=== PATIENT | female | born 1945 | race Caucasian/White ===

== ENCOUNTER → 2016-03-09 | Outpatient (CLI) | payer OTHER ==
[~2016-03-09] MED LIST: ATOR-54 PO; CMD25 PO; CMD5 PO; FRS/40 PO; GABA-112 PO; GLC500 PO; GLIP10TA3 PO; LEVO25TA5 PO; METO25TA56 PO; OXYB10TA PO; POTA10CA28 PO
--- NOTE | 2016-03-09 09:10 | DIAGNOSTIC IMAGING REPORT ---
LUMBAR SPINE MRI HISTORY: RIGHT LUMBAR RADICULOPATHY TECHNIQUE: Multiplanar multisequence MRI of the lumbar spine was performed without the use of contrast. COMPARISON: None. FINDINGS: For the purpose of the report the L5-S1 disc space will be located on axial image 23 of 25. There is 3 mm of anterolisthesis of L4-L5. Remaining vertebral bodies are maintained. Mild anterior wedging within the T12 vertebral body. This could be developmental or due to an old compression deformity. No acute fracture within the lumbar spine. Endplate osteophytes seen throughout the lumbar spine. Severe facet degenerative changes at L4-5 with a small amount of fluid within the facets. Moderate facet degenerative changes at L3-L4 and L5-S1. The conus terminates at the L1-L2 disc space level. The visualized paraspinal soft tissues are unremarkable. L1-L2: Small broad-based posterior disc bulge without central canal or neural foraminal narrowing. L2-L3: Small broad-based posterior disc bulge without central canal or neural foraminal narrowing. L3-L4: Small broad-based posterior disc bulge asymmetric to the left. In conjunction with the ligamentum and facet hypertrophy this results in mild to moderate central canal and moderate left neural foraminal narrowing. L4-L5: Broad-based posterior disc bulge asymmetric to the left. In conjunction with the ligamentum and facet hypertrophy this results in severe central canal narrowing. There is moderate left and mild right neural foraminal narrowing. The central canal measures an AP diameter of 4 mm. L5-S1: Tiny focal central disc protrusion without significant central canal or right-sided neural foraminal narrowing present also a small left foraminal focal disc protrusion resulting in moderate left neural foraminal narrowing. This likely abuts the exiting left L5 nerve root. IMPRESSION: 1. Severe central canal narrowing at L4-L5 due to a broad-based posterior disc bulge and ligamentum and facet hypertrophy. 2. Tiny focal central disc protrusion at L5-S1 without significant central canal narrowing. There is also a small left foraminal focal disc protrusion at L5-S1 which results in moderate left-sided neural foraminal narrowing. This likely abuts the exiting left L5 nerve root. 3. Bilateral neural foraminal narrowing as described above. 4. Grade I anterolisthesis at L4-L5. 5. Mild anterior wedging within the T12 vertebral body. This could be developmental or due to an old compression deformity. No acute fractures identified within the lumbar spine. Electronically signed by: Chino Worthy M.D. 03/09/2016 9:08 AM Dictated Date/Time: 03/09/2016 8:56 AM
== END | disposition home or self-care (01) ==
LOC: C.MRI 07:51
PROVIDERS: ATTEND Internal Medicine
DX: M54.16 Radiculopathy, lumbar region (principal); M48.06 Spinal stenosis, lumbar region; M51.27 Other intervertebral disc displacement, lumbosacral region; M43.16 Spondylolisthesis, lumbar region

== ENCOUNTER → 2016-03-18 | Outpatient (CLI) | payer OTHER ==
[2016-03-18 13:41] LABS: INR 3.2 (0.9-1.1); PROTHROMBIN TIME (PATIENT) 36.1 SECONDS (9.0-12.0)
== END | disposition home or self-care (01) ==
LOC: C.LABSPEC 12:37
PROVIDERS: ATTEND Internal Medicine
DX: I26.99 Other pulmonary embolism without acute cor pulmonale (principal); Z79.01 Long term (current) use of anticoagulants

== ENCOUNTER → 2016-03-30 | Outpatient (CLI) | payer OTHER ==
[2016-03-30 14:02] LABS: INR 1.9 (0.9-1.1); PROTHROMBIN TIME (PATIENT) 21.4 SECONDS (9.0-12.0)
== END | disposition home or self-care (01) ==
LOC: C.LABSPEC 12:24
PROVIDERS: ATTEND Internal Medicine
DX: I26.99 Other pulmonary embolism without acute cor pulmonale (principal); Z79.01 Long term (current) use of anticoagulants

== ENCOUNTER → 2016-04-16 | Outpatient (CLI) | payer OTHER ==
[2016-04-16 13:05] LABS: INR 2.4 (0.9-1.1); PROTHROMBIN TIME (PATIENT) 26.1 SECONDS (9.0-12.0)
== END | disposition home or self-care (01) ==
LOC: C.LABSPEC 12:23
PROVIDERS: ATTEND Internal Medicine
DX: I26.99 Other pulmonary embolism without acute cor pulmonale (principal); Z51.81 Encounter for therapeutic drug level monitoring; Z79.01 Long term (current) use of anticoagulants

== ENCOUNTER → 2016-04-23 | Outpatient (CLI) | payer OTHER ==
[2016-04-23 13:05] LABS: ALT/SGPT 23 U/L (12-78); AST/SGOT 12 U/L (15-37); BLOOD UREA NITROGEN 26 mg/dl (7-18); BUN/CREATININE RATIO 23.6 (10-20); CALCIUM 8.8 mg/dl (8.5-10.1); CARBON DIOXIDE 23 mmol/L (21-32); CHLORIDE 105 mmol/L (98-107); CHOLESTEROL 136 mg/dl (0-200); GLUCOSE 151 mg/dl (70-99); POTASSIUM 4.2 mmol/L (3.5-5.1); SODIUM 139 mmol/L (136-145); TRIGLYCERIDES 155 mg/dl (0-150); VERY LOW DENSITY LIPOPROT CALC 31 mg/dl
[2016-04-23 13:11] LABS: ALKALINE PHOSPHATASE 80 U/L (45-117); CHOLESTEROL/HDL RATIO 3.7; HDL CHOLESTEROL 37 mg/dl
[2016-04-23 13:29] LABS: ESTIMATED AVERAGE GLUCOSE 169 mg/dl; HA1C FLAG Normal (Normal)
== END | disposition home or self-care (01) ==
LOC: C.LABSPEC 12:21
PROVIDERS: ATTEND Internal Medicine
DX: E03.9 Hypothyroidism, unspecified (principal); I10 Essential (primary) hypertension; E11.9 Type 2 diabetes mellitus without complications; E78.5 Hyperlipidemia, unspecified

== ENCOUNTER → 2016-05-22 | Outpatient (CLI) | payer OTHER ==
[2016-05-22 18:12] LABS: INR 2.6 (0.9-1.1); PROTHROMBIN TIME (PATIENT) 29.4 SECONDS (9.0-12.0)
== END | disposition home or self-care (01) ==
LOC: C.LABSPEC 17:22
PROVIDERS: ATTEND Internal Medicine
DX: I26.99 Other pulmonary embolism without acute cor pulmonale (principal); Z79.01 Long term (current) use of anticoagulants

== ENCOUNTER → 2016-06-17 | Outpatient (CLI) | payer OTHER ==
[2016-06-17 19:41] LABS: INR 2.4 (0.9-1.1); PROTHROMBIN TIME (PATIENT) 26.6 SECONDS (9.0-12.0)
== END | disposition home or self-care (01) ==
LOC: C.LABSPEC 09:58
PROVIDERS: ATTEND Internal Medicine
DX: I26.99 Other pulmonary embolism without acute cor pulmonale (principal); Z79.01 Long term (current) use of anticoagulants

== ENCOUNTER → 2016-06-25 | Outpatient (CLI) | payer OTHER ==
[2016-06-25 15:43] LABS: PROTHROMBIN TIME (PATIENT) 10.6 SECONDS (9.0-12.0)
== END | disposition home or self-care (01) ==
LOC: C.LABSPEC 15:00
PROVIDERS: ATTEND Internal Medicine
DX: I26.99 Other pulmonary embolism without acute cor pulmonale (principal); Z86.718 Personal history of other venous thrombosis and embolism; Z79.01 Long term (current) use of anticoagulants

== ENCOUNTER → 2016-06-29 | Outpatient (CLI) | payer OTHER ==
[2016-06-29 13:17] LABS: INR 1.3 (0.9-1.1); PROTHROMBIN TIME (PATIENT) 13.5 SECONDS (9.0-12.0)
== END | disposition home or self-care (01) ==
LOC: C.LABSPEC 12:08
PROVIDERS: ATTEND Internal Medicine
DX: I26.99 Other pulmonary embolism without acute cor pulmonale (principal); Z79.01 Long term (current) use of anticoagulants

== ENCOUNTER → 2016-07-08 | Outpatient (CLI) | payer OTHER ==
[2016-07-08 15:49] LABS: PROTHROMBIN TIME (PATIENT) 42.3 SECONDS (9.0-12.0)
[2016-07-08 16:26] LABS: INR 3.7 (0.9-1.1)
== END | disposition home or self-care (01) ==
LOC: C.LABSPEC 15:16
PROVIDERS: ATTEND Internal Medicine
DX: I26.99 Other pulmonary embolism without acute cor pulmonale (principal); Z79.01 Long term (current) use of anticoagulants

== ENCOUNTER → 2016-07-22 | Outpatient (CLI) | payer OTHER ==
[2016-07-22 15:32] LABS: PROTHROMBIN TIME (PATIENT) 41.3 SECONDS (9.0-12.0)
[2016-07-22 15:34] LABS: INR 3.7 (0.9-1.1)
== END | disposition home or self-care (01) ==
LOC: C.LABSPEC 14:53
PROVIDERS: ATTEND Internal Medicine
DX: I26.99 Other pulmonary embolism without acute cor pulmonale (principal); Z79.01 Long term (current) use of anticoagulants

== ENCOUNTER → 2016-08-05 | Outpatient (CLI) | payer OTHER ==
[2016-08-05 13:24] LABS: INR 1.8 (0.9-1.1); PROTHROMBIN TIME (PATIENT) 19.3 SECONDS (9.0-12.0)
== END | disposition home or self-care (01) ==
LOC: C.LABSPEC 12:18
PROVIDERS: ATTEND Internal Medicine
DX: I26.99 Other pulmonary embolism without acute cor pulmonale (principal); Z79.01 Long term (current) use of anticoagulants

== ENCOUNTER → 2016-08-20 | Outpatient (CLI) | payer OTHER ==
[2016-08-20 12:47] LABS: BASO % 0.4 %; BASO ABS # 0.03 K/uL (0-0.2); COMPLETE YES; EOS % 2.3 %; HEMATOCRIT 38.6 % (37-47); IG% 0.1 %; LYMPH % 20.9 %; LYMPH ABS # 1.44 K/uL (1.2-3.4); MEAN CELL VOLUME 93.2 fL (80-100); MEAN CORPUSCULAR HEMOGLOBIN 30.7 pg (25-34); MEAN CORPUSCULAR HGB CONC 32.9 g/dl (32-36); MEAN PLATELET VOLUME 10.6 fL (7.4-10.4); NEUT % 68.3 %; PLATELET COUNT 254 K/uL (130-400); RED BLOOD COUNT 4.14 M/uL (4.2-5.4); WHITE BLOOD COUNT 6.89 K/uL (4.8-10.8)
[2016-08-20 12:58] LABS: ESTIMATED AVERAGE GLUCOSE 146 mg/dl; HA1C FLAG Normal (Normal)
[2016-08-20 13:00] LABS: INR 3.2 (0.9-1.1); PROTHROMBIN TIME (PATIENT) 36.5 SECONDS (9.0-12.0)
[2016-08-20 13:36] LABS: ALT/SGPT 21 U/L (12-78); AST/SGOT 14 U/L (15-37); BLOOD UREA NITROGEN 19 mg/dl (7-18); BUN/CREATININE RATIO 15.8 (10-20); CALCIUM 9.3 mg/dl (8.5-10.1); CARBON DIOXIDE 27 mmol/L (21-32); CHLORIDE 105 mmol/L (98-107); CHOLESTEROL 110 mg/dl (0-200); GLUCOSE 140 mg/dl (70-99); POTASSIUM 4.1 mmol/L (3.5-5.1); SODIUM 139 mmol/L (136-145); TRIGLYCERIDES 123 mg/dl (0-150); VERY LOW DENSITY LIPOPROT CALC 25 mg/dl
[2016-08-20 13:49] LABS: ALB/GLOB RATIO 1.1 (0.9-2); ALKALINE PHOSPHATASE 79 U/L (45-117); CHOLESTEROL/HDL RATIO 3.1; HDL CHOLESTEROL 35 mg/dl
== END | disposition home or self-care (01) ==
LOC: C.LABSPEC 09:45
PROVIDERS: ATTEND Internal Medicine
DX: I10 Essential (primary) hypertension (principal); E78.5 Hyperlipidemia, unspecified; E11.9 Type 2 diabetes mellitus without complications; E03.9 Hypothyroidism, unspecified; Z79.01 Long term (current) use of anticoagulants; Z86.711 Personal history of pulmonary embolism; Z86.718 Personal history of other venous thrombosis and embolism

== ENCOUNTER → 2016-09-14 | Outpatient (CLI) | payer OTHER ==
[2016-09-14 13:58] LABS: INR 1.9 (0.9-1.1); PROTHROMBIN TIME (PATIENT) 20.9 SECONDS (9.0-12.0)
== END | disposition home or self-care (01) ==
LOC: C.LABSPEC 12:22
PROVIDERS: ATTEND Internal Medicine
DX: I26.99 Other pulmonary embolism without acute cor pulmonale (principal); Z51.81 Encounter for therapeutic drug level monitoring; Z79.01 Long term (current) use of anticoagulants

== ENCOUNTER → 2016-10-15 | Outpatient (CLI) | payer OTHER ==
[2016-10-15 13:11] LABS: INR 3.3 (0.9-1.1); PROTHROMBIN TIME (PATIENT) 36.8 SECONDS (9.0-12.0)
== END | disposition home or self-care (01) ==
LOC: C.LABSPEC 12:14
PROVIDERS: ATTEND Internal Medicine
DX: I26.99 Other pulmonary embolism without acute cor pulmonale (principal); Z79.01 Long term (current) use of anticoagulants

== ENCOUNTER → 2016-10-26 | Outpatient (CLI) | payer OTHER ==
[2016-10-26 13:33] LABS: INR 2.2 (0.9-1.1); PROTHROMBIN TIME (PATIENT) 24.1 SECONDS (9.0-12.0)
== END | disposition home or self-care (01) ==
LOC: C.LABSPEC 12:48
PROVIDERS: ATTEND Internal Medicine
DX: I26.99 Other pulmonary embolism without acute cor pulmonale (principal); Z79.01 Long term (current) use of anticoagulants

== ENCOUNTER → 2016-11-25 | Outpatient (CLI) | payer OTHER ==
[2016-11-25 18:34] LABS: INR 1.9 (0.9-1.1); PROTHROMBIN TIME (PATIENT) 20.9 SECONDS (9.0-12.0)
== END | disposition home or self-care (01) ==
LOC: C.LABSPEC 10:16
PROVIDERS: ATTEND Internal Medicine
DX: I26.99 Other pulmonary embolism without acute cor pulmonale (principal); Z79.01 Long term (current) use of anticoagulants

== ENCOUNTER → 2016-12-28 | Outpatient (CLI) | payer OTHER ==
[2016-12-28 13:15] LABS: BASO % 0.3 %; BASO ABS # 0.02 K/uL (0-0.2); COMPLETE YES; EOS % 3.6 %; HEMATOCRIT 35.5 % (37-47); IG% 0.2 %; LYMPH % 24.9 %; LYMPH ABS # 1.66 K/uL (1.2-3.4); MEAN CELL VOLUME 93.7 fL (80-100); MEAN CORPUSCULAR HEMOGLOBIN 30.9 pg (25-34); MEAN PLATELET VOLUME 10.1 fL (7.4-10.4); MONO % 6.5 %; NEUT % 64.5 %; PLATELET COUNT 261 K/uL (130-400); RED BLOOD COUNT 3.79 M/uL (4.2-5.4); WHITE BLOOD COUNT 6.66 K/uL (4.8-10.8)
[2016-12-28 13:19] LABS: INR 1.1 (0.9-1.1); PROTHROMBIN TIME (PATIENT) 11.9 SECONDS (9.0-12.0)
[2016-12-28 13:40] LABS: ALT/SGPT 21 U/L (12-78); AST/SGOT 15 U/L (15-37); BLOOD UREA NITROGEN 35 mg/dl (7-18); BUN/CREATININE RATIO 24.3 (10-20); CALCIUM 9.3 mg/dl (8.5-10.1); CARBON DIOXIDE 30 mmol/L (21-32); CHLORIDE 102 mmol/L (98-107); CHOLESTEROL 107 mg/dl (0-200); CREATININE 1.43 mg/dl (0.60-1.20); GLUCOSE 120 mg/dl (70-99); POTASSIUM 4.6 mmol/L (3.5-5.1); SODIUM 140 mmol/L (136-145); TRIGLYCERIDES 131 mg/dl (0-150); VERY LOW DENSITY LIPOPROT CALC 26 mg/dl
[2016-12-28 13:48] LABS: ALKALINE PHOSPHATASE 80 U/L (45-117); CHOLESTEROL/HDL RATIO 2.8; HDL CHOLESTEROL 38 mg/dl
[2016-12-28 13:55] LABS: CREATININE RANDOM URINE 57.3 mg/dl; ESTIMATED AVERAGE GLUCOSE 140 mg/dl; HA1C FLAG Normal (Normal)
== END | disposition home or self-care (01) ==
LOC: C.LABSPEC 12:07
PROVIDERS: ATTEND Internal Medicine
DX: E11.9 Type 2 diabetes mellitus without complications (principal); E78.5 Hyperlipidemia, unspecified; I10 Essential (primary) hypertension; M19.90 Unspecified osteoarthritis, unspecified site; I26.99 Other pulmonary embolism without acute cor pulmonale; E03.9 Hypothyroidism, unspecified

== ENCOUNTER → 2017-01-13 | Outpatient (CLI) | payer OTHER ==
[2017-01-13 13:02] LABS: INR 3.2 (0.9-1.1); PROTHROMBIN TIME (PATIENT) 35.4 SECONDS (9.0-12.0)
== END | disposition home or self-care (01) ==
LOC: C.LABSPEC 12:02
PROVIDERS: ATTEND Internal Medicine
DX: I26.99 Other pulmonary embolism without acute cor pulmonale (principal); Z79.01 Long term (current) use of anticoagulants

== ENCOUNTER → 2017-01-27 | Outpatient (CLI) | payer OTHER ==
[2017-01-27 12:58] LABS: INR 2.5 (0.9-1.1); PROTHROMBIN TIME (PATIENT) 25.4 SECONDS (9.0-12.0)
== END | disposition home or self-care (01) ==
LOC: C.LABSPEC 12:22
PROVIDERS: ATTEND Internal Medicine
DX: Z51.81 Encounter for therapeutic drug level monitoring (principal); I26.99 Other pulmonary embolism without acute cor pulmonale; Z79.01 Long term (current) use of anticoagulants

== ENCOUNTER → 2017-02-17 | Outpatient (CLI) | payer OTHER ==
--- NOTE | 2017-02-17 14:59 | MAMMOGRAPHY REPORT ---
BILATERAL DIGITAL SCREENING MAMMOGRAM TOMOSYNTHESIS WITH CAD: 02/17/2017 CLINICAL HISTORY: Routine screening. Patient has no complaints. TECHNIQUE: Breast tomosynthesis in addition to standard 2D mammography was performed. Current study was also evaluated with a Computer Aided Detection (CAD) system. COMPARISON: Comparison is made to exams dated: 12/14/2014 mammogram, 12/08/2013 mammogram, 10/03/2012 mammogram, 10/01/2011 mammogram, 10/07/2010 mammogram, and 10/02/2010 mammogram - [facility]. BREAST COMPOSITION: There are scattered areas of fibroglandular density in both breasts. FINDINGS: No suspicious masses, calcifications, or areas of architectural distortion are noted in ei ther breast. There has been no significant interval change compared to prior exams. Scattered bilate ral benign-appearing calcifications are again noted. A biopsy marker clip is again noted within the left lateral breast. IMPRESSION: ACR BI-RADS CATEGORY 2: BENIGN There is no mammographic evidence of malignancy. A 1 year screening mammogram is recommended. The pa tient will receive written notification of the results. Approximately 10% of breast cancers are not detected with mammography. A negative mammographic report should not delay biopsy if a clinically suggestive mass is present. Bronwyn Kirkland M.D. ah/:02/17/2017 10:00:36 [employer] Operator: Ade ROLON(Dwayne)(M), [facility] letter sent: Normal 1/2 BI-RADS Code: ACR BI-RADS Category 2: Benign
== END | disposition home or self-care (01) ==
LOC: C.MAMM 09:40
PROVIDERS: ATTEND Internal Medicine
DX: Z12.31 Encounter for screening mammogram for malignant neoplasm of breast (principal)

== ENCOUNTER → 2017-02-23 | Outpatient (CLI) | payer OTHER | END | disposition home or self-care (01) | LOC: C.LABSPEC 12:37 | PROVIDERS: ATTEND Internal Medicine | DX: I26.99 Other pulmonary embolism without acute cor pulmonale (principal); Z79.01 Long term (current) use of anticoagulants; Z51.81 Encounter for therapeutic drug level monitoring ==

== ENCOUNTER → 2017-03-05 | Outpatient (CLI) | payer OTHER ==
[2017-03-05 15:16] LABS: INR 1.3 (0.9-1.1)
== END | disposition home or self-care (01) ==
LOC: C.LABSPEC 14:41
PROVIDERS: ATTEND Internal Medicine
DX: I26.99 Other pulmonary embolism without acute cor pulmonale (principal); Z79.01 Long term (current) use of anticoagulants; Z51.81 Encounter for therapeutic drug level monitoring

== ENCOUNTER → 2017-03-22 | Outpatient (CLI) | payer OTHER | END | disposition home or self-care (01) | LOC: C.LABSPEC 12:24 | PROVIDERS: ATTEND Internal Medicine | DX: I26.99 Other pulmonary embolism without acute cor pulmonale (principal); Z79.01 Long term (current) use of anticoagulants ==

== ENCOUNTER → 2017-04-19 | Outpatient (CLI) | payer OTHER ==
[2017-04-19 13:22] LABS: INR 3.1 (0.9-1.1)
== END | disposition home or self-care (01) ==
LOC: C.LABSPEC 12:36
PROVIDERS: ATTEND Internal Medicine
DX: Z51.81 Encounter for therapeutic drug level monitoring (principal); Z79.01 Long term (current) use of anticoagulants; I26.99 Other pulmonary embolism without acute cor pulmonale

== ENCOUNTER → 2017-04-29 | Outpatient (CLI) | payer OTHER ==
[2017-04-29 13:28] LABS: INR 3.5 (0.9-1.1)
[2017-04-29 14:17] LABS: BLOOD UREA NITROGEN 25 mg/dl (7-18); CALCIUM 8.8 mg/dl (8.5-10.1); CARBON DIOXIDE 27 mmol/L (21-32); CHOLESTEROL 108 mg/dl (0-200); CREATININE 1.27 mg/dl (0.60-1.20); GLUCOSE 159 mg/dl (70-99); LDL CHOLESTEROL (DIRECT) 61 mg/dl; POTASSIUM 4.5 mmol/L (3.5-5.1); SODIUM 138 mmol/L (136-145)
[2017-04-30 06:57] LABS: HEMOGLOBIN A1C 6.6 % (4.5-5.6)
== END | disposition home or self-care (01) ==
LOC: C.LABSPEC 12:32
PROVIDERS: ATTEND Internal Medicine
DX: I26.99 Other pulmonary embolism without acute cor pulmonale (principal); E11.9 Type 2 diabetes mellitus without complications; E78.5 Hyperlipidemia, unspecified; I10 Essential (primary) hypertension; M19.90 Unspecified osteoarthritis, unspecified site

== ENCOUNTER → 2017-05-17 | Outpatient (CLI) | payer OTHER ==
[2017-05-17 13:34] LABS: INR 2.3 (0.9-1.1)
== END | disposition home or self-care (01) ==
LOC: C.LABSPEC 12:46
PROVIDERS: ATTEND Internal Medicine
DX: Z51.81 Encounter for therapeutic drug level monitoring (principal); I26.99 Other pulmonary embolism without acute cor pulmonale; Z79.01 Long term (current) use of anticoagulants

== ENCOUNTER → 2017-06-07 | Outpatient (CLI) | payer OTHER ==
[2017-06-07 13:04] LABS: INR 1.5 (0.9-1.1)
== END ==
LOC: C.LABSPEC 12:18
PROVIDERS: ATTEND Internal Medicine
DX: I26.99 Other pulmonary embolism without acute cor pulmonale (principal); Z79.01 Long term (current) use of anticoagulants

== ENCOUNTER → 2017-06-21 | Outpatient (CLI) | payer OTHER ==
[2017-06-21 18:59] LABS: INR 3.6 (0.9-1.1)
== END | disposition home or self-care (01) ==
LOC: C.LABSPEC 17:14
PROVIDERS: ATTEND Internal Medicine
DX: I26.99 Other pulmonary embolism without acute cor pulmonale (principal); Z79.01 Long term (current) use of anticoagulants

== ENCOUNTER → 2017-09-14 | Outpatient (CLI) | payer OTHER ==
[2017-09-14 15:27] LABS: BASO % 0.3 %; BASO ABS # 0.02 K/uL (0-0.2); EOS % 3.8 %; HEMATOCRIT 37.6 % (37-47); HEMOGLOBIN 12.1 g/dL (12.0-16.0); IG# 0.03 K/uL (0.00-0.02); LYMPH % 22.6 %; MEAN CELL VOLUME 94.2 fL (80-100); MEAN CORPUSCULAR HEMOGLOBIN 30.3 pg (25-34); MEAN CORPUSCULAR HGB CONC 32.2 g/dl (32-36); MEAN PLATELET VOLUME 10.3 fL (7.4-10.4); MONO % 8.3 %; MONO ABS # 0.66 K/uL (0.11-0.59); NEUT % 64.6 %; NEUT ABS # 5.16 K/uL (1.4-6.5); PLATELET COUNT 279 K/uL (130-400); RED CELL DISTRIBUTION WIDTH CV 14.1 % (11.5-14.5); RED CELL DISTRIBUTION WIDTH SD 48.7 fL (36.4-46.3); WHITE BLOOD COUNT 7.97 K/uL (4.8-10.8)
[2017-09-14 15:39] LABS: ALBUMIN 3.8 gm/dl (3.4-5.0); ALT/SGPT 23 U/L (12-78); AST/SGOT 14 U/L (15-37); BLOOD UREA NITROGEN 20 mg/dl (7-18); CALCIUM 8.8 mg/dl (8.5-10.1); CARBON DIOXIDE 25 mmol/L (21-32); CREATININE 1.11 mg/dl (0.60-1.20); GLUCOSE 91 mg/dl (70-99); POTASSIUM 4.6 mmol/L (3.5-5.1); SODIUM 138 mmol/L (136-145)
[2017-09-14 15:47] LABS: ALKALINE PHOSPHATASE 77 U/L (45-117); TOTAL PROTEIN 7.3 gm/dl (6.4-8.2)
[2017-09-15 07:14] LABS: HEMOGLOBIN A1C 6.7 % (4.5-5.6)
== END | disposition home or self-care (01) ==
LOC: C.LABSPEC 15:11
PROVIDERS: ATTEND Internal Medicine
DX: E11.9 Type 2 diabetes mellitus without complications (principal); I10 Essential (primary) hypertension; M19.90 Unspecified osteoarthritis, unspecified site

== ENCOUNTER 2021-04-11 10:00 | Observation (INO) ==
[2021-04-11] MEDS ORDERED: SODIUM CHLORIDE 0.9% 1000ML 500 ML IV ONE (10:15)
--- NOTE | 2021-04-11 10:17 | Emergency Department Note ---
Impression & Plan Hypoglycemia, Skull fracture, SAH (subarachnoid hemorrhage), SDH (subdural hematoma), Hyponatremia ED Provider Note NAME: CATRACHITO GROVER AGE: 76 SEX: F : 1945 ARRIVES VIA: Ambulance INFORMANT: Patient, ED PROVIDER(S): Donta Hdez MD Chief Complaint: Hypoglycemia HPI: Patient presents from home due to concern for not acting right. The patient reportedly had a sugar in the 40s and was given 2 tubes glucose repeat was slightly higher. Upon presentation just prior to arrival she was in the 100s. Repeat at the bedside BSG of 160s. The patient denies any fevers chills chest pains or shortness of breath. The patient denies any nausea vomiting. The patient did have a recent admission and discharge at [facility] due to concern for right-sided subarachnoid subdural and hemorrhagic contusion. The patient did suffer a fall after returning home after her on 's . There was report that the patient did have some lower and erratic sugars while in hospital. Patient is currently on Metformin 1000 mg twice daily. Patient states that she did take her morning medications. The patient also does take glipizide 10 mg 1 tablet by mouth 2 times daily before me als. Patient states that she did take her morning medications at 6 AM this morning. Patient had been on Coumadin at that time. Patient was on Coumadin for history of unprovoked DVT. The patient did receive PCC as well as vitamin K. [place] prior to transfer to [facility]. Per the discharge summary the patient is supposed to be on a week of Keppra for seizure prophylaxis and is not to start her Coumadin until April 15. ROS: See HPI for pertinent positives and negatives. A total of 10 systems were reviewed and otherwise negative. Past medical history: See below Surgical history: See below Social history: See below Physical Exam: GENERAL: NAD, wearing a mask, non-toxic. EYE EXAM: Normal conjunctiva. PERRL, no anisocoria and EOM's grossly intact w/o pain. OROPHARYNX: Dry mucus membranes. Grossly normal dentition. NECK: Supple, no nuchal rigidity, no adenopathy, non-tender. No signs of meningismus. LUNGS: Clear to auscultation. Normal chest wall mechanics. HEART: NSR, no MRG. ABDOMEN: Abdomen soft, non-tender, normo-active bowel sounds, no masses, no rebound or guarding. BACK: No CVA TTP. SKIN: No rashes and no bruising. UPPER EXTREMITIES: Upper extremities are grossly normal. LOWER EXTREMITIES: Grossly normal, no edema. NEURO EXAM: Awake and alert, follows commands, oriented to person and place, normal speech, moves all 4 extremities. Differential diagnoses: Infection, dehydration, metabolic abnormality, hypo/hyperglycemia, electrolyte disturbance, anemia, hypoxia, cardiac sources, intracerebral event, toxicologic, neurologic, as well as other pathologies. Course: Patient was seen and evaluated the bedside. Full history physical exam was performed. EKG interpreted by me Sinus with first-degree AV block, rate of 73, left axis deviation. T wave inversion in V2. Imaging Studies: See Below Cardiac monitoring: An order was placed for continuous cardiac monitoring. The monitor shows a rate of 75 with sinus rhythm. MDM: Patient was seen due to concern for change in mentation as well as hypoglycemia. The patient's BSG after history and physical exam is in the 160s. Blood work is obtained along with CT of the head. Patient is a normal white count with a hemoglobin of 10.7. The patient's kidney function is unremarkable. Mild hyponatremia at 132. Calcium at 8.3. Covid negative. The patient did have a CT which showed some change in findings and given this and her recent intracranial hemorrhage I did speak with neurosurgery Dr. Walter at [facility]. I did describe the findings on the impression and did have the imaging pushed to [place] for his review. His initial impression was that this was not acute and that he did not require transfer as he reviewed her most recent CAT scan from April 05. Patient's repeat BSG was in the 50s. The patient was started on D10 as I was not sure if the patient would need to be n.p.o. I did speak with Dr. Walter again stated that there were no CT changes. I did speak with the on-call hospitalist ZAIRA Lucero and the patient was admitted by Dr. Kong. Critical Care: I have personally spent 35 minutes of critical care time in direct management of this patient. This includes bedside care, interpretation of diagnostic studies, and testing, discussion with consultants, patient, and family members, and other require inpatient management activities. This 35 minutes is in excess of all separately billable procedures. Past Med/Surg History Medical History Anticoagulant long-term use Diabetes DMII (diabetes mellitus, type 2) DVT (deep venous thrombosis) Hyperglycemia Hypertension ICH (intracerebral hemorrhage) PE (pulmonary embolism) T4 vertebral fracture Surgical History No pertinent past surgical history Family History Other Family history non-contributory Social History Smoking Status: Never smoker Preferred Language: Azeri Feels Safe at Home: Yes Allergies Allergies Allergy/AdvReac Type Severity Reaction Status Date / Time cefoxitin AdvReac Mild vomiting Verified 04/11/21 12:08 Home Meds Home Medications Medication Instructions Recorded Confirmed atorvastatin 20 mg tablet 20 mg PO HS 03/31/21 04/11/21 gabapentin 100 mg capsule 100 mg PO HS 03/31/21 04/11/21 glipizide 10 mg tablet 10 mg PO BIDM 03/31/21 04/11/21 levothyroxine 25 mcg tablet 25 mcg PO DAILYBB 03/31/21 04/11/21 metformin 1,000 mg tablet 1,000 mg PO BID 03/31/21 04/11/21 metoprolol tartrate 25 mg tablet 25 mg PO BID 03/31/21 04/11/21 oxybutynin chloride 10 mg 10 mg PO DAILY PRN 03/31/21 04/11/21 tablet,extended release 24 hr potassium chloride 10 mEq 10 meq PO DAILY 03/31/21 04/11/21 capsule,extended release warfarin 2.5 mg tablet 2.5 mg PO DAILY 03/31/21 04/11/21 acetaminophen 500 mg tablet 1,000 mg PO Q8H 04/11/21 04/11/21 docusate sodium 100 mg capsule 100 mg PO UD 04/11/21 04/11/21 (Colace) lisinopril 20 mg tablet 20 mg PO DAILY 04/11/21 04/11/21 melatonin 5 mg tablet 5 mg PO HS 04/11/21 04/11/21 oxycodone 5 mg tablet 2.5 mg PO Q4H PRN 04/11/21 04/11/21 sodium chloride 1,000 mg soluble 1,000 mg PO Q8H 04/11/21 04/11/21 tablet Results & Data (ED) Vital Signs Vital Signs - 24 hr 04/11/21 09:48 04/11/21 10:09 04/11/21 10:30 Temperature 36.8 C Temperature Source Oral Pulse Rate 74 72 72 Pulse Rhythm Regular Respiratory Rate 20 18 22 Respiratory Depth Normal Blood Pressure 159/73 H 156/73 H 145/67 H Blood Pressure Mean 101 100 93 Pulse Oximetry 98 98 97 Oxygen Delivery Method Room Air Sepsis Recent Fever Within 48 Hours No Sepsis New/Unexplained Change in Mental Status No Sepsis Action Taken by Nursing No Action Required 04/11/21 11:00 04/11/21 11:30 04/11/21 12:00 Temperature Temperature Source Pulse Rate 63 71 64 Pulse Rhythm Respiratory Rate 20 16 18 Respiratory Depth Blood Pressure 153/79 H 168/72 H 158/70 H Blood Pressure Mean 103 104 99 Pulse Oximetry 96 97 96 Oxygen Delivery Method Sepsis Recent Fever Within 48 Hours Sepsis New/Unexplained Change in Mental Status Sepsis Action Taken by Nursing 04/11/21 12:30 Temperature Temperature Source Pulse Rate 71 Pulse Rhythm Respiratory Rate 14 Respiratory Depth Blood Pressure 166/74 H Blood Pressure Mean 104 Pulse Oximetry 97 Oxygen Delivery Method Sepsis Recent Fever Within 48 Hours Sepsis New/Unexplained Change in Mental Status Sepsis Action Taken by Long-Term Medications Current Medication List: was personally reviewed by me Laboratory Data Attestation: I reviewed the patient's lab results. Result diagrams: 04/11/21 10:33 04/11/21 10:33 Lab Results 04/11/21 04/11/21 04/11/21 Range/Units 10:07 10:33 10:33 WBC 9.27 (4.8-10.8) K/uL RBC 3.35 L (4.2-5.4) M/uL Hgb 10.7 L (12.0-16.0) g/dL Hct 31.3 L (37-47) % MCV 93.4 (80-100) fL MCH 31.9 (25-34) pg MCHC 34.2 (32-36) g/dL RDW Std Deviation 48.2 H (36.4-46.3) fL RDW Coeff of Mihaela 14.2 (11.5-14.5) % Plt Count 252 (130-400) K/uL MPV 8.6 (7.4-10.4) fL Immature Gran % (Auto) 0.4 % Neut % (Auto) 81.3 % Lymph % (Auto) 8.8 % [place] % (Auto) 8.6 % Eos % (Auto) 0.9 % Baso % (Auto) 0.0 % Neut # (Auto) 7.53 H (1.4-6.5) K/uL Lymph # (Auto) 0.82 L (1.2-3.4) K/uL [place] # (Auto) 0.80 H (0.11-0.59) K/uL Eos # (Auto) 0.08 (0-0.5) K/uL Baso # (Auto) 0.00 (0-0.2) K/uL Immature Gran # (Auto) 0.04 H (0.00-0.02) K/uL Sodium 132 L (136-145) mmol/L Potassium 3.7 (3.5-5.1) mmol/L Chloride 99 (98-107) mmol/L Carbon Dioxide 26 (21-32) mmol/L Anion Gap 7 (3-11) BUN 15 (6-23) mg/dl Creatinine 0.81 (0.6-1.2) mg/dl Est Cr Clr Drug Dosing Not Reportable Est GFR ( Amer) 81.8 ml/min Est GFR (Non-Af Amer) 70.5 ml/min BUN/Creatinine Ratio 18.5 (10-20) Glucose 154 H (70-99(Fasting)) mg/dl POC Glucose 162 H (70-99) mg/dl Calcium 8.3 L (8.5-10.1) mg/dl Total Bilirubin 0.5 (0.2-1.0) mg/dl AST 19 (13-39) U/L ALT 38 (7-52) U/L Alkaline Phosphatase 72 (34-104) U/L Total Protein 5.9 L (6.0-8.3) gm/dl Albumin 3.3 L (3.4-5.0) gm/dl Globulin 2.6 (2.5-4.0) gm/dl Albumin/Globulin Ratio 1.3 (0.9-2) TSH (0.300-4.500) uIu/ml SARS-CoV-2, RNA, NAAT (NEGATIVE) 04/11/21 04/11/21 04/11/21 Range/Units 10:33 12:40 14:15 WBC (4.8-10.8) K/uL RBC (4.2-5.4) M/uL Hgb (12.0-16.0) g/dL Hct (37-47) % MCV (80-100) fL MCH (25-34) pg MCHC (32-36) g/dL RDW Std Deviation (36.4-46.3) fL RDW Coeff of Mihaela (11.5-14.5) % Plt Count (130-400) K/uL MPV (7.4-10.4) fL Immature Gran % (Auto) % Neut % (Auto) % Lymph % (Auto) % [place] % (Auto) % Eos % (Auto) % Baso % (Auto) % Neut # (Auto) (1.4-6.5) K/uL Lymph # (Auto) (1.2-3.4) K/uL [place] # (Auto) (0.11-0.59) K/uL Eos # (Auto) (0-0.5) K/uL Baso # (Auto) (0-0.2) K/uL Immature Gran # (Auto) (0.00-0.02) K/uL Sodium (136-145) mmol/L Potassium (3.5-5.1) mmol/L Chloride (98-107) mmol/L Carbon Dioxide (21-32) mmol/L Anion Gap (3-11) BUN (6-23) mg/dl Creatinine (0.6-1.2) mg/dl Est Cr Clr Drug Dosing Est GFR ( Amer) ml/min Est GFR (Non-Af Amer) ml/min BUN/Creatinine Ratio (10-20) Glucose (70-99(Fasting)) mg/dl POC Glucose 57 L* (70-99) mg/dl Calcium (8.5-10.1) mg/dl Total Bilirubin (0.2-1.0) mg/dl AST (13-39) U/L ALT (7-52) U/L Alkaline Phosphatase (34-104) U/L Total Protein (6.0-8.3) gm/dl Albumin (3.4-5.0) gm/dl Globulin (2.5-4.0) gm/dl Albumin/Globulin Ratio (0.9-2) TSH 2.101 (0.300-4.500) uIu/ml SARS-CoV-2, RNA, NAAT NEGATIVE (NEGATIVE) 04/11/21 Range/Units 15:18 WBC (4.8-10.8) K/uL RBC (4.2-5.4) M/uL Hgb (12.0-16.0) g/dL Hct (37-47) % MCV (80-100) fL MCH (25-34) pg MCHC (32-36) g/dL RDW Std Deviation (36.4-46.3) fL RDW Coeff of Mihaela (11.5-14.5) % Plt Count (130-400) K/uL MPV (7.4-10.4) fL Immature Gran % (Auto) % Neut % (Auto) % Lymph % (Auto) % [place] % (Auto) % Eos % (Auto) % Baso % (Auto) % Neut # (Auto) (1.4-6.5) K/uL Lymph # (Auto) (1.2-3.4) K/uL [place] # (Auto) (0.11-0.59) K/uL Eos # (Auto) (0-0.5) K/uL Baso # (Auto) (0-0.2) K/uL Immature Gran # (Auto) (0.00-0.02) K/uL Sodium (136-145) mmol/L Potassium (3.5-5.1) mmol/L Chloride (98-107) mmol/L Carbon Dioxide (21-32) mmol/L Anion Gap (3-11) BUN (6-23) mg/dl Creatinine (0.6-1.2) mg/dl Est Cr Clr Drug Dosing Est GFR ( Amer) ml/min Est GFR (Non-Af Amer) ml/min BUN/Creatinine Ratio (10-20) Glucose (70-99(Fasting)) mg/dl POC Glucose 75 (70-99) mg/dl Calcium (8.5-10.1) mg/dl Total Bilirubin (0.2-1.0) mg/dl AST (13-39) U/L ALT (7-52) U/L Alkaline Phosphatase (34-104) U/L Total Protein (6.0-8.3) gm/dl Albumin (3.4-5.0) gm/dl Globulin (2.5-4.0) gm/dl Albumin/Globulin Ratio (0.9-2) TSH (0.300-4.500) uIu/ml SARS-CoV-2, RNA, NAAT (NEGATIVE) Administered Medications Discontinued Medications Sodium Chloride (Nss 1000ml) 500 mls @ 999 mls/hr IV .Q31M ONE Stop: 04/11/21 10:45 Last Infusion: 04/11/21 11:39 Dose: 0 mls/hr Documented by: [id number] Admin: 04/11/21 11:03 Dose: 999 mls/hr Documented by: [id number] Dextrose (D10w) 250 mls @ 125 mls/hr IV .Q2H ONE Stop: 04/11/21 14:59 Last Admin: 04/11/21 13:05 Dose: 125 mls/hr Documented by: [id number] Imaging Data Radiologist's Impression: Chest X-Ray 04/11/21 10:13 XR chest 1V portable HISTORY: 76 years-old Female weakness acute weakness COMPARISON: Chest radiograph 03/31/2021 TECHNIQUE: Portable AP view of the chest FINDINGS: The cardiac mediastinal and hilar silhouettes are within normal limits. Atherosclerosis of the thoracic aorta. No pneumothorax, pleural effusion, airspace consolidation or overt pulmonary edema. Spondylitic spurring of the spine. Bones appear grossly intact. IMPRESSION: No acute process. ACT 112: Negative or not required by law. The above report was generated using voice recognition software. It may contain grammatical, syntax or spelling errors. Electronically signed by: Itz Mehta M.D. 04/11/2021 10:[address] 04/11/21 10:13 CT SCAN OF THE BRAIN WITHOUT IV CONTRAST CLINICAL HISTORY: Change in mental status. Hypoglycemia. Recent intracranial hemorrhage COMPARISON STUDY: CT of the brain dated 03/31/2021. TECHNIQUE: Unenhanced axial CT scan of the brain is performed from the vertex to the skull base. A dose lowering technique was utilized adhering to the principles of ALARA. CT DOSE: 537.48 mGy.cm FINDINGS: Brain parenchyma: The large foci of hemorrhage seen in the right posterior parietal region on 03/31/2021 and largely resolved. There are numerous small foci of subarachnoid hemorrhage identified along the high right parietal sulci, best seen on axial images #20, #22, and #23. There is edema within the right frontal cortex on image #12, likely representing an evolving contusion. There is also a small amount of subarachnoid hemorrhage overlying this site. There are also small foci of subarachnoid blood along the left occipital sulci, best seen on image #11. There is no midline shift. There are age-related involutional changes noting moderate subcortical and periventricular microangiopathic change. There are new bilateral low-attenuation (CSF density) extra-axial fluid collections which measure up to 4 mm. These likely represent chronic subdural hemorrhages versus hygromas. Ventricles, sulci, cisterns: Prominent secondary to involutional change. No intraventricular blood is seen. Intracranial vasculature: There is atherosclerotic calcification of the cavernous carotid and vertebral arteries. Calvarium: A nondepressed left occipital fracture is similar to previous. Soft tissues: There is minimal residual left posterior parietal subdural scalp contusion. Sinuses and mastoids: Fluid/secretions are noted in the sphenoid sinuses. The remaining visualized paranasal sinuses are clear. The mastoid air cells are well pneumatized. Orbits: The bony orbits are grossly intact. There is a right ocular lens implant. IMPRESSION: 1. The large foci of hemorrhage seen involving the right parietal region on 03/31/2021 have largely resolved. 2. There are numerous tiny foci of trace subarachnoid hemorrhage, greatest along the high right frontoparietal sulci, anteriorly along the right frontal cortex, and in the left occipital region. These may be acute to subacute. 3. There is edema within the right frontal cortex, likely representing an evolving contusion. 4. There are small low-attenuation extra-axial fluid collections seen along the convexity bilaterally. These are new from previous and likely represent chronic subdural hematomas versus hygromas. 5. A left occipital skull fracture is unchanged. ACT 112: Negative or not required by law. Electronically signed by: Toño Dorsey M.D. 04/11/2021 11:54 AM Discharge Plan Visit Data Chief Complaint: Hypoglycemia ED Provider: Donta Hdez Patient Disposition: Admitted As Inpatient Prescriptions Prescriptions: No Action potassium chloride 10 mEq capsule, extended release 10 meq PO DAILY RF: 0 atorvastatin 20 mg tablet 20 mg PO HS RF: 0 oxybutynin chloride 10 mg tablet extended release 24hr 10 mg PO DAILY PRN (Reason: urinary discomfort) RF: 0 glipizide 10 mg tablet 10 mg PO BIDM RF: 0 warfarin 2.5 mg tablet 2.5 mg PO DAILY RF: 0 levothyroxine 25 mcg tablet 25 mcg PO DAILYBB RF: 0 metformin 1,000 mg tablet 1,000 mg PO BID RF: 0 gabapentin 100 mg capsule 100 mg PO HS RF: 0 metoprolol tartrate 25 mg tablet 25 mg PO BID RF: 0 lisinopril 20 mg tablet 20 mg PO DAILY RF: 0 acetaminophen 500 mg Tablet 1,000 mg PO Q8H RF: 0 docusate sodium [Colace] 100 mg Capsule 100 mg PO UD RF: 0 oxycodone 5 mg tablet 2.5 mg PO Q4H PRN (Reason: Moderate Pain (Scale Score 5-6)) RF: 0 sodium chloride 1,000 mg Tablet,Soluble 1,000 mg PO Q8H RF: 0 melatonin 5 mg Tablet 5 mg PO HS RF: 0
[2021-04-11 10:46] LABS: Eosinophils # (auto) 0.08 K/uL (0-0.5); Eosinophils % (auto) 0.9 %; Hematocrit (blood only) 31.3 % (37-47); Hemoglobin 10.7 g/dL (12.0-16.0); Immature Granulocytes # (auto) 0.04 K/uL (0.00-0.02); Immature Granulocytes % (auto) 0.4 %; Lymphocytes # (auto) 0.82 K/uL (1.2-3.4); Lymphocytes % (auto) 8.8 %; Mean Corpuscular Hemoglobin 31.9 pg (25-34); Mean Corpuscular Hgb Conc 34.2 g/dL (32-36); Mean Corpuscular Volume 93.4 fL (80-100); Mean Platelet Volume 8.6 fL (7.4-10.4); Monocytes % (auto) 8.6 %; Neutrophils # (auto) 7.53 K/uL (1.4-6.5); Neutrophils % (auto) 81.3 %; Platelet Count 252 K/uL (130-400); RDW Coefficient of Variation 14.2 % (11.5-14.5); RDW Standard Deviation 48.2 fL (36.4-46.3); Red Blood Count 3.35 M/uL (4.2-5.4); White Blood Count 9.27 K/uL (4.8-10.8)
--- NOTE | 2021-04-11 10:51 | XRay Report ---
XR chest 1V portable HISTORY: 76 years-old Female weakness acute weakness COMPARISON: Chest radiograph 03/31/2021 TECHNIQUE: Portable AP view of the chest FINDINGS: The cardiac mediastinal and hilar silhouettes are within normal limits. Atherosclerosis of the thorac ic aorta. No pneumothorax, pleural effusion, airspace consolidation or overt pulmonary edema. Spondyl itic spurring of the spine. Bones appear grossly intact. IMPRESSION: No acute process. ACT 112: Negative or not required by law. The above report was generated using voice recognition software. It may contain grammatical, syntax o r spelling errors. Electronically signed by: Itz Mehta M.D. 04/11/2021 10:50 AM
[2021-04-11 11:05] LABS: Alanine Aminotransferase 38 U/L (7-52); Albumin Globulin Ratio 1.3 (0.9-2); Albumin Level 3.3 gm/dl (3.4-5.0); Alkaline Phosphatase 72 U/L (34-104); Anion Gap 7 (3-11); Aspartate Aminotransferase 19 U/L (13-39); BUN Creatinine Ratio 18.5 (10-20); Bilirubin,Total 0.5 mg/dl (0.2-1.0); Blood Urea Nitrogen 15 mg/dl (6-23); Calcium 8.3 mg/dl (8.5-10.1); Carbon Dioxide 26 mmol/L (21-32); Chloride 99 mmol/L (98-107); Est GFR (African American) 81.8 ml/min; Est GFR (Non-African American) 70.5 ml/min; Globulin 2.6 gm/dl (2.5-4.0); Glucose 154 mg/dl (70-99(Fasting)); Potassium 3.7 mmol/L (3.5-5.1); Sodium 132 mmol/L (136-145); Total Protein 5.9 gm/dl (6.0-8.3)
--- NOTE | 2021-04-11 11:55 | CT Scan Report ---
CT SCAN OF THE BRAIN WITHOUT IV CONTRAST CLINICAL HISTORY: Change in mental status. Hypoglycemia. Recent intracranial hemorrhage COMPARISON STUDY: CT of the brain dated 03/31/2021. TECHNIQUE: Unenhanced axial CT scan of the brain is performed from the vertex to the skull base. A do se lowering technique was utilized adhering to the principles of ALARA. CT DOSE: 537.48 mGy.cm FINDINGS: Brain parenchyma: The large foci of hemorrhage seen in the right posterior parietal region on 03/31/19 22 and largely resolved. There are numerous small foci of subarachnoid hemorrhage identified along th e high right parietal sulci, best seen on axial images #20, #22, and #23. There is edema within the r ight frontal cortex on image #12, likely representing an evolving contusion. There is also a small am ount of subarachnoid hemorrhage overlying this site. There are also small foci of subarachnoid blood along the left occipital sulci, best seen on image #11. There is no midline shift. There are age-rela ousmane involutional changes noting moderate subcortical and periventricular microangiopathic change. Th ere are new bilateral low-attenuation (CSF density) extra-axial fluid collections which measure up to 4 mm. These likely represent chronic subdural hemorrhages versus hygromas. Ventricles, sulci, cisterns: Prominent secondary to involutional change. No intraventricular blood is seen. Intracranial vasculature: There is atherosclerotic calcification of the cavernous carotid and vertebr al arteries. Calvarium: A nondepressed left occipital fracture is similar to previous. Soft tissues: There is minimal residual left posterior parietal subdural scalp contusion. Sinuses and mastoids: Fluid/secretions are noted in the sphenoid sinuses. The remaining visualized pa ranasal sinuses are clear. The mastoid air cells are well pneumatized. Orbits: The bony orbits are grossly intact. There is a right ocular lens implant. IMPRESSION: 1. The large foci of hemorrhage seen involving the right parietal region on 03/31/2021 have largely re solved. 2. There are numerous tiny foci of trace subarachnoid hemorrhage, greatest along the high right front oparietal sulci, anteriorly along the right frontal cortex, and in the left occipital region. These m ay be acute to subacute. 3. There is edema within the right frontal cortex, likely representing an evolving contusion. 4. There are small low-attenuation extra-axial fluid collections seen along the convexity bilaterally . These are new from previous and likely represent chronic subdural hematomas versus hygromas. 5. A left occipital skull fracture is unchanged. ACT 112: Negative or not required by law. Electronically signed by: Toño Dorsey M.D. 04/11/2021 11:54 AM
--- NOTE | 2021-04-11 12:06 | Electrocardiogram Report ---
Test Reason : Blood Pressure : / mmHG Vent. Rate : 073 BPM Atrial Rate : 073 BPM P-R Int : 202 ms QRS Dur : 096 ms QT Int : 418 ms P-R-T Axes : 027 -54 062 degrees QTc Int : 460 ms Normal sinus rhythm Incomplete right bundle branch block Left anterior fascicular block Left axis deviation Abnormal ECG When compared with ECG of 31-MAR-2021 22:20, Nonspecific T wave abnormality now evident in Anterior leads Confirmed by Ermias Wolff ([id number]) on 04/11/2021 12:06:48 PM Referred By: SELF Confirmed By:Homero Wolff
[2021-04-11] MEDS ORDERED: DEXTROSE 10% 250 ML IV ONE (13:00)
--- NOTE | 2021-04-11 14:43 | History & Physical Report ---
Date of Service April 11, 2021 Assessment & Plan (1) Hypoglycemia: Plan: Refractory hypoglycemia- however has been stable once continuous glucose via IVF was initiated - Feed patient now- regular- then transition to carb consistent diet- hopeful to get D10 off relatively soon as patient starts oral intake - Hold metformin and Glipizide - Glucose checks 4 hours-- if stable for 8 hours can change interval - Insulin addition if consistently >180 - No recent history of steroid use - Likely related to Glipizide (2) Somnolence: Plan: Likely related to #1 UA is pending on admission neurological exams q6 hour BG checks q4 (3) SAH (subarachnoid hemorrhage): Plan: Continue to hold Coumadin- Restart per [facility] recommendations on 04-15-21 - No acute changes reported on CT head - Neurological checks q6 (4) SDH (subdural hematoma): Plan: As above (5) Osteoarthritis, knee: Plan: Continue gabapentin (6) T4 vertebral fracture: Plan: From previous fall - evaluated at [facility] - Patient is full weight bearing (7) HTN (hypertension): Plan: Continue Metoprolol 25mg PO BID (8) DMII (diabetes mellitus, type 2): Plan: As above - Likely discontinue her glipizide or decrease her dose - reports not having much appetite as previously - HGB A1c in am (9) Hypothyroidism: Plan: TSH normal Continue levothyroxine History of Present Illness Primary Care Provider: Nahum Lucero MD 76 YOF with past medical history of: DMII, HTN, HLD, Hypothyroidism, Afib, DVT/PE (previously on Warfarin) fall, SAH, SDH with skull fracture. Patient comes to the EMD today secondary to decreased mental status which was her being increased in somnolence and found to be hypoglycemic. The patient most recent relevant history is s/p fall on resulting in the above head trauma with intracranial bleeding requiring reversal of her anticoagulation and transfer to [facility]. She had her medications adjusted at that time which included discontinuation of her Oxybutynin and holding her Coumadin. She has however continued on her Glipizide 10mg. Patient was reported <60 when EMS picked her up and was given amp of D50- which brought her glucose up to 154 on her BMP, but returning dextrose finger stick had her recorded at 57 at 12:40. She was started on D10 at 125ml/hr. She was not given a trial of food secondary to evaluation of her repeat head CT being interpreted and discussed with [facility]. No acute changes noted from [facility] to EMD conversation. Patient is awake and pleasant "feeling much better". She was due to follow up with her PCP today. Patient will be admitted to medical surgical floor. She will be given food at this time and wean down her D10, will hold her Glipizide and Metformin. Patient COVID test on admission is: NEGATIVE Allergies Allergy/AdvReac Type Severity Reaction Status Date / Time cefoxitin AdvReac Mild vomiting Verified 04/11/21 12:08 Home Medications Medication Instructions Recorded Confirmed Type atorvastatin 20 mg tablet 20 mg PO HS 03/31/21 04/11/21 History gabapentin 100 mg capsule 100 mg PO HS 03/31/21 04/11/21 History glipizide 10 mg tablet 10 mg PO BIDM 03/31/21 04/11/21 History levothyroxine 25 mcg tablet 25 mcg PO DAILYBB 03/31/21 04/11/21 History metformin 1,000 mg tablet 1,000 mg PO BID 03/31/21 04/11/21 History metoprolol tartrate 25 mg tablet 25 mg PO BID 03/31/21 04/11/21 History oxybutynin chloride 10 mg 10 mg PO DAILY PRN 03/31/21 04/11/21 History tablet,extended release 24 hr potassium chloride 10 mEq 10 meq PO DAILY 03/31/21 04/11/21 History capsule,extended release warfarin 2.5 mg tablet 2.5 mg PO DAILY 03/31/21 04/11/21 History acetaminophen 500 mg tablet 1,000 mg PO Q8H 04/11/21 04/11/21 History docusate sodium 100 mg capsule 100 mg PO UD 04/11/21 04/11/21 History (Colace) lisinopril 20 mg tablet 20 mg PO DAILY 04/11/21 04/11/21 History melatonin 5 mg tablet 5 mg PO HS 04/11/21 04/11/21 History oxycodone 5 mg tablet 2.5 mg PO Q4H PRN 04/11/21 04/11/21 History sodium chloride 1,000 mg soluble 1,000 mg PO Q8H 04/11/21 04/11/21 History tablet Past Med/Surg History Medical History Anticoagulant long-term use Diabetes DMII (diabetes mellitus, type 2) DVT (deep venous thrombosis) Hyperglycemia Hypertension ICH (intracerebral hemorrhage) PE (pulmonary embolism) T4 vertebral fracture Surgical History No pertinent past surgical history Family History Other Family history non-contributory Social History Smoking Status: Never smoker Hx Alcohol Use: No Hx Substance Use: No Preferred Language: Hungarian Communication Ability: Effective Steeler Required: No Beliefs That Will Affect Care: None Current Living Situation: Family Other Information That Helps Us Care for You: No Feels Safe at Home: Yes Safety Concerns: Feels Safe At This Time Assistive Devices: Denture - Upper and Walker Review of Systems Review of Systems: REVIEW OF SYSTEMS: Constitutional: No fever, sweats or chills Eyes: No diplopia, no worsening or blurred vision ENT: normal hearing, no trouble swallowing Respiratory: No cough, sputum, dyspnea at rest or on exertion Cardiovascular: No chest pain, tightness or palpitations Abdomen: No pain, nausea, vomiting, diarrhea or constipation Musculoskeletal: (+) generalized weakness following hospitalization, No joint pain, calf pain, swelling Neurologic: (+) walks with walker, No headaches, focal weakness, numbness/tingling Psychiatric: No anxiety or depression Skin: No rash or itch Physical Exam Physical Exam: PHYSICAL EXAM: General: awake, alert, no apparent distress, conversant and aware Head: Normocephalic, atraumatic ENT: PERRLA, EOMI, no pharyngeal exudate, mucous membranes moist Neuro: AAO x 3, speech clear and appropriate, strength intact bilaterally 5/5, sensation intact and equal all extremities and dermatomes, no pronator drift Chest: equal rise and fall of the chest, no accessory muscle use, no heaves or thrills, Clear to auscultation, on room air, Cardiac: Regular rate and rhythm, telemetry reviewed-NSR, skin warm dry, cap refill <3 seconds, peripheral pulses +2 no JVD, no murmur, trace edema to lower extremities GI: NABS x 4 quadrants, soft, nontender to palpation, no rebound, guarding or tenderness : Spontaneously voiding, no pain, no CVA tenderness, Extremities: Normal inspection, no peripheral edema or erythema, calfs nontender to palpation Psych: Normal mood and affect Skin: no rash or erythema Results & Data Results & Data ([facility]) Vital Signs (Past 12 Hours) Vital Signs Temp Pulse Resp BP Pulse Ox 04/11/21 12:30 71 14 166/74 H 97 04/11/21 12:00 64 18 158/70 H 96 04/11/21 11:30 71 16 168/72 H 97 04/11/21 11:00 63 20 153/79 H 96 04/11/21 10:30 72 22 145/67 H 97 04/11/21 10:09 72 18 156/73 H 98 04/11/21 09:48 36.8 C 74 20 159/73 H 98 Laboratory Results Abnormal lab results 04/11/21 04/11/21 04/11/21 Range/Units 10:07 10:33 10:33 RBC 3.35 L (4.2-5.4) M/uL Hgb 10.7 L (12.0-16.0) g/dL Hct 31.3 L (37-47) % RDW Std Deviation 48.2 H (36.4-46.3) fL Neut # (Auto) 7.53 H (1.4-6.5) K/uL Lymph # (Auto) 0.82 L (1.2-3.4) K/uL [place] # (Auto) 0.80 H (0.11-0.59) K/uL Immature Gran # (Auto) 0.04 H (0.00-0.02) K/uL Sodium 132 L (136-145) mmol/L Glucose 154 H (70-99(Fasting)) mg/dl POC Glucose 162 H (70-99) mg/dl Calcium 8.3 L (8.5-10.1) mg/dl Total Protein 5.9 L (6.0-8.3) gm/dl Albumin 3.3 L (3.4-5.0) gm/dl 04/11/21 Range/Units 12:40 RBC (4.2-5.4) M/uL Hgb (12.0-16.0) g/dL Hct (37-47) % RDW Std Deviation (36.4-46.3) fL Neut # (Auto) (1.4-6.5) K/uL Lymph # (Auto) (1.2-3.4) K/uL [place] # (Auto) (0.11-0.59) K/uL Immature Gran # (Auto) (0.00-0.02) K/uL Sodium (136-145) mmol/L Glucose (70-99(Fasting)) mg/dl POC Glucose 57 L* (70-99) mg/dl Calcium (8.5-10.1) mg/dl Total Protein (6.0-8.3) gm/dl Albumin (3.4-5.0) gm/dl Diagnostic Findings Chest X-Ray 04/11/21 10:13 XR chest 1V portable HISTORY: 76 years-old Female weakness acute weakness COMPARISON: Chest radiograph 03/31/2021 TECHNIQUE: Portable AP view of the chest FINDINGS: The cardiac mediastinal and hilar silhouettes are within normal limits. Atherosclerosis of the thoracic aorta. No pneumothorax, pleural effusion, airspace consolidation or overt pulmonary edema. Spondylitic spurring of the spine. Bones appear grossly intact. IMPRESSION: No acute process. ACT 112: Negative or not required by law. The above report was generated using voice recognition software. It may contain grammatical, syntax or spelling errors. Electronically signed by: Itz Mehta M.D. 04/11/2021 10:[address] 04/11/21 10:13 CT SCAN OF THE BRAIN WITHOUT IV CONTRAST CLINICAL HISTORY: Change in mental status. Hypoglycemia. Recent intracranial hemorrhage COMPARISON STUDY: CT of the brain dated 03/31/2021. TECHNIQUE: Unenhanced axial CT scan of the brain is performed from the vertex to the skull base. A dose lowering technique was utilized adhering to the principles of ALARA. CT DOSE: 537.48 mGy.cm FINDINGS: Brain parenchyma: The large foci of hemorrhage seen in the right posterior parietal region on 03/31/2021 and largely resolved. There are numerous small foci of subarachnoid hemorrhage identified along the high right parietal sulci, best seen on axial images #20, #22, and #23. There is edema within the right frontal cortex on image #12, likely representing an evolving contusion. There is also a small amount of subarachnoid hemorrhage overlying this site. There are also small foci of subarachnoid blood along the left occipital sulci, best seen on image #11. There is no midline shift. There are age-related involutional changes noting moderate subcortical and periventricular microangiopathic change. There are new bilateral low-attenuation (CSF density) extra-axial fluid collections which measure up to 4 mm. These likely represent chronic subdural hemorrhages versus hygromas. Ventricles, sulci, cisterns: Prominent secondary to involutional change. No intraventricular blood is seen. Intracranial vasculature: There is atherosclerotic calcification of the cavernous carotid and vertebral arteries. Calvarium: A nondepressed left occipital fracture is similar to previous. Soft tissues: There is minimal residual left posterior parietal subdural scalp contusion. Sinuses and mastoids: Fluid/secretions are noted in the sphenoid sinuses. The remaining visualized paranasal sinuses are clear. The mastoid air cells are well pneumatized. Orbits: The bony orbits are grossly intact. There is a right ocular lens implant. IMPRESSION: 1. The large foci of hemorrhage seen involving the right parietal region on 03/31/2021 have largely resolved. 2. There are numerous tiny foci of trace subarachnoid hemorrhage, greatest along the high right frontoparietal sulci, anteriorly along the right frontal cortex, and in the left occipital region. These may be acute to subacute. 3. There is edema within the right frontal cortex, likely representing an evolving contusion. 4. There are small low-attenuation extra-axial fluid collections seen along the convexity bilaterally. These are new from previous and likely represent chronic subdural hematomas versus hygromas. 5. A left occipital skull fracture is unchanged. ACT 112: Negative or not required by law. Electronically signed by: Toño Dorsey M.D. 04/11/2021 11:54 AM Medications Administered Discontinued Medications Sodium Chloride (Nss 1000ml) 500 mls @ 999 mls/hr IV .Q31M ONE Stop: 04/11/21 10:45 Last Infusion: 04/11/21 11:39 Dose: 0 mls/hr Documented by: [id number] Admin: 04/11/21 11:03 Dose: 999 mls/hr Documented by: [id number] Dextrose ([email or web address]) 250 mls @ 125 mls/hr IV .Q2H ONE Stop: 04/11/21 14:59 Last Admin: 04/11/21 13:05 Dose: 125 mls/hr Documented by: [id number] ECG Additional Comments: Normal sinus rhythm Incomplete right bundle branch block Left anterior fascicular block Left axis deviation Abnormal ECG When compared with ECG of 31-MAR-2021 22:20, Nonspecific T wave abnormality now evident in Anterior leads Code Status & VTE Plan Code Status CODE: FULL VTE: SCDs, Supervising Physician Co-Signing Physician Notes MARINE FIRER Supervision note: I have personally seen and examined the patient and discussed and verified the clarke points of the history and physical along with the plan with ZAIRA Cedillo with the following exceptions and/or additions: This patient is a 76-year-old female with history of DM2, HTN, hypothyroidism, and recent fall with subarachnoid and subdural hemorrhages and occipital skull fracture, here with altered mental status and hypoglycemia. Likely secondary to glipizide use. When I saw her, her blood sugar was improved and her mentation was much improved. History and ROS reviewed as above Vitals reviewed Gen: AAOx3, NAD HEENT: Anicteric sclerae, EOMI, PERRLA CV: RRR no mgr nl S1S2 Pulm: CTAB no wcr Abd: +BS soft NT ND no masses or hernias Ext: No edema, 2+ DP pulses Skin: No rashes, warm/dry Neuro: Full strength throughout Labs and rads viewed 76-year-old female with history as above, here with symptomatic hypoglycemia. Now improved. Wean off D10 drip overnight Accu-Cheks every 4 hours Recommend discontinuing glipizide unless has significant hyperglycemia, then could add it back at a much lower dose Will likely be discharged home tomorrow. Of note, her on 03/31/2021 in this hospital and his was delayed because of her hospitalization subsequently. She really wants to get home on Wednesday to continue to prepare for his on Wednesday. PG Care Time/CCT Total # of Minutes Spent Total Time Spent with Patient: Total time spent is greater than 50% in coordination of care (as documented) at patient's floor/unit and/or counseling patient: Coding Level of Care Code INT OBSERVATION CARE 70M LVL 3 Diagnoses Hypoglycemia E16.2 SAH (subarachnoid hemorrhage) I60.9 SDH (subdural hematoma) S06.5X9A Osteoarthritis, knee M17.10 T4 vertebral fracture S22.049A HTN (hypertension) I10 DMII (diabetes mellitus, type 2) E11.9 Somnolence R40.0 Hypothyroidism E03.9
[2021-04-11] MEDS ORDERED: DEXTROSE 10% 1,000 ML IV SCH (15:30)
[2021-04-11] MEDS ORDERED: ONDANSETRON INJ 2 MG/ML 2 ML VIAL IV PRN (17:02)
[2021-04-11] MEDS ORDERED: MELATONIN 3 MG TAB PO SCH (18:00)
[2021-04-11] MEDS ORDERED: GABAPENTIN 100 MG CAP PO SCH (18:00)
[2021-04-11] MEDS ORDERED: PATIENT'S HEIGHT AND/OR WEIGHT NEEDED SCH (18:00)
[2021-04-11] MEDS ORDERED: ATORVASTATIN 20 MG TAB PO SCH (18:00)
[2021-04-11] MEDS: ACETAMINOPHEN 500 MG TAB PO SCH (18:07)
[2021-04-11] MEDS ORDERED: ENOXAPARIN INJ 40 MG/0.4 ML SYR SQ SCH (19:00)
[2021-04-11] MEDS: SODIUM CHLORIDE 1 GM TABLET PO SCH (19:23)
[2021-04-11] MEDS: METOPROLOL TARTRATE 25 MG TAB PO SCH (19:23)
[2021-04-12] MEDS: ACETAMINOPHEN 500 MG TAB PO SCH ×2 (00:23→09:45)
[2021-04-12] MEDS: METOPROLOL TARTRATE 25 MG TAB PO SCH (05:28)
[2021-04-12] MEDS: SODIUM CHLORIDE 1 GM TABLET PO SCH ×2 (05:28→11:51)
[2021-04-12] MEDS ORDERED: LEVOTHYROXINE SODIUM 25 MCG TABLET PO SCH (06:30)
[2021-04-12 06:58] LABS: Appearance Urine Clear (Clear); Bilirubin Urine Negative (Negative); Blood Urine Negative (Negative); Color Urine Yellow; Glucose Urine UA Negative (Negative); Ketones Urine Negative (Negative); Leukocyte Esterase Urine Negative (Negative); Nitrite Urine Negative (Negative); Protein Urine Negative (Negative); Specific Gravity Urine 1.008 (1.000-1.030); Urobilinogen Urine Negative (Negative)
[2021-04-12 08:03] LABS: Basophils # (auto) 0.01 K/uL (0-0.2); Basophils % (auto) 0.1 %; Eosinophils # (auto) 0.11 K/uL (0-0.5); Eosinophils % (auto) 1.4 %; Hemoglobin 10.4 g/dL (12.0-16.0); Immature Granulocytes # (auto) 0.02 K/uL (0.00-0.02); Immature Granulocytes % (auto) 0.3 %; Lymphocytes # (auto) 0.83 K/uL (1.2-3.4); Lymphocytes % (auto) 10.6 %; Mean Corpuscular Hemoglobin 31.5 pg (25-34); Mean Corpuscular Hgb Conc 33.5 g/dL (32-36); Mean Corpuscular Volume 93.9 fL (80-100); Mean Platelet Volume 8.9 fL (7.4-10.4); Monocytes # (auto) 0.78 K/uL (0.11-0.59); Monocytes % (auto) 9.9 %; Neutrophils # (auto) 6.09 K/uL (1.4-6.5); Neutrophils % (auto) 77.7 %; Platelet Count 250 K/uL (130-400); RDW Coefficient of Variation 14.1 % (11.5-14.5); RDW Standard Deviation 48.3 fL (36.4-46.3); White Blood Count 7.84 K/uL (4.8-10.8)
[2021-04-12 08:32] LABS: BUN Creatinine Ratio 16.9 (10-20); Calcium 7.9 mg/dl (8.5-10.1); Est GFR (Non-African American) 86.2 ml/min; Magnesium 1.4 mg/dl (1.7-2.4); Potassium 4.2 mmol/L (3.5-5.1)
--- NOTE | 2021-04-12 08:46 | Hospitalist Progress Note ---
Date of Service April 12, 2021 Assessment & Plan (1) Hypoglycemia: Plan: Refractory hypoglycemia- however has been stable once continuous glucose via IVF was initiated - Patient tolerating diet. No complications with dysphagia this morning. - Hold metformin and Glipizide - Glucose checks 4 hours-- if stable for 8 hours can change interval - Insulin addition if consistently >180 - No recent history of steroid use - Likely related to Glipizide -Change patient from a regular diet to a diabetic diet -Hemoglobin A1c 6.6% on 12/10/2020 -hemoglobin A1c this morning 6.1% -No indication for sliding scale insulin at this time as blood sugars have consistently been below 140 (2) Somnolence: Plan: Likely related to #1 UA is pending on admission No focal neurological deficits BG checks q4 (3) SAH (subarachnoid hemorrhage): Plan: Continue to hold Coumadin- Restart per [facility] recommendations on 04-15-21 - No acute changes reported on CT head - Neurological checks Within normal limits (4) SDH (subdural hematoma): Plan: As above (5) Osteoarthritis, knee: Plan: Continue gabapentin (6) T4 vertebral fracture: Plan: From previous fall - evaluated at [facility] - Patient is full weight bearing - Complaints of pain this morning. - PT evaluation is pending (7) HTN (hypertension): Plan: Continue Metoprolol 25mg PO BID (8) DMII (diabetes mellitus, type 2): Plan: As above - Likely discontinue her glipizide or decrease her dose - reports not having much appetite as previously - HGB A1c 6.1% -Hold NovoLog sliding scale as patient's BSG has consistently been below 140 (9) Hypothyroidism: Plan: TSH normal at 2.101 Continue levothyroxine Plan: Possible discharge later today. Magnesium currently being infused. Magnesium level this morning 1.4. Repeat labs at 2 PM. Patient with history of falls at home. Physical therapy evaluation is currently pending Patient would like to be discharged later today as she is coordinating arrangements for her for Wednesday service. She reports that he on 03/31/2021. Patient has 2 daughters that are with her at home. 1 daughter will be with her for the next 6 weeks. Admission and Anticipated Discharge Date Admission Date: April 11, 2021 Subjective Attending: Dr. Rendon Patient seen and examined in room 285. She is currently on observation status. Magnesium was low this morning at 1.4. This is being repleted. Repeat labs this afternoon at 2 PM. Patient may require full admission. Will reevaluate later today. She denies chest pain or tightness of any arrhythmias. She denies any fever, chills, sweats, rigors. She has no other acute complaints. Patient anxious to get home as her on 03/31/2021. arrangements are on Wednesday. At this time physical therapy is pending. Will reevaluate later today after repeat labs. Review of Systems Review of Systems: All systems reviewed & are unremarkable except as noted in Subjective Physical Exam Physical Exam: GENERAL : No acute distress EYES: No icterus, gaze conjugate NOSE: No evidence of epistaxis MOUTH: No lesions or candidiasis NECK: Supple LUNGS: CTA B/L, no wheezes, rales or rhonchi HEART: Regular, rate controlled. No appreciation of ectopy ABDOMEN: Soft, NT, ND, BS Present EXTREMITIES: Trace LE edema, pedal pulses intact NEURO: A&OX3 Results & Data Results & Data ([facility]) Vital Signs (Past 12 Hours) Vital Signs Temp Pulse Resp BP Pulse Ox 04/12/21 07:14 36.7 C 62 20 166/78 H 95 04/12/21 00:06 36.7 C 63 18 154/62 H 97 Critical Care Results & Data Vital Signs (Past 12 Hours) Vital Signs Temp Pulse Resp BP Pulse Ox 04/12/21 07:14 36.7 C 62 20 166/78 H 95 04/12/21 00:06 36.7 C 63 18 154/62 H 97 Lab & Micro Results (Past 24 Hours) RBC 3.30 M/uL (4.2-5.4) L 04/12/21 WBC 7.84 K/uL (4.8-10.8) 04/12/21 Hgb 10.4 g/dL (12.0-16.0) L 04/12/21 Hct 31.0 % (37-47) L 04/12/21 MCV 93.9 fL (80-100) 04/12/21 MCH 31.5 pg (25-34) 04/12/21 MCHC 33.5 g/dL (32-36) 04/12/21 RDW Standard Deviation 48.3 fL (36.4-46.3) H 04/12/21 RDW Coefficient of Variation 14.1 % (11.5-14.5) 04/12/21 Plt Count 250 K/uL (130-400) 04/12/21 MPV 8.9 fL (7.4-10.4) 04/12/21 Neutrophils (%) (Auto) 77.7 % 04/12/21 Lymphocytes (%) (Auto) 10.6 % 04/12/21 Monocytes # (Auto) 0.78 K/uL (0.11-0.59) H 04/12/21 Eosinophils # (Auto) 0.11 K/uL (0-0.5) 04/12/21 Immature Granulocyte % (Auto) 0.3 % 04/12/21 Neutrophils # (Auto) 6.09 K/uL (1.4-6.5) 04/12/21 Lymphocytes # (Auto) 0.83 K/uL (1.2-3.4) L 04/12/21 Monocytes # (Auto) 0.78 K/uL (0.11-0.59) H 04/12/21 Eosinophils # (Auto) 0.11 K/uL (0-0.5) 04/12/21 Basophils # (Auto) 0.01 K/uL (0-0.2) 04/12/21 Immature Granulocyte # (Auto) 0.02 K/uL (0.00-0.02) 04/12/21 Na 132 mmol/L (136-145) L 04/12/21 K 4.2 mmol/L (3.5-5.1) 04/12/21 Cl 100 mmol/L (98-107) 04/12/21 CO2 26 mmol/L (21-32) 04/12/21 Anion Gap 6 (3-11) 04/12/21 BUN 11 mg/dl (6-23) 04/12/21 Creatinine 0.65 mg/dl (0.6-1.2) 04/12/21 Estimated GFR ( Amer) 100.0 ml/min 04/12/21 Estimated GFR (Non-Af Amer) 86.2 ml/min 04/12/21 BUN/Creatinine Ratio 16.9 (10-20) 04/12/21 Glu 134 mg/dl (70-99(Fasting)) H 04/12/21 Ca 7.9 mg/dl (8.5-10.1) L 04/12/21 Total Bilirubin 0.5 mg/dl (0.2-1.0) 04/11/21 AST 19 U/L (13-39) 04/11/21 ALT 38 U/L (7-52) 04/11/21 Alkaline Phosphatase 72 U/L (34-104) 04/11/21 TP 5.9 gm/dl (6.0-8.3) L 04/11/21 Albumin 3.3 gm/dl (3.4-5.0) L 04/11/21 Globulin 2.6 gm/dl (2.5-4.0) 04/11/21 Albumin/Globulin Ratio 1.3 (0.9-2) 04/11/21 Mg 1.4 mg/dl (1.7-2.4) L 04/12/21 07:32 04/12/21 Calcium Level 7.9 mg/dl (8.5-10.1) L 04/12/21 07:32 04/12/21 Diagnostic Findings (Past 24 Hours) Chest X-Ray 04/11/21 10:13 XR chest 1V portable HISTORY: 76 years-old Female weakness acute weakness COMPARISON: Chest radiograph 03/31/2021 TECHNIQUE: Portable AP view of the chest FINDINGS: The cardiac mediastinal and hilar silhouettes are within normal limits. Atherosclerosis of the thoracic aorta. No pneumothorax, pleural effusion, airspace consolidation or overt pulmonary edema. Spondylitic spurring of the spine. Bones appear grossly intact. IMPRESSION: No acute process. ACT 112: Negative or not required by law. The above report was generated using voice recognition software. It may contain grammatical, syntax or spelling errors. Electronically signed by: Itz Mehta M.D. 04/11/2021 10:[address] 04/11/21 10:13 CT SCAN OF THE BRAIN WITHOUT IV CONTRAST CLINICAL HISTORY: Change in mental status. Hypoglycemia. Recent intracranial hemorrhage COMPARISON STUDY: CT of the brain dated 03/31/2021. TECHNIQUE: Unenhanced axial CT scan of the brain is performed from the vertex to the skull base. A dose lowering technique was utilized adhering to the principles of ALARA. CT DOSE: 537.48 mGy.cm FINDINGS: Brain parenchyma: The large foci of hemorrhage seen in the right posterior parietal region on 03/31/2021 and largely resolved. There are numerous small foci of subarachnoid hemorrhage identified along the high right parietal sulci, best seen on axial images #20, #22, and #23. There is edema within the right frontal cortex on image #12, likely representing an evolving contusion. There is also a small amount of subarachnoid hemorrhage overlying this site. There are also small foci of subarachnoid blood along the left occipital sulci, best seen on image #11. There is no midline shift. There are age-related involutional changes noting moderate subcortical and periventricular microangiopathic change. There are new bilateral low-attenuation (CSF density) extra-axial fluid collections which measure up to 4 mm. These likely represent chronic subdural hemorrhages versus hygromas. Ventricles, sulci, cisterns: Prominent secondary to involutional change. No intraventricular blood is seen. Intracranial vasculature: There is atherosclerotic calcification of the cavernous carotid and vertebral arteries. Calvarium: A nondepressed left occipital fracture is similar to previous. Soft tissues: There is minimal residual left posterior parietal subdural scalp contusion. Sinuses and mastoids: Fluid/secretions are noted in the sphenoid sinuses. The remaining visualized paranasal sinuses are clear. The mastoid air cells are well pneumatized. Orbits: The bony orbits are grossly intact. There is a right ocular lens implant. IMPRESSION: 1. The large foci of hemorrhage seen involving the right parietal region on 03/31/2021 have largely resolved. 2. There are numerous tiny foci of trace subarachnoid hemorrhage, greatest along the high right frontoparietal sulci, anteriorly along the right frontal cortex, and in the left occipital region. These may be acute to subacute. 3. There is edema within the right frontal cortex, likely representing an evolving contusion. 4. There are small low-attenuation extra-axial fluid collections seen along the convexity bilaterally. These are new from previous and likely represent chronic subdural hematomas versus hygromas. 5. A left occipital skull fracture is unchanged. ACT 112: Negative or not required by law. Electronically signed by: Toño Dorsey M.D. 04/11/2021 11:54 AM I & O Totals 24 Hours 04/11/21 04/12/21 04/13/21 06:59 06:59 06:59 Intake Total 1207.25 / 1207.25 Output Total 800 / 800 250 / 250 Balance 407.25 / 407.25 -250 / -250 Cumulative 04/11/21 09:48 thru 04/12/21 08:26 Intake Total 1207.25 Output Total 1050 Balance 157.25 RT Ventilator Mngmt (Last Documented) Ventilator Ordered Settings Respiratory Rate 20 04/12/21 07:14 Ventilator - PT Measurements Respiratory Rate 20 PG Care Time/CCT Total # of Minutes Spent Total Time Spent with Patient: Total time spent is greater than 50% in coordination of care (as documented) at patient's floor/unit and/or counseling patient: Coding Level of Care Code 67923 Subseq Obs Care Lvl 2 Diagnoses Hypoglycemia E16.2 Somnolence R40.0 SAH (subarachnoid hemorrhage) I60.9 SDH (subdural hematoma) S06.5X9A Osteoarthritis, knee M17.10 T4 vertebral fracture S22.049A HTN (hypertension) I10 DMII (diabetes mellitus, type 2) E11.9 Hypothyroidism E03.9
[2021-04-12 08:47] LABS: Estimated Average Glucose 128 mg/dl; Hemoglobin A1C 6.1 % (4.5-5.6)
[2021-04-12] MEDS ORDERED: lisinopril 20 MG TAB PO SCH (09:00)
[2021-04-12] MEDS ORDERED: POTASSIUM CHLORIDE 10 MEQ TABCR PO SCH (09:00)
[2021-04-12] MEDS: MAGNESIUM SULFATE / D5W 1 GM/100 ML BAG IV SCH ×2 (09:44→11:51)
--- NOTE | 2021-04-12 15:45 | Discharge Summary ---
Date of Service April 12, 2021 Admission HPI Per Admitting Provider 76 YOF with past medical history of: DMII, HTN, HLD, Hypothyroidism, Afib, DVT/PE (previously on Warfarin) fall, SAH, SDH with skull fracture. Patient comes to the EMD today secondary to decreased mental status which was her being increased in somnolence and found to be hypoglycemic. The patient most recent relevant history is s/p fall on [id number] resulting in the above head trauma with intracranial bleeding requiring reversal of her anticoagulation and transfer to [facility]. She had her medications adjusted at that time which included discontinuation of her Oxybutynin and holding her Coumadin. She has however continued on her Glipizide 10mg. Patient was reported <60 when EMS picked her up and was given amp of D50- which brought her glucose up to 154 on her BMP, but returning dextrose finger stick had her recorded at 57 at 12:40. She was started on D10 at 125ml/hr. She was not given a trial of food secondary to evaluation of her repeat head CT being interpreted and discussed with [facility]. No acute changes noted from [facility] to [facility] conversation. Patient is awake and pleasant "feeling much better". She was due to follow up with her PCP today. Patient will be admitted to medical surgical floor. She will be given food at this time and wean down her D10, will hold her Glipizide and Metformin. Patient COVID test on admission is: NEGATIVE Admission Exam Per Admitting Provider PHYSICAL EXAM: General: awake, alert, no apparent distress, conversant and aware Head: Normocephalic, atraumatic ENT: PERRLA, EOMI, no pharyngeal exudate, mucous membranes moist Neuro: AAO x 3, speech clear and appropriate, strength intact bilaterally 5/5, sensation intact and equal all extremities and dermatomes, no pronator drift Chest: equal rise and fall of the chest, no accessory muscle use, no heaves or thrills, Clear to auscultation, on room air, Cardiac: Regular rate and rhythm, telemetry reviewed-NSR, skin warm dry, cap refill <3 seconds, peripheral pulses +2 no JVD, no murmur, trace edema to lower extremities GI: NABS x 4 quadrants, soft, nontender to palpation, no rebound, guarding or tenderness : Spontaneously voiding, no pain, no CVA tenderness, Extremities: Normal inspection, no peripheral edema or erythema, calfs nontender to palpation Psych: Normal mood and affect Skin: no rash or erythema Principal Diagnosis Hypoglycemia, hypomagnesemia Discharge Exam GENERAL : No acute distress EYES: No icterus, gaze conjugate NOSE: No evidence of epistaxis MOUTH: No lesions or candidiasis NECK: Supple LUNGS: CTA B/L, no wheezes, rales or rhonchi HEART: Regular, rate controlled ABDOMEN: Soft, NT, ND, BS Present EXTREMITIES: No LE edema, pedal pulses intact NEURO: A&OX3 Discharge Data Allergies Allergy/AdvReac Type Severity Reaction Status Date / Time cefoxitin AdvReac Mild vomiting Verified 04/11/21 12:08 Ordered Studies 04/11/21 10:13 CT head/brain wo con Stat CT SCAN OF THE BRAIN WITHOUT IV CONTRAST CLINICAL HISTORY: Change in mental status. Hypoglycemia. Recent intracranial hemorrhage COMPARISON STUDY: CT of the brain dated 03/31/2021. TECHNIQUE: Unenhanced axial CT scan of the brain is performed from the vertex to the skull base. A dose lowering technique was utilized adhering to the principles of ALARA. CT DOSE: 537.48 mGy.cm FINDINGS: Brain parenchyma: The large foci of hemorrhage seen in the right posterior parietal region on 03/31/2021 and largely resolved. There are numerous small foci of subarachnoid hemorrhage identified along the high right parietal sulci, best seen on axial images #20, #22, and #23. There is edema within the right frontal cortex on image #12, likely representing an evolving contusion. There is also a small amount of subarachnoid hemorrhage overlying this site. There are also small foci of subarachnoid blood along the left occipital sulci, best seen on image #11. There is no midline shift. There are age-related involutional changes noting moderate subcortical and periventricular microangiopathic change. There are new bilateral low-attenuation (CSF density) extra-axial fluid collections which measure up to 4 mm. These likely represent chronic subdural hemorrhages versus hygromas. Ventricles, sulci, cisterns: Prominent secondary to involutional change. No intraventricular blood is seen. Intracranial vasculature: There is atherosclerotic calcification of the cavernous carotid and vertebral arteries. Calvarium: A nondepressed left occipital fracture is similar to previous. Soft tissues: There is minimal residual left posterior parietal subdural scalp contusion. Sinuses and mastoids: Fluid/secretions are noted in the sphenoid sinuses. The remaining visualized paranasal sinuses are clear. The mastoid air cells are well pneumatized. Orbits: The bony orbits are grossly intact. There is a right ocular lens implant. IMPRESSION: 1. The large foci of hemorrhage seen involving the right parietal region on 03/31/2021 have largely resolved. 2. There are numerous tiny foci of trace subarachnoid hemorrhage, greatest along the high right frontoparietal sulci, anteriorly along the right frontal cortex, and in the left occipital region. These may be acute to subacute. 3. There is edema within the right frontal cortex, likely representing an evolving contusion. 4. There are small low-attenuation extra-axial fluid collections seen along the convexity bilaterally. These are new from previous and likely represent chronic subdural hematomas versus hygromas. 5. A left occipital skull fracture is unchanged. ACT 112: Negative or not required by law. Electronically signed by: Toño Dorsey M.D. 04/11/2021 11:54 AM Diabetes Follow up Glipizide was discontinued Continue Metformin Further management per outpatient primary care physician Hospital Course (1) Hypoglycemia: Refractory hypoglycemia- however has been stable once continuous glucose via IVF was initiated - Patient tolerating diet. No complications with dysphagia this morning. - Hold metformin and Glipizide - Glucose checks 4 hours-- if stable for 8 hours can change interval - Insulin addition if consistently >180 - No recent history of steroid use - Likely related to Glipizide -Change patient from a regular diet to a diabetic diet -Hemoglobin A1c 6.6% on 12/10/2020 -hemoglobin A1c this morning 6.1% -No indication for sliding scale insulin at this time as blood sugars have consistently been below 140 -Outpatient follow-up per primary care physician (2) Somnolence: Resolved Likely related to #1 No focal neurological deficits BG checks q4 (3) SAH (subarachnoid hemorrhage): Continue to hold Coumadin- Restart per [facility] recommendations on 04-15-21 - No acute changes reported on CT head - Neurological checks Within normal limits (4) SDH (subdural hematoma): As above (5) Osteoarthritis, knee: Continue gabapentin (6) T4 vertebral fracture: From previous fall - evaluated at [facility] - Patient is full weight bearing - No complaints of pain this morning. - PT evaluation = patient cleared to go home with family with outpatient home health (7) HTN (hypertension): Continue Metoprolol 25mg PO BID (8) DMII (diabetes mellitus, type 2): As above - Discontinue her glipizide - reports not having much appetite as previously - HGB A1c 6.1% -Hold NovoLog sliding scale as patient's BSG has consistently been below 140 (9) Hypothyroidism: TSH normal at 2.101 Continue levothyroxine Discharge home today with daughter Johanny. Patient with history of falls at home. Physical therapy evaluation completed. Home health services being set up for next week. Patient has 2 daughters that are with her at home. 1 daughter will be with her for the next 6 weeks. Follow-up with Dr. Lucero on Wednesday at 11 AM Total Time Total Time Spent Total Time Spent (In Minutes): 60 minutes total time spent today with 3 visits to patient and telephone call to daughter Johanny and Katie to discuss discharge planning. Discharge Plan Discharge Items Patient Disposition: Home - Self-Care Reason For Visit: HYPOGLYCEMIA Discharge Diagnosis: Hypoglycemia, and hypomagnesemia Activity: Resume your previous activity Lifting: Gradually increase as tolerated Exercise/Sports: Gradually increase as tolerated Driving/Machine Use: Per primary care physician Weightbearing: Full weightbearing Non-emergency contact: Primary Care Provider Call non-emergency contact if: you have any medication questions and your symptoms worsen Follow-up/Referrals: Nahum Lucero MD [Primary Care Provider] - 04/15/21 11:00 am ( Appt with Dr. Lucero) Diet: Carb Consistent or DM2 Addtl Attending Provider Instructions: You were admitted with hypoglycemia (low sugar) and hyponatremia (low salt). Your home medications for diabetes were held. Your sugar has been stable with a glucose of less than 140 since admission. After discussion with you and your daughter Johanny, we will discharge you home with your family. Case management is involved and is setting up home health services to begin next week. Medication changes: You should stop taking your glipizide You should continue taking her salt tablets which she received from [facility] You can continue all other medications as prescribed by Dr. Lucero Your magnesium level was low today (1.4). We like those levels to be above 2.0. You are given magnesium sulfate intravenously and on discharge her magnesium level was 2.0. You will be discharged on oral magnesium tablets. This will be electronically transmitted to the [facility] pharmacy on . You should follow-up with Dr. Lucero on Wednesday at 11:00 as scheduled. Pending Studies at Discharge: No Stand-Alone Forms: My [facility] Medications and DC Order Prescriptions: New magnesium oxide 400 mg (241.3 mg magnesium) tablet 400 mg PO DAILY Qty: 30 RF: 0 Continued potassium chloride 10 mEq capsule, extended release 10 meq PO DAILY RF: 0 atorvastatin 20 mg tablet 20 mg PO HS RF: 0 oxybutynin chloride 10 mg tablet extended release 24hr 10 mg PO DAILY PRN (Reason: urinary discomfort) RF: 0 warfarin 2.5 mg tablet 2.5 mg PO DAILY RF: 0 levothyroxine 25 mcg tablet 25 mcg PO DAILYBB RF: 0 metformin 1,000 mg tablet 1,000 mg PO BID RF: 0 gabapentin 100 mg capsule 100 mg PO HS RF: 0 metoprolol tartrate 25 mg tablet 25 mg PO BID RF: 0 lisinopril 20 mg tablet 20 mg PO DAILY RF: 0 acetaminophen 500 mg Tablet 1,000 mg PO Q8H RF: 0 docusate sodium [Colace] 100 mg Capsule 100 mg PO UD RF: 0 oxycodone 5 mg tablet 2.5 mg PO Q4H PRN (Reason: Moderate Pain (Scale Score 5-6)) RF: 0 sodium chloride 1,000 mg Tablet,Soluble 1,000 mg PO Q8H RF: 0 melatonin 5 mg Tablet 5 mg PO HS RF: 0 Discontinued glipizide 10 mg tablet 10 mg PO BIDM RF: 0 Discharge Orders: Discharge Order (Routine); Ordered 04/12/21 Ordered By: Toño Rutledge Admission Data Admit Date/Time: 04/11/21 15:26 Attending Provider: Juan F Brooks Admit Provider: Cady Kong Primary Care Provider: Nahum Lucero Other Providers: Gregg,Home Care Other Interventions: Discharge Summary Assessment (RN) Last Done: 04/12/21 15:47 Supervising Physician Co-Signing Physician Notes Patient seen and examined, chart reviewed, case discussed with Toño Rutledge PA-C and I agree with the assessment and plan as above except as otherwise noted above. General: A&Ox3. NAD. Cooperative. HEENT: Atraumatic, normocephalic. Pulm: CTAB A&P. -wheezes, -rales, -rhonchi. Symmetrical chest rise. No increase work of breathing. No respiratory distress. Cardiac: RRR, -mrg. Radial pulses intact and symmetrical. Abdominal: Nontender, nondistended, soft. BS present. All labs and images reviewed 76-year-old female who presented with hypoglycemia. A1c 6.1%, given tight control and hypoglycemia glipizide discontinued. Patient and family with various questions about diet, counseling provided at time of discharge. Stable subarachnoid hemorrhage on CT, no acute neurologic change during admission. Coumadin held until 04/15/2021. Agree with management as above. Coding Level of Care Code D/C DAY MANAGEMENT >30 MINS Diagnoses Hypoglycemia E16.2 Somnolence R40.0 SAH (subarachnoid hemorrhage) I60.9 SDH (subdural hematoma) S06.5X9A Osteoarthritis, knee M17.10 T4 vertebral fracture S22.049A HTN (hypertension) I10 DMII (diabetes mellitus, type 2) E11.9 Hypothyroidism E03.9 Home Health Attestation I certify that this patient is under my care and that I, or a physicians high school assistant principal working with me, had a face to-face encounter that meets the home health [id number] encounter requirements with this patient. The encounter with the patient was in whole, or in part, for the following medical condition, which is the primary reason for home health care (list medical condition): Hypoglycemia I certify that, based on my findings, the following services are medically necessary home health services: My clinical findings support the need for the above services because: Blood Sugar Monitoring Caregiver Instruct Med Mgmt, Safety, Disease Process, Signs to Report OT Assess ADL Status and Restore Function w ADLs PT Assessment for Endurance / Balance / Strength PT Eval for Safety and Mobility PT Eval for Safety, Gait Training, Assistive Devices PT Gait and Balance Training, Strengthening and Safety Skilled Nsg Assessment Skilled Nsg Assess Pt Illness, Disease and Sx Monitoring S/S to Report to Provider Teach on Disease Management and Interventions Vital Signs Further, I certify that my clinical findings support that this patient is homebound (i.e. absences from home require considerable and taxing effort and are for medical reasons or zoroastrianism services or infrequently or of short duration when for other reasons) because: Assistance of 1 Person for Ambulation/Activities Supportive Aid - Walker Transportation Assistance/Unable to Leave Home Unassisted Certification for Home Health Services: Based on the above findings, I certify that this patient is confined to the home and needs intermittent residential care, physical therapy and/or speech therapy or continues to need occupational therapy. The patient is under my care, and I have initiated the establishment of the plan of care. This patient will be followed by a physician who will periodically review the plan of care.
== END 2021-04-12 16:55 | disposition home or self-care (01) ==
LOC: 2N 10:00 → ED 10:00 → SUATTDRO 15:26 → 2N 17:58

== ENCOUNTER 2022-07-15 06:59 | Observation (INO) ==
--- NOTE | 2022-06-18 13:00 | PAT Medication Instructions ---
Medication Instructions Date of Service June 18, 2022 Home Medications levothyroxine 25 mcg tablet 25 mcg PO DAILY gabapentin 300 mg capsule 300 mg PO BID glipizide 5 mg tablet 2.5 mg PO QAM lisinopril 10 mg tablet 10 mg PO HS Zypan 1 tab PO QAM cholecalciferol (vitamin D3) 10 mcg (400 unit) capsule (Vitamin D3) 10 mcg PO DAILY cyanocobalamin (vitamin B-12) 500 mcg sublingual tablet 500 mcg sublingual QAM magnesium 250 mg tablet 250 mg PO 3XWK metformin 500 mg tablet 500 mg PO BID triamcinolone acetonide 0.1 % topical cream 1 applic topical BID PRN Continue as directed levothyroxine 25 mcg tablet 25 mcg PO DAILY STOP taking 2 weeks before surgery (or as soon as possible if surgery is within 2 weeks) Zypan 1 tab PO QAM STOP taking 24 hours before surgery triamcinolone acetonide 0.1 % topical cream 1 applic topical BID PRN DO NOT take the morning of surgery glipizide 5 mg tablet 2.5 mg PO QAM cholecalciferol (vitamin D3) 10 mcg (400 unit) capsule (Vitamin D3) 10 mcg PO DAILY cyanocobalamin (vitamin B-12) 500 mcg sublingual tablet 500 mcg sublingual QAM magnesium 250 mg tablet 250 mg PO 3XWK metformin 500 mg tablet 500 mg PO BID Take morning of surgery With a small sip of water, OTHERWISE NOTHING TO EAT OR DRINK AFTER MIDNIGHT: gabapentin 300 mg capsule 300 mg PO BID Take evening before surgery gabapentin 300 mg capsule 300 mg PO BID lisinopril 10 mg tablet 10 mg PO HS metformin 500 mg tablet 500 mg PO BID Other Notes If you have any questions please call us at [phone] or [phone] or [phone] or [phone]
--- NOTE | 2022-06-22 14:59 | History & Physical Report ---
Date of Service June 22, 2022 date of surgery: 07/15/22 Procedure: Left Total Knee Arthroplasty Surgeon: Amor Flores Assessment & Plan (1) Arthritis of left knee: Plan: Risk and benefits of the procedure were discussed in detail she like to proceed with surgical invention. Plan to be left total knee arthroplasty, plan on discharge home with home physical therapy. She does have history of DVT, would likely place her on Xarelto for 1 month postop DVT prophylaxis. She otherwise has no other questions or concerns. We will follow-up 2 weeks postop, sooner if she is having any issues The risks and benefits have been discussed including, but not limited to, risk of infection, nerve injury, stiffness, loss of motion, failure to improve, etc. Reasonable outcomes and options of treatment were discussed. An explanation of appropriate alternatives to the procedure that may be advantageous were discussed and their risks and benefits, as well as the risks and benefits of not proceeding with treatment. I offered to answer any additional inquiries concer david the treatment involved. All the patient's questions were answered. The patient is agreeable, understanding of the treatment plan and alternatives, and wishes to proceed with the treatment plan. History of Present Illness Chief Complaint: left knee pain Primary Care Provider: Faheem Benavides is a 77-year-old female who presents for preop evaluation prior to her left total knee replacement. She has had pain in his knee for many years now which is gradually worsened and is now affecting her daily activities including walking standing using stairs. She rates her current pain as a 7 out of 10. She has undergone previous cortisone injection as well as viscosupplementation and PRP injections without any relief. This point time she has failed conservative measures and like to proceed with left total knee replacementl Allergies Allergy/AdvReac Type Severity Reaction Status Date / Time cefoxitin AdvReac Mild vomiting Verified 06/17/22 15:38 Home Medications Medication Instructions Recorded Confirmed Type levothyroxine 25 mcg tablet 25 mcg PO DAILYBB 03/31/21 06/17/22 History gabapentin 300 mg capsule 300 mg PO BID 06/26/21 06/17/22 History blood sugar diagnostic (OneTouch 03/13/22 03/13/22 History Verio test strips) glipizide 5 mg tablet 2.5 mg PO QAM 03/13/22 06/17/22 History lancets 33 gauge (OneTouch Delica 03/13/22 03/13/22 History Lancets) lisinopril 10 mg tablet 10 mg PO HS 03/13/22 06/17/22 History Zypan 1 tab PO QAM 06/17/22 06/17/22 History cholecalciferol (vitamin D3) 10 10 mcg PO DAILY 06/17/22 06/17/22 History mcg (400 unit) capsule (Vitamin D3) cyanocobalamin (vitamin B-12) 500 500 mcg sublingual QAM 06/17/22 06/17/22 History mcg sublingual tablet magnesium 250 mg tablet 250 mg PO 3XWK 06/17/22 06/17/22 History metformin 500 mg tablet 500 mg PO BID 06/17/22 06/17/22 History triamcinolone acetonide 0.1 % 1 applic topical BID PRN IRRITATION 06/17/22 06/17/22 History topical cream Past Med/Surg History Medical History Diabetes mellitus, type 2 History of anemia History of COVID-19 12/2019 & 02/2021>RESOLVED Hx of deep venous thrombosis JULY 2021>VENA CAVA FILTER INSERTED BY DR. ENGLAND Hypertension Hypothyroidism Intracranial bleed 03/31/21> D/T FALL Per most recent head CT 12/12/21- no acute hemorrhage, mass effect, or evidence of acute territorial ischemia; small chronic subdural hemorrhages similar in appearance to 09/23/21 exam. 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 Surgical History H/O craniotomy LARRY>06/01/21 *EMERGENCY CRANIOTOMY History of cataract surgery RT/LEFT History of cholecystectomy History of colonoscopy History of tonsillectomy History of tooth extraction History of total knee replacement RT Family History Father Myocardial infarction Other Family history non-contributory No family history of adverse response to anesthesia Social History Smoking Status: Never smoker Second Hand Exposure: No; Hx Alcohol Use: No Hx Substance Use: No Preferred Language: Moroccan Communication Ability: Effective Aircraft Manager Required: No Beliefs That Will Affect Care: None marital status: / Current Living Situation: Family Current Living Situation Comment: WITH DAUGHTER How many Children do You have: 2 Feels Safe at Home: Yes Assistive Devices: Cane, Denture - Upper and Glasses Review of Systems Review of Systems: All systems reviewed & are unremarkable except as noted in HPI & below Constitutional: no fever, no chills and no sweats Respiratory: no cough and no dyspnea Cardiovascular: no chest pain, no dyspnea and no orthopnea Gastrointestinal: no abdominal pain, no nausea and no vomiting Musculoskeletal: as per Subjective / HPI Physical Exam Constitutional: WD/WN, vitals as above no acute distress Respiratory: normal respiratory effort, lungs clear to auscultation no respiratory distress, no labored breathing and does not use accessory muscles Cardiovascular: RRR, no murmur, no edema Gastrointestinal (Abdomen): normal bowel sounds, soft, nontender, no hepatosplenomegaly Musculoskeletal: Knee: + knee abnormal to inspection (LEFT KNEE), + effusion (+1 effusion), + limited ROM of knee (ROM 0/3/110), + knee ROM with crepitation, + joint line tenderness (medial joint line) and + Benjie's sign positive; no deformity, no skin erythema, no ecchymosis, no valgus laxity, no varus laxity, anterior drawer test negative, Bk's sign negative and pivot shift test negative Results & Data Results & Data Diagnostic Findings Left Knee X-ray: left knee series confirm advanced degenerative changes to the left knee, gr eatest medial compartments and patellofemoral joint, showing joint space narrowing, osteophyte formation and subchondral sclerosis. no acute bony pathology noted.
--- NOTE | 2022-06-24 11:42 | Anesthesiology Consultation ---
Date of Service June 24, 2022 Assessment & Plan (1) Encounter for pre-operative examination: Chart Review Chart Review: Acceptable Risk for Surgery (pending final PCP clearance and most recent cardio note ) and Patient seen in Pre Admission Testing - Please obtain final PCP clearance - Please obtain cardio note from Dr. Begum's office from the last 1-2 years - Check BSG AM DOS -Due to age and comorbidities- patient is NOT an Outpatient Joint candidate Per PAT appt on 06/24/22, patient denies any recent travel or large group activities. Pt is vaccinated for Covid. Will leave to surgeon's discretion if preop Covid testing needed. Educated on importance of using Covid precautions one week prior to surgery Pt seen by PCP 06/16/22= Seen for preop clearance. Will obtain labs. EKG in office showed first-degree AV block and left fascicular block. Fascicular block new from previous EKG. Will await cardiology input regarding the patient should have DSE prior to surgery. Seen by vascular surgery 10/27/2021 = seen for follow-up visit to discuss IVC filter removal. Patient underwent IVC filter insertion on 07/02/2021 due to acute bilateral lower extremity DVTs and patient being 4 weeks status postcraniotomy with evacuation of subdural hematoma at that time. Bleeding occurred after a fall at home. Patient has not restarted anticoagulation. We do not recommend removal of her IVC filter unless she were deemed to be safe on anticoagulation at some point in the future. We will be happy to reevaluate in the future if necessary. Teaching & Discussion Pre-Anesthesia Teaching/Discussion Notes: Instructed NPO after midnight before surgery,except medications with 15 cc of water. Medication instructions provided according to the PAT guidelines. History Surgery Operation Date: 07/15/22 10:20 Proposed Procedures p Left Total Knee Arthroplasty - Amor Flores DO Height/Weight Height: 5 ft 4 in Weight: 86 kg Allergies Allergy/AdvReac Type Severity Reaction Status Date / Time cefoxitin AdvReac Mild vomiting Verified 06/17/22 15:38 Medications Home Medications Medication Instructions Recorded Confirmed Last Taken levothyroxine 25 mcg tablet 25 mcg PO DAILYBB 03/31/21 06/17/22 06/25/21 gabapentin 300 mg capsule 300 mg PO BID 06/26/21 06/17/22 06/25/21 blood sugar diagnostic (OneTouch 03/13/22 03/13/22 Unknown Verio test strips) glipizide 5 mg tablet 2.5 mg PO QAM 03/13/22 06/17/22 Unknown lancets 33 gauge (OneTouch Delica 03/13/22 03/13/22 Unknown Lancets) lisinopril 10 mg tablet 10 mg PO HS 03/13/22 06/17/22 Unknown Zypan 1 tab PO QAM 06/17/22 06/17/22 Unknown cholecalciferol (vitamin D3) 10 10 mcg PO DAILY 06/17/22 06/17/22 Unknown mcg (400 unit) capsule (Vitamin D3) cyanocobalamin (vitamin B-12) 500 500 mcg sublingual QAM 06/17/22 06/17/22 Unknown mcg sublingual tablet magnesium 250 mg tablet 250 mg PO 3XWK 06/17/22 06/17/22 Unknown metformin 500 mg tablet 500 mg PO BID 06/17/22 06/17/22 Unknown triamcinolone acetonide 0.1 % 1 applic topical BID PRN IRRITATION 06/17/22 06/17/22 Unknown topical cream Past Medical History Medical History Diabetes mellitus, type 2 Well controlled and stable Hgb A1C 7.7 on 06/16/22 History of anemia History of COVID-19 12/2019 & 02/2021>RESOLVED Hx of deep venous thrombosis JULY 2021>VENA CAVA FILTER INSERTED BY DR. ENGLAND Hypertension Hypothyroidism Intracranial bleed 03/31/21> D/T FALL Later had emergency craniotomy 06/01/21 (had slow bleed) Mild cognitive issues from hemorrhage but has been improving Per most recent head CT 12/12/21- no acute hemorrhage, mass effect, or evidence of acute territorial ischemia; small chronic subdural hemorrhages similar in appearance to 09/23/21 exam. Osteoarthritis Peripheral neuropathy Noted to bilateral hands Presence of vena cava filter RT/LEFT SIDE TIA (transient ischemic attack) 2010? No residual issues Exercise / Class Metabolic Activity III < 4 Walking/Shop/Light housework (no chest pain or SOB - with flat surface ambulation- uses cane ) Past Family History Family History Father Myocardial infarction Other Family history non-contributory No family history of adverse response to anesthesia Past Surgical History Surgical History H/O craniotomy LARRY>06/01/21 *EMERGENCY CRANIOTOMY History of cataract surgery RT/LEFT History of cholecystectomy History of colonoscopy History of tonsillectomy History of tooth extraction History of total knee replacement RT Past Anesthesia History No Hx of Anesthesia Complications and No Family Hx of Anesthesia Complications History of PONV No Hx of PONV and No Hx of Motion Sickness Social History Smoking Status: Never smoker Hx Alcohol Use: No Hx Substance Use: No substance use type: does not use Review of Systems Patient denies chest pain, shortness of breath, dyspnea on exertion, reflux, cough, wheezing, palpitations. No hx of seizures, MA, apnea/snoring. No hx of blood transfusions Physical Exam Vital Signs VITALS BP 131/74 P 72 TEMP 98.3 SP02 97% RESP 16 Constitutional no acute distress ENMT Mouth: no TMJ clicking Thyromental Distance: > or= 3.5 Finger Breadths Mallampati Class: III Full upper denture Partial lower denture Neck + limited neck extension Respiratory normal respiratory effort; no respiratory distress Auscultation: lungs clear to auscultation bilaterally; no wheezes Cardiovascular Rate/Rhythm: regular rate and regular rhythm Heart Sounds: no murmur Vessels: no carotid bruit Musculoskeletal Spine: no pain with cervical ROM Extremities: extremities normal to inspection Psychiatric Orientation: alert Lab Results Anesthesia Preop Results Results Anesthesia Widget: WBC 7.14 K/ul (4.8-10.8) 06/16/22 Hgb 13.2 g/dl (12.0-16.0) 06/16/22 Hct 39.0 % (37.0-47.0) 06/16/22 Plt 202 K/uL (130-400) 06/16/22 Na 139 mmol/L (136-145) 06/24/22 K 4.1 mmol/L (3.5-5.1) 06/24/22 Cl 107 mmol/L (98-107) 06/24/22 CO2 24 mmol/L (21-32) 06/24/22 BUN 21 mg/dl (6-23) 06/24/22 Creat 0.88 mg/dl (0.6-1.2) 06/24/22 Glucose Level 155 mg/dl (70-99(Fasting)) H 06/24/22 PT 10.2 Seconds (9.0-12.0) 06/24/22 PTT 24.5 Seconds (21.0-31.0) 06/24/22 INR 0.9 (0.9-1.1) 06/24/22 HA1c 7.4 % (4.5-5.6) H 06/16/22 Urine Color Yellow 06/16/22 Urine Appearance Clear (Clear) 06/16/22 Urine pH 5.5 (4.5-7.5) 06/16/22 Urine Specific [place] 1.012 (1.000-1.030) 06/16/22 Urine Protein Negative (Negative) 06/16/22 Urine Glucose (UA) Negative (Negative) 06/16/22 Urine Ketones Negative (Negative) 06/16/22 Urine Blood Negative (Negative) 06/16/22 Urine Nitrite Negative (Negative) 06/16/22 Urine Bilirubin Negative (Negative) 06/16/22 Urine Urobilinogen Negative (Negative) 06/16/22 Urine Leukocyte Esterase Negative (Negative) 06/16/22 Blood Type B Positive 06/24/22 Antibody Screen NEGATIVE 06/24/22 Testing Laboratory Results 06/16/22= URINE CULTURE: More than three types of organisms present, all high counts mixed probable skin temo Electrocardiogram Date: 06/16/22 SR with 1st degree AVB at 74bpm LAFB When compared to EKG from may 31, 2021- no significant change was noted per cardio Chest X-Ray Date: 12/12/21 Findings: + NAD FINDINGS: An AP, portable, upright chest radiograph is compared to study dated 04/11/2021 and correlated with chest CT dated 09/09/2014. The heart is mildly enlarged noting atherosclerotic calcification of the thoracic aorta. The pulmonary vasculature is noncongested. There is mild chronic elevation of the right hemidiaphragm with dependent atelectasis. The lungs and pleural spaces are otherwise clear. No pneumothorax is seen. The skeletal structures are osteopenic. The bony thorax is grossly intact. Echocardiogram Date: 07/15/21 EF: 65 to 70% LV Function: normal RWMA: + none Other Findings: + diastolic dysfunction (Grade 1) Valvular Disease: + no significant valvular disease Asymmetric basal septal hypertrophy of the elderly Normal RV size and function. Unable to estimate PASP due to insufficient TR. Other Testing Head CT 12/12/21= There is no acute hemorrhage, mass effect, or evidence of acute territorial ischemia by CT criteria. Small chronic subdural hemorrhages are similar in appearance to the 09/23/2021 examination. Event monitor 07/28/21 - 08/26/21= Findings showed baseline sinus rhythm. Sinus rhythm with PVCs. Sinus rhythm with first-degree AV block and PACs. COVID-19 Risk Screen Screening Information COVID-19 Screen Date: 06/24/22 Exposure 21 Days Family/Household +COVID Last 21 Days: No Exposure 10 Days Any COVID Exposure Last 10 Days: No Symptoms Last 10 Days Experienced COVID Sx Last 10 Days: No + COVID 0-90 Days COVID + in Last 0-90 Days: No Risk Plan COVID Risk Plan: No Risk Identified Patient Education COVID Preop Screening Education Complete: Yes
[~2022-07-15 06:59] MED LIST changes: +ACETAMINOPHEN 500 MG TAB PO SCH; -ATOR-54 PO; -CMD25 PO; -CMD5 PO; +CeleBREX 200 MG CAP PO SCH; +FAMOTIDINE 20 MG TAB PO SCH; -FRS/40 PO; -GABA-112 PO; +GABAPENTIN 300 MG CAP PO SCH; -GLC500 PO; -GLIP10TA3 PO; -LEVO25TA5 PO; +LR 500ML BOLUS, THEN 15ML/HR IV SCH; -METO25TA56 PO; +METOCLOPRAMIDE HCL 10 MG TABLET PO SCH; -OXYB10TA PO; -POTA10CA28 PO; +ROPIVACAINE 0.5% HCL/PF 150 MG, BUPIVACAINE 0.75% MPF 20 ML, EPINEPHrine 30MG/30ML (OR ... INSTIL SCH; +TRANEXAMIC ACID 1,000 MG **IV Intra-op IV SCH; +ceFAZolin 2000MG 2,000 MG/15 ML SYR IV SCH; +dexAMETHasone 4 MG TAB PO SCH
[2022-07-15] MEDS ORDERED: ROPIVACAINE 0.5% 5 MG/ML 30 ML VIAL ONE (07:14)
[2022-07-15] MEDS ORDERED: BUPIVACAINE 0.5 % 5 MG/1 ML PF 10ML VIAL ONE (07:14)
--- NOTE | 2022-07-15 08:14 | History & Physical Bridge Note ---
Date of Service July 15, 2022 History & Physical Bridge Note I have examined the patient, reviewed the History & Physical and in the interval since the performance of the History & Physical I have noted the following changes of clinical significance: no changes noted
[2022-07-15] MEDS ORDERED: MIDAZOLAM HCL 1 MG/ML 2ML VIAL ONE (08:15)
[2022-07-15] MEDS ORDERED: ATROPINE SULFATE 0.1 MG/ML 10ML SYR IV PRN (08:47)
[2022-07-15] MEDS ORDERED: fentaNYL citrate PF 100 MCG/2 ML VIAL IV PRN (08:47)
[2022-07-15] MEDS ORDERED: ONDANSETRON INJ 2 MG/ML 2 ML VIAL IV PRN ×2 (08:47→12:24)
[2022-07-15] MEDS ORDERED: ePHEDrine sulfate 50 MG/ML AMP IV PRN (08:47)
[2022-07-15] MEDS ORDERED: ORTHO JOINT ANESTHETIC ONE (08:48)
[2022-07-15] MEDS: TRANEXAMIC ACID 1,000 MG **IV Pre-op IV SCH ×2 (09:00→09:19)
[2022-07-15] MEDS ORDERED: PROPOFOL IV EMULSION 10 MG/ML 20 ML VIAL IV ONE (09:50)
[2022-07-15] MEDS ORDERED: ONDANSETRON INJ 2 MG/ML 2 ML VIAL ONE (09:50)
--- NOTE | 2022-07-15 10:50 | Operative Report ---
Post Operative Report Pre & Post Diagnosis Operation Date: 07/15/22 09:10 Pre-Op Diagnosis: Left Knee Osteoarthritis Post-Op Diagnosis: Left Knee Osteoarthritis I identified the patient and participated in the time-out.: Yes Procedure Operation Date: 07/15/22 09:10 Actual Procedures p Left Total Knee Arthroplasty, Cemented.(Left) - Ella Vasqueziligayle Colin & Neph jesse 2 patient matched size femur 5 tibia 4 poly 10 patella 29 oval Surgeon Amor Flores DO [place] deanna LÓPEZ Estimated Blood Loss 5 Findings Consistent with Post-Op Diagnosis Patient presents with severe end-stage tricompartmental DJD failed attempted conservative management patient had eburnated [id number] varus alignment bone loss marginal osteophyte subchondral cystic changes moderate to large effusion Specimens Bone and cartilage Drains Medium bore Hemovac Anesthesia Type MAC Spinal Regional Complications none Disposition Accompanied Patient To Recovery: No Disposition: Recovery Room Indications Patient presents with severe end-stage DJD failed attempted conservative management occluding physical therapy anti-inflammatories relative rest activity modification corticosteroid injection viscosupplementation above intraoperative findings were noted Description of Procedure After proper prepping and draping of the left lower extremity anterior midline incision was made over the region of the extensor extensor mechanism after meticulous hemostasis was obtained and maintained in subcutaneous tissues a medial parapatellar incision was made The patella was subluxed lateralward the medial lateral gutter were cleaned from any hypertrophic synovitis and scar tissue of the distal femoral block was placed and the distal femoral osteotomy cut was made subsequently the chamfers anterior and posterior osteotomy cuts were made utilizing the 4-in-1 block the tibia was subsequently subluxed anteriorward medial and ateral meniscal remnants were excised in their entirety remnants of the anterior and posterior cruciate ligaments were excised in their entirety excellent exposure of the proximal tibia was obtained the tibial osteotomy guide was placed on the proximal tibial osteotomy cut was made once again the knee was irrigated with copious amounts of sterile saline solution the patella was subsequently everted lateralward thickened scar tissue around the patella was removed the patella was subsequently cut utilizing a freehand technique and was drilled prepared for final preparation and placement of patella socially flexion-extension gaps were checked and the equal and symmetric trials were placed to the appropriate femoral and tibial trials with poly-spacer being placed for equal flexion and extension gaps and full range of motion including extension to 0 and flexion to 140 the trial components after having been taken to recovery range of motion was subsequently removed meticulous hemostasis was obtained and maintained subsequently a knee block injection of joint cocktail including ropivacaine 0.5% 150 mg. Bupivacaine 0.5% epinephrine 1-200,030 mL's toradol 30 mg dexamethasone 4 mg ketamine 10 mg clonidine 100 micrograms normal saline solution 30 mg was infiltrated into the soft tissues of the posterior knee medial lateral gutters and periosteal synovium special attention was paid to protect neurovascular structures at all times subsequently trial components having been removed the knee was irrigated with sterile saline solution. debris was removed the proximal tibia was subsequently prepared and was made ready for the placement of the tibial component tibial component was also cemented and tamped into position the femoral component was subsequently placed and cemented in the position the patellar component was subsequently cemented in position because hemostasis once again obtained and maintained wound having been thoroughly irrigated with debridement and debridement lavage was performed as well as a medial parapatellar incision closed with #1 Vicryl in interrupted fashion subcutaneous was closed with #2 Vicryl skin was closed with skin clips. PA-C was necessary for prepping and drapping as well as wound closure of deep fascia Sub cutaneous tissue and skin and was necessary for the case. A sterile compressive dressing was placed patient was taken to recovery in stable condition of report dictated by Mark I attest to the content of the Intraoperative Record and any orders documented therein. Any exceptions are noted below.Due to the complex nature of the procedure, the entire surgery was performed with the operational assistance of NEVA Regalado. The assistant chief engineer, under direct supervision, was involved in the a ctual performance of all aspects of the surgical procedure including hemostasis, tissue retraction and incision, instrument management, patient positioning, and wound closure. I attest to the content of the Intraoperative Record and any orders documented therein. Any exceptions are noted below.
--- NOTE | 2022-07-15 11:57 | XRay Report ---
TWO VIEWS LEFT KNEE CLINICAL HISTORY: Postoperative examination. FINDINGS: AP and crosstable lateral portable views of the left knee are obtained. A left knee arthrop lasty is in near anatomic alignment. There has been undersurface remodeling of the patella. No acute fracture is seen. There are expected postoperative changes around the knee including a surgical drain , soft tissue edema, and subcutaneous gas. IMPRESSION: Expected postoperative changes status post left knee arthroplasty. No acute fracture is s een. ACT 112: Negative or not required by law. Electronically signed by: Toño Dorsey M.D. 07/15/2022 11:55 AM
[2022-07-15] MEDS ORDERED: PHARMACY GLYCEMIC MGMT CONSULT PRN (12:24)
[2022-07-15] MEDS ORDERED: METOCLOPRAMIDE HCL INJ 5 MG/ML 2 ML VIAL IV PRN (12:24)
[2022-07-15] MEDS ORDERED: bisacodyL 10 MG SUPP PR PRN (12:24)
[2022-07-15] MEDS ORDERED: diphenhydrAMINE Capsule 25 MG CAP PO PRN (12:24)
[2022-07-15] MEDS ORDERED: TRIAMCINOLONE ACET 0.1% CR 15 GM TUBE TOP PRN (12:24)
[2022-07-15] MEDS ORDERED: MAGNESIUM HYDROXIDE SUSP 30 ML UDC PO PRN (12:24)
[2022-07-15] MEDS ORDERED: oxyCODONE HCL IR 5 MG TAB (IMMEDIATE RELEASE) PO PRN (12:24)
[2022-07-15] MEDS ORDERED: HYDROmorphone INJ 1 MG/ML SYRINGE IV PRN (12:24)
[2022-07-15] MEDS ORDERED: NALOXONE HCL 0.4 MG/1 ML VIAL/CARP IV PRN (12:24)
--- NOTE | 2022-07-15 12:28 | Anesthesiology Progress Note ---
Date of Service July 15, 2022 Anesthesia Post Procedure Vital Signs Vital Signs: Temp Pulse Pulse Resp BP BP Pulse Ox 07/15/22 11:55 72 21 129/56 L 93 07/15/22 11:45 74 21 120/54 L 93 07/15/22 12:15 98.2 F 75 19 137/88 92 07/15/22 12:05 75 20 129/56 L 93 07/15/22 11:35 78 19 129/54 L 93 07/15/22 11:28 98.6 F 77 22 119/53 L 97 07/15/22 07:39 98.6 F 71 20 179/85 H 96 O2 Del Method O2 Flow Rate 07/15/22 11:55 Nasal Cannula 2 07/15/22 11:45 Room Air 07/15/22 12:15 Nasal Cannula 2 07/15/22 12:05 Nasal Cannula 2 07/15/22 11:35 Room Air 07/15/22 11:28 Oxymask 5 07/15/22 07:39 Room Air Transfer of Care Handoff Completed per policy Notes Mental Status: alert / awake / arousable and participated in evaluation Patient Amnestic to Procedure: Yes Nausea / Vomiting: adequately controlled Pain: adequately controlled Airway Patency, RR, SpO2: stable & adequate BP & HR: stable & adequate Hydration State: stable & adequate Neuraxial Anesthesia: was administered and sensory block is resolving Anesthetic Complications: no major complications apparent and Pt Satisfied with anesthetic care
[2022-07-15] MEDS ORDERED: GLUCAGON FOR INJ 1 MG VIAL IM PRN (13:00)
[2022-07-15] MEDS ORDERED: GLUCOSE 10 TAB/TUBE PO PRN (13:00)
[2022-07-15] MEDS ORDERED: GLUCOSE 40% GEL 15 GM TUBE PO PRN (13:00)
[2022-07-15] MEDS ORDERED: DEXTROSE 50% 50 ML SYRINGE IV PRN (13:00)
[2022-07-15] MEDS ORDERED: CARBOHYDRATES FOR HYPOGLYCEMIA PO PRN (13:00)
[2022-07-15] MEDS: SODIUM CHLORIDE 0.9% 1000ML 1,000 ML IV SCH ×2 (13:10→23:10)
[2022-07-15] MEDS: ACETAMINOPHEN 500 MG TAB PO SCH ×2 (13:17→20:38)
--- NOTE | 2022-07-15 13:19 | Pharmacy Report ---
Pharmacy Glycemic Short Note 2 - Date of Service July 15, 2022 - Glycemic Short BSG Results (Last 24 hours): 07/15/22 07/15/22 07:39 11:27 POC Glucose 220 H 236 H OUTPATIENT ANTIDIABETIC REGIMEN: * metformin 500 mg PO BIDM * glipizide 2.5 mg PO daily HbA1c: 7.4% (06/16/22) ASSESSMENT: * PH is a 77 year old female POD #0 s/p left total knee arthroplasty * Received 8 mg PO dexamethasone and intra-articular ortho-mix containing dexamethasone in OR * Preop BSG of 220 mg and postop BSG of 236 mg/dL * Minimal past inpatient glycemic data, however, patient did present to ED in 2021 with hypoglycemia * Will be conservative with basal insulin despite elevated fasting BSG and administration of steroids PLAN FOR INPATIENT GLYCEMIC CONTROL: * Hold outpatient oral diabetes medications * Basal insulin * Lantus 17 units SC x 1 (~0.2 unit/kg) * Bolus insulin * NovoLog per scale ACHS or Q6hrs while NPO * Goal Range: Low 110 mg/dL - High 140 mg/dL * Correction Factor: 20 mg/dL/unit * Nutritional / Prandial insulin per carb ratio of 1 unit per 7 grams CHO consumed
[2022-07-15] MEDS ORDERED: LANTUS PER UNIT CHARGE SC ONE ×3 (13:30→20:45)
[2022-07-15] MEDS: INSULIN ASPART PER UNIT CHARGE SC SCH ×3 (14:12→20:50)
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
[2022-07-15] MEDS: ceFAZolin 2000MG 2,000 MG/15 ML SYR IV SCH (18:13)
[2022-07-15] MEDS: IBUPROFEN 800 MG TAB PO PRN (19:25)
[2022-07-15] MEDS: GABAPENTIN 300 MG CAP PO SCH (20:38)
[2022-07-15] MEDS: DOCUSATE SODIUM 100 MG CAP PO SCH (20:38)
[2022-07-15] MEDS ORDERED: lisinopril 10 MG TAB PO SCH (21:00)
[2022-07-15] MEDS ORDERED: SENNA 8.6 MG TAB PO SCH (21:00)
[2022-07-16] MEDS: ceFAZolin 2000MG 2,000 MG/15 ML SYR IV SCH (00:13)
[2022-07-16] MEDS ORDERED: LORazepam 2 MG/1 ML VIAL IV STA (00:14)
[2022-07-16] MEDS: INSULIN ASPART PER UNIT CHARGE SC SCH ×4 (00:14→13:32)
[2022-07-16] MEDS: IBUPROFEN 800 MG TAB PO PRN ×2 (04:44→10:56)
[2022-07-16] MEDS: ACETAMINOPHEN 500 MG TAB PO SCH ×2 (05:02→13:31)
[2022-07-16] MEDS ORDERED: LEVOTHYROXINE SODIUM 25 MCG TABLET PO SCH (06:30)
--- NOTE | 2022-07-16 07:04 | Orthopedic Progress Note ---
Date of Service July 16, 2022 Assessment & Plan (1) Status post left knee replacement: Plan: POD #1 s/p Left TKA pt/ot dvt proph with MARIZOL/SCD/patient has IVC filter in place that was placed last year by Dr Fernandez. discussed with Dr Flores, will hold on any anticoagulants at this time, will await any further recommendations from patients neurosurgeon in [place] prior to starting her on anything else. plan for d/c home with HHPT, will reassess after PT today. Admission and Anticipated Discharge Date Admission Date: July 15, 2022 Subjective POD #1 s/p Left TKA Review of Systems Constitutional: no fever, no chills and no sweats Respiratory: no cough and no dyspnea Cardiovascular: no chest pain and no dyspnea Gastrointestinal: no abdominal pain, no nausea and no vomiting Physical Exam Physical Exam: Vital Signs Temp Pulse Pulse Resp BP BP Pulse Ox 07/16/22 06:07 36.6 C 76 18 180/84 H 95 07/16/22 04:00 36.5 C 76 16 180/74 H 95 07/16/22 00:00 36.7 C 91 H 18 189/75 H 95 07/15/22 19:16 36.9 C 81 16 188/82 H 182/79 H 94 07/15/22 14:54 36.2 C L 77 16 149/82 H 95 07/15/22 14:45 36.8 C 69 16 147/75 H 94 07/15/22 13:45 36.4 C L 74 16 144/75 H 95 07/15/22 12:24 36.8 C 73 73 16 128/66 95 07/15/22 11:55 72 21 129/56 L 93 07/15/22 11:45 74 21 120/54 L 93 07/15/22 12:25 73 22 136/53 L 94 07/15/22 12:15 36.8 C 75 19 137/88 92 07/15/22 12:05 75 20 129/56 L 93 07/15/22 11:35 78 19 129/54 L 93 07/15/22 11:28 37 C 77 22 119/53 L 97 07/15/22 07:39 37 C 71 20 179/85 H 96 O2 Del Method O2 Flow Rate 07/16/22 06:07 Room Air 07/16/22 04:00 Room Air 07/16/22 00:00 Room Air 07/15/22 19:16 Room Air 07/15/22 14:54 Nasal Cannula 2 07/15/22 14:45 Room Air 07/15/22 13:45 Nasal Cannula 2 07/15/22 12:24 Nasal Cannula 2 07/15/22 11:55 Nasal Cannula 2 07/15/22 11:45 Room Air 07/15/22 12:25 Nasal Cannula 2 07/15/22 12:15 Nasal Cannula 2 07/15/22 12:05 Nasal Cannula 2 07/15/22 11:35 Room Air 07/15/22 11:28 Oxymask 5 07/15/22 07:39 Room Air Intake and Output 07/15/22 07/16/22 07/16/22 22:59 06:59 14:59 Intake Total 600 / 3000 400 / 3000 Output Total 770 / 1935 1130 / 1935 Balance -170 / 1065 -730 / 1065 Intake: IV 600 / 1200 400 / 1200 Sodium Chlorid e 0.9% 1000ML 1, 600 / 1000 400 / 1000 000 ml @ 100 m ls/hr IV .Q10H BART Rx#:[id number] Output: Urine Amount (Ca theter) 700 / 1700 1000 / 1700 External 700 / 1700 1000 / 1700 Drain Output 70 / 230 130 / 230 Left Knee 70 / 230 130 / 230 Other: # Unmeasured Voi ds 1 Constitutional: WD/WN, vitals as above Musculoskeletal: Left Leg: NVDI, calf SNT, negative colton sign. DP palpable, able to wiggle toes/ankle movement without difficulty. dressing clean dry and intact. Results & Data Vital Signs (Past 12 Hours) Vital Signs Temp Pulse Resp BP BP Pulse Ox O2 Del Method 07/16/22 06:07 36.6 C 76 18 180/84 H 95 Room Air 07/16/22 04:00 36.5 C 76 16 180/74 H 95 Room Air 07/16/22 00:00 36.7 C 91 H 18 189/75 H 95 Room Air 07/15/22 19:16 36.9 C 81 16 188/82 H 182/79 H 94 Room Air Laboratory Results Laboratory Results POC Glucose 131 mg/dl (70-99) H 07/16/22 06:10 SARS-CoV-2, RNA, NAAT NEGATIVE (NEGATIVE) 05/31/23 07:22 Impressions Knee X-Ray 07/15/22 11:30 TWO VIEWS LEFT KNEE CLINICAL HISTORY: Postoperative examination. FINDINGS: AP and crosstable lateral portable views of the left knee are obtained . A left knee arthroplasty is in near anatomic alignment. There has been undersurface remodeling of the patella. No acute fracture is seen. There are expected postoperative changes around the knee including a surgical drain, soft tissue edema, and subcutaneous gas. IMPRESSION: Expected postoperative changes status post left knee arthroplasty. No acute fracture is seen. ACT 112: Negative or not required by law. Electronically signed by: Toño Dorsey M.D. 07/15/2022 11:55 AM
[2022-07-16] MEDS: DOCUSATE SODIUM 100 MG CAP PO SCH (07:24)
[2022-07-16] MEDS: GABAPENTIN 300 MG CAP PO SCH (07:24)
[2022-07-16 07:56] LABS: Hematocrit (blood only) 35.7 % (37.0-47.0); Hemoglobin 12.2 g/dl (12.0-16.0); Mean Corpuscular Hemoglobin 31.6 pg (25.0-34.0); Mean Corpuscular Hgb Conc 34.2 g/dL (32.0-36.0); Mean Corpuscular Volume 92.5 fL (80.0-100.0); Mean Platelet Volume 10.2 fL (9.4-12.4); Platelet Count 207 K/uL (130-400); RDW Coefficient of Variation 12.4 % (11.5-14.5); RDW Standard Deviation 41.2 fL (36.4-46.3); Red Blood Count 3.86 M/uL (4.20-5.40); White Blood Count 14.79 K/ul (4.8-10.8)
[2022-07-16 08:12] LABS: BUN Creatinine Ratio 23.1 (10-20); Calcium 9.3 mg/dl (8.6-10.3); Creatinine Clr Calc Pharmacy 41.8 ml/min; Est GFR (African American) 52.1 ml/min; Est GFR (Non-African American) 44.9 ml/min; Potassium 3.8 mmol/L (3.5-5.1)
[2022-07-16] MEDS ORDERED: ZYPAN PO SCH (09:00)
[2022-07-16] MEDS ORDERED: APIXABAN 5 MG TABLET PO SCH (09:00)
[2022-07-16] MEDS ORDERED: LANTUS PER UNIT CHARGE SC SCH (09:00)
[2022-07-16] MEDS ORDERED: MULTIVITAMIN TAB PO SCH (09:00)
[2022-07-16] MEDS ORDERED: FAMOTIDINE 20 MG in SYRINGE 3 ML IV SCH (09:00)
--- NOTE | 2022-07-16 09:48 | Hospitalist Progress Note ---
Date of Service July 16, 2022 Assessment & Plan (1) Status post left knee replacement: Plan: POD#1 s/p Left Total Knee Arthroplasty, Cemented.(Left) - Amor Flores, DOUtilizing [employer] [facility] 2 patient matched size femur 5 tibia 4 poly 10 patella 29 oval EBL 5cc Pain control/bowel regimen/PT/OT per primary service WBC elevation likely 2nd to steroids, afebrile. No infecitous symptoms. Hgb stable on repeat from surgery DVT prophylaxis: sccds in place, messages out to neurosurgery for recommendations for DVT prophylaxis. IVC filter placed by Dr Fernandez still in place CM navigator also going to call down to Dr Ricketts at [facility] to see if able to contact sooner as patient and daughter are hopeful for discharge today WILL NEED CLARIFIED BEFORE DISCHARGE --> Discussed w/ Dr Cook, recs to repeat CT head -- if no residual blood, ok to use low dose eliquis. CT head obtained which showed improvement in b/l chronic subdural hematoma but still present. Discussed again with Dr Cook and he rec against ASA or eliquis given blood present. Discussed with our hematology/oncology department as well who deferred to Dr Cook's judgement. Should have some coverage with IVC filter in place. Recommended continued MARIZOL hose/consideration for SCDS (can get on [facility]/ to discuss) Discussed w/ patient and daughter in room multiple times and they are in agreement as Dr Ricketts had told them no blood thinners in the past and would like to hold off anticoagulation/antiplatelet therapy. To continue ambulation/mechanical prophylaxis at discharge. Also recommended touching base w/ her usual neurosurgeon this upcoming week (not in office today for discussion) regarding any ongoing therapy/sergio if any surgeries planned in the future. Also discussed w/ patient and daughter may not be a bad idea to get re- established locally w/ neurology as they didn't want ot have to travel to [facility]. (2) Presence of vena cava filter: Plan: Still in place, was initially placed by Dr. Fernandez last June (3) HTN (hypertension): Plan: Stable -- elevated 2nd to pain/anxiety from being in the hospital to 180s systolic. Asymptomatic Remains on lisinopril daily (4) Hypothyroidism: Plan: Continue levothyroxine (5) Hx of deep venous thrombosis: Plan: Acute BL DVT's found last year, S/P IVC placement Orthopedic surgery confirmed they will hold chemical DVT PPX until they speak with Neurosurgery --CM also to call [facility] to see about recommendations. (6) Diabetes mellitus, type 2: Plan: Pharmacy consulted, BSGs acceptable Plan Thank you for allowing hospitalist service to participate in the care of Ms Henao. Hospitalist service will follow along to ensure DVT prophylaxis finaliz ed prior to discharge. Please call with any questions/concerns Admission and Anticipated Discharge Date Admission Date: July 15, 2022 Supervising Physician Co-Signing Physician Notes PA Supervision Note: I did not personally see or examine the patient today, but I verified all clarke points of RENE Mcguire's assessment and plan with the following exceptions/additions: It is reasonable to hold off on DVT prophylaxis at this time given history of subdural hematomas requiring craniotomy and evacuation 1 year ago and persistence of chronic subdural hematomas. She does have IVC filter in place which is somewhat protective against PE. Recommend patient clarify this in the future with her neurosurgeon, however our neurologist here (Dr. Cook) discussed with Brissa Mcguire PA-C, and recommended against any antiplatelet or anticoagulation at this time given subdural hematomas. She is high risk for DVT and potentially PE but is also high risk for further intracranial hemorrhage Subjective eval this morning, daughter at bedside they have not followed with neurosurgery, saw "tall man" there, one neurologist here. They are waiting to hear back from orthopedics to see about DVT prophylaxis. She has an IVC filter in place. Pain controlled. Anxiety with being in the hospital but no headache/blurry vision. Worked with therapy. Planning for dc today once DVT prophylaxis figured out. Messaged Dr Flores and RENE Aguirre regarding who they contacted to help coordinate the care. Also messaged Dr Cook for discussion. Physical Exam 2 Physical Exam: General: WD/WN female, dressed and ready for discharge, daughter at bedside, on the phone, NAD HEENT: pupils equal/reactive, mmm, trachea midline Resp: CTA, no w/c/r, 98% on RA CV: RRR, no significant m/r/g, chronic venous stasis changes GI: +BS, soft, palpable stool, but nontender to palpation : no juarez MSK/Neuro: LLE dressing c/d/i, brace in place, sensation intact, RLE>LLE at baseline, sensation intact, toes mobile, pulses palpable Psych: AOx3, cooperative with exam Results & Data Results & Data Vital Signs (Past 12 Hours) Vital Signs Temp Pulse Resp BP BP Pulse Ox O2 Del Method 07/16/22 07:21 36.3 C L 91 H 18 177/74 H 98 Room Air 07/16/22 06:07 36.6 C 76 18 180/84 H 95 Room Air 07/16/22 04:00 36.5 C 76 16 180/74 H 95 Room Air 07/16/22 00:00 36.7 C 91 H 18 189/75 H 95 Room Air Laboratory Results 07/16/22 07/16/22 07/16/22 Range/Units 07:25 07:25 06:10 WBC 14.79 H (4.8-10.8) K/ul RBC 3.86 L (4.20-5.40) M/uL Hgb 12.2 (12.0-16.0) g/dl Hct 35.7 L (37.0-47.0) % MCV 92.5 (80.0-100.0) fL MCH 31.6 (25.0-34.0) pg MCHC 34.2 (32.0-36.0) g/dL RDW Std Deviation 41.2 (36.4-46.3) fL RDW Coeff of Mihaela 12.4 (11.5-14.5) % Plt Count 207 (130-400) K/uL MPV 10.2 (9.4-12.4) fL Sodium 137 (136-145) mmol/L Potassium 3.8 (3.5-5.1) mmol/L Chloride 104 (98-107) mmol/L Carbon Dioxide 24 (21-32) mmol/L Anion Gap 9 (3-11) BUN 27 H (6-23) mg/dl Creatinine 1.17 (0.6-1.2) mg/dl Est Cr Clr Drug Dosing 41.8 ml/min Est GFR ( Amer) 52.1 ml/min Est GFR (Non-Af Amer) 44.9 ml/min BUN/Creatinine Ratio 23.1 H (10-20) Glucose 132 H (70-99(Fasting)) mg/dl POC Glucose 131 H (70-99) mg/dl Calcium 9.3 (8.6-10.3) mg/dl 07/16/22 07/15/22 07/15/22 Range/Units 03:58 23:56 20:30 WBC (4.8-10.8) K/ul RBC (4.20-5.40) M/uL Hgb (12.0-16.0) g/dl Hct (37.0-47.0) % MCV (80.0-100.0) fL MCH (25.0-34.0) pg MCHC (32.0-36.0) g/dL RDW Std Deviation (36.4-46.3) fL RDW Coeff of Mihaela (11.5-14.5) % Plt Count (130-400) K/uL MPV (9.4-12.4) fL Sodium (136-145) mmol/L Potassium (3.5-5.1) mmol/L Chloride (98-107) mmol/L Carbon Dioxide (21-32) mmol/L Anion Gap (3-11) BUN (6-23) mg/dl Creatinine (0.6-1.2) mg/dl Est Cr Clr Drug Dosing ml/min Est GFR ( Amer) ml/min Est GFR (Non-Af Amer) ml/min BUN/Creatinine Ratio (10-20) Glucose (70-99(Fasting)) mg/dl POC Glucose 185 H 261 H 362 H* (70-99) mg/dl Calcium (8.6-10.3) mg/dl 07/15/22 07/15/22 07/15/22 Range/Units 17:24 17:22 11:27 WBC (4.8-10.8) K/ul RBC (4.20-5.40) M/uL Hgb (12.0-16.0) g/dl Hct (37.0-47.0) % MCV (80.0-100.0) fL MCH (25.0-34.0) pg MCHC (32.0-36.0) g/dL RDW Std Deviation (36.4-46.3) fL RDW Coeff of Mihaela (11.5-14.5) % Plt Count (130-400) K/uL MPV (9.4-12.4) fL Sodium (136-145) mmol/L Potassium (3.5-5.1) mmol/L Chloride (98-107) mmol/L Carbon Dioxide (21-32) mmol/L Anion Gap (3-11) BUN (6-23) mg/dl Creatinine (0.6-1.2) mg/dl Est Cr Clr Drug Dosing ml/min Est GFR ( Amer) ml/min Est GFR (Non-Af Amer) ml/min BUN/Creatinine Ratio (10-20) Glucose (70-99(Fasting)) mg/dl POC Glucose 336 H* 333 H* 236 H (70-99) mg/dl Calcium (8.6-10.3) mg/dl Diagnostic Findings Head CT 07/16/22 10:[address] DOSE: 547.75 mGy.cm HISTORY: Follow up chronic subdural hematomas. TECHNIQUE: Multiaxial CT images of the head were performed without the use of intravenous contrast. Automated exposure control was utilized for this study. A dose lowering technique was utilized adhering to the principles of ALARA. Comparison: Head CT 12/12/2021. Findings: The paranasal sinuses and mastoid air cells are clear. Basilar calcifications again noted at the skull base. Prior left-sided craniotomy. No acute fractures within the calvarium. Small bilateral chronic subdural hematomas have slightly decreased in size. These measure 3 mm on the right and 6 mm on the left. No acute intracranial hemorrhage identified. Atrophy and microvascular ischemic changes are again noted. Small focal areas of encephalomalacia within the right frontal lobe and right occipital lobe consistent with old infarcts. These remain unchanged. No acute infarct or mass is identified. Impression: 1. Slight decrease in size in the small bilateral chronic subdural hematomas as above. 2. No acute intracranial hemorrhage or acute infarct. 3. Additional chronic findings as described above. ACT 112: Negative or not required by law. Electronically signed by: Chion Worthy M.D. 07/16/2022 12:08 PM PG Care Time/CCT Total # of Minutes Spent Total Time Spent with Patient: Total time spent is greater than 50% in coordination of care (as documented) at patient's floor/unit and/or counseling patient: Prolonged Care Time Prolonged Care Time: Yes additional 120 minutes spent making multiple calls to neurology, orthopedics, hematology/oncology regarding DVT prophylaxis moving forward, multiple trips to patients room for discussion with family Coding Level of Care Code 52117 SUB INP/OBS CARE 3/50MIN (25 - SIGNIFICANT, SEPARATELY IDENTIFIABLE ) Diagnoses Status post left knee replacement Z96.652 Presence of vena cava filter Z95.828 HTN (hypertension) I10 Hypothyroidism E03.9 Hx of deep venous thrombosis Z86.718 Diabetes mellitus, type 2 E11.9 Additional Codes Prolonged Care Time - Prolonged Care Time: Yes ([id number])
--- NOTE | 2022-07-16 12:09 | CT Scan Report ---
HEAD CT NONCONTRAST CT DOSE: 547.75 mGy.cm HISTORY: Follow up chronic subdural hematomas. TECHNIQUE: Multiaxial CT images of the head were performed without the use of intravenous contrast. A utomated exposure control was utilized for this study. A dose lowering technique was utilized adheri ng to the principles of ALARA. Comparison: Head CT 12/12/2021. Findings: The paranasal sinuses and mastoid air cells are clear. Basilar calcifications again noted a t the skull base. Prior left-sided craniotomy. No acute fractures within the calvarium. Small bilater al chronic subdural hematomas have slightly decreased in size. These measure 3 mm on the right and 6 mm on the left. No acute intracranial hemorrhage identified. Atrophy and microvascular ischemic crum es are again noted. Small focal areas of encephalomalacia within the right frontal lobe and right occ ipital lobe consistent with old infarcts. These remain unchanged. No acute infarct or mass is identif ied. Impression: 1. Slight decrease in size in the small bilateral chronic subdural hematomas as above. 2. No acute intracranial hemorrhage or acute infarct. 3. Additional chronic findings as described above. ACT 112: Negative or not required by law. Electronically signed by: Chino Worthy M.D. 07/16/2022 12:08 PM
[2022-07-16] MEDS ORDERED: RHOPRESSA OTB SCH (14:15)
[2022-07-17] MEDS ORDERED: MAGNESIUM OXIDE 400 MG TAB PO SCH (09:00)
--- NOTE | 2022-07-17 09:57 | Discharge Summary ---
Date of Service date of discharge: July 16, 2022 date of admission: 07/15/22 Admission HPI Per Admitting Provider Makayla is a 77-year-old female who presents for preop evaluation prior to her left total knee replacement. She has had pain in his knee for many years now which is gradually worsened and is now affecting her daily activities including walking standing using stairs. She rates her current pain as a 7 out of 10. She has undergone previous cortisone injection as well as viscosupplementation and PRP injections without any relief. This point time she has failed conservative measures and like to proceed with left total knee replacementl Principal Diagnosis left knee arthritis Discharge Exam Musculoskeletal left knee: NVDI, calf SNT, negative colton sign. DP palpable, able to wiggle toes/ankle movement without difficulty. PHANI dressing clean dry and intact. expected post-operative bruising noted. Discharge Data Allergies Allergy/AdvReac Type Severity Reaction Status Date / Time cefoxitin AdvReac Mild vomiting Verified 07/15/22 07:36 Consultations 07/15/22 11:35 Consult Hematology Routine 07/15/22 12:24 Consult Hospitalist Routine 07/15/22 14:37 Consult Hospitalist Routine Procedures Performed Operation Date: 07/15/22 09:10 Actual Procedures p Left Total Knee Arthroplasty, Cemented.(Left) - Amor Flores, Ordered Studies 07/15/22 05:00 US - OR guided needle placemen Routine 07/16/22 10:11 CT head/brain wo con Urgent Hospital Course (1) Status post left knee replacement: POD #1 s/p Left TKA pt/ot dvt proph with MARIZOL/SCD/patient has IVC filter in place that was placed last year by Dr Fernandez. discussed with Dr Flores, will hold on any anticoagulants at this time discussed with Medical team as outlined below: CT head obtained which showed improvement in b/l chronic subdural hematoma. Discussed again with Dr Cook and he rec against ASA or eliquis given blood present. Discussed with our hematology/oncology department as well who deferred to Dr Cook's judgement. Should have some coverage with IVC filter in place. Recommended continued MARIZOL hose/consideration for SCDS (can get on [employer]/CM to discuss) Discussed w/ patient and daughter in room multiple times and they are in agreement as Dr Ricketts had told them no blood thinners in the past and would like to hold off anticoagulation/antiplatelet therapy. To continue ambulation/mechanical prophylaxis at discharge. Also recommended touching base w/ her usual neurosurgeon this upcoming week (not in office today for discussion) regarding any ongoing therapy/sergio if any surgeries planned in the future. Also discussed w/ patient and daughter may not be a bad idea to get re- established locally w/ neurology as they didn't want ot have to travel to [facility]. plan for d/c home with HHPT, will reassess after PT today. Total Time Total Time Spent Total Time Spent (In Minutes): 20 Discharge Plan Discharge Items Patient Disposition: Home - Home Health Services Reason For Visit: Left Knee Osteoarthritis Discharge Diagnosis: left total knee replacement Activity: Per Instructions section Weightbearing Comment: WBAT with walker Non-emergency contact: Surgeon Call non-emergency contact if: you have any medication questions, your temperature is above 101, your wound has increased redness, your wound has increased drainage and your wound pain has increased Follow-up/Referrals: Bijan Christine MD [Physician] - Faheem Sutton [Primary Care Provider] - Diet: Regular Addtl Attending Provider Instructions: ACTIVITY RECOMMENDATIONS: SELF CARE INSTRUCTIONS AFTER TOTAL KNEE REPLACEMENT A. You may need to continue a physical therapy program after discharge from the hospital. There are several options available to you. Your doctor will assist you in selecting the best one for you. 1. An out-patient facility 2 to 3 times a week for therapy or home therapy. 2. Continue working on all exercises taught to you in the hospital. Your goals should be to increase bending of your knee to 90 degrees and beyond and to fully straighten your knee. B. You may progress at your own pace from walking with a walker or crutches to a cane; then to no assistive devices. C. Make walking a part of your daily routine. Be up as much as comfortable with rest periods throughout the day. Rest with leg elevation is very important. Use the ice wrap frequently for the first 3-4 weeks. D. There are no restrictions on activities. You may ride in a car, shop, participate in lactation coordinator and all social activities. E. Wear the long elastic stockings (MARIZOL hose) 20 hours a day for 2 weeks after surgery. They can be removed several times a day for laundering and for a bath. F. You may shower, no tub baths until cleared by your doctor. SPECIAL CARE INSTRUCTIONS: VERY IMPORTANT TO READ AND REVIEW A. There are a few signs you need to watch for after you are home. Call [facility] if you notice any of the followin. Increased severe knee pain. Some pain is expected especially when you exercise. 2. Increased swelling in your leg or knee; pain or swelling of the calf muscle in either lower leg. 3. Any fluid drainage from the incision. 4. Shortness of breath or chest pain. B. Please call [facility] at if you have any concerns or questions about your operation or recovery. The doctor or his nurse will return your call promptly. C. You must take antibiotics before dental work, bladder, bowel or other surgery. Your doctor will provide you with a permanent care to carry describing this precaution. IMPORTANT: * REMEMBER TO TAKE ASPIRIN, 81 MG, TWICE DAILY FOR 4 WEEKS UNLESS OTHERWISE DIRECTED. THIS IS YOUR BLOOD THINNER. * HIGH RISK PATIENTS MAY BE PRESCRIBED A STRONGER BLOOD THINNER. THIS WILL BE PROVIDED AT DISCHARGE. * CALL IF INCREASED PAIN, REDNESS, DRAINAGE OR FEVER GREATER THAT 101. * WEAR MARIZOL HOSE 20 HOURS PER DAY FOR 2 WEEKS. DRESSING INSTRUCTIONS * PHANI Dressing- This is a large suction dressing covering your incision. This will help pull any excess drainage from the wound and allow your incision to heal properly. You may shower with this if you can keep the unit outside of the shower. If any bleeding or leakage is noted please call your doctor's office. This will remain on your incision for 7 days and then should be removed. This can be done yourself or by the home nursing staff if applicable. The entire unit is disposable once removed. Once removed, keep incision clean and dry. If redness or drainage is noted, please call your surgeon. ONCE PHANI IS REMOVED, FOLLOW THESE INSTRUCTIONS: DERMABOND Prineo- This is a mesh tape dressing that is covered with glue. It should remain in place until the incision is properly healed, usually 10-14 days. This dressing is designed to naturally slough off. You may trim the excess mesh tape as it peels off. Incision may be briefly wet in a shower. Dry immediately by blotting with a clean, dry towel. Do not bath or swim until instructed by your doctor. Do not scratch, rub, or pick at the dressing. Do not apply any topical ointments or lotions until dressing is completely removed and/or instructed by your doctor. There may be a small piece of suture material at one end of your incision. Do not pull or trim this. If it is bothersome or catching on clothing, you may cover it with a band-aid. IF INCISION IS LEAKING THROUGH DRESSING, CALL THE OFFICE . FOLLOW UP VISIT: If appointment is not already scheduled: Please call [facility] to make a follow-up appointment for 2 weeks after your surgery at . Stand-Alone Forms: My [facility] Medications and DC Order Prescriptions: New acetaminophen [Tylenol Extra Strength] 500 mg Tablet 1,000 mg PO Q8 21 Days Qty: 126 0RF oxycodone 5 mg Tablet 5 - 10 mg PO Q6H PRN (Reason: pain) Qty: 30 0RF Rx Instructions: ongoing therapy, supervising Dr Yobany Flores. Max 6 tabs in 24 hours docusate sodium 100 mg Capsule 100 mg PO BID 10 Days Qty: 20 0RF clindamycin HCl 300 mg capsule 300 mg PO TID 7 Days Qty: 21 0RF Continued glipizide 5 mg tablet 2.5 mg PO QAM (DME) OneTouch Verio test strips Strip See Rx Instructions .ROUTE Rx Instructions: As directed (DME) lancets [OneTouch Delica Lancets] 33 gauge misc See Rx Instructions .ROUTE Rx Instructions: As directed lisinopril 10 mg tablet 10 mg PO HS levothyroxine 25 mcg tablet 25 mcg PO DAILYBB gabapentin 300 mg capsule 300 mg PO BID metformin 500 mg Tablet 500 mg PO BID triamcinolone acetonide 0.1 % cream 1 applic topical BID PRN (Reason: IRRITATION) magnesium 250 mg Tablet 250 mg PO 3XWK cholecalciferol (vitamin D3) [Vitamin D3] 10 mcg (400 unit) Capsule 10 mcg PO DAILY Patient Comments: TAKES IN LIQUID FORM cyanocobalamin (vitamin B-12) 500 mcg Tablet, Sublingual 500 mcg SUBLINGUAL QAM Zypan 1 tab PO QAM Krames/Other Patient Handouts: Negative Pressure Wound Therapy Admission Data Admit Date/Time: 07/15/22 11:30 Attending Provider: Amor Flores Admit Provider: Amor Flores Primary Care Provider: Faheem Sutton Other Providers: Bill Kenny ; Faiza Hurst ; Faheem Sutton ; Roman Randolph ; Cady Kong ; [facility] Other Interventions: Discharge Summary Assessment (RN) Last Done: 07/16/22 10:02
== END 2022-07-16 15:11 | disposition home health service (06) ==
LOC: 3N 06:59 → ASU 06:59
DX: Z88.1 Allergy status to other antibiotic agents; Z95.828 Presence of other vascular implants and grafts; E11.9 Type 2 diabetes mellitus without complications; Z96.651 Presence of right artificial knee joint; Z79.84 Long term (current) use of oral hypoglycemic drugs; I44.4 Left anterior fascicular block; Z86.73 Personal history of transient ischemic attack (TIA), and cerebral infarction without residual deficits; I10 Essential (primary) hypertension; M17.12 Unilateral primary osteoarthritis, left knee; I44.0 Atrioventricular block, first degree; Z86.16 Personal history of COVID-19; Z79.899 Other long term (current) drug therapy; E03.9 Hypothyroidism, unspecified; Z86.718 Personal history of other venous thrombosis and embolism

== ENCOUNTER 2023-01-02 06:59 | Inpatient (IN) ==
[2023-01-02 08:13] LABS: Basophils % (auto) 0.5 %; Eosinophils % (auto) 3.5 %; Hematocrit (blood only) 36.2 % (37.0-47.0); Immature Granulocytes % (auto) 0.6 %; Lymphocytes # (auto) 1.17 K/uL (1.20-3.40); Lymphocytes % (auto) 18.5 %; Mean Corpuscular Hemoglobin 30.7 pg (25.0-34.0); Mean Corpuscular Hgb Conc 33.1 g/dL (32.0-36.0); Mean Corpuscular Volume 92.6 fL (80.0-100.0); Mean Platelet Volume 10.4 fL (9.4-12.4); Monocytes # (auto) 0.51 K/uL (0.11-0.59); Monocytes % (auto) 8.1 %; Neutrophils # (auto) 4.34 K/uL (1.40-6.50); Neutrophils % (auto) 68.8 %; Platelet Count 202 K/uL (130-400); RDW Standard Deviation 43.8 fL (36.4-46.3); Red Blood Count 3.91 M/uL (4.20-5.40); White Blood Count 6.31 K/ul (4.8-10.8)
[2023-01-02 08:14] LABS: Basophils # (auto) 0.03 K/uL (0.00-0.20); Eosinophils # (auto) 0.22 K/uL (0.00-0.50); Immature Granulocytes # (auto) 0.04 K/uL (0.01-0.20)
[2023-01-02] MEDS ORDERED: SODIUM CHLORIDE 0.9% 500 ML IV ONE (08:23)
--- NOTE | 2023-01-02 08:24 | Emergency Department Note ---
History of Present Illness General Chief complaint: Altered Mental Status Stated complaint: AMS, UTI Time Seen by Provider: 01/02/23 08:10 Source: patient, family (Daughter and sister who are at the bedside), RN notes reviewed and old records reviewed (10/23/2022-outpatient family practice note where she presented for wellness visit) Mode of arrival: ambulatory Limitations: no limitations History of Present Illness This patient is a 77-year-old female who comes in after being confused. Her daughter says she has had bouts of delusion for the last week or so. She was diagnosed with a UTI in November and completed 7 days of cefdinir they were traveling last in [place] and her urine looked cloudy they went to an urgent care and she just completed 5 days of Augmentin. She seems more confused today. She is she was answering just okay seemed diffusely weak but nonfocal. No slurred speech. She does have a history of a traumatic head injury in the past but no recent falls within the last week she had no fever with a Tmax of 99 1. She had no recent change in her medications her blood sugars and run on the high side of greater than 200 no episodes of hypoglycemia she may have had some lower abdominal discomfort. No chest pain shortness of breath or cough. When asked her how she is feeling she says lousy but is unable to further clarify. She is not presently on any blood thinners Home Medications Medication Instructions Recorded Confirmed Type levothyroxine 25 mcg tablet 25 mcg PO DAILYBB 03/31/21 01/02/23 History gabapentin 300 mg capsule 300 mg PO BID 06/26/21 01/02/23 [facility] 03/13/22 03/13/22 History Verio test strips) glipizide 5 mg tablet 2.5 mg PO QAM 03/13/22 01/02/23 History lancets 33 gauge (OneTouch [employer]ica 03/13/22 03/13/22 History Lancets) lisinopril 10 mg tablet 10 mg PO PM 03/13/22 01/02/23 History cholecalciferol (vitamin D3) 10 10 mcg PO DAILY 06/17/22 01/02/23 History mcg (400 unit) capsule (Vitamin D3) cyanocobalamin (vitamin B-12) 500 500 mcg sublingual QAM 06/17/22 01/02/23 History mcg sublingual tablet metformin 500 mg tablet 500 mg PO BID 06/17/22 01/02/23 History triamcinolone acetonide 0.1 % 1 applic topical BID PRN IRRITATION 06/17/22 01/02/23 History topical cream acetaminophen 500 mg tablet 1,000 mg PO Q8H PRN PAIN/FEVER 12/07/22 01/02/23 History Allergies Allergy/AdvReac Type Severity Reaction Status Date / Time cefoxitin AdvReac Mild vomiting Verified 01/02/23 09:33 Past Med/Surg History Medical History Osteoarthritis Hypothyroidism History of anemia Peripheral neuropathy Noted to bilateral hands Hx of deep venous thrombosis JULY 2021>VENA CAVA FILTER INSERTED BY DR. 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 TIA (transient ischemic attack) 2010? No residual issues Diabetes mellitus, type 2 Well controlled and stable Hgb A1C 7.7 on 06/16/22 History of COVID-19 12/2019 & 02/2021>RESOLVED Hypertension Surgical History History of total knee replacement RT History of colonoscopy History of cholecystectomy History of tooth extraction History of tonsillectomy History of cataract surgery RT/LEFT H/O craniotomy LARRY>06/01/21 *EMERGENCY CRANIOTOMY Family History Father Myocardial infarction Other Family history non-contributory No family history of adverse response to anesthesia Social History Smoking Status: Never smoker Second Hand Exposure: No; Hx Alcohol Use: No Hx Substance Use: No Preferred Language: Slovenian Communication Ability: CONFUSED Communication Ability Comment: @BASELINE A/O AND NO COMMUNICATION ISSUES Operational Risk Analyst Required: No Beliefs That Will Affect Care: None marital status: / Current Living Situation: Family Current Living Situation Comment: WITH DAUGHTER How many Children do You have: 2 Feels Safe at Home: Yes Safety Concerns: Feels Safe At This Time Assistive Devices: Cane, Denture - Upper and Denture - Lower Review of Systems Unobtainable due to reduced consciousness Physical Exam Vital Signs Vital Signs - 24 hr 01/02/23 07:11 01/02/23 07:12 01/02/23 07:16 Temperature 36.7 C Temperature Source Oral Pulse Rate 84 85 Pulse Rate [Apical] Pulse Rate from SpO2 Sensor 84 Respiratory Rate 20 20 Respiratory Effort / Characteristics Non-Labored Spontaneous Respiratory Depth Normal Respiratory Pattern Regular Blood Pressure 188/80 H 188/80 H Blood Pressure [Left Arm] Blood Pressure Mean 97 116 Blood Pressure Mean [Left Arm] Pulse Oximetry 95 94 Oxygen Delivery Method Room Air Sepsis Recent Fever Within 48 Hours No Sepsis New/Unexplained Change in Mental Status No Sepsis Action Taken by Nursing No Action Required 01/02/23 07:16 01/02/23 07:16 01/02/23 07:16 Temperature Temperature Source Pulse Rate 85 Pulse Rate [Apical] 85 Pulse Rate from SpO2 Sensor Respiratory Rate 20 20 Respiratory Effort / Characteristics Non-Labored Spontaneous Respiratory Depth Normal Respiratory Pattern Regular Blood Pressure Blood Pressure [Left Arm] 188/80 H Blood Pressure Mean Blood Pressure Mean [Left Arm] 116 Pulse Oximetry 94 94 94 Oxygen Delivery Method Room Air Room Air Room Air Sepsis Recent Fever Within 48 Hours Sepsis New/Unexplained Change in Mental Status Sepsis Action Taken by Nursing 01/02/23 07:21 01/02/23 07:30 01/02/23 07:58 Temperature Temperature Source Pulse Rate 85 81 85 Pulse Rate [Apical] Pulse Rate from SpO2 Sensor Respiratory Rate 24 20 Respiratory Effort / Characteristics Respiratory Depth Respiratory Pattern Blood Pressure Blood Pressure [Left Arm] Blood Pressure Mean Blood Pressure Mean [Left Arm] Pulse Oximetry 94 Oxygen Delivery Method Room Air Sepsis Recent Fever Within 48 Hours Sepsis New/Unexplained Change in Mental Status Sepsis Action Taken by Nursing 01/02/23 08:00 01/02/23 08:00 01/02/23 08:30 Temperature Temperature Source Pulse Rate 83 Pulse Rate [Apical] Pulse Rate from SpO2 Sensor Respiratory Rate 19 Respiratory Effort / Characteristics Respiratory Depth Respiratory Pattern Blood Pressure 168/72 H 152/87 H Blood Pressure [Left Arm] Blood Pressure Mean 115 94 Blood Pressure Mean [Left Arm] Pulse Oximetry 96 Oxygen Delivery Method Sepsis Recent Fever Within 48 Hours Sepsis New/Unexplained Change in Mental Status Sepsis Action Taken by Nursing 01/02/23 08:30 01/02/23 08:54 01/02/23 09:00 Temperature Temperature Source Pulse Rate 83 85 Pulse Rate [Apical] 84 Pulse Rate from SpO2 Sensor Respiratory Rate 20 20 21 Respiratory Effort / Characteristics Non-Labored Spontaneous Respiratory Depth Normal Respiratory Pattern Regular Blood Pressure Blood Pressure [Left Arm] 152/87 H Blood Pressure Mean Blood Pressure Mean [Left Arm] 108 Pulse Oximetry 96 Oxygen Delivery Method Room Air Sepsis Recent Fever Within 48 Hours Sepsis New/Unexplained Change in Mental Status Sepsis Action Taken by Nursing 01/02/23 09:00 01/02/23 09:30 01/02/23 09:30 Temperature Temperature Source Pulse Rate Pulse Rate [Apical] Pulse Rate from SpO2 Sensor Respiratory Rate Respiratory Effort / Characteristics Respiratory Depth Respiratory Pattern Blood Pressure 173/96 H 206/121 H 206/121 H Blood Pressure [Left Arm] Blood Pressure Mean 103 144 144 Blood Pressure Mean [Left Arm] Pulse Oximetry 94 Oxygen Delivery Method Sepsis Recent Fever Within 48 Hours Sepsis New/Unexplained Change in Mental Status Sepsis Action Taken by Nursing 01/02/23 09:30 01/02/23 10:00 01/02/23 10:01 Temperature Temperature Source Pulse Rate 86 79 Pulse Rate [Apical] Pulse Rate from SpO2 Sensor 80 Respiratory Rate 24 20 Respiratory Effort / Characteristics Respiratory Depth Respiratory Pattern Blood Pressure 205/93 H Blood Pressure [Left Arm] Blood Pressure Mean 99 Blood Pressure Mean [Left Arm] Pulse Oximetry 95 Oxygen Delivery Method Sepsis Recent Fever Within 48 Hours Sepsis New/Unexplained Change in Mental Status Sepsis Action Taken by Nursing 01/02/23 10:01 Temperature Temperature Source Pulse Rate 86 Pulse Rate [Apical] Pulse Rate from SpO2 Sensor 86 Respiratory Rate 20 Respiratory Effort / Characteristics Respiratory Depth Respiratory Pattern Blood Pressure Blood Pressure [Left Arm] Blood Pressure Mean Blood Pressure Mean [Left Arm] Pulse Oximetry 95 Oxygen Delivery Method Sepsis Recent Fever Within 48 Hours Sepsis New/Unexplained Change in Mental Status Sepsis Action Taken by Nursing General: Well developed well nourished older female who appears in no acute distress, breathing comfortably on room air. Normal speech. She answers some questions appropriately she is alert to person but not place and follows some commands she does seem confused HEENT: Normal cephalic atraumatic. Pupils are equal round and reactive to light. Extraocular movements are intact. Oropharynx is pink with moist mucous membranes. No swelling of the mouth lips or tongue. Neck: Supple with a midline trachea. No meningeal signs or stiffness, no JVD or bruits. No Stridor. Chest: Clear to auscultation bilaterally. No wheezes or rhonchi. No increased work of breathing. Heart: Regular rate and rhythm without murmurs or gallops. Abdomen: Soft nontender, nondistended without rebound guarding or rigidity. Extremities: No cyanosis clubbing or edema. No calf tenderness or assymetry Spine/Back. Non tender to palpation. No CVA tenderness Skin: Good turgor without rashes. Neurologic exam: Cranial nerves two through 12 are intact. Motor and sensation are intact and symmetrical throughout. Course Administered Medications Discontinued Medications Sodium Chloride (Nss) 500 mls @ 999 mls/hr IV .Q31M ONE Stop: 01/02/23 08:53 Last Infusion: 01/02/23 09:29 Dose: Infused Documented By: Admin: 01/02/23 08:51 Dose: 999 mls/hr Documented By: FROYLAN Sodium Chloride (Nss) 1,000 mls @ 999 mls/hr IV .Q1H1M ONE Stop: 01/02/23 09:34 Last Infusion: 01/02/23 11:32 Dose: Infused Documented By: Admin: 01/02/23 08:51 Dose: 999 mls/hr Documented By: FROYLAN Cefepime HCl (Maxipime) 2,000 mg in 20 mls @ 5 mls/min IV NOW STA; Protocol Stop: 01/02/23 08:37 Last Admin: 01/02/23 08:52 Dose: 5 mls/min Documented By: FROYLAN Magnesium Sulfate/Dextrose (Magnesium Sulfate / D5w) 1 gm in 100 mls @ 100 mls/hr IV NOW STA Stop: 01/02/23 10:30 Last Infusion: 01/02/23 11:32 Dose: Infused Documented By: Admin: 01/02/23 10:09 Dose: 100 mls/hr Documented By: FROYLAN Medical Decision Making Differential Diagnosis UTI, sepsis, electrolyte or metabolic abnormality, arrhythmia, intracranial process Medical Records Attestation: I reviewed the patient's medical records. Home Medications Current Medication List: was personally reviewed by me Laboratory Data Attestation: I reviewed the patient's lab results. 01/02/23 07:44 01/02/23 07:44 Lab Results 01/02/23 Range/Units 07:44 WBC 6.31 (4.8-10.8) K/ul RBC 3.91 L (4.20-5.40) M/uL Hgb 12.0 (12.0-16.0) g/dl Hct 36.2 L (37.0-47.0) % MCV 92.6 (80.0-100.0) fL MCH 30.7 (25.0-34.0) pg MCHC 33.1 (32.0-36.0) g/dL RDW Std Deviation 43.8 (36.4-46.3) fL RDW Coeff of Mihaela 13.0 (11.5-14.5) % Plt Count 202 (130-400) K/uL MPV 10.4 (9.4-12.4) fL Immature Gran % (Auto) 0.6 % Neut % (Auto) 68.8 % Lymph % (Auto) 18.5 % [place] % (Auto) 8.1 % Eos % (Auto) 3.5 % Baso % (Auto) 0.5 % Neut # (Auto) 4.34 (1.40-6.50) K/uL Lymph # (Auto) 1.17 L (1.20-3.40) K/uL [place] # (Auto) 0.51 (0.11-0.59) K/uL Eos # (Auto) 0.22 (0.00-0.50) K/uL Baso # (Auto) 0.03 (0.00-0.20) K/uL Immature Gran # (Auto) 0.04 (0.01-0.20) K/uL PT 10.5 (9.0-12.0) Seconds INR 1.0 (0.9-1.1) APTT 24.5 (21.0-31.0) Seconds PTT Ratio 0.9 Sodium 137 (136-145) mmol/L Potassium 4.5 (3.5-5.1) mmol/L Chloride 103 (98-107) mmol/L Carbon Dioxide 25 (21-32) mmol/L Anion Gap 9 (3-11) BUN 25 H (6-23) mg/dl Creatinine 1.16 (0.6-1.2) mg/dl Est Cr Clr Drug Dosing 47.0 ml/min Est GFR ( Amer) 52.6 ml/min Est GFR (Non-Af Amer) 45.4 ml/min BUN/Creatinine Ratio 21.6 H (10-20) Glucose 243 H (70-99(Fasting)) mg/dl Calcium 9.2 (8.6-10.3) mg/dl Magnesium 1.3 L (1.7-2.4) mg/dl Total Bilirubin 0.5 (0.2-1.0) mg/dl AST 12 L (13-39) U/L ALT 17 (7-52) U/L Alkaline Phosphatase 77 (34-104) U/L Troponin I High Sens 2.3 (0-14) pg/ml Total Protein 7.2 (6.0-8.3) gm/dl Albumin 4.1 (3.4-5.0) gm/dl Globulin 3.1 (2.5-4.0) gm/dl Albumin/Globulin Ratio 1.3 (0.9-2) TSH 3.203 (0.300-4.500) uIu/ml Urine Color Yellow Urine Appearance Clear (Clear) Urine pH 6.5 (4.5-7.5) Ur Specific [place] 1.012 (1.000-1.030) Urine Protein Trace H (Negative) Urine Glucose (UA) 1+ H (Negative) Urine Ketones Negative (Negative) Urine Blood Negative (Negative) Urine Nitrite Negative (Negative) Urine Bilirubin Negative (Negative) Urine Urobilinogen Negative (Negative) Ur Leukocyte Esterase Negative (Negative) Urine WBC (Auto) 0 (0-5) /hpf Urine RBC (Auto) 0-4 (0-4) /hpf U Hyaline Cast (Auto) 0 (0-5) /lpf U Epithel Cells (Auto) 0-5 (0-5) /lpf Urine Bacteria (Auto) Negative (Negative) Imaging Data Attestation: I personally reviewed and interpreted this imaging study as follows: My Impression: Chest x-rayupon my independent interpretationno acute infiltrate, failure, pneumothorax seen Head CTupon my independent interpretation, there is some encephalomalacia in the right frontal area. I do not see any acute hemorrhage or mass effect Radiologist's Impression: Chest X-Ray 01/02/23 07:50 SINGLE VIEW CHEST CLINICAL HISTORY: Generalized weakness. FINDINGS: An AP upright chest radiograph is compared to study dated 12/07/2022. The heart is mildly enlarged noting atherosclerotic calcification of the thoracic aorta. The pulmonary vasculature is noncongested. Chronic interstitial thickening is similar previous. There is elevation of the right hemidiaphragm with mild bibasilar atelectasis. No airspace consolidation or large pleural effusion is identified. No pneumothorax is seen. The skeletal structures are osteopenic. The bony thorax is grossly intact. IMPRESSION: No active disease in the chest. ACT 112: Negative or not required by law. Electronically signed by: Toño Dorsey M.D. 01/02/2023 8:[address] 01/02/23 08:23 CT SCAN OF THE BRAIN WITHOUT IV CONTRAST CLINICAL HISTORY: Change in mental status. COMPARISON STUDY: Prior CT scans of the brain, most recently dated 12/07/2022. TECHNIQUE: Unenhanced axial CT scan of the brain is performed from the vertex to the skull base. A dose lowering technique was utilized adhering to the principles of ALARA. The skull base was scanned twice due to motion artifact. CT DOSE: 938. mGy.cm FINDINGS: Brain parenchyma: There is age-related involutional change noting moderate subcortical and periventricular microangiopathic disease. There is no acute hemorrhage, mass effect, or evidence of acute territorial ischemia by CT criteria. Foci of right frontal and right occipital encephalomalacia are unchanged. Johnson-white matter differentiation is preserved. Trace chronic bilateral subdural hemorrhages are unchanged from previous. These measure up to 3 mm on the right and 6 mm on the left. Ventricles, sulci, cisterns: Prominent secondary to involutional change. Intracranial vasculature: There is atherosclerotic calcification of the cavernous carotid and vertebral arteries. Calvarium: There is evidence of previous left-sided craniotomy. Sinuses and mastoids: The visualized paranasal sinuses are clear. The mastoid air cells are well pneumatized. Orbits: The bony orbits are grossly intact. There are bilateral ocular lens implants. IMPRESSION: 1. There is no acute hemorrhage, mass effect, or evidence of acute territorial ischemia by CT criteria. 2. Trace chronic subdural hemorrhages are similar in appearance to recent prior examination. 3. Additional chronic and postsurgical changes as above. ACT 112: Negative or not required by law. Electronically signed by: Toño Dorsey M.D. 01/02/2023 9:31 AM ECG Data Attestation: I personally reviewed and interpreted this ECG as follows: Indication: + weakness Rate (beats per minute): 83 Rhythm: + normal sinus ECG Intervals/blocks: + Incomplete right bundle branch block, + Normal QT and + Normal [place] ECG [place]: + Normal ECG ST segments: + Normal ST segments ECG Findings: no PACs or no PVCs Comparison ECG Date: from (12/07/22) Change: no significant change Additional Comments: I have reviewed the old EKG from 12-07-2022 previous admission MDM Narrative This patient comes in as scribed above. she does have altered mental status . she had a recent UTI she also has history of a head injury in the past but her daughter tells me she had a normal CAT scan 2 weeks ago. A full sepsis type work-up was obtained I did order IV antibiotics with cefepime 2 g for possible UTI. Her labs were essentially unremarkable. She has no elevation of her white count. Her BUN is mildly elevated and she was treated with IV fluids for this. Her magnesium was mildly low at 1.3 she was given 1 g of IV magnesium. Her urinalysis does not look infected with a UA pending. Blood cultures are pending. CAT scan of her head shows old changes but nothing acute. I do think she will need to be admitted/observed for altered mental status. She will need a further neurologic work-up and she does have a history of stroke is possible she could have another although at this point she would be outside of the window for lytics or acute neuro intervention. Her symptoms have been going on for about a week waxing and waning in severity I have consulted [facility] hospitalist for these measures Continuous cardiac monitoring: Orders placed in EMR for continuous cart monitor: Upon my evaluation patient with to be normal sinus with a rate of 80 Impression & Plan Altered level of consciousness, Hx of deep venous thrombosis, Hyperglycemia, Confusion Discharge Plan Visit Data Chief Complaint: Altered Mental Status Stated Complaint: AMS, UTI ED Provider: Bijan Hernandez Discharge Problem: Altered level of consciousness, Hx of deep venous thrombosis, Hyperglycemia, Confusion
[2023-01-02 08:26] LABS: Appearance Urine Clear (Clear); Bacteria Urine Automated Negative (Negative); Bilirubin Urine Negative (Negative); Blood Urine Negative (Negative); Cast Urine Automated 0 /lpf (0-5); Color Urine Yellow; Epithelial Cell Urine Auto 0-5 /lpf (0-5); Glucose Urine UA 1+ (Negative); Ketones Urine Negative (Negative); Leukocyte Esterase Urine Negative (Negative); Nitrite Urine Negative (Negative); Partial Thromboplastin Ratio 0.9; Partial Thromboplastin Time 24.5 Seconds (21.0-31.0); Protein Urine Trace (Negative); Prothrombin Time 10.5 Seconds (9.0-12.0); RBC Urine Automated 0-4 /hpf (0-4); Specific Gravity Urine 1.012 (1.000-1.030); Urobilinogen Urine Negative (Negative); WBC Urine Automated 0 /hpf (0-5); pH Urine 6.5 (4.5-7.5)
[2023-01-02] MEDS ORDERED: SODIUM CHLORIDE 0.9% 1,000 ML IV ONE (08:34)
[2023-01-02] MEDS ORDERED: CEFEPIME 2,000 MG/20 ML VIAL IV STA (08:34)
--- NOTE | 2023-01-02 08:34 | XRay Report ---
SINGLE VIEW CHEST CLINICAL HISTORY: Generalized weakness. FINDINGS: An AP upright chest radiograph is compared to study dated 12/07/2022. The heart is mildly e nlarged noting atherosclerotic calcification of the thoracic aorta. The pulmonary vasculature is nonc ongested. Chronic interstitial thickening is similar previous. There is elevation of the right hemidi aphragm with mild bibasilar atelectasis. No airspace consolidation or large pleural effusion is ident ified. No pneumothorax is seen. The skeletal structures are osteopenic. The bony thorax is grossly in tact. IMPRESSION: No active disease in the chest. ACT 112: Negative or not required by law. Electronically signed by: Toño Dorsey M.D. 01/02/2023 8:32 AM
[2023-01-02 08:45] LABS: Troponin I High Sensitivity 2.3 pg/ml (0-14)
[2023-01-02 08:55] LABS: Thyroid Stimulating Hormone 3.203 uIu/ml (0.300-4.500)
[2023-01-02 08:59] LABS: Albumin Level 4.1 gm/dl (3.4-5.0); Bilirubin,Total 0.5 mg/dl (0.2-1.0); Calcium 9.2 mg/dl (8.6-10.3); Magnesium 1.3 mg/dl (1.7-2.4); Potassium 4.5 mmol/L (3.5-5.1)
[2023-01-02 09:05] LABS: Albumin Globulin Ratio 1.3 (0.9-2); BUN Creatinine Ratio 21.6 (10-20); Est GFR (African American) 52.6 ml/min; Est GFR (Non-African American) 45.4 ml/min; Globulin 3.1 gm/dl (2.5-4.0); Total Protein 7.2 gm/dl (6.0-8.3)
[2023-01-02] MEDS ORDERED: MAGNESIUM SULFATE / D5W 1 GM/100 ML BAG IV STA (09:31)
--- NOTE | 2023-01-02 09:33 | CT Scan Report ---
CT SCAN OF THE BRAIN WITHOUT IV CONTRAST CLINICAL HISTORY: Change in mental status. COMPARISON STUDY: Prior CT scans of the brain, most recently dated 12/07/2022. TECHNIQUE: Unenhanced axial CT scan of the brain is performed from the vertex to the skull base. A do se lowering technique was utilized adhering to the principles of ALARA. The skull base was scanned tw ice due to motion artifact. CT DOSE: 938. mGy.cm FINDINGS: Brain parenchyma: There is age-related involutional change noting moderate subcortical and periventri cular microangiopathic disease. There is no acute hemorrhage, mass effect, or evidence of acute debbie torial ischemia by CT criteria. Foci of right frontal and right occipital encephalomalacia are unchan ged. Johnson-white matter differentiation is preserved. Trace chronic bilateral subdural hemorrhages are unchanged from previous. These measure up to 3 mm on the right and 6 mm on the left. Ventricles, sulci, cisterns: Prominent secondary to involutional change. Intracranial vasculature: There is atherosclerotic calcification of the cavernous carotid and vertebr al arteries. Calvarium: There is evidence of previous left-sided craniotomy. Sinuses and mastoids: The visualized paranasal sinuses are clear. The mastoid air cells are well pneu matized. Orbits: The bony orbits are grossly intact. There are bilateral ocular lens implants. IMPRESSION: 1. There is no acute hemorrhage, mass effect, or evidence of acute territorial ischemia by CT criteri a. 2. Trace chronic subdural hemorrhages are similar in appearance to recent prior examination. 3. Additional chronic and postsurgical changes as above. ACT 112: Negative or not required by law. Electronically signed by: Toño Dorsey M.D. 01/02/2023 9:31 AM
--- NOTE | 2023-01-02 10:07 | History & Physical Report ---
Date of Service January 02, 2023 Assessment & Plan (1) Altered level of consciousness: Plan: -Admit to the PCU on tele -Currently hypertensive with systolic BP in the 190's but otherwise stable -At this time the etiology of the patient's acute on chronic AMS/confusion is not known but her differential includes and is not limited to acute CVA, infection, dehydration, progression of chronic cognitive defects -CT of the head wo con is negative for acute findings, confirms stable chronic subdural hematomas -Patient is high risk for CVA as she has a previous history and is currently not on antiplatelet therapy or anticoagulation due to her hx of chronic subdural hematomas -Her A1c yesterday was 9.1 per daughter and she has a hx of hyperlipidemia, not currently on statin therapy due to cancers from family of confusion -Lower suspicion for hypertensive urgency/emergency at this time as her BP has increased while she has been in the ED, but systolics were noted to be in the 150's-160's on arrival -No leukocytosis, chest xray is negative for consolidation, UA does not show acute infection today, no other signs of infection on exam today >One set of blood cultures was obtained as patient was refusing a second set >S/P one dose of Cefepime in the ED, will hold off on additional abx for now as she is stable -Hold aspirin at this time until stat MRI of the brain is resulted -S/P 1.5L NSS in the ED, will continue light IV fluids on admission as she has had poor oral intake over the past week, is dry on exam, and currently NPO -Obtaining stat MRI of the brain wo con, if positive for CVA with obtain CTA of the head/neck -If patient did have a stroke further discussions will need to be held with Neurology and family regarding antiplatelet therapy -Will allow permissive HTN until MRI of brain is back, if negative for stroke with treat -Follow am lipid panel and A1c, q4h neuro checks, dysphagia screen, fall/aspiration precautions, q4h neuro checks -Hold chemical DVT PPX with chronic subdural hematomas -NPO for now with dysphagia screen and speech consult -Am CBC, BMP, Mag, PT/INR (2) Hypomagnesemia: Plan: -Mag at 1.3 today -Likely due to poor oral intake over the past week -S/P 1gm IV mag-sulfate in the ED -Will give an additional 2 bags, 1gm IV mag-sulfate for now -Continue to monitor on tele -Monitor am mag level (3) Diabetes mellitus, type 2: Plan: -Hold oral meds -Monitor BSG q6h while NPO, goal is 110-140 -Start CF of 50 q6h with CR of 15 when able to eat -Will start 5 units lantus BID for now due to poor oral intake, to avoid hypoglycemia -Montiro am A1c -Adjust regimen as needed (4) Hx of deep venous thrombosis: Plan: -Has IVC filter in place as she cannot be on anticoagulation due to hx of subdural and subarachnoid hemorrhages -BL MARIZOL's for now (5) HTN (hypertension): Plan: -Will allow permissive HTN for now until MRI of brain is resulted -If negative for CVA will treat accordingly -Hold lisinopril for now with slurring of words and aphasia (6) Hypothyroidism: Plan: -Continue levothyroxine when able to take PO intake Plan The patient was discussed with Dr. 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 England, HTN, and hypothyroidism who presented to the [facility] ED on 01/02 with her daughter with a chief complaint of AMS/ Per the ED, the patient's daughter reported she was recently treated for a UTI with Cefdinir and Augmentin. She was reportedly mildly confused last night. This am she was having word finding difficulties and trouble following commands. She remained stable in the ED. Labs were significant for a lymphopenia of 1.17, stable Cr but BUN of 25, glucose of 243, mag of 1.3, with UA and TSH WNL. Chest xray was read as "No active disease in the chest.". CT of the head wo con was read as "1. There is no acute hemorrhage, mass effect, or evidence of acute territorial ischemia by CT criteria. 2. Trace chronic subdural hemorrhages are similar in appearance to recent prior examination. 3. Additional chronic and postsurgical changes as above.". The patient was given a total of 1.5L NSS, a dose of Cefepime, and 1gm IV mag/sulfate without improvement in her AMS. At the time of the exam the patient was sitting in bed in no acute distress with her Daughter and sister sitting bedside. History was taken from the family due to her current confusion. The daughter states that at the beginning of November she was diagnosed with a UTI at [facility] and completed a 7 day course of Cefdinir. Approximately 2 weeks ago they were in [place] visiting [facility]. T patient was not acting like herself (refusing baked goods which she never does) so they went to an urgent care facility where she was diagnosed with another UTI and was given a course of Augmentin. The daughter confirms that she completed the Augmentin on 12/29. Her mentation has waxed and waned over this time, but over the past week things have been more severe. This am the patient was having difficulty getting her words out/understanding her family and was refusing to follow her daughter's commands. She did not have her medications this am but has otherwise been compliant. When asked, her daughter states that they did not rest art the patient's statin as recommended by her PCP as they were concerned this was causing confusion. Her daughter confirms that she has been off anticoagulation and antiplatelets since her knee replacement at [facility] in August at the recommendation of [facility] due to her chronic subdural hematomas. The daughter states that they saw her [facility] [employer] yesterday, the patient's A1c was reportedly 9.1 per the daughter. We discussed code status, the patient is a full code and her daughter is her primary decision maker. Please refer to Dr. Randolph's attestation for any changes to the treatment plan Allergies Allergy/AdvReac Type Severity Reaction Status Date / Time cefoxitin AdvReac Mild vomiting Verified 01/02/23 09:33 Home Medications Medication Instructions Recorded Confirmed Type levothyroxine 25 mcg tablet 25 mcg PO DAILYBB 03/31/21 01/02/23 History gabapentin 300 mg capsule 300 mg PO BID 06/26/21 01/02/23 History blood sugar diagnostic (OneTouch 03/13/22 03/13/22 History Verio test strips) glipizide 5 mg tablet 2.5 mg PO QAM 03/13/22 01/02/23 History lancets 33 gauge (OneTouch Delica 03/13/22 03/13/22 History Lancets) lisinopril 10 mg tablet 10 mg PO PM 03/13/22 01/02/23 History cholecalciferol (vitamin D3) 10 10 mcg PO DAILY 06/17/22 01/02/23 History mcg (400 unit) capsule (Vitamin D3) cyanocobalamin (vitamin B-12) 500 500 mcg sublingual QAM 06/17/22 01/02/23 History mcg sublingual tablet metformin 500 mg tablet 500 mg PO BID 06/17/22 01/02/23 History triamcinolone acetonide 0.1 % 1 applic topical BID PRN IRRITATION 06/17/22 01/02/23 History topical cream acetaminophen 500 mg tablet 1,000 mg PO Q8H PRN PAIN/FEVER 12/07/22 01/02/23 History Past Med/Surg History Medical History Osteoarthritis Hypothyroidism History of anemia Peripheral neuropathy Noted to bilateral hands Hx of deep venous thrombosis JULY 2021>VENA CAVA FILTER INSERTED BY DR. 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 TIA (transient ischemic attack) 2010? No residual issues Diabetes mellitus, type 2 Well controlled and stable Hgb A1C 7.7 on 06/16/22 History of COVID-19 12/2019 & 02/2021>RESOLVED Hypertension Surgical History History of total knee replacement RT History of colonoscopy History of cholecystectomy History of tooth extraction History of tonsillectomy History of cataract surgery RT/LEFT H/O craniotomy LARRY>06/01/21 *EMERGENCY CRANIOTOMY Family History Father Myocardial infarction Other Family history non-contributory No family history of adverse response to anesthesia Social History Smoking Status: Never smoker Second Hand Exposure: No; Hx Alcohol Use: No Hx Substance Use: No Preferred Language: Serbian Communication Ability: CONFUSED Communication Ability Comment: @BASELINE A/O AND NO COMMUNICATION ISSUES Oven Attendant Required: No Beliefs That Will Affect Care: None marital status: / Current Living Situation: Family Current Living Situation Comment: WITH DAUGHTER How many Children do You have: 2 Feels Safe at Home: Yes Safety Concerns: Feels Safe At This Time Assistive Devices: Cane, Denture - Upper and Denture - Lower Physical Exam Physical Exam: Physical Exam: General: In no acute distress, stated age, non-toxic appearing HEENT: Normocephalic, atraumatic, no scleral icterus, pupils around round, symmetrical, and reactive to light, dry mucus membranes, trachea midline, no thyromegaly Chest/Pulm: No respiratory distress, symmetrical chest expansion, clear breath sounds throughout Cardiac: RRR, no murmurs noted Abdomen: Negative for ascites and bruising, normoactive bowel sounds, soft, non-tender to palpation throughout Musculoskeletal: Patient will not follow commands for strength testing but no apparent trauma, spasticity, or flaccidity Extremities: Radial, dorsalis pedis, and posterior tibial pulses are intact and symmetrical, no edema noted in the BL LE's Skin: Warm, dry, no rashes , lesions, or scars noted Neuro: Alert not answering orientation questions appropriately, patient with aphasia with inappropriate responses to orientation questioning and confusion when asked questions, no focal defect noted, Patient will not follow directions for CN testing, no tremors noted Psych: No acute distress, confused/agitated at times, not cooperative during the exam but not aggressive Results & Data Results & Data Vital Signs (Past 12 Hours) Vital Signs Temp Pulse Pulse Resp BP BP Pulse Ox 01/02/23 09:00 173/96 H 94 01/02/23 09:00 85 21 01/02/23 08:54 84 20 152/87 H 96 01/02/23 08:30 83 20 01/02/23 08:30 152/87 H 01/02/23 08:00 168/72 H 01/02/23 08:00 83 19 96 01/02/23 07:58 85 20 94 01/02/23 07:30 81 24 11/18/23 07:21 85 01/02/23 07:16 85 20 94 01/02/23 07:16 85 20 188/80 H 94 01/02/23 07:16 94 01/02/23 07:16 36.7 C 85 20 188/80 H 94 01/02/23 07:12 84 20 95 01/02/23 07:11 188/80 H O2 Del Method 01/02/23 09:00 01/02/23 09:00 01/02/23 08:54 Room Air 01/02/23 08:30 01/02/23 08:30 01/02/23 08:00 01/02/23 08:00 01/02/23 07:58 Room Air 01/02/23 07:30 01/02/23 07:21 01/02/23 07:16 Room Air 01/02/23 07:16 Room Air 01/02/23 07:16 Room Air 01/02/23 07:16 Room Air 01/02/23 07:12 01/02/23 07:11 Laboratory Results Abnormal lab results 01/02/23 Range/Units 07:44 RBC 3.91 L (4.20-5.40) M/uL Hct 36.2 L (37.0-47.0) % Lymph # (Auto) 1.17 L (1.20-3.40) K/uL BUN 25 H (6-23) mg/dl BUN/Creatinine Ratio 21.6 H (10-20) Glucose 243 H (70-99(Fasting)) mg/dl Magnesium 1.3 L (1.7-2.4) mg/dl AST 12 L (13-39) U/L Urine Protein Trace H (Negative) Urine Glucose (UA) 1+ H (Negative) Diagnostic Findings Chest X-Ray 01/02/23 07:50 SINGLE VIEW CHEST CLINICAL HISTORY: Generalized weakness. FINDINGS: An AP upright chest radiograph is compared to study dated 12/07/2022. The heart is mildly enlarged noting atherosclerotic calcification of the thoracic aorta. The pulmonary vasculature is noncongested. Chronic interstitial thickening is similar previous. There is elevation of the right hemidiaphragm with mild bibasilar atelectasis. No airspace consolidation or large pleural effusion is identified. No pneumothorax is seen. The skeletal structures are osteopenic. The bony thorax is grossly intact. IMPRESSION: No active disease in the chest. ACT 112: Negative or not required by law. Electronically signed by: Toño Dorsey M.D. 01/02/2023 8:[address] 01/02/23 08:23 CT SCAN OF THE BRAIN WITHOUT IV CONTRAST CLINICAL HISTORY: Change in mental status. COMPARISON STUDY: Prior CT scans of the brain, most recently dated 12/07/2022. TECHNIQUE: Unenhanced axial CT scan of the brain is performed from the vertex to the skull base. A dose lowering technique was utilized adhering to the principles of ALARA. The skull base was scanned twice due to motion artifact. CT DOSE: 938. mGy.cm FINDINGS: Brain parenchyma: There is age-related involutional change noting moderate subcortical and periventricular microangiopathic disease. There is no acute hemorrhage, mass effect, or evidence of acute territorial ischemia by CT criteria. Foci of right frontal and right occipital encephalomalacia are unchanged. Johnson-white matter differentiation is preserved. Trace chronic bilateral subdural hemorrhages are unchanged from previous. These measure up to 3 mm on the right and 6 mm on the left. Ventricles, sulci, cisterns: Prominent secondary to involutional change. Intracranial vasculature: There is atherosclerotic calcification of the cavernous carotid and vertebral arteries. Calvarium: There is evidence of previous left-sided craniotomy. Sinuses and mastoids: The visualized paranasal sinuses are clear. The mastoid air cells are well pneumatized. Orbits: The bony orbits are grossly intact. There are bilateral ocular lens implants. IMPRESSION: 1. There is no acute hemorrhage, mass effect, or evidence of acute territorial ischemia by CT criteria. 2. Trace chronic subdural hemorrhages are similar in appearance to recent prior examination. 3. Additional chronic and postsurgical changes as above. ACT 112: Negative or not required by law. Electronically signed by: Toño Dorsey M.D. 01/02/2023 9:31 AM ECG Additional Comments: Normal sinus rhythm Incomplete right bundle branch block Left anterior fascicular block Minimal voltage criteria for LVH, may be normal variant ( Willard product ) Abnormal ECG When compared with ECG of 07-DEC-2022 13:02, No significant change was found Code Status & VTE Plan Code Status Full code VTE Prophylaxis Plan VTE Prophylaxis will be ordered: Yes Supervising Physician Co-Signing Physician Notes I personally saw and examined the patient. I verified all clarke points and agree with Coy Lopez PA-C with the following exceptions and/or additions: 77 year old female presents to the ER with difficulty understanding words and problems with her speech. Waxing and waning altered mental state normally and with recently diagnosed UTI. However significant change when her daughter saw her this morning with difficulty in her speech and appeared more confused than usual. O/E Alert, some difficulty finding the right words, occasional difficulty with demands, HS RRR, no murmur, Chest CTAB, Abdo SNT, mild right diet consultant strength, no facial droop, CN 2-> 12 intact A/P Acute CVA - unclear how acute as waxing and waning recently with possible UTI. But at best last known well was around 6:30pm last night. CT head/neck with IV contrast. TTE with bubble study. Consult neurology. Discussed case with Dr Christine and will start on aspirin. On discussion with patient's family given prior possible problem with atorvastatin causing confusion will switch to rosuvastatin. Monitor on telemetry. Ongoing receptive dysphasia and mild reduced right diet consultant strength. PG Care Time/CCT Total # of Minutes Spent Total Time Spent with Patient: Total time spent is greater than 50% in coordination of care (as documented) at patient's floor/unit and/or counseling patient: Coding [place] [address] INT INP/OBS CARE 3/75MIN Patient Type Established Medical Decision Making High Complexity Diagnoses Altered level of consciousness R40.4 Hypomagnesemia E83.42 Diabetes mellitus, type 2 E11.9 Hx of deep venous thrombosis Z86.718 HTN (hypertension) I10 Hypothyroidism E03.9
[2023-01-02] MEDS ORDERED: PHARMACIST DISCHARGE MED REC CONSULT PRN (10:27)
[2023-01-02] MEDS ORDERED: GLUCOSE 40% GEL 15 GM TUBE PO PRN (10:58)
[2023-01-02] MEDS ORDERED: CARBOHYDRATES FOR HYPOGLYCEMIA PO PRN (10:58)
[2023-01-02] MEDS ORDERED: DEXTROSE 50% 50 ML SYRINGE IV PRN (10:58)
[2023-01-02] MEDS ORDERED: GLUCOSE 10 TAB/TUBE PO PRN (10:58)
[2023-01-02] MEDS ORDERED: GLUCAGON FOR INJ 1 MG VIAL SQ PRN (10:58)
[2023-01-02 11:41] LABS: Adenovirus PCR Not Detected (NotDetected); Bordetella parapertussis PCR Not Detected (NotDetected); Bordetella pertussis PCR Not Detected (NotDetected); Chlamydia pneumoniae PCR Not Detected (NotDetected); Coronavirus 229E PCR Not Detected (NotDetected); Coronavirus CoV-2 (COVID19)PCR Not Detected (NotDetected); Coronavirus HKU1 PCR Not Detected (NotDetected); Coronavirus NL63 PCR Not Detected (NotDetected); Coronavirus OC43PCR Not Detected (NotDetected); Human Metapneumovirus PCR Not Detected (NotDetected); Influenza A PCR Not Detected (NotDetected); Influenza B PCR Not Detected (NotDetected); Mycoplasma pneumoniae PCR Not Detected (NotDetected); Parainfluenza Virus 1 PCR Not Detected (NotDetected); Parainfluenza Virus 2 PCR Not Detected (NotDetected); Parainfluenza Virus 3 PCR Not Detected (NotDetected); Parainfluenza Virus 4 PCR Not Detected (NotDetected); Respiratory Syncytial VirusPCR Not Detected (NotDetected); Rhinovirus/Enterovirus PCR Not Detected (NotDetected)
--- NOTE | 2023-01-02 13:09 | Magnetic Resonance Report ---
MRI OF THE BRAIN WITHOUT IV CONTRAST CLINICAL HISTORY: Strokelike symptoms. COMPARISON STUDY: CT of the brain dated 01/02/2023. TECHNIQUE: MRI of the brain was performed utilizing various T1 and T2-weighted sequences in the axial , sagittal, and coronal planes. IV contrast was not administered for this examination. The examinatio n is severely motion degraded and incomplete. The axial T2-weighted an gradient sequences were not ac quired. FINDINGS: Brain parenchyma: There is an approximately 3 cm focus of restricted diffusion identified in the left parietal lobe to be for acute or subacute ischemia. No additional foci of acute ischemia are identif ied. There is age-related involutional change noting moderate confluent subcortical and periventricul ar microangiopathic disease. There is no evidence of acute hemorrhage or mass effect. Trace bilateral extra axial fluid collections are again noted. These measure up to 5 mm on the left and 2.5 mm on th e right. The cerebellar tonsils are normal in configuration. Foci of right frontal and right occipita l encephalomalacia are unchanged and consistent with remote insults. Ventricles, sulci, and cisterns: Prominent secondary to involutional change. Pituitary and sella: Normal as visualized. Intracranial vasculature: Flow voids cannot be assessed as T2-weighted sequences were not obtained. Orbits: The bony orbits are grossly intact. Orbital contents are not well visualized. Sinuses and mastoids: Grossly clear but suboptimally assessed. Calvarium: There is postsurgical change from left-sided craniotomy. Cervical cord: Partially visualized cervical spinal cord is normal in morphology and signal intensity . IMPRESSION: 1. Severely motion compromised and incomplete examination. 2. An approximately 3 cm focus of restricted diffusion in the left parietal lobe is consistent with a n acute to subacute infarct. 3. There is no evidence of acute hemorrhage or mass effect. 4. Trace chronic extra axial fluid collections are seen to previous. 5. Additional chronic and postsurgical findings as above. ACT 112: Negative or not required by law. Electronically signed by: Toño Dorsey M.D. 01/02/2023 1:06 PM
[2023-01-02] MEDS: LACTATED RINGER'S 1,000 ML IV SCH (14:09)
[2023-01-02] MEDS: MAGNESIUM SULFATE / D5W 1 GM/100 ML BAG IV SCH ×2 (14:09→15:15)
[2023-01-02] MEDS ORDERED: LORazepam 0.5 MG in SYRINGE 0.25 ML IV STA (14:26)
[2023-01-02] MEDS ORDERED: OLANZAPINE 2.5 MG TAB PO SCH (16:15)
[2023-01-02] MEDS ORDERED: ASPIRIN 81 MG CHEW PO STA (20:19)
[2023-01-02] MEDS ORDERED: PHARMACY GLYCEMIC MGMT CONSULT PRN (20:50)
[2023-01-02] MEDS: INSULIN ASPART PER UNIT CHARGE SC SCH ×3 (20:58→23:29)
[2023-01-02] MEDS ORDERED: LANTUS PER UNIT CHARGE SQ SCH (21:00)
[2023-01-02] MEDS ORDERED: LANTUS PER UNIT CHARGE SQ ONE (21:15)
[2023-01-02] MEDS: GABAPENTIN 300 MG CAP PO SCH (21:19)
[2023-01-02] MEDS ORDERED: OPTIRAY 320 125ml IV ONE (21:30)
[2023-01-03] MEDS: LACTATED RINGER'S 1,000 ML IV SCH ×2 (00:12→14:06)
--- NOTE | 2023-01-03 01:28 | CT Scan Report ---
Exam(s): CTA HEAD With Contrast IV Amt: 115ml opti 320 EXAM: CT Angiography Head With Intravenous Contrast CLINICAL HISTORY: Reason for exam: CVA. TECHNIQUE: Axial computed tomographic angiography images of the head with intravenous contrast. Automated exposure control was utilized for the study. A dose lowering technique was utilized adhering to the principles of ALARA. MIP reconstructed images were created and reviewed. CONTRAST: Patient received 115ml opti 320 of IV contrast COMPARISON: No relevant prior studies available. FINDINGS: Right internal carotid artery: Calcific atherosclerotic disease within the cavernous segment of the right internal carotid artery. Intracranial segment is patent with no significant stenosis. No aneurysm. Right anterior cerebral artery: Unremarkable. No occlusion or significant stenosis. No aneurysm. Right middle cerebral artery: Unremarkable. No occlusion or significant stenosis. No aneurysm. Right posterior cerebral artery: Unremarkable. No occlusion or significant stenosis. No aneurysm. Right vertebral artery: Unremarkable as visualized. Left internal carotid artery: Calcific atherosclerotic disease within the cavernous segment of the left internal carotid artery. Intracranial segment is patent with no significant stenosis. No aneurysm. Left anterior cerebral artery: Unremarkable. No occlusion or significant stenosis. No aneurysm. Left middle cerebral artery: Unremarkable. No occlusion or significant stenosis. No aneurysm. Left posterior cerebral artery: Unremarkable. No occlusion or significant stenosis. No aneurysm. Left vertebral artery: Mild [id number] atherosclerotic calcifications within the V4 segment of the left vertebral artery. Basilar artery: Unremarkable. No occlusion or significant stenosis. No aneurysm. Brain: Chronic infarcts involving the right frontal and occipital lobes. Bones/joints: Postsurgical changes from a prior left-sided craniotomy. IMPRESSION: No acute findings in the arteries of the head/brain. Electronically signed by: Issac Mckenna MD 01/03/23 01:27 AM
--- NOTE | 2023-01-03 01:31 | CT Scan Report ---
Exam(s): CTA NECK With Contrast IV Amt: 115ml opti 320 EXAM: CT Angiography Neck With Intravenous Contrast CLINICAL HISTORY: Reason for exam: CVA. TECHNIQUE: Routine carotid CT angiography protocol was performed with intravenous contrast. NASCET criteria using the distal ICAs for comparison were used for evaluation of stenoses. Automated exposure control was utilized for the study. A dose lowering technique was utilized adhering to the principles of ALARA. MIP reconstructed images were created and reviewed. CONTRAST: Patient received 115ml opti 320 of IV contrast COMPARISON: None. FINDINGS: VASCULATURE: Right common carotid artery: Unremarkable. No occlusion or significant stenosis. No dissection. Right internal carotid artery: Atheromatous calcifications at the right carotid bulb and within the proximal right ICA causing less than 50% stenosis. No dissection. Right vertebral artery: Unremarkable. No occlusion or significant stenosis. No dissection. Left common carotid artery: Unremarkable. No occlusion or significant stenosis. No dissection. Left internal carotid artery: Atheromatous calcifications of the left carotid bulb and proximal left ICA causing less than 50% stenosis. No dissection. Left vertebral artery: Unremarkable. No occlusion or significant stenosis. No dissection. NECK: Bones/joints: Unremarkable. No acute fracture. Soft tissues: Unremarkable. Thyroid: Asymmetrically enlarged left thyroid lobe. Lung apices: Clear. CAROTID STENOSIS REFERENCE USING NASCET CRITERIA: % ICA stenosis = (1 - narrowest ICA diameter/diameter of distal cervical ICA) x 100. Mild - <50% stenosis. Moderate - 50-69% stenosis. Severe - 70-94% stenosis. Near occlusion - 95-99% stenosis. Occluded - 100% stenosis. IMPRESSION: No acute findings in the arteries of the neck. Electronically signed by: Issac Mckenna MD 01/03/23 01:30 AM
[2023-01-03] MEDS ORDERED: INSULIN ASPART PER UNIT CHARGE SC ONE (04:45)
[2023-01-03] MEDS: LEVOTHYROXINE SODIUM 25 MCG TABLET PO SCH (06:02)
[2023-01-03 07:30] LABS: Basophils # (auto) 0.03 K/uL (0.00-0.20); Basophils % (auto) 0.3 %; Eosinophils # (auto) 0.06 K/uL (0.00-0.50); Eosinophils % (auto) 0.7 %; Hematocrit (blood only) 38.5 % (37.0-47.0); Hemoglobin 13.1 g/dl (12.0-16.0); Immature Granulocytes # (auto) 0.03 K/uL (0.01-0.20); Immature Granulocytes % (auto) 0.3 %; Lymphocytes # (auto) 0.99 K/uL (1.20-3.40); Lymphocytes % (auto) 10.9 %; Mean Corpuscular Hemoglobin 30.7 pg (25.0-34.0); Mean Corpuscular Volume 90.2 fL (80.0-100.0); Mean Platelet Volume 10.3 fL (9.4-12.4); Monocytes # (auto) 0.63 K/uL (0.11-0.59); Neutrophils # (auto) 7.31 K/uL (1.40-6.50); Neutrophils % (auto) 80.8 %; Platelet Count 235 K/uL (130-400); RDW Coefficient of Variation 12.9 % (11.5-14.5); RDW Standard Deviation 42.3 fL (36.4-46.3); Red Blood Count 4.27 M/uL (4.20-5.40); White Blood Count 9.05 K/ul (4.8-10.8)
[2023-01-03 07:51] LABS: Estimated Average Glucose 217 mg/dl; Hemoglobin A1C 9.2 % (4.5-5.6)
[2023-01-03 08:05] LABS: BUN Creatinine Ratio 17.6 (10-20); Calcium 9.4 mg/dl (8.6-10.3); Chol HDL Ratio 4.9 (0-5); Creatinine Clr Calc Pharmacy 54.2 ml/min; Est GFR (African American) 70.5 ml/min; Est GFR (Non-African American) 60.9 ml/min; Magnesium 1.7 mg/dl (1.7-2.4); Potassium 3.7 mmol/L (3.5-5.1)
[2023-01-03] MEDS: INSULIN ASPART PER UNIT CHARGE SC SCH ×4 (08:09→21:51)
--- OUTSIDE RECORDS SUMMARY | 2023-01-03 08:20 | External Medical Summary | Continuity of Care Document ---
Author Name Unknown Organization [facility] [address] Address [address] [place], [place] [id number] Care Team Providers Care Cosmetician Name Role Phone Herman Faheem Primary Care Physician [phone] [id number]): [facility]27[facility]22 - 07/27/22 [facility] [address] [facility] [address] [facility], [address] [place], [place] [phone] Encounter Diagnosis Anemia, unspecified(Final) - Discharge Disposition: Home or Self Care Attending Physician: REBECCA Harris Amy Referring Physician: REBECCA Harris Amy Allergies, Adverse Reactions, Alerts No Known Allergies Immunizations Given and Recorded Vaccine Date Status Refusal Reason SARS-CoV-2 (COVID-19) mRNA-1273 vaccine 1 04/14/20 Recorded SARS-CoV-2 (COVID-19) mRNA-1273 vaccine 2 03/11/20 Recorded zoster vaccine, inactivated 3 11/25/12 Recorded pneumococcal 23-valent vaccine 4 11/04/10 Recorded 1Result Comment: 2021-08-06: Historical information-source unspecified 2Result Comment: 2021-08-06: Historical information-source unspecified 3Result Comment: Zostavax 4Result Comment: 2021-08-06: Historical information-source unspecified Medications Dexcom G7 [employer] Start: 07/20/22 15:43:00 EDT, See Instructions, Disp# 1 kit, Refills: 5, home glucose monitoring Dx: E11.9, Pharmacy: [id number] Start Date: 07/20/22 Status: Ordered Dexcom G7 Sensor Start: 07/20/22 15:43:00 EDT, See Instructions, Disp# 3 kit, Refills: 5, home glucose monitoring Dx: E11.9, Pharmacy: [place] [id number] Start Date: 07/20/22 Status: Ordered gabapentin 300 mg oral capsule Start: 06/25/22 10:41:00 EDT, 1 cap, PO, bid, Disp# 60 cap, Refills: 3, Pharmacy: [place] [facility] [id number] Start Date: 06/25/22 Stop Date: 10/23/22 Status: Ordered glipiZIDE 5 mg oral tablet Start: 05/20/22 11:08:00 EDT, See Instructions, Disp# 15 tab, Refills: 2, Take 1/2 (one-half) tablet by mouth once daily, Pharmacy: [place] [id number] Start Date: 05/20/22 Status: Ordered ibuprofen Start: 07/20/22 14:59:00 EDT, See Instructions, 1,000 mg daily max Start Date: 07/20/22 Status: Ordered Jardiance 10 mg oral tablet Start: 07/20/22 15:40:00 EDT, 1 tab, PO, qAM, Disp# 30 tab, Refills: 4, Pharmacy: [place] [id number] Start Date: 07/20/22 Stop Date: 12/17/22 Status: Ordered levothyroxine 25 mcg (0.025 mg) oral tablet Start: 07/01/22 11:45:00 EDT, See Instructions, Disp# 90 tab, Refills: 3, Take 1 tablet by mouth once daily for 90 days, Pharmacy: [facility] Start Date: 07/01/22 Status: Ordered lisinopril 10 mg oral tablet Start: 05/20/22 11:08:00 EDT, See Instructions, Disp# 30 tab, Refills: 2, Take 1 tablet by mouth once daily for 30 days, Pharmacy: [facility] Start Date: 05/20/22 Status: Ordered metFORMIN 500 mg oral tablet Start: 07/17/22 11:32:00 EDT, 1 tab, PO, bid, Disp# 60 tab, Refills: 3, with meals, Pharmacy: [facility] Start Date: 07/17/22 Stop Date: 11/14/22 Status: Ordered One Touch Delica Lancets Start: 09/30/21 10:21:00 EDT, One Touch Delica Lancets, eRx Product Type: Supply, See Instructions,Disp# 100 lancet, Refills: 11, Use 1 lancet to check glucose daily, Note to Pharmacy: E11.9, Pharmacy [id number] Start Date: 09/30/21 Status: Ordered One touch verio strips Start: 09/30/21 10:21:00 EDT, One touch verio strips, eRx Product Type: Supply, See Instructions, Disp# 100 strip, Refills: 11, Use 1 strip to check glucose daily, Note to Pharmacy: E11.9, Pharmacy [id number] Start Date: 09/30/21 Status: Ordered ONETOUCH DELICA SINTIA 33G MIS USE 1 STRIP TO CHECK GLUCOSE ONCE DAILY Start Date: 09/30/21 Status: Ordered Tylenol Start: 06/30/21 14:23:00 EDT, PRN pain Start Date: 06/30/21 Status: Ordered Problem List Condition Confirmation Course Effective Dates Status H ealth Status Informant CVA (cerebral vascular accident) Confirmed Active CKD (chronic kidney disease) Confirmed Active Subdural hematoma Confirmed Active 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 no acute intracerebral pathology 2. stable small bilateral chronic subdural hematomas 3. 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 old left occipital fracture and left side craniotomy 2gallbladder removal 3tonsil and adnoidectomy at age 12 [address], 1965 Results Laboratory List Name Date C Reactive Protein, Quantitation (CRP QU ANTITATION) 07/27/22 Complete Blood Count w Differential (CBC ,DIFFH) 07/27/22 Comprehensive Metabolic Panel (COMP META B PANEL) 07/27/22 Erythrocyte Sedimentation Rate (SEDIMENT ATION RATE) 07/27/22 Ferritin (FERRITIN) 07/27/22 Iron Profile (IRON PROFILE) 07/27/22 Lactate Dehydrogenase (LD) 07/27/22 Request to FAX Report (First Location) ( ACC NO TO BE FAXED) 07/27/22 Most recent to oldest [Reference Range]: 1 CReacProt [<0.50 mg/dL] <0.30 mg/dL (07/27/22 9:23 AM) eGFR CKD-EPI [>60 mL/min/1.73 m2] 50 mL/ min/1.73 m2 1 *LOW* (07/27/22 9:23 AM) Estimated CrCl 43.87 mL/min (07/27/22 10:31 AM) Phone No [phone] (07/27/22 9:23 AM) Faxed on: 07/28/22 09:11 (07/27/22 9:23 AM) MPV [9.0-12.2 fL] 9.5 fL (07/27/22 9:23 AM) Immature Gran% 0.4 % (07/27/22 9:23 AM) Neut% 71.3 % (07/27/22 9:23 AM) Lymph% 18.7 % (07/27/22 9:23 AM) [place]% 5.3 % (07/27/22 9:23 AM) Baso% 0.6 % (07/27/22 9:23 AM) Eos% 3.7 % (07/27/22 9:23 AM) Immat Gran, Abs [0-0.4 K/uL] 0.03 K/uL 3 (07/27/22 9:23 AM) Neut, Abs [2.0-7.7 K/uL] 5.78 K/uL (07/27/22 9:23 AM) Lymph, Abs [1.0-3.4 K/uL] 1.52 K/uL (07/27/22 9:23 AM) [place], Abs [0-1.0 K/uL] 0.43 K/uL (07/27/22 9:23 AM) Baso, Abs [0-0.1 K/uL] 0.05 K/uL (07/27/22 9:23 AM) Eos, Abs [0-0.5 K/uL] 0.30 K/uL (07/27/22 9:23 AM) Type of Diff: AUTO *Unknown* (07/27/22 AM) RDW [11.5-14.2 %] 13.0 % (07/27/22 AM) Anion Gap [5-14 mmol/L] 9 mmol/L (07/27/22 AM) Alb [3.5-5.0 g/dL] 4.3 g/dL (07/27/22 AM) Alk Phos [38-126 unit/L] 81 unit/L (07/27/22 AM) ALT [<35 unit/L] 16 unit/L (07/27/22 AM) AST [15-46 unit/L] 25 unit/L (07/27/22 AM) BUN [7-20 mg/dL] 35 mg/dL *HI* (07/27/22 AM) Ca [8.4-10.2 mg/dL] 9.4 mg/dL (07/27/22 AM) Cl- [96-107 mmol/L] 106 mmol/L (07/27/22 AM) HCO3 [22-30 mmol/L] 22 mmol/L (07/27/22 AM) Cret [0.60-1.00 mg/dL] 1.13 mg/dL *HI* (07/27/22 AM) ESR [0-50 mm/hr] 14 mm/hr 4 (07/27/22 AM) Iron [37-145 ug/dL] 121 ug/dL (07/27/22 AM) Ferritin [11.1-264.0 ng/mL] 928.0 ng/mL 5 *HI* (07/27/22 AM) Glu [74-106 mg/dL] 181 mg/dL *HI* (07/27/22 AM) Hct [35-44 %] 37.0 % (07/27/22 AM) Hgb [11.7-15.0 g/dL] 12.3 g/dL (07/27/22 AM) K [3.5-5.1 mmol/L] 4.9 mmol/L (6/12/23 9:23 AM) LDH [120-246 unit/L] 254 unit/L 6 *HI* (07/27/22:23 AM) MCH [28-33 pg] 31.5 pg (07/27/22:23 AM) MCHC [32-36 g/dL] 33.2 g/dL (07/27/22 9:23 AM) MCV [81-96 fL] 94.9 fL (07/27/22:23 AM) Na [137-145 mmol/L] 137 mmol/L (07/27/22:23 AM) Plts [150-350 K/uL] 229 K/uL (07/27/22:23 AM) RBC [3.90-5.00 M/uL] 3.90 M/uL (07/27/22:23 AM) Fe Sat [14-50 %] 45 % (07/27/22:23 AM) T Bili [0.2-1.3 mg/dL] 0.5 mg/dL (07/27/22:23 AM) Total IBC [250-400 ug/dL] 270 ug/dL (07/27/22 9:23 AM) Prot [6.3-8.2 g/dL] 7.4 g/dL (07/27/22:23 AM) Transferrin [200-360 mg/dL] 229 mg/dL (07/27/22:23 AM) WBC [4.0-10.4 K/uL] 8.11 K/uL (07/27/22 9:23 AM) 1Result Comment: Testing Performed By: Dept of Pathology [facility] [address], [facility] [address], [place] [address] 2Result Comment: Testing Performed By: Dept of Pathology [facility] [address]handari, [address], [place] [address] 3Result Comment: Testing Performed By: Dept of Pathology [facility] Joshua Bhandari, [facility] [address], [place] [address] 4Result Comment: Testing Performed By: Dept of Pathology [facility] Joshua Bhandari, [facility] [address], [place] [address] 5Result Comment: Testing Performed By: Dept of Pathology [facility] Joshua Bhandari, [address] [place] [address] 6Result Comment: Testing Performed [facility]: [facility], [address] [place] [address] Social History Social History Type Response Smoking Status Never smoked cigaret [place] Sex Female Implantable Device List Procedure Provider Procedure Date Device Type Site Unknown Unknown 06/01/21 Unknown Unknown Device Identifier Serial Number Lot or Batch Number Manufacturing Date Expiration Date Distinct Identification Code MRI Safety Implantable Status Assigning Authority Unknown Unknown NA Unknown Unknown Unknown Unknown Active Unkn own Unknown Unknown NA Unknown Unknown Unknown Unknown Active Unkn own Unknown Unknown NA Unknown Unknown Unknown Unknown Active Unkn own Unknown Unknown NA Unknown 06/01/21 Unknown Unknown Active Unkn own Unknown Unknown NA Unknown 06/01/21 Unknown Unknown Active Unkn own Unknown Unknown NA Unknown 06/01/21 Unknown Unknown Active Unkn own Patient Care team information Care Team Personnel Name: REBECCA Lynn Ashley Position: Physician Director [place] [employer] - Neurosurgery Member Role: Lifetime Relationship Address: Address: [address] [place] [address] [place] Name: MD Sutton Dongsheng Position: Physician - Family Med Member Role: Primary Care Provider Address: Address: [address] [facility] [address] [place] [address] [place] Name: REBECCA Dorsey Lynn Position: Physician Director [place] [employer] Exempt - Vasc Surg Member Role: Lifetime Relationship Address: Address: [address] [place] [id number] [place] Name: Lupis Auguste Kyle Position: Pharmacist Member Role: Pharmacy - Lifetime Address: Address: [address] [place] [address] [place] Name: Yu Chowdary MD, Andres Position: Resident Member Role: Lifetime Relationship Address: Address: [address] [facility] [address] [place] [address] Care Team Related Persons Name: EVELYNE GROVER Address: [place] Address: home [address] [place], [place] [phone] Name: PATSY ONEAL
--- OUTSIDE RECORDS SUMMARY | 2023-01-03 08:20 | External Medical Summary | Continuity of Care Document ---
Author Name Unknown Organization [address] [place] [id number] Care Team Providers Care Warehouse Handler Name Role Phone Sutton Faheem Primary Care Physician [phone] Encounter [facility] MAR[facility] [id number] Date(s): 12/01/22 - 12/01/22 [facility] 0 [facility] 207 [facility] [address] [address] [place] [phone] Encounter Diagnosis Body mass index [BMI] 33.0-33.9, adult(Discharge Diagnosis) - 12/01/22 UTI (urinary tract infection)(Discharge Diagnosis) - 12/01/22 DM2 (diabetes mellitus, type 2)(Discharge Diagnosis) - 12/01/22 Discharge Disposition: Home or Self Care Attending Physician: DO Fields Gretchen Elizabeth Allergies, Adverse Reactions, Alerts No Known Allergies [...] 4Result Comment: 2021-08-06: Historical information-source unspecified Medications atorvastatin 10 mg oral tablet Start: 09/23/22 15:38:00 EDT, 1 tab, PO, qhs, Disp# 90 tab, Refills: 1, Pharmacy: [facility] [id number] Start Date: 09/23/22 Status: Ordered cefdinir 300 mg oral capsule Start: 12/01/22 14:57:00 EDT, 1 cap, PO, q12h Start Date: 12/01/22 Status: Ordered Dexcom G7 Senior [employer] Developer Start: 07/20/22 15:43:00 EDT, See Instructions, Disp# 1 kit, Refills: 5, home glucose monitoring Dx: E11.9, Pharmacy: [facility] Start Date: 07/20/22 Status: Ordered Dexcom G7 Sensor Start: 07/20/22 15:43:00 EDT, See Instructions, Disp# 3 kit, Refills: 5, home glucose monitoring Dx: E11.9, Pharmacy: [place] [address] Start Date: 07/20/22 Status: Ordered fluticasone 50 mcg/inh nasal spray Start: 09/23/22 15:47:00 EDT, 2 spray, intranasal, Daily, Disp# 16 g, PRN: allergy symptoms, Pharmacy: [facility] [place] [id number] Start Date: 09/23/22 Status: Ordered gabapentin 300 mg oral capsule Start: 11/11/22 10:11:00 EDT, See Instructions, Disp# 60 cap, Refills: 2, Take 1 capsule by mouth twice daily, Pharmacy: [facility] [place] [id number] Start Date: 11/11/22 Status: Ordered glipiZIDE 5 mg oral tablet Start: 11/11/22 10:13:00 EDT, 1 tab, PO, Daily, Disp# 30 tab, Refills: 2, 30 minutes before breakfast, Pharmacy: [facility] Start Date: 11/11/22 Stop Date: 02/09/23 Status: Ordered ibuprofen Start: 07/20/22 14:59:00 EDT, See Instructions, 1,000 mg daily max Start Date: 07/20/22 Status: Ordered Jardiance 10 mg oral tablet Start: 07/20/22 15:40:00 EDT, 1 tab, PO, qAM, Disp# 30 tab, Refills: 4, Pharmacy: [facility] [place] [id number] Start Date: 07/20/22 Stop Date: 12/17/22 Status: Ordered levothyroxine 25 mcg (0.025 mg) oral tablet Start: 07/01/22 11:45:00 EDT, See Instructions, Disp# 90 tab, Refills: 3, Take 1 tablet by mouth once daily for 90 days, Pharmacy: [facility] Start Date: 07/01/22 Status: Ordered lisinopril 10 mg oral tablet Start: 11/11/22 10:11:00 EDT, See Instructions, Disp# 30 tab, Refills: 2, Take 1 tablet by mouth once daily, Pharmacy: [facility] Start Date: 11/11/22 Status: Ordered metFORMIN 500 mg oral tablet Start: 11/11/22 10:11:00 EDT, See Instructions, Disp# 60 tab, Refills: 2, TAKE 1 TABLET BY MOUTH TWICE DAILY WITH MEALS, Pharmacy: [facility] Start Date: 11/11/22 Status: Ordered One Touch Delica Lancets Start: 09/30/21 10:21:00 EDT, One Touch Delica Lancets, eRx Product Type: Supply, See Instructions,Disp# 100 lancet, Refills: 11, Use 1 lancet to check glucose daily, Note to Pharmacy: E11.9, Pharmacy [facility] Start Date: 09/30/21 Status: Ordered One touch verio strips Start: 09/30/21 10:21:00 EDT, One touch verio strips, eRx Product Type: Supply, See Instructions, Disp# 100 strip, Refills: 11, Use 1 strip to check glucose daily, Note to Pharmacy: E11.9, Pharmacy [facility] Start Date: 09/30/21 Status: Ordered ONETOUCH DELICA SINTIA 33G MIS USE 1 STRIP TO CHECK GLUCOSE ONCE DAILY Start Date: 09/30/21 Status: Ordered OneTouch Verio In Vitro Strip Start: 10/13/22 9:25:00 EDT, OneTouch Verio In Vitro Strip, eRx Product Type: Supply, See Instructions, Disp# 100 each, Refills: 0, USE 1 STRIP TO CHECK GLUCOSE DAILY and prn, Pharmacy [facility] Start Date: 10/13/22 Status: Ordered Tylenol Start: 06/30/21 14:23:00 EDT, PRN pain Start Date: 06/30/21 Status: Ordered Mental Status 12/01/22 Barriers to Learning one year None evide nt Mandatory Health Literacy Documentation Yes Health Literacy Communication Barriers N ever Primary Language Japanese Problem List Condition Confirmation Course Effective Dates Status H ealth Status Informant CVA (cerebral vascular accident) Confirmed Active CKD (chronic kidney disease) Confirmed Active Subdural hematoma Confirmed Active 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 HLD (hyperlipidemia) Confirmed Active HTN (hypertension) Confirmed Active Hypothyroidism Confirmed Active Inclusion cyst Confirmed Active Pain Confirmed Active Recurrent deep vein thrombosis (DVT) Confirmed Active Leg swelling Confirmed Active T2DM (type 2 diabetes mellitus) Confirmed Active Urine incontinence Confirmed Active Diagnosis Diagnosis Type Effective Dates Health Status Cl inical Service Informant Body mass index [BMI] 33.0-33.9, adult Discharge Diagnosis 12/01/22 Non-Specified DM2 (diabetes mellitus, type 2) Discharge Diagnosis 12/01/22 Non-Specified UTI (urinary tract infection) Discharge Diagnosis 12/01/22 Non-Specified Procedures Procedure Date Related Diagnosis Body Site [...] removal 3tonsil and adnoidectomy at age 12 [id number], 1965 Vital Signs Most recent to oldest [Reference Range]: 1 Height 163 cm (12/01/22 2:58 PM) Patient Weight 88.9 kg (12/01/22 2:58 PM) Body Mass Index 33.46 kg/m2 (12/01/22 2:58 PM) Heart Rate 92 bpm (12/01/22 2:58 PM) Respiratory Rate 12 br/min (12/01/22 2:58 PM) Blood Pressure 148/98mmHg (12/01/22 2:58 PM) Cuff Pulse Pressure 50 mmHg (12/01/22 2:58 PM) Social History Social History Type Response Smoking [...] Personnel Name: REBECCA Lynn Ashley Position: Physician Pharmacy Benefit Manager - Neurosurgery Member Role: Lifetime Relationship Address: Address: [address] [place] [address] [place] Name: MD Herman, Faheem Position: Physician - Family Med Member Role: Primary Care Provider Address: Address: [address] [facility] [address] [place] [address] [place] Name: REBECCA Dorsey Lynn Position: Physician Pharmacy Benefit Manager Exempt - Vasc Surg Member Role: Lifetime Relationship Address: Address: [address] [place] [address] 1 [place] [address] [place] Name: Lupis Auguste Kyle Position: Pharmacist Member Role: Pharmacy - Lifetime Address: Address: [address] [place] [address] [place] Care Team Related Persons Name: EVELYNE GROVER Address: [place] Address: home [address] [facility] [place] [phone] Name: PATSY ONEAL
--- OUTSIDE RECORDS SUMMARY | 2023-01-03 08:20 | External Medical Summary | Summary of Care ---
Author Name Unknown Organization [facility] Address [address] [place] [address] Phone [phone] Care Team Providers Care Polysomnographic Tech Name Role Phone Faheem Sutton MD Primary Care Provider [phone] Reason for Visit * Reason Comments NEW PATIENT Diabetes Encounter Details Date Type Department Care Team (Late st Contact Info) Description 01/01/2023 1:00 PM EST Office Visit Endocrinology, [place] [address], [place] [id number] Lilian Jones PA-C [address], [place] [id number] Type 2 diabetes mellitus with hemoglobin A1c goal of less than 8.0% ([facility])* Allergies No known active allergiesdocumented as of this encounter (statuses as of 01/01/2023) Medications Medication Sig Dispensed Refills Start Date End Date Status METFORMIN HCL 1000 MG PO TABS Take 0.5 Tablets by mouth in the morning and 0.5 Tablets before bedtime. Patient taking differently. Take 1000 mg in the morning and 500 mg in the evening.. 0 Active furosemide (LASIX) 40 MG Tablet Take 40 mg by mouth daily. 0 Active levothyroxine (LEVOXYL) 25 MCG Tablet Take 1 Tablet by mouth daily first thing in the morning. 0 Active gabapentin (NEURONTIN) 300 MG Capsule Take 1 Capsule by mouth in the morning and 1 Capsule before bedtime. 0 Active lisinopril (PRINIVIL) 10 MG Tablet Take 0.5 Tablets by mouth in the morning. Patient taking differently. Take 10 mg daily in the evening.. 0 Active metoprolol (LOPRESSOR) 25 MG Tablet Take 25 mg by mouth daily. 0 Active sitaGLIPtin (JANUVIA) 100 MG Tablet Take 100 mg by mouth daily. 0 Active potassium chloride ER 10 MEQ TBCR Take 10 mEq by mouth daily. 0 Active oxybutynin XL (DITROPAN XL) 10 MG TB24 Take by mouth 10 mg daily . 0 Active atorvaSTATin (LIPITOR) 20 MG Tablet Take 20 mg by mouth at bedtime. 0 Active Vitamin D (Cholecalciferol) 25 MCG (1000 UT) Oral Tablet Take by mouth daily . 0 Active Cyanocobalamin 1000 MCG Oral Tablet (Cyanocobalamin) Take by mouth 1,000 mcg in the morning. 0 Active Folic Acid 1 MG Oral Tablet Take by mouth 1 mg in the morning. 0 Active glipiZIDE ER 5 MG Oral Tablet Extended Release 24 Hour (Glucotrol XL) Take 1 Tablet by mouth in the morning. 90 Tablet 3 01/01/2023 Active glipiZIDE 5 MG Oral Tablet (Glucotrol) Take 0.5 tab daily in the morning. 0 01/01/2023 Discontinued documented as of this encounter (statuses as of 01/01/2023) Immunizations Name Administration Dates Next Due COVID-19 mRNA, LNP-s, No Pre serve, 2-Dose Series (Moderna) 04/14/2020,03/11/2020 documented as of this encounter Social History Tobacco Use Types Packs/Day Years Used Date Smoking Tobacco: Former Smokeless Tobacco: Never Tobacco Cessation:Counseling Given: Not Answered Alcohol Use Standard Drinks/Week Comments No 0 (1 standard drink = 0.6 oz pur e alcohol) Sex and Gender Information Value Date Recorded Sex Assigned at Not on file Gender Identity Not on file Sexual Orientation Not on file documented as of this encounter Last Filed Vital Signs Vital Sign Reading Time Taken Comments Blood Pressure 146/83 01/01/2023 1:11 PM EST Pulse 85 01/01/2023 1:11 PM EST Temperature 37 C (98.6 F) 01/01/2023 1:11 PM EST Respiratory Rate - - Oxygen Saturation - - Inhaled Oxygen Concentration - - Weight 89.4 kg (197 lb) 01/01/2023 1:11 PM EST Height 160 cm (5' 3") 01/01/2023 1:11 PM EST Body Mass Index 34.9 01/01/2023 1:11 PM EST documented in this encounter Patient Instructions * Patient Instructions* Lilian Jones PA-C - 01/01/2023 2:01 PM EST Follow Up: Return for Diabetes Return. | For: Diabetes Return | Check-out note: 05/05/2023 12 noon ,add on ,thanks! 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 Current issues include - A1C 9.7 % - UTI 11/2022 , this is an ongoing issue - seeing a chief media officer , MICKEY Seen with daughter today , care mgr , history given by daughter Prior DM Rx: Glipizide ,metformin , januvia Current DM Rx: Metformin 1,000 mg , 500 mg Glipizide 2.5 mg daily Testing once a day , blood sugars > 200 Diet: Eats B/L/D Some snacks Exercise: Limited/ none Weight: Wt Readings from Last 4 Encounters: 01/01/23 89.4 kg (197 lb) 10/07/21 81.6 kg (180 lb) 06/30/16 92.1 kg (203 lb) 07/16/12 93 kg (205 lb) Microvascular complications: Neuropathy: unknown Followed by podiatry : NO. Current issues with feet: : NO Nephropathy: : NO. Last urine mc below. Retinopathy: : NO. Last eye exam < 1 year . Macrovascular complications: Stroke : YES Heart attack : NO Peripheral arterial disease : NO Risk factors: Hypertension: : YES Hyperlipidemia: : YES was using atorvastatin however stopped due to side effects Smoking: : NO ASA: : NO PMH Past Medical History: Diagnosis Date Diabetes type 2, controlled (HCC) Hypertension Leg cramps Urge incontinence of urine PSH Past Surgical History: Procedure Laterality Date REMOVE CATARACT, INSERT LENS PROSTH Right 06/30/2016 right EXTRACAPSULAR CATARACT REMOVAL WITH INTRAOCULAR LENS performed by Jeffery Nobles MD at OR [facility] REMOVE CATARACT, INSERT LENS PROSTH Left 10/07/2021 LEFT EXTRACAPSULAR CATARACT REMOVAL WITH INTRAOCULAR LENS performed by Jeffery Nobles MD at OR [facility] MEDS Outpatient Medications Marked as Taking for the 01/01/23 encounter (Office Visit) with Lilian Jones PA-C Medication Sig glipiZIDE ER 5 MG Oral Tablet Extended Release 24 Hour (Glucotrol XL) Take 1 Tablet by mouth in themorning. gabapentin (NEURONTIN) 300 MG Capsule Take 1 Capsule by mouth in the morning and 1 Capsule before bedtime. levothyroxine (LEVOXYL) 25 MCG Tablet Take 1 Tablet by mouth daily first thing in the morning. lisinopril (PRINIVIL) 10 MG Tablet Take 0.5 Tablets by mouth in the morning. Patient taking differently. Take 10 mg daily in the evening.. ALL Reviewed and updated in the appropriate section of the electronic health record [facility] Social History Tobacco Use Smoking status: Former Smokeless tobacco: Never Substance Use Topics Alcohol use: No Drug use: No FH No family history on file. ROS 10 systems reviewed , as per HPI All other were negative. PE Filed Vitals: 01/01/23 1311 BP: 146/83 Pulse: 85 Temp: 37 C (98.6 F) Weight: 89.4 kg (197 lb) Height: 1.6 m (5' 3") Body mass index is 34.9 kg/m. GEN: pleasant, well-appearing. EYES- PERRL. normal lids and sclerae. ENT- O/P clear moist MM. NECK- Thyroid normal in size without nodularity. no masses. no enlargement of fat pads. LN- no cervical, suboccipital, or supraclavicular LAD. CV- regular rate, regular rhythm, no murmurs. no peripheral edema. DP intact b/l. PULM- CTAB with normal expansion. ABD- +BS, soft, nt/nd. SKIN- normal temperature and texture. Feet in okay condition. PSYCH- A&Ox3. Normal mood and affect. MSK- Normal bulk/tone. No foot deformity. RECORDS I reviewed the available medical records regarding her diabetes management and have summarized the relevant information per HPI above. LABS Latest Reference Range & Units 12/29/05 09:35 10/07/21 08:58 Glucose Meter 70 - 120 mg/dL 181 (H) Hemoglobin A1C 3.4 - 6.0 % 7.0 (H) VINOD Henao is a 77 year old female here for evaluation for T2DM. Seen with daughter today , primary marketing technology coordinator. She has noticed the blood sugars are increaed, A1C above goal. Does have UTI . Recommend increasing glipizide ER 5 mg daily, may need to continue to increase this. Was on a DDP4 inhib was getting it through PAP. However this stopped , not restarted. Could consider adding this back. Discussed the importance of a balanced diet and daily exercise. Has room to improve these Stick to 40 g of carbs PLAN Type 2 diabetes mellitus with hemoglobin A1c goal of less than 8.0% ([facility]) (Primary) - HEMOGLOBIN A1C; Future; Expected date: 04/03/2023 - BASIC METABOLIC PANEL; Future; Expected date: 04/03/2023 - TSH WITH FREE T4 IF INDICATED; Future; Expected date: 04/03/2023 - LIPID PANEL WITHOUT DIRECT LDL; Future; Expected date: 04/03/2023 Other orders - HEMOGLOBIN A1C, POINT OF CARE - glipiZIDE ER 5 MG Oral Tablet Extended Release 24 Hour (Glucotrol XL); Take 1 Tablet by mouth in the morning. - INCREASE glipizide ER 5 mg daily - Metformin 500 mg twice a day - start testing blood sugars fasting alternating at bedtime or before dinner - let us know in 1-2 weeks with BG, can continue to increase glipizide Follow Up: Return for Diabetes Return. | For: Diabetes Return | Check-out note: 05/05/2023 12 noon ,add on ,thanks! Lilian Jones PA-C [facility] Endocrinology [facility] [address] [facility] [address] Phone: [phone] Fax: [phone] documented in this encounter Nursing Notes * Amalia Askew, MED ASSIST - 01/01/2023 12:56 PM EST Patient was instructed to not get up on the exam table/exam chair until directed and assisted by their provider; patient is to remain seated in the chair/ wheelchair/ exam table/ exam chair for fall prevention and safety reasons. Patient is aware to have assistance to step down off exam table/exam chair with personnel. Patient voiced full comprehension of instructions. Patient denies any signs or symptoms of Covid. Amalia Askew MA Adult Endocrinology documented in this encounter Plan of Treatment Upcoming Encounters Date Type Department Care Team (Late st Contact Info) Description 05/05/2023 12:00 PM EDT Office Visit Endocrinology, [place] [address], [place] [phone] Lilian Jones PA-C [address] [place] [address] Scheduled Orders Name Type Priority Associated Diagnoses Orde r Schedule HEMOGLOBIN A1C Lab Routine Type 2 diabetes mellitus with hemoglobin A1c goal of less than 8.0% (HCC) Expected: 04/03/2023, Expires: 01/02/2024 BASIC METABOLIC PANEL Lab Routine Type 2 diabetes mellitus with hemoglobin A1c goal of less than 8.0% (HCC) Expected: 04/03/2023, Expires: 01/02/2024 TSH WITH FREE T4 IF INDICATED Lab Routine Type 2 diabetes mellitus with hemoglobin A1c goal of less than 8.0% (HCC) Expected: 04/03/2023, Expires: 01/02/2024 LIPID PANEL WITHOUT DIRECT LDL Lab Routine Type 2 diabetes mellitus with hemoglobin A1c goal of less than 8.0% (HCC) Expected: 04/03/2023, Expires: 01/02/2024 Health Maintenance Due Date Last Done Comments DXA Scan 1945 Depression Screening 1957 Hepatitis C Screening 1963 TSH 1963 DTaP,Tdap,and Td Vaccines (1 - Tdap) 02/12/1964 Pneumococcal Vaccine: 65+ Years (2 - PCV) 11/05/2011 11/04/2010 Zoster Vaccines (2 of 2) 01/20/2013 11/25/2012 COVID-19 Vaccine (3 - 2022-2 4 season) 2022 04/14/2020, 03/11/2020 Influenza Vaccine (FLU shot) (#1) 2022 GARDASIL-HPV IMMUNIZATION SERIES Aged Out No longer eligible b ased on patient's age to complete this topic Hepatitis B Aged Out No longer eligi ble based on patient's age to complete this topic MENINGOCOCCAL (MENACTRA/MENVEO) Aged Out No longer eligible b ased on patient's age to complete this topic documented as of this encounter Medical Devices Implanted Type Area Burnishing Machine Operator Device Identifier Shelf Expiration Date Model / Serial / Lot Lens Intraoc 21.0 - [id number] - [id number] Implanted:Qty: 1 on 06/30/2016 by Jeffery Nobles MD at OR [facility] Right: Eye [employer] 01/14/2021 [id number] / [id number] / Lens Intraoc 21.0 - [id number] - [id number] Implanted:Qty: 1 on 10/07/2021 by Jeffery Nobles MD at OR [facility] Left: Eye [employer] 05/15/2026 [id number] / [id number] / [id number] documented as of this encounter Procedures Procedure Name Priority Date/Time Associated Diagnosis Comments HEMOGLOBIN A1C, POINT OF CARE ALEX 01/01/2023 1:12 PM EST documented in this encounter Results * (ABNORMAL) HEMOGLOBIN A1C, POINT OF CARE (01/01/2023 1:12 PM EST) Hemoglobin A1c 9.7(H) 4.0 - 5.6 % 01/01/2023 1:23 PM EST [facility] [employer] Blood 01/01/2023 1:12 PM EST 01/01/2023 1:23 PM EST Lilian Jones PA-C LAB PO INT OF CARE TEST DOCKED DEVICE UNSOLICITED RESULTS [facility] [employer] [facility] [address] [facility] [place] [address] documented in this encounter Visit Diagnoses Diagnosis Type 2 diabetes mellitus with hemoglobin A1c goal of less than 8.0% (HCC)- Primary documented in this encounter Advance Directives Latest Code Status on File Code Status Date Activated Date Inactivated Comments No Code 10/07/2021 8:39 AM 10/07/2021 3:25 PM This order reflects the patients wishes and were consensually agreed upon. Question Answer Comments Discussion of Advance Directives occurred with: Patient Does the patient have a Living Will? No Does the patient have Health Care Power of Weight Caller? No Code Status History Code Status Date Activated Date Inactivated Comments Full Code 06/30/2016 6:35 AM 06/30/2016 12:48 PM This order reflects the patients wishes and were consensually agreed upon. Care Teams Polysomnographic Tech Relationship Specialty Start Date End Date Faheem Sutton MD [address] [address] PCP - General Family Medicine 10/07/21 documented as of this encounter
--- OUTSIDE RECORDS SUMMARY | 2023-01-03 08:20 | External Medical Summary | Continuity of Care Document ---
Author Name Unknown Organization [facility] 207 Address [facility] [id number] Care Team Providers Care Field Investigator Name Role Phone Faheem Sutton Primary Care Physician [phone] [id number] Date(s): 09/23/22 - 09/23/22 [facility] 207 [facility] Practice Site [address] [facility] 207 [place], [place] [address] [phone] Encounter Diagnosis HTN (hypertension)(Discharge Diagnosis) - 09/23/22 CVA (cerebral vascular accident)(Discharge Diagnosis) - 09/23/22 CKD (chronic kidney disease)(Discharge Diagnosis) - 09/23/22 Hypothyroidism(Discharge Diagnosis) - 09/23/22 Recurrent deep vein thrombosis (DVT)(Discharge Diagnosis) - 09/23/22 T2DM (type 2 diabetes mellitus)(Discharge Diagnosis) - 09/23/22 ETD (eustachian tube dysfunction)(Discharge Diagnosis) - 09/23/22 HLD (hyperlipidemia)(Discharge Diagnosis) - 09/23/22 Discharge Disposition: Home or Self Care Attending Physician: MD Sutton Dongsheng Allergies, Adverse Reactions, Alerts No Known Allergies Assessment and Plan Extracted from: Title:Office Visit Note Author:MD Sutton Dongsh eng Date:09/23/22 1.T2DM (type 2 diabetes me llitus) STATUS: Chronic, at goal DATA: Labs reviewed GOAL: A1c <8 PLAN:continuemetformin and glipizide. Jardiance - expensive. Januvia and Ozempic - expensive. Dexcom - not covered. Referred to Endo. May restart statin at lowest dose - monitor muscle aches. labs ordered 2.HTN (hypertension) STATUS: Chronic, at goal DATA: Labs reviewed GOAL: BP<150/90 PLAN: continue lisinopril. home BP. 3.CVA (cerebral vascular accident) STATUS: h/o TIA, stable DATA: Reviewed labs GOAL:prevention PLAN: f/uneurology .restart statin. 4.Hypothyroidism STATUS: Chronic, stable DATA: Reviewed labs GOAL: Maintain stability PLAN: continue med 5.CKD (chronic kidney disease) STATUS: Chronicstable DATA: Reviewed labs GOAL: Maintain stability PLAN: Had US. continue ACEI. f/u neph. Declined Jardiance. lab ordered 6.Recurrent deep vein thrombosis (DVT) Has IVC filter. Exercise 7.ETD (eustachian tube dysfunction) STATUS: recurrent DATA: Reviewed labs GOAL: Reduce symptoms PLAN: will start flonase 8.HLD (hyperlipidemia) STATUS: Chronic DATA: Reviewed labs GOAL: LDL <70 PLAN: restart Lipitor - monitor muscle aches. call prn. f/u 3 months Immunizations Given and Recorded Vaccine Date Status [...] qhs, Disp# 90 tab, Refills: 1, Pharmacy: [id number] Start Date: 09/23/22 Status: Ordered Dexcom G7 Softball Player Start: 07/20/22 15:43:00 EDT, See Instructions, Disp# 1 kit, Refills: 5, home glucose monitoring Dx: E11.9, Pharmacy: [id number] Start Date: 07/20/22 Status: Ordered Dexcom G7 Sensor Start: 07/20/22 15:43:00 EDT, See Instructions, Disp# 3 kit, Refills: 5, home glucose monitoring Dx: E11.9, Pharmacy: [facility] Start Date: 07/20/22 Status: Ordered fluticasone 50 mcg/inh nasal spray Start: 09/23/22 15:47:00 EDT, 2 spray, intranasal, Daily, Disp# 16 g, PRN: allergy symptoms, Pharmacy: [place] [id number] Start Date: 09/23/22 Status: Ordered gabapentin 300 mg oral capsule Start: 06/25/22 10:41:00 EDT, 1 cap, PO, bid, Disp# 60 cap, Refills: 3, Pharmacy: [place] [id number] Start Date: 06/25/22 Stop Date: 10/23/22 Status: Ordered glipiZIDE 5 mg oral tablet Start: 09/15/22 11:39:00 EDT, See Instructions, Disp# 15 tab, Refills: 0, Take 1/2 (one-half) tablet by mouth once daily, Pharmacy: [place] [id number] Start Date: 09/15/22 Status: Ordered ibuprofen Start: 07/20/22 14:59:00 EDT, See Instructions, 1,000 mg daily max Start Date: 07/20/22 Status: Ordered Jardiance 10 mg oral tablet Start: 07/20/22 15:40:00 EDT, 1 tab, PO, qAM, Disp# 30 tab, Refills: 4, Pharmacy: [place] [id number] Start Date: 07/20/22 Stop Date: 12/17/22 Status: Ordered levothyroxine 25 mcg (0.025 mg) oral tablet Start: 07/01/22 11:45:00 EDT, See Instructions, Disp# 90 tab, Refills: 3, Take 1 tablet by mouth once daily for 90 days, Pharmacy: [facility] Start Date: 07/01/22 Status: Ordered lisinopril 10 mg oral tablet Start: 08/27/22 16:25:00 EDT, See Instructions, Disp# 30 tab, Refills: 2, Take 1 tablet by mouth once daily, Pharmacy: [place] [id number] Start Date: 08/27/22 Status: Ordered metFORMIN 500 mg oral tablet Start: 07/17/22 11:32:00 EDT, 1 tab, PO, bid, Disp# 60 tab, Refills: 3, with meals, Pharmacy: [id number] Start Date: 07/17/22 Stop Date: 11/14/22 Status: Ordered One Touch Delica Lancets Start: 09/30/21 10:21:00 EDT, One Touch Delica Lancets, eRx Product Type: Supply, See Instructions,Disp# 100 lancet, Refills: 11, Use 1 lancet to check glucose daily, Note to Pharmacy: E11.9, Pharmacy [id number] Start Date: 09/30/21 Status: Ordered One touch verio strips Start: 09/30/21 10:21:00 EDT, One touch verio strips, eRx Product Type: Supply, See Instructions, Disp# 100 strip, Refills: 11, Use 1 strip to check glucose daily, Note to Pharmacy: E11.9, Pharmacy [id number] Start Date: 09/30/21 Status: Ordered ONETOUCH DELICA SINTIA 33G MIS USE 1 STRIP TO CHECK GLUCOSE ONCE DAILY Start Date: 09/30/21 Status: Ordered Tylenol Start: 06/30/21 14:23:00 EDT, PRN pain Start Date: 06/30/21 Status: Ordered Mental Status 09/23/22 Barriers to Learning one year None evide nt Mandatory Health Literacy Documentation Yes Health Literacy Communication Barriers N ever Primary Language Wolof Problem List Condition Confirmation Course Effective Dates [...] Diagnosis Diagnosis Type Effective Dates Health Status Clinical Service Informant T2DM (type 2 diabetes mellitus) Discharge Diagnosis 09/23/22 HTN (hypertension) Discharge Diagnosis 09/23/22 CVA (cerebral vascular accident) Discharge Diagnosis 09/23/22 Hypothyroidism Discharge Diagnosis 09/23/22 CKD (chronic kidney disease) Discharge Diagnosis 09/23/22 Recurrent deep vein thrombosis (DVT) Discharge Diagnosis 09/23/22 ETD (eustachian tube dysfunction) Discharge Diagnosis 09/23/22 HLD (hyperlipidemia) Discharge Diagnosis 09/23/22 Procedures Procedure Date Related Diagnosis Body Site [...] removal 3tonsil and adnoidectomy at age 12 [id number], 1965 Vital Signs Most recent to oldest [Reference Range]: 1 Patient Weight 87.8 kg (09/23/22 3:19 PM) Temperature [36.5-37.9 DegC] 37.0 DegC (09/23/22 3:19 PM) Blood Pressure 134/82mmHg (09/23/22 3:19 PM) BP Location # 1 Left Arm (09/23/22 3:19 PM) Social History Social History Type Response [...] Unknown 06/01/21 Unknown Unknown Active Unkn own FCM Outpt Note * MD Herman, [facility]: PERFORM Event Display: FCM Outpt Note Authored Date: [id number] Chief Complaint pt here for f/u- review lab work History of Present Illness DM: on meds. no low sugar. no side effects. HTN: on med. home BP. no dizzy. CVA: on meds. stable. DVT: no more leg swelling sensitive to cold: moving around helps. R clogged ear: stuffy nose: intermittent. sneezes. Review of Systems No fever/chills. No headache. No respiratory symptoms. No chest pain/shortness of breath. No nausea/vomiting. No abdominal pain. No change with bowels. No urinary symptoms. Other systems reviewed andare neg. Physical Exam Vitals & Measurements T:37.0C BP:134/82 SpO2:96% WT:87.8kg WT:87.800kg(Dosing) PHQ2 Data(Data Documented on:09/23/2022 15:12) Emotional health assessment NEGATIVE General: No acute distress. Nontoxic. Head:Normocephalic, Atraumatic. Eyes:Pupils are equal, round Normal conjunctiva. Ears: Tympanic membranes are clear, Nose:Clear.bogy Throat:No pharyngeal erythema, no abnormal masses or lesions. Neck:Supple, Non-tender, No thyromegaly, No jugular venous distention, No lymphadenopathy Respiratory:Lungs are clear to auscultation, Respirations non-labored, Breath sounds equal HONEY. Cardiovascular:Normal rate, Regular rhythm, No murmur, Rubs, gallops. Gastrointestinal:Soft, Non-tender, Non-distended, Normal bowel sounds. Neurologic:Alert, Oriented, No focal deficits. Psychiatric:Cooperative, Appropriate mood & affect. Assessment/Plan 1.T2DM (type 2 diabetes mellitus) STATUS: Chronic, at goal DATA: Labs reviewed GOAL: A1c <8 PLAN:continuemetformin and glipizide. Jardiance - expensive. Januvia and Ozempic - expensive. Dexcom - not covered. Referred to Endo. May restart statin at lowest dose - monitor muscle aches.labs ordered 2.HTN (hypertension) STATUS: Chronic, at goal DATA: Labs reviewed GOAL: BP<150/90 PLAN: continue lisinopril. home BP. 3.CVA (cerebral vascular accident) STATUS: h/o TIA, stable DATA: Reviewed labs GOAL:prevention PLAN: f/uneurology .restart statin. 4.Hypothyroidism STATUS: Chronic, stable DATA: Reviewed labs GOAL: Maintain stability PLAN: continue med 5.CKD (chronic kidney disease) STATUS: Chronicstable DATA: Reviewed labs GOAL: Maintain stability PLAN: Had US. continue ACEI. f/u neph. Declined Jardiance. lab ordered 6.Recurrent deep vein thrombosis (DVT) Has IVC filter. Exercise 7.ETD (eustachian tube dysfunction) STATUS: recurrent DATA: Reviewed labs GOAL: Reduce symptoms PLAN: will start flonase 8.HLD (hyperlipidemia) STATUS: Chronic DATA: Reviewed labs GOAL: LDL <70 PLAN: restart Lipitor - monitor muscle aches. call prn. f/u 3 months Problem List/Past Medical History Ongoing CKD (chronic kidney disease) CVA (cerebral vascular accident) HLD (hyperlipidemia) HTN (hypertension) Hypothyroidism Inclusion cyst Leg swelling Pain Recurrent deep vein thrombosis (DVT) 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 Subdural hematoma T2DM (type 2 diabetes mellitus) Urine incontinence Historical SDH (subdural hematoma) Procedure/Surgical History Head CT (09/23/2021)IVC - Insertion of inferior vena caval filter (07/02/2021)Punch biopsyof skin (05/07/2011)SurgerySurgerySurgery Medications acetaminophen(Tylenol) atorvastatin(atorvastatin 10 mg oral tablet), 10 mg= 1 tab, PO, qhs, 1 refills diabetes supplies(Dexcom G7 Sensor), See Instructions, 5 refills diabetes supplies(Dexcom G7 Softball Player), See Instructions, 5 refills empagliflozin(Jardiance 10 mg oral tablet), 10 mg= 1 tab, PO, qAM, 4 refills fluticasone nasal(fluticasone 50 mcg/inh nasal spray), 2 spray, intranasal, Daily, PRN gabapentin(gabapentin 300 mg oral capsule), 300 mg= 1 cap, PO, bid, 3 refills glipiZIDE(glipiZIDE 5 mg oral tablet), See Instructions ibuprofen, See Instructions levothyroxine(levothyroxine 25 mcg (0.025 mg) oral tablet), See Instructions, 3 refills lisinopril(lisinopril 10 mg oral tablet), See Instructions metFORMIN(metFORMIN 500 mg oral tablet), 500 mg= 1 tab, PO, bid, 3 refills unlisted medication(ONETOUCH DELICA SINTIA 33G MIS) unlisted medication(One touch verio strips), See Instructions, 11 refills unlisted medication(One Touch Delica Lancets), See Instructions, 11 refills Allergies NKA Social History Smoking Status Never smoked cigarettes Alcohol - Denies Alcohol Use Tobacco - Denies Tobacco Use Family History Heart attack: Father. Health Status Family Member(s) Mother: History is negative Immunizations Vaccine Date Status SARS-CoV-2 (COVID-19) mRNA-1273 vaccine 04/14/2020 Recorded Comments : 2021-08-06: Historical information-source unspecified SARS-CoV-2 (COVID-19) mRNA-1273 vaccine 03/11/2020 Recorded Comments : 2021-08-06: Historical information-source unspecified zoster vaccine, inactivated 11/25/2012 Recorded Comments : Zostavax pneumococcal 23-valent vaccine 11/04/2010 Recorded Comments : 2021-08-06: Historical information-source unspecified Recommendations Health Maintenance Pending(in the next year) OverDue Adult Influenza Vaccine due08/15/22and every 1year Due Adult COVID-19 Vaccination due09/23/22Unknown Frequency Adult Tdap/Td Vaccine due09/23/22Unknown Frequency Falls Plan of Care due09/23/22nown Frequency Hepatitis C Screening due09/23/22One-time only Medicare Annual Wellness Visit due09/23/22and every 1year Osteoporosis Screening due09/23/22One-time only Pneumococcal Vaccine Older Adults due09/23/22One-time only Shingles Vaccine due09/23/22One-time only Due In Future Diabetes Management A1c not due until09/07/23and every 1year Body Mass Index not due until09/23/23and every 1year Satisfied(in the past 1 year) Satisfied Body Mass Index on07/20/22.Satisfied by JASSI Morales Court[facility] Diabetes Management A1c on09/07/22.Satisfied by [employer], [employer] Diabetes Nephropathy Management on12/05/21.Satisfied by [employer], [id number] Diabetic Eye Exam on12/10/21.Satisfied by JASSI Dillard Lynnae Lipid Screening on09/07/22.Satisfied by [employer], [id number] Electronic Signature on File Electronically Reviewed/Signed by: Faheem Sutton MD Author Signature Dt/Tm:09/23/2022 03:55 PM Department of Family Medicine DJ Patient Care team information Care Team Personnel Name: REBECCA Lynn Ashley Position: Physician Ball Maker - Neurosurgery Member Role: Lifetime Relationship Address: Address: [address] [facility] [address] [place] [address] [place] Name: MD Sutton Dongsheng Position: Physician - Family Med Member Role: Primary Care Provider Address: Address: [address] [facility] [address] [place] [address] [place] Name: REBECCA Dorsey Lynn Position: Physician Ball Maker Exempt - Vasc Surg Member Role: Lifetime Relationship Address: Address: [address] [place] [address] Name: Lupis Auguste Kyle Position: Pharmacist Member Role: Pharmacy - Lifetime Address: Address: [address] [place] [address] Care Team Related Persons Name: EVELYNE GROVER Address: [place] Address: home [address] [place], [place] [phone] Name: PATSY ONEAL
--- OUTSIDE RECORDS SUMMARY | 2023-01-03 08:20 | External Medical Summary | Continuity of Care Document ---
Author Name Unknown Organization [facility] [address] Address [address] [place], [place] [id number] Care Team Providers Care Airfield Defence Guard Name Role Phone Faheem Sutton Primary Care Physician [phone] [id number] Date(s[facility] 09/07/22 - 09/07/22 [facility] [address] [facility] [address] [facility] [place], [place] [phone] Encounter Diagnosis Essential (primary) hypertension(Final) - Type 2 diabetes mellitus without complications(Final) - Chronic kidney disease, unspecified(Final) - Discharge Disposition: Home or Self Care Attending Physician: MD Sutton Dongsheng Referring Physician: MD Sutton Dongsheng Allergies, Adverse Reactions, [...] 2021-08-06: Historical information-source unspecified Medications Dexcom G7 Research Test Engine Evaluator Start: 07/20/22 15:43:00 EDT, See Instructions, Disp# 1 kit, Refills: 5, home glucose monitoring Dx: E11.9, [id number] Start Date: 07/20/22 Status: Ordered Dexcom G7 Sensor Start: 07/20/22 15:43:00 EDT, See Instructions, Disp# 3 kit, Refills: 5, home glucose monitoring Dx: E11.9, Pharmacy: [place] [id number] Start Date: 07/20/22 Status: Ordered gabapentin 300 mg oral capsule Start: 06/25/22 10:41:00 EDT, 1 cap, PO, bid, Disp# 60 cap, Refills: 3, Pharmacy: [place] [id number] Start Date: 06/25/22 Stop Date: 10/23/22 Status: Ordered glipiZIDE 5 mg oral tablet Start: 08/17/22 10:20:00 EDT, See Instructions, Disp# 15 tab, Refills: 0, Take 1/2 (one-half) tablet by mouth once daily, Pharmacy: [place] [id number] Start Date: 08/17/22 Status: Ordered ibuprofen Start: 07/20/22 14:59:00 EDT, See Instructions, 1,000 mg daily max Start Date: 07/20/22 Status: Ordered Jardiance 10 mg oral tablet Start: 07/20/22 15:40:00 EDT, 1 tab, PO, qAM, Disp# 30 tab, Refills: 4, Pharmacy: [place] [id number] Start Date: 07/20/22 Stop Date: 12/17/22 Status: Ordered levothyroxine 25 mcg (0.025 mg) oral tablet Start: 07/01/22 11:45:00 EDT, See Instructions, Disp# 90 tab, Refills: 3, Take 1 tablet by mouth once daily for 90 days, Pharmacy: [facility] Start Date: 07/01/22 Status: Ordered lisinopril 10 mg oral tablet Start: 08/27/22 16:25:00 EDT, See Instructions, Disp# 30 tab, Refills: 2, Take 1 tablet by mouth once daily, Pharmacy: [place] [id number] Start Date: 08/27/22 Status: Ordered metFORMIN 500 mg oral tablet Start: 07/17/22 11:32:00 EDT, 1 tab, PO, bid, Disp# 60 tab, Refills: 3, with meals, Pharmacy: [facility] Start Date: 07/17/22 Stop Date: 11/14/22 Status: Ordered One Touch Delica Lancets Start: 09/30/21 10:21:00 EDT, One Touch Delica Lancets, eRx Product Type: Supply, See Instructions,Disp# 100 lancet, Refills: 11, Use 1 lancet to check glucose daily, Note to Pharmacy: E11.9, Pharmacy [facility] Start Date: 09/30/21 Status: Ordered One touch verio strips Start: 09/30/21 10:21:00 EDT, One touch verio strips, eRx Product Type: Supply, See Instructions, Disp# 100 strip, Refills: 11, Use 1 strip to check glucose daily, Note to Pharmacy: E11.9, Pharmacy [id number] Start Date: 09/30/21 Status: [...] removal 3tonsil and adnoidectomy at age 12 [address], 1965 Results Laboratory List Name Date Comprehensive Metabolic Panel (COMP META B PANEL) 09/07/22 Hemoglobin A1C (HEMOGLOBIN, A1C) 09/07/22 Lipid Profile (LIPOPROTEINS) 09/07/22 Most recent to oldest [Reference Range]: 1 eGFR CKD-EPI [>60 mL/min/1.73 m2] 55 mL/ min/1.73 m2 1 *LOW* (09/07/22 10:48 AM) Estimated Average Glucose 163 mg/dL 2 (09/07/22 10:48 AM) Non-HDL 145 mg/dL 3 (09/07/22 10:48 AM) Estimated CrCl 47.67 mL/min (09/07/22 12:03 PM) Anion Gap [5-14 mmol/L] 9 mmol/L (09/07/22 10:48 AM) Alb [3.5-5.0 g/dL] 4.3 g/dL (09/07/22 10:48 AM) Alk Phos [38-126 unit/L] 78 unit/L (09/07/22 10:48 AM) ALT [<35 unit/L] 20 unit/L (09/07/22 10:48 AM) AST [15-46 unit/L] 18 unit/L (09/07/22 10:48 AM) BUN [7-20 mg/dL] 27 mg/dL *HI* (09/07/22 10:48 AM) Ca [8.4-10.2 mg/dL] 9.2 mg/dL (09/07/22 10:48 AM) Chol/HDL 5 (09/07/22 10:48 AM) Chol [125-200 mg/dL] 180 mg/dL (09/07/22 10:48 AM) Cl- [96-107 mmol/L] 105 mmol/L (09/07/22 10:48 AM) HCO3 [22-30 mmol/L] 24 mmol/L (09/07/22 10:48 AM) Cret [0.60-1.00 mg/dL] 1.04 mg/dL *HI* (09/07/22 10:48 AM) HbA1c [4.0-6.0 %] 7.3 % *HI* (09/07/22 10:48 AM) Glu [74-106 mg/dL] 194 mg/dL *HI* (09/07/22 10:48 AM) HDL [>35 mg/dL] 35 mg/dL *LOW* (09/07/22 10:48 AM) K [3.5-5.1 mmol/L] 4.7 mmol/L (09/07/22 10:48 AM) LDL Chol, Calculated [50-130 mg/dL] 91 m g/dL (09/07/22 10:48 AM) Na [137-145 mmol/L] 138 mmol/L (09/07/22 10:48 AM) T Bili [0.2-1.3 mg/dL] 0.5 mg/dL (09/07/22 10:48 AM) Prot [6.3-8.2 g/dL] 7.4 g/dL (09/07/22 10:48 AM) TG [<200 mg/dL] 270 mg/dL *HI* (09/07/22 10:48 AM) 1Result Comment: Testing Performed By: Dept of Pathology [facility], [address] [place] [address] 2Result Comment: Testing Performed By: Dept of Pathology [facility], [address] [place] [id number] 3Result Comment: Testing Performed By: Dept of Pathology [facility], [address] [place] [id number] Social History Social History Type Response Smoking [...] Personnel Name: REBECCA Lynn Ashley Position: Physician Die Casting Supervisor - Neurosurgery Member Role: Lifetime Relationship Address: Address: [address] [facility] [address] [place] [address] [place] Name: MD Sutton Dongsheng Position: Physician - Family Med Member Role: Primary Care Provider Address: Address: [address] [facility] [address] [place] [address] [place] Name: REBECCA Dorsey Lynn Position: Physician Die Casting Supervisor Exempt - Vasc Surg Member Role: Lifetime Relationship Address: Address: [address] [place] [address] 1 [place] [address] [place] Name: Lupis Auguste Kyle Position: Pharmacist Member Role: Pharmacy - Lifetime Address: Address: [address] [place] [address] [place] [address] [place] Care Team Related Persons Name: EVELYNE GROVER Address: [place] Address: home [address] [facility] [place] [phone] Name: PATSY ONEAL
--- OUTSIDE RECORDS SUMMARY | 2023-01-03 08:20 | External Medical Summary | Continuity of Care Document ---
Author Name Unknown Organization [facility] [address] [facility] 207 Address [facility] [id number] Care Team Providers Care Group Exercise Instructor Name Role Phone Faheem Sutton Primary Care Physician [phone] [id number] Date(s): 07/20/22 - 07/20/22 [facility] [address] [facility] 207 [facility] Practice Site 1850 [facility], [facility] 207 [place], [place] [address] [phone] Encounter Diagnosis Body mass index [BMI] 31.0-31.9, adult(Discharge Diagnosis) - 07/20/22 Recurrent deep vein thrombosis (DVT)(Discharge Diagnosis) - 07/20/22 Subdural hematoma(Discharge Diagnosis) - 07/20/22 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(Discharge Diagnosis) - 07/20/22 S/P TKR (total knee replacement)(Discharge Diagnosis) - 07/20/22 T2DM (type 2 diabetes mellitus)(Discharge Diagnosis) - 07/20/22 CVA (cerebral vascular accident)(Discharge Diagnosis) - 07/20/22 CKD (chronic kidney disease)(Discharge Diagnosis) - 07/20/22 Hypothyroidism(Discharge Diagnosis) - 07/20/22 HTN (hypertension)(Discharge Diagnosis) - 07/20/22 Discharge Disposition: Home or Self Care Attending Physician: MD Sutton Dongsheng Allergies, Adverse Reactions, Alerts No Known Allergies Assessment and Plan Extracted from: Title:Office Visit Note Author:MD Sutton Dongsh eng Date:07/20/22 1.T2DM (type 2 diabetes me llitus) STATUS: Chronic, not at goal DATA: Labs reviewed GOAL: A1c <8 PLAN:will switchmetformin and glipizide to Jardiance as ordered. Januvia and Ozempic - expensive. Will start Dexcom as ordered. Referred to Endo. May restart statin at lowest dose - monitor muscle aches . labs ordered 2.CVA (cerebral vascular accident) STATUS: h/o TIA, stable DATA: Reviewed labs GOAL:prevention PLAN: f/uneurology . may restart statin. labs ordered 3.CKD (chronic kidney disease) STATUS: Chronicstable DATA: Reviewed labs GOAL: Maintain stability PLAN: Had US. continue ACEI. f/u neph. . labs ordered 4.HTN (hypertension) STATUS: Chronic, at goal DATA: Labs reviewed GOAL: BP<150/90 PLAN:stopped metoprolol.continue lisinopril. home BP . labs ordered 5.Hypothyroidism STATUS: Chronic, stable DATA: Reviewed labs GOAL: Maintain stability PLAN: continue med 6.Recurrent deep vein thrombosis (DVT) Has IVC filter. Exercise 7.Subdural hematoma STATUS: Chronic with h/o TIA and SH since 03/21/2021, stable DATA: Reviewed labs GOAL:prevention PLAN: f/uneurology . 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 on PT call prn. f/u2 months Immunizations Given and Recorded Vaccine Date Status Refusal Reason SARS-CoV-2 (COVID-19) mRNA-1273 vaccine 1 04/14/20 Recorded SARS-CoV-2 (COVID-19) mRNA-1273 vaccine 2 03/11/20 Recorded zoster vaccine, inactivated 3 11/25/12 Recorded pneumococcal 23-valent vaccine 4 11/04/10 Recorded 1Result Comment: 2021-08-06: Historical information-source unspecified 2Result Comment: 2021-08-06: Historical information-source unspecified 3Result Comment: Zostavax 4Result Comment: 2021-08-06: Historical information-source unspecified Medications Dexcom G7 Winery Worker Start: 07/20/22 15:43:00 EDT, See Instructions, Disp# 1 kit, Refills: 5, home glucose monitoring Dx: E11.9, Pharmacy: [id number] Start Date: 07/20/22 Status: Ordered Dexcom G7 Sensor Start: 07/20/22 15:43:00 EDT, See Instructions, Disp# 3 kit, Refills: 5, home glucose monitoring Dx: E11.9, Pharmacy: [place] [id number] Start Date: 07/20/22 Status: Ordered gabapentin 300 mg oral capsule Start: 06/25/22 10:41:00 EDT, 1 cap, PO, bid, Disp# 60 cap, Refills: 3, Pharmacy: [place] [id number] Start Date: 06/25/22 Stop Date: 10/23/22 Status: Ordered glipiZIDE 5 mg oral tablet Start: 05/20/22 11:08:00 EDT, See Instructions, Disp# 15 tab, Refills: 2, Take 1/2 (one-half) tablet by mouth once daily, Pharmacy: [place] [id number] Start Date: 05/20/22 Status: Ordered ibuprofen Start: 07/20/22 14:59:00 EDT, See Instructions, 1,000 mg daily max Start Date: 07/20/22 Status: Ordered Jardiance 10 mg oral tablet Start: 07/20/22 15:40:00 EDT, 1 tab, PO, qAM, Disp# 30 tab, Refills: 4, Pharmacy: [place] [id number] Start Date: 07/20/22 Stop Date: 12/17/22 Status: Ordered levothyroxine 25 mcg (0.025 mg) oral tablet Start: 07/01/22 11:45:00 EDT, See Instructions, Disp# 90 tab, Refills: 3, Take 1 tablet by mouth once daily for 90 days, Pharmacy: [place] [id number] Start Date: 07/01/22 Status: Ordered lisinopril 10 mg oral tablet Start: 05/20/22 11:08:00 EDT, See Instructions, Disp# 30 tab, Refills: 2, Take 1 tablet by mouth once daily for 30 days, Pharmacy: [facility] Start Date: 05/20/22 Status: Ordered metFORMIN 500 mg oral tablet Start: 07/17/22 11:32:00 EDT, 1 tab, PO, bid, Disp# 60 tab, Refills: 3, with meals, Pharmacy: [facility] Start Date: 07/17/22 Stop Date: 11/14/22 Status: Ordered One Touch Delica Lancets Start: 09/30/21 10:21:00 EDT, One Touch Delica Lancets, eRx Product Type: Supply, See Instructions,Disp# 100 lancet, Refills: 11, Use 1 lancet to check glucose daily, Note to Pharmacy: E11.9, Pharmacy [facility] Start Date: 09/30/21 Status: Ordered One touch verio strips Start: 09/30/21 10:21:00 EDT, One touch verio strips, eRx Product Type: Supply, See Instructions, Disp# 100 strip, Refills: 11, Use 1 strip to check glucose daily, Note to Pharmacy: E11.9, Pharmacy [facility] Start Date: 09/30/21 Status: Ordered ONETOUCH DELICA SINTIA 33G MIS USE 1 STRIP TO CHECK GLUCOSE ONCE DAILY Start Date: 09/30/21 Status: Ordered Tylenol Start: 06/30/21 14:23:00 EDT, PRN pain Start Date: 06/30/21 Status: Ordered Mental Status 07/20/22 Barriers to Learning one year None evide nt Mandatory Health Literacy Documentation Yes Health Literacy Communication Barriers N ever Primary Language Pashto Problem List Condition Confirmation Course Effective Dates [...] Effective Dates Health Status Clinical Service Informant Body mass index [BMI] 31.0-31.9, adult Discharge Diagnosis 07/20/22 Non-Specified CVA (cerebral vascular accident) Discharge Diagnosis 07/20/22 CKD (chronic kidney disease) Discharge Diagnosis 07/20/22 HTN (hypertension) Discharge Diagnosis 07/20/22 Hypothyroidism Discharge Diagnosis 07/20/22 Subdural hematoma Discharge Diagnosis 07/20/22 S/P TKR (total knee replacement) Discharge Diagnosis 07/20/22 T2DM (type 2 diabetes mellitus) Discharge Diagnosis 07/20/22 Recurrent deep vein thrombosis (DVT) Discharge Diagnosis 07/20/22 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 Discharge Diagnosis 07/20/22 Procedures Procedure Date Related Diagnosis Body Site [...] removal 3tonsil and adnoidectomy at age 12 [address], 1965 Vital Signs Most recent to oldest [Reference Range]: 1 Height 163 cm (07/20/22 3:05 PM) Patient Weight 84 kg (07/20/22 3:05 PM) Body Mass Index 31.62 kg/m2 (07/20/22 3:05 PM) Temperature [36.5-37.9 DegC] 36.9 DegC (07/20/22 3:05 PM) Heart Rate 83 bpm (07/20/22 3:05 PM) Blood Pressure 132/76mmHg (07/20/22 3:05 PM) Cuff Pulse Pressure 56 mmHg (07/20/22 3:05 PM) BP Location # 1 Left Arm (07/20/22 3:05 PM) Social History Social History Type Response [...] own FCM Outpt Note * MD Herman, Faheem: PERFORM Event Display: FCM Outpt Note Authored Date: [id number] Chief Complaint Patient is here for a 3 month follow up, she did just have knee replacement and her glucose has been elevated since surgery been running in the 200's, would like to discuss a new meter, not able to get ozempic any other options. History of Present Illness s/p TKA: doing well. taking tylenol prn. DM: on meds. sugar has been high in [facility]. getting better. HTN: on med. home bp has been normal. CVA: stable. DVT: no signs of new DVT. Review of Systems No fever/chills. No headache. No other respiratory symptoms. No chest pain/shortness of breath. No nausea/vomiting. No abdominal pain. No change with bowels. No urinary symptoms. No rash. No bleeding. No weakness/numbness. No joint pain. No anxiety/depression. Other systems reviewed and are neg. Physical Exam Vitals & Measurements T:36.9C HR:83(Monitored) BP:132/76 SpO2:96% HT:163cm WT:84.000kg(Dosing) WT:84kg BMI:31.62 PHQ2 Data(Data Documented on:07/20/2022 14:54) Emotional health assessment NEGATIVE General: No acute distress. Nontoxic. Head:Normocephalic, Atraumatic. Eyes:Pupils are equal, round Normal conjunctiva. Neck:Supple, Non-tender, No thyromegaly, No jugular venous distention Respiratory:Lungs are clear to auscultation, Respirations non-labored, Breath sounds equal HONEY. Cardiovascular:Normal rate, Regular rhythm, No murmur, Rubs, gallops. Gastrointestinal:Soft, Non-tender, Non-distended, Normal bowel sounds. Musculoskeletal:b/llower leg wrapped Neurologic:Alert, Oriented, No focal deficits. Psychiatric:Cooperative, Appropriate mood & affect. Assessment/Plan 1.T2DM (type 2 diabetes mellitus) STATUS: Chronic, not at goal DATA: Labs reviewed GOAL: A1c <8 PLAN:will switchmetformin and glipizide to Jardiance as ordered. Januvia and Ozempic - expensive. Will start Dexcom as ordered. Referred to Endo. May restart statin at lowest dose - monitor muscle aches. labs ordered 2.CVA (cerebral vascular accident) STATUS: h/o TIA, stable DATA: Reviewed labs GOAL:prevention PLAN: f/uneurology . may restart statin. labs ordered 3.CKD (chronic kidney disease) STATUS: Chronicstable DATA: Reviewed labs GOAL: Maintain stability PLAN: Had US. continue ACEI. f/u neph. . labs ordered 4.HTN (hypertension) STATUS: Chronic, at goal DATA: Labs reviewed GOAL: BP<150/90 PLAN:stopped metoprolol.continue lisinopril. home BP. labs ordered 5.Hypothyroidism STATUS: Chronic, stable DATA: Reviewed labs GOAL: Maintain stability PLAN: continue med 6.Recurrent deep vein thrombosis (DVT) Has IVC filter. Exercise 7.Subdural hematoma STATUS: Chronic with h/o TIA and SH since 03/21/2021, stable DATA: Reviewed labs GOAL:prevention PLAN: f/uneurology . 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 on PT call prn. 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 Subdural hematoma T2DM (type 2 diabetes mellitus) Urine incontinence Historical SDH (subdural hematoma) Procedure/Surgical History Head CT (09/23/2021)IVC - Insertion of inferior vena caval filter (07/02/2021)Punch biopsyof skin (05/07/2011)SurgerySurgerySurgery Medications acetaminophen(Tylenol) diabetes supplies(Dexcom G7 Sensor), See Instructions, 5 refills diabetes supplies(Dexcom G7 Winery Worker), See Instructions, 5 refills empagliflozin(Jardiance 10 mg oral tablet), 10 mg= 1 tab, PO, qAM, 4 refills gabapentin(gabapentin 300 mg oral capsule), 300 mg= [...] the next year) OverDue Adult Influenza Vaccine due08/15/21and every 1year Due Adult COVID-19 Vaccination due07/20/22Unknown Frequency Adult Tdap/Td Vaccine due07/20/22Unknown Frequency Falls Plan of Care due07/20/22Unknown Frequency Hepatitis C Screening due07/20/22One-time only Medicare Annual Wellness Visit due07/20/22and every 1year Osteoporosis Screening due07/20/22One-time only Pneumococcal Vaccine Older Adults due07/20/22One-time only Shingles Vaccine due07/20/22One-time only Due In Future Diabetes Management A1c not due until04/13/23and every 1year Body Mass Index not due until07/20/23and every 1year Satisfied(in the past 1 year) Satisfied Body Mass Index on07/20/22.Satisfied by JASSI Morales Courtney Diabetes Management A1c on04/13/22.Satisfied by Contributor_system, [email or web address] Diabetes Nephropathy Management on12/05/21.Satisfied by Contributor_system, [email or web address] Diabetic Eye Exam on12/10/21.Satisfied by JASSI Dillard Lynnae Electronic Signature on File Electronically Reviewed/Signed by: Faheem Sutton MD Author Signature Dt/Tm:07/20/2022 03:49 PM Department of Family Medicine DJ Patient Care team information Care Team Personnel Name: REBECCA Lynn Ashley Position: Physician Creative Specialist - Neurosurgery Member Role: Lifetime Relationship Address: Address: [address] [place] [address] [place] [address] [place] Name: MD Herman, Faheem Position: Physician - Family Med Member Role: Primary Care Provider Address: Address: [address] [facility] [address] [place] [address] [place] Name: REBECCA Dorsey Lynn Position: Physician Creative Specialist Exempt - Vasc Surg Member Role: Lifetime Relationship Address: Address: [address] [address] [place] Name: Lupis Auguste Kyle Position: Pharmacist Member Role: Pharmacy - Lifetime Address: Address: [address] [place] [id number] Name: Yu Chowdary MD, Andres Position: Resident Member Role: Lifetime Relationship Address: Address: [address] [address] Care Team Related Persons Name: EVELYNE GROVER Address: [place] Address: home [address] [place], [place] [phone] Name: PATSY ONEAL
--- OUTSIDE RECORDS SUMMARY | 2023-01-03 08:20 | External Medical Summary | Continuity of Care Document ---
Author Name Unknown Organization [address] Address [address] [place], [place] [id number] Care Team Providers Care General Engineer Name Role Phone Faheem Sutton Primary Care Physician [phone] [id number] Date[facility]s): 07/[facility]/22 - 07/06/22 [facility] [address] [place] [address] [phone] Discharge Disposition: Home or Self Care Attending Physician: ZAIRA Hayden Sarah A Allergies, Adverse Reactions, Alerts No Known Allergies [...] 4Result Comment: 2021-08-06: Historical information-source unspecified Medications gabapentin 300 mg oral capsule Start: 06/25/22 10:41:00 EDT, 1 cap, PO, bid, Disp# 60 cap, Refills: 3, Pharmacy: [id number] Start Date: 06/25/22 Stop Date: 10/23/22 Status: Ordered glipiZIDE 5 mg oral tablet Start: 05/20/22 11:08:00 EDT, See Instructions, Disp# 15 tab, Refills: 2, Take 1/2 (one-half) tablet by mouth once daily, Pharmacy: [place] [id number] Start Date: 05/20/22 Status: Ordered levothyroxine 25 mcg (0.025 mg) oral tablet Start: 07/01/22 11:45:00 EDT, See Instructions, Disp# 90 tab, Refills: 3, Take 1 tablet by mouth once daily for 90 days, Pharmacy: [place] [id number] Start Date: 07/01/22 Status: Ordered lisinopril 10 mg oral tablet Start: 05/20/22 11:08:00 EDT, See Instructions, Disp# 30 tab, Refills: 2, Take 1 tablet by mouth once daily for 30 days, Pharmacy: [place] [id number] Start Date: 05/20/22 Status: Ordered metFORMIN 500 mg oral tablet Start: 02/27/22 14:54:00 EST, 1 tab, PO, bid, Disp# 60 tab, Refills: 3, with meals, Pharmacy: [facility] Start Date: 02/27/22 Stop Date: 06/27/22 Status: Ordered ofloxacin 0.3% ophthalmic solution Start: 04/15/22 16:46:00 EST, See Instructions, Disp# 5 mL, 5 drops into each ear BID x 2 days, Pharmacy: [place] [id number] Start Date: 04/15/22 Status: Ordered One Touch Delica Lancets Start: 09/30/21 10:21:00 EDT, One Touch Delica Lancets, eRx Product Type: Supply, See Instructions,Disp# 100 lancet, Refills: 11, Use 1 lancet to check glucose daily, Note to Pharmacy: E11.9, Pharmacy [place] [id number] Start Date: 09/30/21 Status: Ordered One touch verio strips Start: 09/30/21 10:21:00 EDT, One touch verio strips, eRx Product Type: Supply, See Instructions, Disp# 100 strip, Refills: 11, Use 1 strip to check glucose daily, Note to Pharmacy: E11.9, Pharmacy [facility] Start Date: 09/30/21 Status: Ordered ONETOUCH DELICA SINTIA 33G MIS USE 1 STRIP TO CHECK GLUCOSE ONCE DAILY Start Date: 09/30/21 Status: Ordered Tylenol Start: 06/30/21 14:23:00 EDT, PRN pain Start Date: 06/30/21 Status: Ordered Problem List Condition Confirmation Course Effective Dates Status H ealth Status Informant CVA (cerebral vascular accident) Confirmed Active CKD (chronic kidney disease) Confirmed Active 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 HTN (hypertension) Confirmed Active Hypothyroidism Confirmed Active Inclusion cyst Confirmed Active Pain Confirmed Active Leg swelling Confirmed Active T2DM [...] removal 3tonsil and adnoidectomy at age 12 [address], 1965 Vital Signs Most recent to oldest [Reference Range]: 1 Patient Weight 84.3 kg (07/06/22 10:29 AM) Heart Rate 79 bpm (07/06/22 10:29 AM) Blood Pressure 148/64mmHg (07/06/22 10:29 AM) Cuff Pulse Pressure 84 mmHg (07/06/22 10:29 AM) BP Location # 1 Right Arm (07/06/22 10:29 AM) Social History Social History Type Response Smoking [...] Personnel Name: REBECCA Lynn Ashley Position: Physician Dress Cutter - Neurosurgery Member Role: Lifetime Relationship Address: Address: [address] [place] [address] [address] [facility] [place], [place] [address] Name: MD Herman, Faheem Position: Physician - Family Med Member Role: Primary Care Provider Address: Address: [address] [facility] [address] [place] [address] [place] Name: REBECCA Dorsey Lynn Position: Physician Dress Cutter Exempt - Vas Surg Member Role: Lifetime Relationship Address: Address: [address] [address] [place] Name: Lupis Auguste Kyle Position: Pharmacist Member Role: Pharmacy - Lifetime Address: Address: [address] [place] [address] Name: Yu Chowdary MD, Andres Position: Resident Member Role: Lifetime Relationship Address: Address: [address] [address] Care Team Related Persons Name: EVELYNE GROVER Address: [facility] Address: home [address] [facility] [phone] Name: PATSY ONEAL
--- OUTSIDE RECORDS SUMMARY | 2023-01-03 08:20 | External Medical Summary ---
Author Name Unknown Address Unknown Organization : Laboratory Report Ordering Provider Test Date Status GERRI IRIZARRY 01/01/2023 13:12:47 Final Observation Date Value Abnormality Reference (Units ) Status HbA1C 01/01/2023 13:12:47 9.7 Above high normal 4. 0-5.6 (%) Final Performing Location
--- OUTSIDE RECORDS SUMMARY | 2023-01-03 08:20 | External Medical Summary | Continuity of Care Document ---
Author Name Unknown Organization [facility] [address] Address [address] [place], [place] [id number] Care Team Providers Care Accessioner Name Role Phone Faheem Sutton Primary Care Physician [phone] [id number] Date(s): 07/27/22 - 07/27/22 [facility] [address] [facility] [address] [facility], [address] [place], [place] [phone] Encounter Diagnosis Cerebral infarction, unspecified(Final) - Chronic kidney disease, unspecified(Final) - Essential (primary) hypertension(Final) - Type 2 diabetes mellitus without complications(Final) - Acute embolism and thrombosis of unspecified deep veins of unspecified lower extremity(Final) - Discharge Disposition: Home or Self Care [...] 2021-08-06: Historical information-source unspecified Medications Dexcom G7 Sand Cutter Start: 07/20/22 15:43:00 EDT, See Instructions, Disp# 1 kit, Refills: 5, home glucose monitoring Dx: E11.9, Pharmacy: [facility] Start Date: 07/20/22 Status: Ordered Dexcom G7 Sensor Start: 07/20/22 15:43:00 EDT, See Instructions, Disp# 3 kit, Refills: 5, home glucose monitoring Dx: E11.9, Pharmacy: [place] [address] Start Date: 07/20/22 Status: Ordered gabapentin 300 mg oral capsule Start: 06/25/22 10:41:00 EDT, 1 cap, PO, bid, Disp# 60 cap, Refills: 3, Pharmacy: [place] [id number] Start Date: 06/25/22 Stop Date: 10/23/22 Status: Ordered glipiZIDE 5 mg oral tablet Start: 05/20/22 11:08:00 EDT, See Instructions, Disp# 15 tab, Refills: 2, Take 1/2 (one-half) tablet by mouth once daily, Pharmacy: [place] [id number] Start Date: 05/20/22 Status: Ordered ibuprofen Start: 07/20/22 14:59:00 EDT, See Instructions, 1,000 mg daily max Start Date: 07/20/22 Status: Ordered Jardiance 10 mg oral tablet Start: 07/20/22 15:40:00 EDT, 1 tab, PO, qAM, Disp# 30 tab, Refills: 4, Pharmacy: [place] [id number] Start Date: 07/20/22 Stop Date: 12/17/22 Status: Ordered levothyroxine 25 mcg (0.025 mg) oral tablet Start: 07/01/22 11:45:00 EDT, See Instructions, Disp# 90 tab, Refills: 3, Take 1 tablet by mouth once daily for 90 days, Pharmacy: [facility] Start Date: 07/01/22 Status: Ordered lisinopril 10 mg oral tablet Start: 05/20/22 11:08:00 EDT, See Instructions, Disp# 30 tab, Refills: 2, Take 1 tablet by mouth once daily for 30 days, Pharmacy: [place] [id number] Start Date: 05/20/22 Status: Ordered metFORMIN 500 mg oral tablet Start: 07/17/22 11:32:00 EDT, 1 tab, PO, bid, Disp# 60 tab, Refills: 3, with meals, Pharmacy: [facility] Start Date: 07/17/22 Stop Date: 11/14/22 Status: Ordered One Touch Delica Lancets Start: 09/30/21 10:21:00 EDT, One Touch Delica Lancets, eRx Product Type: Supply, See Instructions,Disp# 100 lancet, Refills: 11, Use 1 lancet to check glucose daily, Note to Pharmacy: E11.9, Pharmacy [facility] Start Date: 09/30/21 Status: Ordered One touch verio strips Start: 09/30/21 10:21:00 EDT, One touch verio strips, eRx Product Type: Supply, See Instructions, Disp# 100 strip, Refills: 11, Use 1 strip to check glucose daily, Note to Pharmacy: E11.9, Pharmacy [facility] Start Date: 09/30/21 Status: Ordered [...] removal 3tonsil and adnoidectomy at age 12 [address], 1965 Results Laboratory List Name Date Hemoglobin A1C (HEMOGLOBIN, A1C) 07/27/22 Lipid Profile (LIPOPROTEINS) 07/27/22 Vitamin B12 Level (VITAMIN B12) 07/27/22 Most recent to oldest [Reference Range]: 1 Estimated Average Glucose 177 mg/dL (07/27/22 9:22 AM) Non-HDL 140 mg/dL 1 (07/27/22 9:22 AM) B12 [211-946 pg/mL] 979 pg/mL *HI* (07/27/22 9:22 AM) Chol/HDL 5 (07/27/22 9:22 AM) Chol [125-200 mg/dL] 180 mg/dL (07/27/22 9:22 AM) HbA1c 7.8 % 2 (07/27/22 9:22 AM) HDL [>35 mg/dL] 40 mg/dL (07/27/22 9:22 AM) LDL Chol, Calculated [50-130 mg/dL] 100 mg/dL (07/27/22 9:22 AM) TG [<200 mg/dL] 200 mg/dL *HI* (07/27/22 9:22 AM) 1Result Comment: Testing Performed By: Dept of Pathology [facility] [address]handari, [facility] Joshua [address]handari, [place] [address] 2Result Comment: ADA Recommended [place] Reference Range: Normal: <5.7% Prediabetes: 5.7-6.4% Diabetes: >6.4% Social History Social History Type Response Smoking [...] Personnel Name: REBECCA Lynn Ashley Position: Physician Medical Record Technician - Neurosurgery Member Role: Lifetime Relationship Address: Address: [address] [facility] [address] [place] [address] [place] Name: MD Sutton Dongsheng Position: Physician - Family Med Member Role: Primary Care Provider Address: Address: [address] [facility] [address] [place] [address] [place] Name: REBECCA Dorsey Lynn Position: Physician Medical Record Technician Exempt - Vasc Surg Member Role: Lifetime Relationship Address: Address: [address] [facility] [address] [place] [address] [place] Name: Lupis Auguste Kyle Position: Pharmacist Member Role: Pharmacy - Lifetime Address: Address: [address] [place] [address] Name: Yu Chowdary MD, Andres Position: Resident Member Role: Lifetime Relationship Address: Address: [address] [facility] [address] [place] [address] [place] Care Team Related Persons Name: EVELYNE GROVER Address: [place] Address: home [address] [facility] [place] [phone] Name: PATSY ONEAL
--- OUTSIDE RECORDS SUMMARY | 2023-01-03 08:20 | External Medical Summary | Continuity of Care Document ---
Author Name Unknown Organization [place] [id number] [address] Fregoso Address [address] [place], [place] [id number] Care Team Providers Care Solution Design Engineer Name Role Phone Faheem Sutton Primary Care Physician [phone] [phone] Date(s): 07/08/22 - 07/08/22 [facility] [address], [address] [place] [address] [phone] Discharge Disposition: Home or Self Care Attending Physician: ZAIRA Hayden Sarah A Referring Physician: ZAIRA Hayden Sarah A Allergies, Adverse [...] bid, Disp# 60 cap, Refills: 3, [id number] Start Date: 06/25/22 Stop Date: 10/23/22 Status: Ordered glipiZIDE 5 mg oral tablet Start: 05/20/22 11:08:00 EDT, See Instructions, Disp# 15 tab, Refills: 2, Take 1/2 (one-half) tablet by mouth once daily, Pharmacy: [place] [id number] Start Date: 05/20/22 Status: Ordered levothyroxine 25 mcg (0.025 mg) oral tablet Start: 07/01/22 11:45:00 EDT, See Instructions, Disp# 90 tab, Refills: 3, Take 1 tablet by mouth once daily for 90 days, Pharmacy: [place] [id number] Start Date: 07/01/22 Status: Ordered lisinopril 10 mg oral tablet Start: 05/20/22 11:08:00 EDT, See Instructions, Disp# 30 tab, Refills: 2, Take 1 tablet by mouth once daily for 30 days, Pharmacy: [place] [id number] Start Date: 05/20/22 Status: Ordered metFORMIN 500 mg oral tablet Start: 02/27/22 14:54:00 EST, 1 tab, PO, bid, Disp# 60 tab, Refills: 3, with meals, Pharmacy: [facility] Start Date: 02/27/22 Stop Date: 06/27/22 Status: Ordered ofloxacin 0.3% ophthalmic solution Start: 04/15/22 16:46:00 EST, See Instructions, Disp# 5 mL, 5 drops into each ear BID x 2 days, Pharmacy: [place] [id number] Start Date: 04/15/22 Status: Ordered One Touch Delica Lancets Start: 09/30/21 10:21:00 EDT, One Touch Delica Lancets, eRx Product Type: Supply, See Instructions,Disp# 100 lancet, Refills: 11, Use 1 lancet to check glucose daily, Note to Pharmacy: E11.9, Pharmacy [place] [id number] Start Date: 09/30/21 Status: Ordered One touch verio strips Start: 09/30/21 10:21:00 EDT, One touch verio strips, eRx Product Type: Supply, See Instructions, Disp# 100 strip, Refills: 11, Use 1 strip to check glucose daily, Note to Pharmacy: E11.9, Pharmacy [place] [id number] Start Date: 09/30/21 Status: Ordered ONETOUCH DELICA [...] removal 3tonsil and adnoidectomy at age 12 [address]65, 1965 Results Radiology Reports * Exam Date Time Procedure Performing Provider Status 07/08/22 3:19 PM Echo Stress, Pharmacologic w/ Contrast ; Final Notes: (Echo Stress, Pharmacologic w/ Contrast) Reason For Exam: abnormal ekg Echo Stress, Pharmacologic w/ Contrast Report Signatures Stress ECG Finalized by Dr. Isaias Begum MD on 07/09/2022 04:22 PM Echo Finalized by Dr. Isaias Begum MD on 07/09/2022 04:22 PM [place] Act 112: No-No further action needed Summary 1. Negative Pharmacologic Stress EKG at 94% MPH. 2. Negative Pharmacologic Stress Echocardiogram for ischemia at 94 % MPHR. Supervising: Ely Thomson RN BMI: 31.62 Contrast/Agitated Saline Contrast Agent/Agitated Saline: Definity IV Access: Left Arm Patient Info Name: CATRACHITO GROVER Age: 77 years : 1945 Gender: Female Ht: 163 cm Wt: 84 kg BSA: 1.98 m2 Heart Rhythm: Sinus Rhythm Technical Quality: Very technically difficult study Exam Date: 07/08/2022 2:19 PM Exam Location: [facility] Patient Status: Outpatient Staff Ordering Physician: Brianna Hayden Field Technical Specialist: Dalia Oliva RDCS, RVT Attending Physician: Brianna Hayden Study Info [facility] J3490 - 26721 - Indications R9431 - Abnormal electrocardiogram ECG EKG Procedure(s) * A Dobutamine stress echocardiogram is performed. * Field Technical Specialist, Dalia Oliva RDCS, RVT, provided education about ultrasound enhancing agent to the patient. * Failed 2D images were enhanced successfully with Definity per lab protocol. Exam Type: Pharm Stress 4 ECG Summary Negative pharmacologic ECG for ischemia. Protocol: Dobutamine Rest HR: 74 bpm Peak HR: 134 bpm Rest Sys BP: 132 mmHg Peak Sys BP: 150 mmHg Max Pred HR: 143 bpm % Max Pred HR: 94 % Target HR: 122 bpm Max RPP: 20,100 bpm*mmHg Target HR Summary: Hemodynamic response to dobutamine and atropine, Test terminated after reaching target heart rate (85% max predicted) BP Response: Abnormal fall in blood pressure response during stress Termination Reason: Target HR > 85% MPHM Cardiac Symptoms: None Total Time: 14 min : 37 sec Rest Joaquin BP: 82 mmHg Peak Joaquin BP: 62 mmHg Stress ECG Details Total Atropine Dose: 0.25 mg Peak Dobutamine Dose: 40 g/kg Resting ECG Normal sinus rhythm 1st degree AVB and LAFB. Stress ECG No abnormal ST/T wave changes with exercise. Arrhythmias Rare PVCs. Occasional PACs. Stress Echo Findings Left Ventricle Normal augmentation of all wall segments without evidence of ischemia with pharmacologic stress. With pharmacologic stress, improvement in the ejection fraction. With pharmacologic stress, left ventricular chamber decreases appropriately. Left Ventricle Normal left ventricular size and systolic function with no regional wall motion abnormalities. Estimated ejection fraction is 70 %. No left ventricular hypertrophy. Ventricles Name Value Normal LV Dimensions 2D/MM IVS Diastolic Thickness (2D) 1.0 cm 0.6-0.9 LVID Diastole (2D) 4.7 cm 3.3-5.1 LVIW Diastolic Thickness (2D) 1.0 cm 0.6-0.9 LVID Systole (2D) 2.8 cm 2.2-3.5 LV Mass (2D Cubed) 153.24 g 67.00-162.00 LV Mass Index (2D Cubed) 0.01 g/cm2 0.00-0.01 Relative Wall Thickness (2D) 0.41 LV Fractional Shortening/Ejection Fraction 2D/MM LV Diastolic Volume (4C MOD) 105 ml LV Systolic Volume (4C MOD) 30 ml LV EF (4C MOD) 71 % LV Stroke Volume (4C MOD) 75.08 ml Final Signed by:DO Begum Jason D Signed (Electronic Signature):07/08/2022 2:19 p Social History Social History Type Response Smoking [...] Unknown 06/01/21 Unknown Unknown Active Unkn own Note * DO Begum Jason D: VERIFY, PERFORM, VERIFY Event Display: Report Authored Date: [id number] Report Signatures Stress ECG Finalized by Dr. Isaias Begum MD on 07/09/2022 04:22 PM Echo Finalized by Dr. Isaias Begum MD on 07/09/2022 04:22 PM [place] Act 112: No-No further action needed Summary 1. Negative Pharmacologic Stress EKG at 94% MPH. 2. Negative Pharmacologic Stress Echocardiogram for ischemia at 94 % MPHR. Supervising: Ely Thomson RN BMI: 31.62 Contrast/Agitated Saline Contrast Agent/Agitated Saline: Definity IV Access: Left Arm Patient Info Name: CATRACHITO GROVER Age: 77 years : 1945 Gender: Female Ht: 163 cm Wt: 84 kg BSA: 1.98 m2 Heart Rhythm: Sinus Rhythm Technical Quality: Very technically difficult study Exam Date: 07/08/2022 2:19 PM Exam Location: [facility] Patient Status: Outpatient Staff Ordering Physician: Brianna Hayden Field Technical Specialist: Dalia Oliva RDCS, RVT Attending Physician: Brianna Hayden Study Info CPT J3490 - 26412 - Indications R9431 - Abnormal electrocardiogram ECG EKG Procedure(s) * A Dobutamine stress echocardiogram is performed. * Field Technical Specialist, Dalia Oliva RDCS, RVT, provided education about ultrasound enhancing agent to the patient. * Failed 2D images were enhanced successfully with Definity per lab protocol. Exam Type: Pharm Stress 4 ECG Summary Negative pharmacologic ECG for ischemia. Protocol: Dobutamine Rest HR: 74 bpm Peak HR: 134 bpm Rest Sys BP: 132 mmHg Peak Sys BP: 150 mmHg Max Pred HR: 143 bpm % Max Pred HR: 94 % Target HR: 122 bpm Max RPP: 20,100 bpm*mmHg Target HR Summary: Hemodynamic response to dobutamine and atropine, Test terminated after reaching target heart rate (85% max predicted) BP Response: Abnormal fall in blood pressure response during stress Termination Reason: Target HR > 85% MPHM Cardiac Symptoms: None Total Time: 14 min : 37 sec Rest Joaquin BP: 82 mmHg Peak Joaquin BP: 62 mmHg Stress ECG Details Total Atropine Dose: 0.25 mg Peak Dobutamine Dose: 40 g/kg Resting ECG Normal sinus rhythm 1st degree AVB and LAFB. Stress ECG No abnormal ST/T wave changes with exercise. Arrhythmias Rare PVCs. Occasional PACs. Stress Echo Findings Left Ventricle Normal augmentation of all wall segments without evidence of ischemia with pharmacologic stress. With pharmacologic stress, improvement in the ejection fraction. With pharmacologic stress, left ventricular chamber decreases appropriately. Left Ventricle Normal left ventricular size and systolic function with no regional wall motion abnormalities. Estimated ejection fraction is 70 %. No left ventricular hypertrophy. Ventricles Name Value Normal LV Dimensions 2D/MM IVS Diastolic Thickness (2D) 1.0 cm 0.6-0.9 LVID Diastole (2D) 4.7 cm 3.3-5.1 LVIW Diastolic Thickness (2D) 1.0 cm 0.6-0.9 LVID Systole (2D) 2.8 cm 2.2-3.5 LV Mass (2D Cubed) 153.24 g 67.00-162.00 LV Mass Index (2D Cubed) 0.01 g/cm2 0.00-0.01 Relative Wall Thickness (2D) 0.41 LV Fractional Shortening/Ejection Fraction 2D/MM LV Diastolic Volume (4C MOD) 105 ml LV Systolic Volume (4C MOD) 30 ml LV EF (4C MOD) 71 % LV Stroke Volume (4C MOD) 75.08 ml Final Signed by:DO Begum Jason D Signed (Electronic Signature):07/08/2022 2:19 p Patient Care team information Care Team Personnel Name: REBECCA Lynn, Tomasa Position: Physician Shirt Presser - Neurosurgery Member Role: Lifetime Relationship Address: Address: [address] Name: MD Herman, Faheem Position: Physician - Family Med Member Role: Primary Care Provider Address: Address: [address] [place] [address] [place] Name: REBECCA Dorsey Lynn Position: Physician Shirt Presser Exempt - Vasc Surg Member Role: Lifetime Relationship Address: Address: [address] [place] [address] [place] Name: Lupis Auguste Kyle Position: Pharmacist Member Role: Pharmacy - Lifetime Address: Address: [address] [place] [id number] [place] Name: Yu Chowdary MD, Andres Position: Resident Member Role: Lifetime Relationship Address: Address: [address] Care Team Related Persons Name: EVELYNE GROVER Address: [facility] Address: home [address], [place] [id number] Name: PATSY ONEAL
--- NOTE | 2023-01-03 09:36 | Neurology Consultation ---
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 History of DVT and IVC filter placement, and left total knee arthroplasty this past June. Patient currently admitted with intermittent confusion occurring over the previous week, recent urinary tract infection, now with evidence of an acute to subacute 3 cm infarct involving the left parietal lobe cortex, extending to the periventricular region. No evidence of acute hemorrhage. She has chronic stable, residual trace bilateral subdural collections. On examination, this patient has elements of a Gerstmann syndrome including left right confusion, finger anomia, and acalculia which is likely related to the acute to subacute left parietal infarct. She also appears to have a left visual field deficit with confrontation testing which is likely related to a chronic appearing right occipital lobe infarct. She does not have a gross hemiparesis or gross focal motor deficits at this time. Patient CT angiography of the head and neck are unremarkable, without evidence of significant vascular lesion. The size and location of the acute to subacute infarct does appear embolic. Would recommend a transthoracic echocardiogram with bubble study. Consider paradoxical embolism versus atrial fibrillation as potential etiologies for stroke. Other stroke risk factors for this patient include poorly controlled diabetes mellitus, and hypertension. Agree with aspirin 81 mg/day. Patient's risk of recurrent stroke likely exceeds her bleeding risk going forward. (Recurrence risk window shade estimator score to predict early risk of stroke recurrence after ischemic stroke is 3 which indicates a 90- day recurrence risk of 27.3%.) (HAS-BLED score (based on patient's receiving warfarin) 3 indicates a risk of 3.74 bleeds per 100 person years.) Continue medical management of hypertension, permissive hypertension acceptable acutely. Long-term blood pressure goal for this patient 125-130/<80 Patient's LDL is 115, current guidelines indicate that an LDL of 70 or less is most favorable for secondary stroke risk reduction. Patient's family indicates that she has a history of intolerance to atorvastatin due to worsening cognitive function. I agree with rosuvastatin as ordered at this time. Patient's diabetes mellitus is suboptimally controlled, hemoglobin A1c 9.2. Continue medical management to optimize blood glucose. Consider reassessment of patient's lower extremity DVTs as well as status of her IVC filter. Consultations with PT/OT/speech therapy. History of Present Illness Reason for Consultation: stroke Requesting Physician: John Attending Physician: Fredis Grier MD History of Present Illness The patient is a 77-year-old female with a history of traumatic intracranial hemorrhage occurring in March 2021, occurring while on warfarin, she was initially evaluated at [facility], and subsequently transferred to [facility] for neurosurgical care. She did not require immediate surgical intervention although ultimately underwent craniotomy in May to address an expanding left subdural hematoma in the context of altered mental status and right-sided weakness. She had a vena cava filter placed in June 2021 at [facility], given her history of DVT. I had seen her as an outpatient on July 11, 2021 regarding ongoing difficulty with gait, mild head tremor, probable diabetic peripheral neuropathy, and possible underlying mild dementia, potentially confounded by lingering, improving postconcussive symptoms. She underwent left total knee arthroplasty at [facility] on July 15, 2022. There was a discussion at that time between the hospitalist service and neurology, Dr. Cook, regarding initiating aspirin or Eliquis. However, given patient's history of chronic residual bilateral subdural hematoma and presence of IVC filter, recommendation was to not initiate either of these medications. She had been seen in the emergency department on December 07, 2022 for altered mental status in the context of hyperglycemia. She presented again to the emergency department on January 02, 2023 with intermittent confusion over the previous week, recent urinary tract infection, completed a 7-day course of cefdinir, recent travel from [place]. No recent falls. A CT of the head completed yesterday was negative for acute hemorrhage. There is trace chronic residual bilateral subdural hematoma, measuring about 3 mm on the right and 6 mm on the left, no change compared with prior examination from December 07, 2022. I did independently review these images. The observed trace residual hematomas are isodense to isointense with the brain parenchyma, there is no mass effect. Also observed is extensive chronic cerebrovascular disease with a chronic infarct within the right occipital lobe and notable chronic encephalomalacia involving the right frontal lobe. There are postsurgic al changes corresponding to a left craniotomy. A CTA of the head and neck are unremarkable. The patient did have a brain MRI completed yesterday as well. There is evidence of an acute to subacute 3 cm infarct within the left parietal lobe. No evidence of acute hemorrhage. There are trace extra-axial fluid collections measuring up to 5 mm on the left, and 2.5 mm on the right which correspond to the chronic subdurals observed on CT of the head. I independently reviewed these images as well. The observed acute to subacute infarct within the posterior left parietal lobe is located at the cortex and extends to the periventricular region. The chronic subdural collections are best visualized on coronal FLAIR sequences. Imaging was limited due to motion artifact. I did evaluate the patient this morning, daughter's at bedside. She denies headache or focal weakness. She is mildly confused and incontinent. Allergies Allergy/AdvReac Type Severity Reaction Status Date / Time cefoxitin AdvReac Mild vomiting Verified 01/02/23 09:33 Home Medications Medication Instructions Recorded Confirmed Type levothyroxine 25 mcg tablet 25 mcg PO DAILYBB 03/31/21 01/02/23 History gabapentin 300 mg capsule 300 mg PO BID 06/26/21 01/02/23 History blood sugar diagnostic ([facility] 03/13/22 03/13/22 History Verio test strips) glipizide 5 mg tablet 2.5 mg PO QAM 03/13/22 01/02/23 History lancets 33 gauge ([facility] Delica 03/13/22 03/13/22 History Lancets) lisinopril 10 mg tablet 10 mg PO PM 03/13/22 01/02/23 History cholecalciferol (vitamin D3) 10 10 mcg PO DAILY 06/17/22 01/02/23 History mcg (400 unit) capsule (Vitamin D3) cyanocobalamin (vitamin B-12) 500 500 mcg sublingual QAM 06/17/22 01/02/23 History mcg sublingual tablet metformin 500 mg tablet 500 mg PO BID 06/17/22 01/02/23 History triamcinolone acetonide 0.1 % 1 applic topical BID PRN IRRITATION 06/17/22 01/02/23 History topical cream acetaminophen 500 mg tablet 1,000 mg PO Q8H PRN PAIN/FEVER 12/07/22 01/02/23 History Patient History Medical History Osteoarthritis Hypothyroidism History of anemia Peripheral neuropathy Noted to bilateral hands Hx of deep venous thrombosis JULY 2021>VENA CAVA FILTER INSERTED BY DR. 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 TIA (transient ischemic attack) 2010? No residual issues Diabetes mellitus, type 2 Well controlled and stable Hgb A1C 7.7 on 06/16/22 History of COVID-19 12/2019 & 02/2021>RESOLVED Hypertension Surgical History History of total knee replacement RT History of colonoscopy History of cholecystectomy History of tooth extraction History of tonsillectomy History of cataract surgery RT/LEFT H/O craniotomy LARRY>06/01/21 *EMERGENCY CRANIOTOMY Family History Father Myocardial infarction Other Family history non-contributory No family history of adverse response to anesthesia Social History Smoking Status: Never smoker Second Hand Exposure: No; Hx Alcohol Use: No Hx Substance Use: No Preferred Language: [place] Communication Ability: CONFUSED Communication Ability Comment: @BASELINE A/O AND NO COMMUNICATION ISSUES Veterinary Microbiologist Required: No Beliefs That Will Affect Care: None marital status: / Current Living Situation: Family Current Living Situation Comment: WITH DAUGHTER How many Children do You have: 2 Feels Safe at Home: Yes Safety Concerns: Feels Safe At This Time Assistive Devices: Cane, Denture - Upper and Denture - Lower Review of Systems Constitutional: no fever and no chills Eyes: + blind spots; no diplopia Ear, Nose, Mouth, Throat: no hearing loss Respiratory: no cough and no dyspnea Cardiovascular: no chest pain and no palpitations Gastrointestinal: no nausea and no vomiting Genitourinary: + urinary incontinence Musculoskeletal: no neck pain and no myalgia Integumentary: no rash and no lesions Neurologic: as per Subjective / HPI, + gait abnormality, + abnormal speech, + confusion and + memory loss; no headache(s) Psychiatric: no depression and no anxiety Hematologic / Lymphatic: no easy bleeding and no easy bruising Exam (Neuro) Constitutional: well developed, well nourished and + behavioral limitations Eyes: PERRL and EOM intact bilaterally; + abnormal visual field confrontation (Left visual field deficit noted with confrontation testing) Neurologic: Oriented to:: Person and Place; negative Time Memory: Remote Intact; negative Short Term Intact Attention: Span Intact; negative Concentration Intact Speech Fluency: Dysfluency; negative Dysarthria Speech Aphasia: Aphasia (Able to name and repeat but makes occasional incorrect word substitutions. Also exhibits left right confusion, finger anomia, and acalculia. Able to read simple words) Fund of Knowledge: negative Vocabulary (Has mild difficulty with language comprehension and following simple commands) Cranial Nerves: Normal III, IV, , V, VII, VIII, IX, X, XI and XII; Abnorm II (Left visual field deficit noted with confrontation testing) Motor Strength: Normal Lower Extremities and Normal Upper Extremities; negative Pronator Drift or Hemiparesis Motor Tone: Normal Lower Extremities and Normal Upper Extremities Muscle Bulk/Involuntary Movements: No Involuntary Movements; negative Muscle Atrophy Sensation: Light Touch Intact, Pain/Temperature Intact and Proprioception Intact Coordination: Heel-Posadas Abnormal; negative Dysdiadochokinesia or Finger-Nose Abnormal Deep Tendon Reflexes: Rt Triceps: 2+, Lt Triceps: 2+, Rt Biceps: 2+, Lt Biceps: 2+, Rt Brachioradialis: 2+, Lt Brachioradialis: 2+, Rt Patellar: 2+, Lt Patellar: 2+, Rt Ankle: 1+ and Lt Ankle: 1+ Special Tests: Babinski Present (R>L) Results & Data Vital Signs (Past 12 Hours) Vital Signs Temp Pulse Pulse Resp BP Pulse Ox O2 Del Method 01/03/23 07:26 36.5 C 84 16 193/97 H 93 Room Air 01/03/23 03:00 36.4 C L 80 16 186/82 H 94 Room Air 01/03/23 00:17 86 01/02/23 22:51 36.8 C 92 H 18 195/80 H 96 Room Air Laboratory Results WBC 9.05, hemoglobin 13.1, hematocrit 38.5, platelet count 235, sodium 136, potassium 3.7, BUN 16, creatinine 0.91, glucose 226, hemoglobin A1c 9.2, magnesium 1.7, AST 12, ALT 17, troponin 2.3, triglycerides 144, cholesterol 181, LDL 115, HDL 37, TSH 3.[address] of the head, CTA of the head and neck, and brain MRI are as described in the HPI, I independently reviewed these images. An electrocardiogram reveals a normal sinus rhythm, 83 bpm. PG Care Time/CCT Total # of Minutes Spent Total Time Spent with Patient: Total time spent is greater than 50% in coordination of care (as documented) at patient's floor/unit and/or counseling patient: Coding Level of Care Code 91331 INT INP/OBS CARE 3MIN Diagnoses Stroke I63.9 History of craniotomy Z98.890 SDH (subdural hematoma) S06.5X9A Hx of deep venous thrombosis Z86.718 Time Spent (min) 90
[2023-01-03] MEDS: ONDANSETRON INJ 2 MG/ML 2 ML VIAL IV PRN ×2 (09:37→16:46)
--- NOTE | 2023-01-03 12:09 | Hospitalist Progress Note ---
Date of Service January 03, 2023 Assessment & Plan (1) Altered level of consciousness: Plan: Acute left parietal ischemic CVA. This may be embolic. Appreciate neurology consultation and recommendations. Cardiac echo results pending. Bilateral lower extremity venous Doppler ordered and pending. She will remain on aspirin and Crestor. Awaiting OT, PT, speech evaluations. She has some nausea and poor oral intake. Continue IV fluids for now. (2) Hypomagnesemia: Plan: Parenteral replacement. Serial labs. (3) Diabetes mellitus, type 2: Plan: Avoid basal Lantus to prevent hypoglycemia which could be disastrous for her. We will restart her usual glipizide. Metformin is currently on hold. Sliding scale coverage if needed. (4) Hx of deep venous thrombosis: Plan: Has IVC filter in place. No systemic anticoagulation due to hx of subdural and subarachnoid hemorrhages . Bilateral lower extremity venous Dopplers ordered and pending. BL MARIZOL's for now (5) HTN (hypertension): Plan: allow permissive HTN. She takes lisinopril at home due to her diabetes. I am not sure if she has a diagnosis of hypertension (6) Hypothyroidism: Plan: Stable. Continue levothyroxine replacement therapy. Plan Await occupational therapy and physical therapy assessments. Probable eventual discharge to [facility]. Admission and Anticipated Discharge Date Admission Date: January 02, 2023 Subjective Alert and oriented. Daughter is at the bedside. Neurology consultation and recommendations noted. We will avoid scheduled basal Lantus to prevent hypoglycemia which could be disastrous for her. We will restart her normal glipizide 2.5 mg daily for now. Venous Doppler evaluations of both legs ordered per neurology recommendations. She will remain on IV fluids for now. She does have nausea and is not eating much currently. OT, PT, speech evaluations pending. Review of Systems 2 Review of Systems: Constitutional-no fever or chills ENT-no blurred vision, no double vision, no epistaxis, no sore throat Respiratory-no cough, no wheezing, no shortness of breath Cardiac-no palpitations, no chest pain, no syncope GI-no nausea, vomiting, diarrhea, melena, hematochezia -no urinary retention, no urinary incontinence, no dysuria, no hematuria Musculoskeletal-no joint pain, no muscle tenderness Skin-no bruising, no rashes, no pruritus Neuro-no focal neurological deficits. Psych-no depression, no anxiety Physical Exam 2 Physical Exam: General-alert and oriented x3, no fevers, no chills HEENT-head atraumatic and normocephalic, pupils equal and reactive to light, extraocular muscles intact Neck-no lymphadenopathy or thyromegaly, trachea midline Chest-clear to auscultation percussion. No rales wheezing or rhonchi Cardiac-regular rate and rhythm, normal S1 and S2 Abdomen-normal bowel sounds, nontender, no hepatosplenomegaly Extremities-no cyanosis, clubbing, or edema Neuro-cranial nerves II through XII intact, motor and sensory function within normal limits, strength symmetrical, no focal deficits Psych-normal affect, normal mood Results & Data Results & Data Vital Signs (Past 12 Hours) Vital Signs Temp Pulse Pulse Resp BP Pulse Ox O2 Del Method 01/03/23 11:27 36.7 C 89 18 205/111 H 94 Room Air 01/03/23 07:26 36.5 C 84 16 193/97 H 93 Room Air 01/03/23 03:00 36.4 C L 80 16 186/82 H 94 Room Air 01/03/23 00:17 86 Laboratory Results 01/03/23 06:17 01/03/23 06:17 PG Care Time/CCT Total # of Minutes Spent Total Time Spent with Patient: Total time spent is greater than 50% in coordination of care (as documented) at patient's floor/unit and/or counseling patient: Coding Level of Care Code 31193 SUB INP/OBS CARE 3/50MIN Diagnoses Altered level of consciousness R40.4 Hypomagnesemia E83.42 Diabetes mellitus, type 2 E11.9 Hx of deep venous thrombosis Z86.718 HTN (hypertension) I10 Hypothyroidism E03.9
[2023-01-03] MEDS: hydrALAZINE HCL 20 MG/ML VIAL IV PRN ×2 (12:44→18:28)
[2023-01-03] MEDS: ASPIRIN 81 MG ECTAB PO SCH (14:03)
[2023-01-03] MEDS: CHOLECALCIFEROL 400 UNITS 10 MCG TAB PO SCH (14:04)
[2023-01-03] MEDS: GABAPENTIN 300 MG CAP PO SCH ×2 (14:04→21:44)
[2023-01-03] MEDS: CYANOCOBALAMIN (B-12) 500 MCG TABLET PO SCH (14:04)
[2023-01-03] MEDS: glipiZIDE 5 MG TAB PO SCH (14:05)
[2023-01-03] MEDS: ROSUVASTATIN CALCIUM 20 MG TAB PO SCH (14:06)
[2023-01-03] MEDS ORDERED: INSULIN ASPART PER UNIT CHARGE SC STA (16:43)
--- NOTE | 2023-01-03 20:15 | XCELERA ---
[id number]
[2023-01-03] MEDS: MELATONIN 3 MG TAB PO SCH (21:36)
[2023-01-04] MEDS: LACTATED RINGER'S 1,000 ML IV SCH (03:18)
[2023-01-04] MEDS: LEVOTHYROXINE SODIUM 25 MCG TABLET PO SCH (05:49)
[2023-01-04 08:13] LABS: Basophils # (auto) 0.02 K/uL (0.00-0.20); Basophils % (auto) 0.2 %; Eosinophils # (auto) 0.11 K/uL (0.00-0.50); Eosinophils % (auto) 1.3 %; Hematocrit (blood only) 36.3 % (37.0-47.0); Hemoglobin 12.4 g/dl (12.0-16.0); Immature Granulocytes # (auto) 0.03 K/uL (0.01-0.20); Immature Granulocytes % (auto) 0.3 %; Lymphocytes # (auto) 0.88 K/uL (1.20-3.40); Lymphocytes % (auto) 10.1 %; Mean Corpuscular Hemoglobin 31.1 pg (25.0-34.0); Mean Corpuscular Hgb Conc 34.2 g/dL (32.0-36.0); Mean Platelet Volume 9.8 fL (9.4-12.4); Monocytes % (auto) 6.9 %; Neutrophils # (auto) 7.03 K/uL (1.40-6.50); Neutrophils % (auto) 81.2 %; Platelet Count 200 K/uL (130-400); RDW Coefficient of Variation 13.2 % (11.5-14.5); RDW Standard Deviation 44.3 fL (36.4-46.3); Red Blood Count 3.99 M/uL (4.20-5.40); White Blood Count 8.67 K/ul (4.8-10.8)
[2023-01-04] MEDS: INSULIN ASPART PER UNIT CHARGE SC SCH ×4 (08:30→21:54)
[2023-01-04] MEDS: CYANOCOBALAMIN (B-12) 500 MCG TABLET PO SCH (08:31)
[2023-01-04] MEDS: GABAPENTIN 300 MG CAP PO SCH ×2 (08:31→23:46)
[2023-01-04] MEDS: CHOLECALCIFEROL 400 UNITS 10 MCG TAB PO SCH (08:31)
[2023-01-04] MEDS: ROSUVASTATIN CALCIUM 20 MG TAB PO SCH (08:32)
[2023-01-04] MEDS: ASPIRIN 81 MG ECTAB PO SCH (08:32)
[2023-01-04] MEDS: glipiZIDE 5 MG TAB PO SCH (08:32)
[2023-01-04 08:49] LABS: BUN Creatinine Ratio 18.9 (10-20); Calcium 8.9 mg/dl (8.6-10.3); Creatinine Clr Calc Pharmacy 43.9 ml/min; Est GFR (African American) 55.5 ml/min; Est GFR (Non-African American) 47.9 ml/min; Magnesium 1.5 mg/dl (1.7-2.4); Potassium 4.1 mmol/L (3.5-5.1)
[2023-01-04] MEDS: MAGNESIUM SULFATE / D5W 1 GM/100 ML BAG IV SCH ×2 (10:25→12:03)
--- NOTE | 2023-01-04 11:26 | Pharmacy Report ---
- Date of Service January 04, 2023 - Pharmacy CVA/TIA Medication Review Medications to Prevent Stroke handout has been added to the patients discharge packet. Antiplatelet(s) * aspirin 81 mg daily Cholesterol * High intensity statin: rosuvastatin 20 mg daily DVT Prophylaxis * Pharmacologic and mechanical DVT prophylaxis deferred - patient with IVC filter in place/hx subdural and subarachnoid hemorrhages, bilateral TEDs stockings ordered Therapeutic Anticoagulation * No history of Afib/Aflutter noted Type 2 Diabetes * Patient has T2DM and is on metformin/glipizide at home A1c 9.2% * Discussed with provider the benefits of adding an agent with proven CVD benefit such as a GLP-1 agonist or SGLT2 inhibitor. Reasonable to defer to their outpatient provider due to familiarity with risks/benefits of such therapies. "Medications to prevent stroke" handout has already been added to the patient's discharge packet, which instructs the patient to follow up with their outpatient provider to evaluate which diabetes medication with proven CVD benefit is best for them
--- NOTE | 2023-01-04 15:01 | Hospitalist Progress Note ---
Date of Service January 04, 2023 Assessment & Plan (1) Altered level of consciousness: Plan: Acute left parietal ischemic CVA. This may be embolic. Appreciate neurology consultation and recommendations. Cardiac echo nondiagnostic for presence or absence of ASD. Bilateral lower extremity venous Doppler ordered and pending. She will remain on aspirin and Crestor. OT, PT, speech evaluations underway. Oral intake has improved. IV fluids discontinued. (2) Hypomagnesemia: Plan: Parenteral replacement. Serial labs. (3) Diabetes mellitus, type 2: Plan: Avoid basal Lantus to prevent hypoglycemia which could be disastrous for her. Glipizide dosage uptitrated per wood heel finisher recommendations. We will need to watch for any symptoms of hypoglycemia. Metformin is currently on hold. Sliding scale coverage if needed. (4) Hx of deep venous thrombosis: Plan: Has IVC filter in place. No systemic anticoagulation due to hx of subdural and subarachnoid hemorrhages . Bilateral lower extremity venous Dopplers ordered and pending. BL MARIZOL's for now (5) HTN (hypertension): Plan: allow permissive HTN. She takes lisinopril at home due to her diabetes. I am not sure if she has a diagnosis of hypertension (6) Hypothyroidism: Plan: Stable. Continue levothyroxine replacement therapy. Plan Anticipate discharge to [facility] tomorrJanuary 05 Admission and Anticipated Discharge Date Admission Date: January 02, 2023 Subjective Alert and oriented. No new problems. Glipizide uptitrated to ER 5 mg dosing per wood heel finisher recommendations. We will need to watch closely for any signs or symptoms of hypoglycemia with sulfonylureas in this age group. Magnesium replacement underway parenterally. She remains on aspirin and statin therapy. IV fluids discontinued. Hopeful discharge to [facility] tomorrowJanuary 05 Review of Systems 2 Review of Systems: Constitutional-no fever or chills ENT-no blurred vision, no double vision, no epistaxis, no sore throat Respiratory-no cough, no wheezing, no shortness of breath Cardiac-no palpitations, no chest pain, no syncope GI-no nausea, vomiting, diarrhea, melena, hematochezia -no urinary retention, no urinary incontinence, no dysuria, no hematuria Musculoskeletal-no joint pain, no muscle tenderness Skin-no bruising, no rashes, no pruritus Neuro-no focal neurological deficits. Psych-no depression, no anxiety Physical Exam 2 Physical Exam: General-alert and oriented x3, no fevers, no chills HEENT-head atraumatic and normocephalic, pupils equal and reactive to light, extraocular muscles intact Neck-no lymphadenopathy or thyromegaly, trachea midline Chest-clear to auscultation percussion. No rales wheezing or rhonchi Cardiac-regular rate and rhythm, normal S1 and S2 Abdomen-normal bowel sounds, nontender, no hepatosplenomegaly Extremities-no cyanosis, clubbing, or edema Neuro-cranial nerves II through XII intact, motor and sensory function within normal limits, strength symmetrical, no focal deficits Psych-normal affect, normal mood Results & Data Results & Data Vital Signs (Past 12 Hours) Vital Signs Temp Pulse Pulse Resp BP Pulse Ox O2 Del Method 01/04/23 14:59 81 01/04/23 12:00 36.3 C L 75 18 131/73 96 Room Air 01/04/23 08:00 84 01/04/23 07:02 37 C 88 18 178/69 H 93 Room Air Laboratory Results 01/04/23 07:50 01/04/23 07:50 PG Care Time/CCT Total # of Minutes Spent Total Time Spent with Patient: Total time spent is greater than 50% in coordination of care (as documented) at patient's floor/unit and/or counseling patient: Coding Level of Care Code 60572 SUB INP/OBS CARE 3/50MIN Diagnoses Altered level of consciousness R40.4 Hypomagnesemia E83.42 Diabetes mellitus, type 2 E11.9 Hx of deep venous thrombosis Z86.718 HTN (hypertension) I10 Hypothyroidism E03.9
--- NOTE | 2023-01-04 19:20 | Electrocardiogram Report ---
Test Reason : Blood Pressure : / mmHG Vent. Rate : 083 BPM Atrial Rate : 083 BPM P-R Int : 202 ms QRS Dur : 092 ms QT Int : 396 ms P-R-T Axes : 024 -54 061 degrees QTc Int : 465 ms Normal sinus rhythm Incomplete right bundle branch block Left anterior fascicular block Minimal voltage criteria for LVH, may be normal variant Abnormal ECG When compared with ECG of 07-DEC-2022 13:02, No significant change was found Confirmed by Ector Marti ([id number]) on 01/04/2023 7:20:05 PM Referred By: REFERRED SELF Confirmed By:Ector Marti
[2023-01-05] MEDS: MELATONIN 3 MG TAB PO SCH (01:10)
[2023-01-05] MEDS: LEVOTHYROXINE SODIUM 25 MCG TABLET PO SCH (05:48)
[2023-01-05 07:02] LABS: Basophils # (auto) 0.03 K/uL (0.00-0.20); Basophils % (auto) 0.4 %; Eosinophils # (auto) 0.17 K/uL (0.00-0.50); Eosinophils % (auto) 2.2 %; Hematocrit (blood only) 37.7 % (37.0-47.0); Hemoglobin 12.8 g/dl (12.0-16.0); Immature Granulocytes # (auto) 0.02 K/uL (0.01-0.20); Immature Granulocytes % (auto) 0.3 %; Lymphocytes # (auto) 1.13 K/uL (1.20-3.40); Lymphocytes % (auto) 14.6 %; Mean Corpuscular Hemoglobin 30.8 pg (25.0-34.0); Mean Corpuscular Volume 90.8 fL (80.0-100.0); Mean Platelet Volume 9.4 fL (9.4-12.4); Monocytes # (auto) 0.57 K/uL (0.11-0.59); Monocytes % (auto) 7.4 %; Neutrophils # (auto) 5.82 K/uL (1.40-6.50); Neutrophils % (auto) 75.1 %; Platelet Count 208 K/uL (130-400); Red Blood Count 4.15 M/uL (4.20-5.40); White Blood Count 7.74 K/ul (4.8-10.8)
[2023-01-05] MEDS ORDERED: glipiZIDE ER 2.5 MG TABCR PO SCH (07:30)
[2023-01-05] MEDS: CHOLECALCIFEROL 400 UNITS 10 MCG TAB PO SCH (07:40)
[2023-01-05] MEDS: ROSUVASTATIN CALCIUM 20 MG TAB PO SCH (07:40)
[2023-01-05] MEDS: GABAPENTIN 300 MG CAP PO SCH (07:41)
[2023-01-05] MEDS: CYANOCOBALAMIN (B-12) 500 MCG TABLET PO SCH (07:41)
[2023-01-05] MEDS: ASPIRIN 81 MG ECTAB PO SCH (07:41)
[2023-01-05] MEDS: INSULIN ASPART PER UNIT CHARGE SC SCH ×3 (08:11→16:53)
[2023-01-05 08:12] LABS: Magnesium 1.8 mg/dl (1.7-2.4); Potassium 4.4 mmol/L (3.5-5.1)
[2023-01-05 08:18] LABS: BUN Creatinine Ratio 22.9 (10-20); Creatinine Clr Calc Pharmacy 41.6 ml/min; Est GFR (African American) 51.5 ml/min; Est GFR (Non-African American) 44.5 ml/min
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
== END 2023-01-05 17:48 | DRG 64 ==
LOC: ED 06:59 → EDINP 10:26 → SUATTDRO 10:26 → 2S 14:42

== ENCOUNTER 2023-03-10 17:28 | Inpatient (IN) ==
[2023-03-10] MEDS ORDERED: ACETAMINOPHEN 1,000 MG/100 ML VIAL IV STA (17:39)
[2023-03-10] MEDS ORDERED: SODIUM CHLORIDE 0.9% 1,000 ML IV ONE (17:39)
[2023-03-10] MEDS ORDERED: FAMOTIDINE 20MG IV PUSH 20 MG/5 ML SYR IV STA (17:39)
--- NOTE | 2023-03-10 17:45 | Emergency Department Note ---
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 Patient is a poor historian and reports that she is in the hospital due to feeling "sick". She reports that she vomited on the way to the emergency department. She reports she has been feeling achy and nauseated all day. She denies any headache, dizziness, weakness in her extremities. On my evaluation the patient is no distress, afebrile blood pressure elevated in the 230s/120s and vital signs otherwise stable. She appears clinically dry. She has generalized weakness in all extremities without focal motor or sensory weakness. EKG without overt acute ischemia. CXR negative for acute cardiopulmonary process per my personal preliminary review/interpretation. WBC, H/H, platelets wnl. Chemistry without acidosis. BUN/Cr 20 c/w patient's clinically dry appearance. Magnesium 1.3 with IV repletion provided. LFTs without significant abnormality. HS troponin undetectable. Lipase wnl. TSH wnl. UA without convincing evidence of infection. CT head and CTA of the head and neck with stable findings and no acute abnormalities. Respiratory Biofire is positive for Influenza A H1 2009, c/w patient's viral symptoms of congestion and nausea. Upon re-evaluation the patient did feel improved following IVF hydration, apap, famotidine, and Zofran. BP with improving trend. Given confusion, weakness, hypomagnesemia in the setting of flu, the patient and family agree with plan for admission for further management. Tamiflu initiated. Case was discussed with Coy Lopez, [facility], and Dr. Fallon [facility] hospitalist who will evaluate the patient for admission. Triage Nursing notes reviewed and agree them. Prior/external medical records reviewed Vital Signs: reviewed Differential diagnosis: Infection, dehydration, metabolic abnormality, hypo/hyperglycemia, electrolyte disturbance, anemia, hypoxia, cardiac sources, intracerebral event, toxicologic, neurologic, as well as other pathologies. ER treatment provided: See below. Diagnostics interpreted by me: ECG: Normal sinus rhythm, 96 bpm, no ectopy, left anterior fascicular block, no overt ST elevation or depression, QTc 469, QRS 90. Cardiac Monitoring: An order for continuous cardiac monitoring was placed and demonstrated Normal sinus rhythm, 96 bpm, no ectopy. Laboratory studies: See below Imaging studies: See below Consultation(s): Coy Lopez [facility], and Dr. 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 Patient is a poor historian and reports that she is in the hospital due to feeling "sick". She reports that she vomited on the way to the emergency department. She reports she has been feeling achy and nauseated all day. She denies any headache, dizziness, weakness in her extremities. ROS: See above HPI for pertinent positives & negatives. A total of 10 systems reviewed and were otherwise negative. VITALS:See Below PHYSICAL EXAMINATION: GENERAL: Awake, alert, in no distress. BMI 33.1. HENT: Normocephalic, atraumatic. Oropharynx with dry mucous membranes and otherwise unremarkable. EYES: Normal conjunctiva. Sclera non-icteric. EOMI. No nystamgus. PEARRL. NECK: Supple. No nuchal rigidity. FROM. No JVD. RESPIRATORY: Clear to auscultation. CARDIAC: Regular rate, normal rhythm. Extremities warm and well perfused. Pulses equal. ABDOMEN: Soft, non-distended. No tenderness to palpation. No rebound or guarding. No masses. RECTAL: Deferred. MUSCULOSKELETAL: Chest examination reveals no tenderness. The back is symmetrical on inspection without obvious abnormality. There is no CVA tenderness to palpation. No joint edema. LOWER EXTREMITIES: Calves are equal size bilaterally and non-tender. No edema. No discoloration. NEURO: Cranial nerves II-XII grossly intact. No focal motor or sensory extremity deficits. Generalized weakness noted. SKIN: No rash or jaundice noted. Te Strange MD Past Med/Surg History Medical History Osteoarthritis Hypothyroidism History of anemia Peripheral neuropathy Noted to bilateral hands Hx of deep venous thrombosis JULY 2021>VENA CAVA FILTER INSERTED BY DR. 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 TIA (transient ischemic attack) 2010? No residual issues Diabetes mellitus, type 2 Well controlled and stable Hgb A1C 7.7 on 06/16/22 History of COVID-19 12/2019 & 02/2021>RESOLVED Hypertension Surgical History History of total knee replacement RT History of colonoscopy History of cholecystectomy History of tooth extraction History of tonsillectomy History of cataract surgery RT/LEFT H/O craniotomy LARRY>06/01/21 *EMERGENCY CRANIOTOMY Family History Father Myocardial infarction Other Family history non-contributory No family history of adverse response to anesthesia Social History Smoking Status: Unknown if ever smoked Second Hand Exposure: No; Preferred Language: R[place] Communication Ability: CONFUSED Communication Ability Comment: @BASELINE A/O AND NO COMMUNICATION 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 Quality Assurance Required: No Beliefs That Will Affect Care: None marital status: / Current Living Situation: Family Current Living Situation Comment: WITH DAUGHTER How many Children do You have: 2 Feels Safe at Home: Yes Assistive Devices: Cane and Walker Allergies Allergies Allergy/AdvReac Type Severity Reaction Status Date / Time cefoxitin AdvReac Mild vomiting Verified 03/10/23 20:23 Home Meds Home Medications Medication Instructions Recorded Confirmed levothyroxine 25 mcg tablet 25 mcg PO DAILY 03/31/21 03/10/23 blood sugar diagnostic (OneTouch 03/13/22 03/13/22 Verio test strips) [facility] 03/13/22 03/13/22 Lancets) lisinopril 10 mg tablet 10 mg PO PM 03/13/22 03/10/23 cholecalciferol (vitamin D3) 10 10 mcg PO DAILY 06/17/22 03/10/23 mcg (400 unit) capsule (Vitamin D3) cyanocobalamin (vitamin B-12) 500 500 mcg sublingual QAM 06/17/22 03/10/23 mcg sublingual tablet metformin 500 mg tablet 500 mg PO BID 06/17/22 03/10/23 acetaminophen 500 mg tablet 1,000 mg PO Q8H PRN PAIN/FEVER 12/07/22 03/10/23 aspirin 81 mg tablet,delayed 81 mg PO DAILY 03/10/23 03/10/23 release gabapentin 100 mg capsule 100 mg PO 2XD 03/10/23 03/10/23 glipizide 10 mg tablet, extended 10 mg PO DAILY 03/10/23 03/10/23 release 24 hr polyethylene glycol 3350 17 17 g PO DAILY 03/10/23 03/10/23 gram/dose oral powder (Miralax) Results & Data (ED) Vital Signs Vital Signs - 24 hr 03/10/23 17:35 03/10/23 17:51 03/10/23 18:15 Temperature 36.9 C Temperature Source Oral Pulse Rate 90 92 H Pulse Rate [Apical] 91 H Pulse Rhythm [Apical] Respiratory Rate 20 20 Respiratory Effort / Characteristics Non-Labored Spontaneous Non-Labored Spontaneous Respiratory Depth Normal Normal Respiratory Pattern Regular Regular Blood Pressure 236/120 H Blood Pressure [Right Arm] 205/104 H Blood Pressure Mean 158 Blood Pressure Mean [Right Arm] 137 Blood Pressure Position Semi-fowlers Blood Pressure Position [Right Arm] Pulse Oximetry 90 88 L Oxygen Delivery Method Room Air Room Air Oxygen Flow Rate Sepsis Recent Fever Within 48 Hours No Sepsis New/Unexplained Change in Mental Status No Sepsis Action Taken by Nursing No Action Required 03/10/23 18:15 03/10/23 18:33 03/10/23 19:31 Temperature Temperature Source Pulse Rate Pulse Rate [Apical] 83 80 Pulse Rhythm [Apical] Regular Respiratory Rate 22 18 Respiratory Effort / Characteristics Spontaneous Non-Labored Spontaneous Respiratory Depth Normal Normal Respiratory Pattern Regular Regular Blood Pressure Blood Pressure [Right Arm] 191/97 H 174/88 H Blood Pressure Mean Blood Pressure Mean [Right Arm] 128 116 Blood Pressure Position Blood Pressure Position [Right Arm] Semi-fowlers Pulse Oximetry 94 93 93 Oxygen Delivery Method Nasal Cannula Nasal Cannula Nasal Cannula Oxygen Flow Rate 2 2 2 Sepsis Recent Fever Within 48 Hours Sepsis New/Unexplained Change in Mental Status Sepsis Action Taken by Nursing 03/10/23 21:00 Temperature Temperature Source Pulse Rate Pulse Rate [Apical] 80 Pulse Rhythm [Apical] Respiratory Rate 18 Respiratory Effort / Characteristics Non-Labored Spontaneous Respiratory Depth Normal Respiratory Pattern Regular Blood Pressure Blood Pressure [Right Arm] 174/83 H Blood Pressure Mean Blood Pressure Mean [Right Arm] 113 Blood Pressure Position Blood Pressure Position [Right Arm] Semi-fowlers Pulse Oximetry 92 Oxygen Delivery Method Nasal Cannula Oxygen Flow Rate 2 Sepsis Recent Fever Within 48 Hours Sepsis New/Unexplained Change in Mental Status Sepsis Action Taken by Nursing Laboratory Data Attestation: I reviewed the patient's lab results. 03/11/23 06:02 03/10/23 17:40 Lab Results 03/10/23 03/10/23 03/10/23 Range/Units 17:40 17:44 17:48 WBC 7.98 (4.8-10.8) K/ul RBC 4.25 (4.20-5.40) M/uL Hgb 13.2 (12.0-16.0) g/dl POC Hgb 13.3 (12.0-16.0) g/dl Hct 38.6 (37.0-47.0) % POC Hct 39 (37-47) % MCV 90.8 (80.0-100.0) fL MCH 31.1 (25.0-34.0) pg MCHC 34.2 (32.0-36.0) g/dL RDW Std Deviation 43.1 (36.4-46.3) fL RDW Coeff of Mihaela 13.1 (11.5-14.5) % Plt Count 195 (130-400) K/uL MPV 10.0 (9.4-12.4) fL Immature Gran % (Auto) 0.5 % Neut % (Auto) 81.2 % Lymph % (Auto) 6.9 % Anson % (Auto) 9.1 % Eos % (Auto) 1.8 % Baso % (Auto) 0.5 % Neut # (Auto) 6.48 (1.40-6.50) K/uL Lymph # (Auto) 0.55 L (1.20-3.40) K/uL Anson # (Auto) 0.73 H (0.11-0.59) K/uL Eos # (Auto) 0.14 (0.00-0.50) K/uL Baso # (Auto) 0.04 (0.00-0.20) K/uL Immature Gran # (Auto) 0.04 (0.01-0.20) K/uL PT 10.7 (9.0-12.0) Seconds INR 1.0 (0.9-1.1) APTT 26 (21-31) Seconds PTT Ratio 0.9 POC Sodium 132 L (135-144) mmol/L Sodium 133 L (136-145) mmol/L POC Potassium 4.2 (3.3-5.0) mmol/L Potassium 4.2 (3.5-5.1) mmol/L POC Chloride 104 (101-112) mmol/L Chloride 100 (98-107) mmol/L Carbon Dioxide 22 (21-32) mmol/L POC Total CO2 19 L (24-31) mmol/L Anion Gap 11 (3-11) POC Anion Gap 14.0 L (16-25) mmol/L POC BUN 24 H (7-18) mg/dl BUN 22 (6-23) mg/dl Creatinine 1.06 (0.6-1.2) mg/dl POC Creatinine 0.9 (0.6-1.3) mg/dl Est Cr Clr Drug Dosing 46.9 ml/min Est GFR ( Amer) 58.2 ml/min Est GFR (Non-Af Amer) 50.3 ml/min BUN/Creatinine Ratio 20.8 H (10-20) Glucose 269 H (70-99(Fasting)) mg/dl POC Glucose (other) 273 H (70-99) mg/dl Calcium 9.3 (8.6-10.3) mg/dl POC Ioniz Calcium Tiffany 0.88 L (1.12-1.32) mmol/l Phosphorus 2.9 (2.5-4.9) mg/dl Magnesium 1.3 L (1.7-2.4) mg/dl Total Bilirubin 0.4 (0.2-1.0) mg/dl AST 19 (13-39) U/L ALT 20 (7-52) U/L Alkaline Phosphatase 95 (34-104) U/L Troponin I High Sens < 2.3 (0-14) pg/ml Total Protein 7.8 (6.0-8.3) gm/dl Albumin 4.4 (3.4-5.0) gm/dl Globulin 3.4 (2.5-4.0) gm/dl Albumin/Globulin Ratio 1.3 (0.9-2) Lipase 64 (11-82) U/L TSH 2.035 (0.300-4.500) uIu/ml Urine Color Urine Appearance (Clear) Urine pH (4.5-7.5) Ur Specific [place] (1.000-1.030) Urine Protein (Negative) Urine Glucose (UA) (Negative) Urine Ketones (Negative) Urine Blood (Negative) Urine Nitrite (Negative) Urine Bilirubin (Negative) Urine Urobilinogen (Negative) Ur Leukocyte Esterase (Negative) Urine WBC (Auto) (0-5) /hpf Urine RBC (Auto) (0-4) /hpf U Hyaline Cast (Auto) (0-5) /lpf U Epithel Cells (Auto) (0-5) /lpf Urine Bacteria (Auto) (Negative) Nasal Influ A H1 2009 PCR DETECTED A* (NotDetected) Adenovirus (PCR) Not Detected (NotDetected) B. pertussis DNA (PCR) Not Detected (NotDetected) B.parapertussis DNA PCR Not Detected (NotDetected) C. pneumoniae DNA (PCR) Not Detected (NotDetected) Coronavirus OC43 (PCR) Not Detected (NotDetected) Coronavirus HKU1 (PCR) Not Detected (NotDetected) Coronavirus 229E (PCR) Not Detected (NotDetected) SARS-CoV-2 (PCR) Not Detected (NotDetected) Coronavirus NL63 (PCR) Not Detected (NotDetected) Human Metapneumovir PCR Not Detected (NotDetected) Influenza Type B (PCR) Not Detected (NotDetected) M. pneumoniae (PCR) Not Detected (NotDetected) Parainfluenza 1 (PCR) Not Detected (NotDetected) Parainfluenza 2 (PCR) Not Detected (NotDetected) Parainfluenza 3 (PCR) Not Detected (NotDetected) Parainfluenza 4 (PCR) Not Detected (NotDetected) RSV (PCR) Not Detected (NotDetected) Entero/Rhino (PCR) Not Detected (NotDetected) 03/10/23 Range/Units 18:28 WBC (4.8-10.8) K/ul RBC (4.20-5.40) M/uL Hgb (12.0-16.0) g/dl POC Hgb (12.0-16.0) g/dl Hct (37.0-47.0) % POC Hct (37-47) % MCV (80.0-100.0) fL MCH (25.0-34.0) pg MCHC (32.0-36.0) g/dL RDW Std Deviation (36.4-46.3) fL RDW Coeff of Mihaela (11.5-14.5) % Plt Count (130-400) K/uL MPV (9.4-12.4) fL Immature Gran % (Auto) % Neut % (Auto) % Lymph % (Auto) % Anson % (Auto) % Eos % (Auto) % Baso % (Auto) % Neut # (Auto) (1.40-6.50) K/uL Lymph # (Auto) (1.20-3.40) K/uL Anson # (Auto) (0.11-0.59) K/uL Eos # (Auto) (0.00-0.50) K/uL Baso # (Auto) (0.00-0.20) K/uL Immature Gran # (Auto) (0.01-0.20) K/uL PT (9.0-12.0) Seconds INR (0.9-1.1) APTT (21-31) Seconds PTT Ratio POC Sodium (135-144) mmol/L Sodium (136-145) mmol/L POC Potassium (3.3-5.0) mmol/L Potassium (3.5-5.1) mmol/L POC Chloride (101-112) mmol/L Chloride (98-107) mmol/L Carbon Dioxide (21-32) mmol/L POC Total CO2 (24-31) mmol/L Anion Gap (3-11) POC Anion Gap (16-25) mmol/L POC BUN (7-18) mg/dl BUN (6-23) mg/dl Creatinine (0.6-1.2) mg/dl POC Creatinine (0.6-1.3) mg/dl Est Cr Clr Drug Dosing ml/min Est GFR ( Amer) ml/min Est GFR (Non-Af Amer) ml/min BUN/Creatinine Ratio (10-20) Glucose (70-99(Fasting)) mg/dl POC Glucose (other) (70-99) mg/dl Calcium (8.6-10.3) mg/dl POC Ioniz Calcium Tiffany (1.12-1.32) mmol/l Phosphorus (2.5-4.9) mg/dl Magnesium (1.7-2.4) mg/dl Total Bilirubin (0.2-1.0) mg/dl AST (13-39) U/L ALT (7-52) U/L Alkaline Phosphatase (34-104) U/L Troponin I High Sens (0-14) pg/ml Total Protein (6.0-8.3) gm/dl Albumin (3.4-5.0) gm/dl Globulin (2.5-4.0) gm/dl Albumin/Globulin Ratio (0.9-2) Lipase (11-82) U/L TSH (0.300-4.500) uIu/ml Urine Color Yellow Urine Appearance Clear (Clear) Urine pH 7.0 (4.5-7.5) Ur Specific [place] 1.017 (1.000-1.030) Urine Protein 2+ H (Negative) Urine Glucose (UA) 3+ H (Negative) Urine Ketones 1+ H (Negative) Urine Blood Negative (Negative) Urine Nitrite Negative (Negative) Urine Bilirubin Negative (Negative) Urine Urobilinogen Negative (Negative) Ur Leukocyte Esterase Negative (Negative) Urine WBC (Auto) 1-5 (0-5) /hpf Urine RBC (Auto) 0-4 (0-4) /hpf U Hyaline Cast (Auto) 0 (0-5) /lpf U Epithel Cells (Auto) 5-10 H (0-5) /lpf Urine Bacteria (Auto) Negative (Negative) Nasal Influ A H1 2009 PCR (NotDetected) Adenovirus (PCR) (NotDetected) B. pertussis DNA (PCR) (NotDetected) B.parapertussis DNA PCR (NotDetected) C. pneumoniae DNA (PCR) (NotDetected) Coronavirus OC43 (PCR) (NotDetected) Coronavirus HKU1 (PCR) (NotDetected) Coronavirus 229E (PCR) (NotDetected) SARS-CoV-2 (PCR) (NotDetected) Coronavirus NL63 (PCR) (NotDetected) Human Metapneumovir PCR (NotDetected) Influenza Type B (PCR) (NotDetected) M. pneumoniae (PCR) (NotDetected) Parainfluenza 1 (PCR) (NotDetected) Parainfluenza 2 (PCR) (NotDetected) Parainfluenza 3 (PCR) (NotDetected) Parainfluenza 4 (PCR) (NotDetected) RSV (PCR) (NotDetected) Entero/Rhino (PCR) (NotDetected) Administered Medications Albuterol (Albuterol 0.5% Neb Soln 2.5 Mg/0.5 Ml Vial) 2.5 mg NEB Q6R BART; Protocol Stop: 04/10/23 00:59 Last Admin: 03/11/23 01:32 Dose: 2.5 mg Documented By: PATRICK Gabapentin (Gabapentin 100 Mg Cap) 100 mg PO BID [facility] Stop: 04/09/23 20:59 Last Admin: 03/11/23 01:35 Dose: 100 mg Documented By: RAFFY Levothyroxine Sodium (Levothyroxine Sodium 25 Mcg Tablet) 25 mcg PO DAILYBB [facility] Stop: 04/10/23 06:29 Last Admin: 03/11/23 06:12 Dose: 25 mcg Documented By: LIN Discontinued Medications Acetaminophen (Ofirmev) 1,000 mg in 100 mls @ 400 mls/hr IV NOW STA Stop: 03/10/23 17:53 Last Infusion: 03/10/23 18:16 Dose: Infused Documented By: Admin: 03/10/23 17:49 Dose: 400 mls/hr Documented By: AIXA Famotidine (Pepcid 20mg Iv Push) 20 mg in 5 mls @ 2.5 mls/min IV NOW STA Stop: 03/10/23 17:40 Last Admin: 03/10/23 17:49 Dose: 2.5 mls/min Documented By: AIXA Sodium Chloride (Nss) 1,000 mls @ 999 mls/hr IV .Q1H1M ONE Stop: 03/10/23 18:39 Last Infusion: 03/10/23 18:59 Dose: Infused Documented By: Admin: 03/10/23 17:49 Dose: 999 mls/hr Documented By: AIXA Magnesium Sulfate/Dextrose (Magnesium Sulfate / D5w) 1 gm in 100 mls @ 100 mls/hr IV Q1H BART Stop: 03/10/23 22:51 Last Infusion: 03/10/23 23:37 Dose: Infused Documented By: Admin: 03/10/23 22:37 Dose: 100 mls/hr Documented By: Infusion: 03/10/23 22:19 Dose: Infused Documented By: Admin: 03/10/23 21:19 Dose: 100 mls/hr Documented By: THERESA Calcium Gluconate () 1,000 mg in 60 mls @ 240 mls/hr IV NOW STA Stop: 03/10/23 21:34 Last Infusion: 03/10/23 23:21 Dose: Infused Documented By: Admin: 03/10/23 21:54 Dose: 240 mls/hr Documented By: THERESA Magnesium Sulfate/Dextrose (Magnesium Sulfate / D5w) 1 gm in 100 mls @ 50 mls/hr IV Q2H BART Stop: 03/11/23 04:59 Last Infusion: 03/11/23 04:58 Dose: Infused Documented By: Admin: 03/11/23 03:04 Dose: 100 mls/hr Documented By: Infusion: 03/11/23 03:03 Dose: Infused Documented By: Admin: 03/11/23 01:35 Dose: 100 mls/hr Documented By: Infusion: 03/11/23 00:50 Dose: Infused Documented By: Admin: 03/10/23 23:38 Dose: 50 mls/hr Documented By: RAFFY Ioversol (Optiray 320 125ml) 119 ml IV ONCE ONE Stop: 03/10/23 18:02 Last Admin: 03/10/23 18:03 Dose: 119 ml Documented By: JAGDISH Oseltamivir Phosphate (Oseltamivir Phosphate 75 Mg Cap) 75 mg PO NOW STA; Protocol Stop: 03/10/23 20:52 Last Admin: 03/10/23 21:19 Dose: 75 mg Documented By: THERESA Imaging Data Radiologist's Impression: Head CT 03/10/23 17:39 Exam(s): CT HEAD Without Contrast EXAM: CT Head Without Intravenous Contrast CLINICAL HISTORY: Reason for exam: neuro deficit, acute stroke suspected. TECHNIQUE: Axial computed tomography images of the head/brain without intravenous contrast. CTDI is 37.32 mGy and DLP is 624.41 mGy-cm. Automated exposure control was utilized for the study. A dose lowering technique was utilized adhering to the principles of ALARA. COMPARISON: MRI brain on 01/02/2023. CT head on 01/02/2023. FINDINGS: Brain: No acute infarct or hemorrhage identified. No extra-axial fluid collection. No mass effect or midline shift. Scattered areas of hypoattenuation in the supratentorial white matter likely represent chronic small vessel ischemic changes. Encephalomalacia in the right frontal region and bilateral parietal regions. Ventricles and sulci: Prominence of the ventricles and sulci is likely secondary to cerebral volume loss. Bones: Left-sided craniotomy. No bony lesion or acute fracture. Subcutaneous tissues: Normal. Sinuses: Normal. No air-fluid levels or mucosal thickening. Mastoid air cells: Normal. Orbits: Bilateral lens implants. Other: Atherosclerotic calcifications in the intracranial vasculature. IMPRESSION: 1. No acute intracranial abnormality. 2. Chronic small vessel ischemic changes and cerebral volume loss. Encephalomalacia in the right frontal region and bilateral parietal regions. Electronically signed by: Anibal Holder M.D. 03/10/23 19:03 PM Head CTA 03/10/23 17:39 Exam(s): CTA HEAD With Contrast IV Amt: 119 ml [id number] EXAM: CT Angiography Head With Intravenous Contrast CLINICAL HISTORY: Reason for exam: neuro deficit, acute stroke suspected. TECHNIQUE: Axial computed tomographic angiography images of the head with intravenous contrast. CTDI is 67 mGy and DLP is 1090.15 mGy-cm. Automated exposure control was utilized for the study. A dose lowering technique was utilized adhering to the principles of ALARA. MIP reconstructed images were created and reviewed. CONTRAST: Patient received 119 ml [id number] of IV contrast COMPARISON: CTA head on 01/02/2023 FINDINGS: Right internal carotid artery: Atherosclerotic calcifications in the distal right ICA. No significant stenosis. No aneurysm. Right anterior cerebral artery: Unremarkable. No occlusion or significant stenosis. No aneurysm. Right middle cerebral artery: Unremarkable. No occlusion or significant stenosis. No aneurysm. Right posterior cerebral artery: The distal right [employer] CLE[employer]ING [employer]IST appears to be occluded, similar compared to prior exam. No aneurysm. Right vertebral artery: Diminutive V4 segment of the right vertebral artery. Left internal carotid artery: Atherosclerotic calcifications of the distal left ICA. No significant stenosis. No aneurysm. Left anterior cerebral artery: Unremarkable. No occlusion or significant stenosis. No aneurysm. Left middle cerebral artery: Unremarkable. No occlusion or significant stenosis. No aneurysm. Left posterior cerebral artery: The distal left [employer]IST appears to be occluded, similar compared to prior exam. No aneurysm. Left vertebral artery: Mild atherosclerotic calcifications of the V4 segment of the left vertebral artery. No significant stenosis. Basilar artery: Unremarkable. No occlusion or significant stenosis. No aneurysm. IMPRESSION: The distal elementary secretary appear to be occluded, similar compared to prior exam. Electronically signed by: Anibal Holder M.D. 03/10/23 20:03 PM Neck CTA 03/10/23 17:39 Exam(s): CTA NECK With Contrast IV Amt: 119 mL EXAM: CT Angiography Neck With Intravenous Contrast CLINICAL HISTORY: Reason for exam: neuro deficit, acute stroke suspected. TECHNIQUE: Routine carotid CT angiography protocol was performed with intravenous contrast. NASCET criteria using the distal ICAs for comparison were used for evaluation of stenoses. CTDI is 67 mGy and DLP is 1090.15 mGy-cm. Automated exposure control was utilized for the study. A dose lowering technique was utilized adhering to the principles of ALARA. MIP reconstructed images were created and reviewed. CONTRAST: Patient received 119 mL [id number] of IV contrast COMPARISON: CTA neck on 01/02/2023 FINDINGS: VASCULATURE: Right common carotid artery: Atherosclerotic changes in the distal right common carotid artery. No significant stenosis. Medially coursing right common carotid artery. No dissection. Right internal carotid artery: Atherosclerotic changes in the right carotid bulb and proximal right ICA. No significant stenosis. No dissection. Right external carotid artery: Unremarkable. No occlusion. Right vertebral artery: Unremarkable. No occlusion or significant stenosis. No dissection. Left common carotid artery: Medially coursing left common carotid artery. No occlusion or significant stenosis. No dissection. Left internal carotid artery: Atherosclerotic changes of the left carotid bulb and proximal left ICA. No significant stenosis. No dissection. Left external carotid artery: Unremarkable. No occlusion. Left vertebral artery: Dominant left vertebral artery. No occlusion or significant stenosis. No dissection. Aorta: Atherosclerotic changes of the aorta and origins of the great vessels. NECK: Bones/joints: Degenerative changes of the spine. No acute fracture. Soft tissues: Unremarkable. Thyroid: Heterogeneous dominant left thyroid lobe could be further evaluated with ultrasound if clinically indicated. Lung apices: Clear. CAROTID STENOSIS REFERENCE USING NASCET CRITERIA: % ICA stenosis = (1 - narrowest ICA diameter/diameter of distal cervical ICA) x 100. Mild - <50% stenosis. Moderate - 50-69% stenosis. Severe - 70-94% stenosis. Near occlusion - 95-99% stenosis. Occluded - 100% stenosis. IMPRESSION: No significant stenosis, occlusion, or dissection. Electronically signed by: Anibal Holder M.D. 03/10/23 20:01 PM Discharge Plan Visit Data Chief Complaint: Neuro Symptoms/Deficit ED Provider: Te Strange Discharge Problem: Influenza A virus subtype H1 2009 pandemic strain present, Hypomagnesemia, Hypertensive urgency, Confusion, Generalized weakness Patient Disposition: Admitted As Inpatient Discharge Instructions Interventions: ED Discharge Assessment Last Done: 03/11/23 03:23
[2023-03-10 17:57] LABS: iSTAT Creatinine 0.9 mg/dl (0.6-1.3); iSTAT Hemoglobin 13.3 g/dl (12.0-16.0); iSTAT Ionized Calcium 0.88 mmol/l (1.12-1.32); iSTAT Potassium 4.2 mmol/L (3.3-5.0)
[2023-03-10] MEDS ORDERED: OPTIRAY 320 125ml IV ONE (18:01)
[2023-03-10 18:02] LABS: Basophils # (auto) 0.04 K/uL (0.00-0.20); Basophils % (auto) 0.5 %; Eosinophils # (auto) 0.14 K/uL (0.00-0.50); Eosinophils % (auto) 1.8 %; Hematocrit (blood only) 38.6 % (37.0-47.0); Hemoglobin 13.2 g/dl (12.0-16.0); Immature Granulocytes # (auto) 0.04 K/uL (0.01-0.20); Immature Granulocytes % (auto) 0.5 %; Lymphocytes # (auto) 0.55 K/uL (1.20-3.40); Lymphocytes % (auto) 6.9 %; Mean Corpuscular Hemoglobin 31.1 pg (25.0-34.0); Mean Corpuscular Hgb Conc 34.2 g/dL (32.0-36.0); Mean Corpuscular Volume 90.8 fL (80.0-100.0); Monocytes # (auto) 0.73 K/uL (0.11-0.59); Monocytes % (auto) 9.1 %; Neutrophils # (auto) 6.48 K/uL (1.40-6.50); Neutrophils % (auto) 81.2 %; Platelet Count 195 K/uL (130-400); RDW Coefficient of Variation 13.1 % (11.5-14.5); RDW Standard Deviation 43.1 fL (36.4-46.3); Red Blood Count 4.25 M/uL (4.20-5.40); White Blood Count 7.98 K/ul (4.8-10.8)
[2023-03-10 18:16] LABS: Alanine Aminotransferase 20 U/L (7-52); Albumin Globulin Ratio 1.3 (0.9-2); Albumin Level 4.4 gm/dl (3.4-5.0); Alkaline Phosphatase 95 U/L (34-104); Anion Gap 11 (3-11); Aspartate Aminotransferase 19 U/L (13-39); BUN Creatinine Ratio 20.8 (10-20); Bilirubin,Total 0.4 mg/dl (0.2-1.0); Blood Urea Nitrogen 22 mg/dl (6-23); Calcium 9.3 mg/dl (8.6-10.3); Carbon Dioxide 22 mmol/L (21-32); Chloride 100 mmol/L (98-107); Creatinine Clr Calc Pharmacy 46.9 ml/min; Est GFR (African American) 58.2 ml/min; Est GFR (Non-African American) 50.3 ml/min; Globulin 3.4 gm/dl (2.5-4.0); Glucose 269 mg/dl (70-99(Fasting)); Lipase 64 U/L (11-82); Magnesium 1.3 mg/dl (1.7-2.4); Phosphorus 2.9 mg/dl (2.5-4.9); Potassium 4.2 mmol/L (3.5-5.1); Sodium 133 mmol/L (136-145); Total Protein 7.8 gm/dl (6.0-8.3)
[2023-03-10 18:22] LABS: Troponin I High Sensitivity < 2.3 pg/ml (0-14)
--- NOTE | 2023-03-10 18:25 | XRay Report ---
XR chest 1V portable CLINICAL HISTORY: neuro deficit, acute stroke suspected TECHNIQUE: Single frontal radiograph of the chest was obtained. Comparison: Comparison is made to chest radiograph 01/02/2023 FINDINGS: No lines and tubes are seen. Calcified aortic knob is seen. The lungs are clear. No evidence of pleur al effusion or pneumothorax. IMPRESSION: No acute chest disease. ACT 112: Negative or not required by law. Electronically signed by: Deepak Ayala M.D. 03/10/2023 6:24 PM
[2023-03-10 18:26] LABS: Partial Thromboplastin Ratio 0.9; Partial Thromboplastin Time 26 Seconds (21-31); Prothrombin Time 10.7 Seconds (9.0-12.0)
[2023-03-10 18:31] LABS: Thyroid Stimulating Hormone 2.035 uIu/ml (0.300-4.500)
[2023-03-10 18:47] LABS: Adenovirus PCR Not Detected (NotDetected); Bordetella parapertussis PCR Not Detected (NotDetected); Bordetella pertussis PCR Not Detected (NotDetected); Chlamydia pneumoniae PCR Not Detected (NotDetected); Coronavirus 229E PCR Not Detected (NotDetected); Coronavirus CoV-2 (COVID19)PCR Not Detected (NotDetected); Coronavirus HKU1 PCR Not Detected (NotDetected); Coronavirus NL63 PCR Not Detected (NotDetected); Coronavirus OC43PCR Not Detected (NotDetected); Human Metapneumovirus PCR Not Detected (NotDetected); Influenza B PCR Not Detected (NotDetected); Mycoplasma pneumoniae PCR Not Detected (NotDetected); Parainfluenza Virus 1 PCR Not Detected (NotDetected); Parainfluenza Virus 2 PCR Not Detected (NotDetected); Parainfluenza Virus 3 PCR Not Detected (NotDetected); Parainfluenza Virus 4 PCR Not Detected (NotDetected); Respiratory Syncytial VirusPCR Not Detected (NotDetected); Rhinovirus/Enterovirus PCR Not Detected (NotDetected)
[2023-03-10 18:48] LABS: Appearance Urine Clear (Clear); Bacteria Urine Automated Negative (Negative); Bilirubin Urine Negative (Negative); Blood Urine Negative (Negative); Cast Urine Automated 0 /lpf (0-5); Color Urine Yellow; Glucose Urine UA 3+ (Negative); Ketones Urine 1+ (Negative); Leukocyte Esterase Urine Negative (Negative); Nitrite Urine Negative (Negative); Protein Urine 2+ (Negative); RBC Urine Automated 0-4 /hpf (0-4); Specific Gravity Urine 1.017 (1.000-1.030); Urobilinogen Urine Negative (Negative)
[2023-03-10 18:59] LABS: Influenza A (H1 2009) PCR DETECTED (NotDetected)
--- NOTE | 2023-03-10 19:04 | CT Scan Report ---
Exam(s): CT HEAD Without Contrast EXAM: CT Head Without Intravenous Contrast CLINICAL HISTORY: Reason for exam: neuro deficit, acute stroke suspected. TECHNIQUE: Axial computed tomography images of the head/brain without intravenous contrast. CTDI is 37.32 mGy and DLP is 624.41 mGy-cm. Automated exposure control was utilized for the study. A dose lowering technique was utilized adhering to the principles of ALARA. COMPARISON: MRI brain on 01/02/2023. CT head on 01/02/2023. FINDINGS: Brain: No acute infarct or hemorrhage identified. No extra-axial fluid collection. No mass effect or midline shift. Scattered areas of hypoattenuation in the supratentorial white matter likely represent chronic small vessel ischemic changes. Encephalomalacia in the right frontal region and bilateral parietal regions. Ventricles and sulci: Prominence of the ventricles and sulci is likely secondary to cerebral volume loss. Bones: Left-sided craniotomy. No bony lesion or acute fracture. Subcutaneous tissues: Normal. Sinuses: Normal. No air-fluid levels or mucosal thickening. Mastoid air cells: Normal. Orbits: Bilateral lens implants. Other: Atherosclerotic calcifications in the intracranial vasculature. IMPRESSION: 1. No acute intracranial abnormality. 2. Chronic small vessel ischemic changes and cerebral volume loss. Encephalomalacia in the right frontal region and bilateral parietal regions. Electronically signed by: Anibal Holder M.D. 03/10/23 19:03 PM
--- NOTE | 2023-03-10 20:02 | CT Scan Report ---
Exam(s): CTA NECK With Contrast IV Amt: 119 mL [id number] EXAM: CT Angiography Neck With Intravenous Contrast CLINICAL HISTORY: Reason for exam: neuro deficit, acute stroke suspected. TECHNIQUE: Routine carotid CT angiography protocol was performed with intravenous contrast. NASCET criteria using the distal ICAs for comparison were used for evaluation of stenoses. CTDI is 67 mGy and DLP is 1090.15 mGy-cm. Automated exposure control was utilized for the study. A dose lowering technique was utilized adhering to the principles of ALARA. MIP reconstructed images were created and reviewed. CONTRAST: Patient received 119 mL [id number] of IV contrast COMPARISON: CTA neck on 01/02/2023 FINDINGS: VASCULATURE: Right common carotid artery: Atherosclerotic changes in the distal right common carotid artery. No significant stenosis. Medially coursing right common carotid artery. No dissection. Right internal carotid artery: Atherosclerotic changes in the right carotid bulb and proximal right ICA. No significant stenosis. No dissection. Right external carotid artery: Unremarkable. No occlusion. Right vertebral artery: Unremarkable. No occlusion or significant stenosis. No dissection. Left common carotid artery: Medially coursing left common carotid artery. No occlusion or significant stenosis. No dissection. Left internal carotid artery: Atherosclerotic changes of the left carotid bulb and proximal left ICA. No significant stenosis. No dissection. Left external carotid artery: Unremarkable. No occlusion. Left vertebral artery: Dominant left vertebral artery. No occlusion or significant stenosis. No dissection. Aorta: Atherosclerotic changes of the aorta and origins of the great vessels. NECK: Bones/joints: Degenerative changes of the spine. No acute fracture. Soft tissues: Unremarkable. Thyroid: Heterogeneous dominant left thyroid lobe could be further evaluated with ultrasound if clinically indicated. Lung apices: Clear. CAROTID STENOSIS REFERENCE USING NASCET CRITERIA: % ICA stenosis = (1 - narrowest ICA diameter/diameter of distal cervical ICA) x 100. Mild - <50% stenosis. Moderate - 50-69% stenosis. Severe - 70-94% stenosis. Near occlusion - 95-99% stenosis. Occluded - 100% stenosis. IMPRESSION: No significant stenosis, occlusion, or dissection. Electronically signed by: Anibal Holder M.D. 03/10/23 20:01 PM
--- NOTE | 2023-03-10 20:04 | CT Scan Report ---
Exam(s): CTA HEAD With Contrast IV Amt: 119 ml [id number] EXAM: CT Angiography Head With Intravenous Contrast CLINICAL HISTORY: Reason for exam: neuro deficit, acute stroke suspected. TECHNIQUE: Axial computed tomographic angiography images of the head with intravenous contrast. CTDI is 67 mGy and DLP is 1090.15 mGy-cm. Automated exposure control was utilized for the study. A dose lowering technique was utilized adhering to the principles of ALARA. MIP reconstructed images were created and reviewed. CONTRAST: Patient received 119 ml [id number] of IV contrast COMPARISON: CTA head on 01/02/2023 FINDINGS: Right internal carotid artery: Atherosclerotic calcifications in the distal right ICA. No significant stenosis. No aneurysm. Right anterior cerebral artery: Unremarkable. No occlusion or significant stenosis. No aneurysm. Right middle cerebral artery: Unremarkable. No occlusion or significant stenosis. No aneurysm. Right posterior cerebral artery: The distal right MANAGER BILLING appears to be occluded, similar compared to prior exam. No aneurysm. Right vertebral artery: Diminutive V4 segment of the right vertebral artery. Left internal carotid artery: Atherosclerotic calcifications of the distal left ICA. No significant stenosis. No aneurysm. Left anterior cerebral artery: Unremarkable. No occlusion or significant stenosis. No aneurysm. Left middle cerebral artery: Unremarkable. No occlusion or significant stenosis. No aneurysm. Left posterior cerebral artery: The distal left MANAGER BILLING appears to be occluded, similar compared to prior exam. No aneurysm. Left vertebral artery: Mild atherosclerotic calcifications of the V4 segment of the left vertebral artery. No significant stenosis. Basilar artery: Unremarkable. No occlusion or significant stenosis. No aneurysm. IMPRESSION: The distal certified pest control technician appear to be occluded, similar compared to prior exam. Electronically signed by: Anibal Holder M.D. 03/10/23 20:03 PM
[2023-03-10] MEDS ORDERED: OSELTAMIVIR PHOSPHATE 75 MG CAP PO STA (20:51)
--- NOTE | 2023-03-10 21:18 | History & Physical Report ---
Date of Service March 10, 2023 Assessment & Plan (1) Hypoxia: Plan: -Admit to med/tele on pulse oximetry -Currently hemodynamically stable and stable on RA -Found to be hypoxic at 88% on RA on arrival -Noted to be Influenza A H1 2009 + -CXR was without acute findings -Noted to have expiratory wheezing on exam -Continue supportive measures with incentive spirometer, flutter therapy, prn albuterol -PRN O2 to keep SpO2 at or above 94% -SQ lovenox for DVT PPX -HH/DMII diet with soft/bite sized texture -AM CBC, CMP, mag, PT/INR (2) Confusion: Plan: -Patient developed progressive confusion over the past 72 hours -CT head and CTA head/neck negative for acute findings -The patient is actually much more alert and oriented compared to when I last admitted her in December -Likely multifactorial etiology with Influenza A, hypoxia, dehydration and electrolyte abnormalities -Family confirms mentation has improved compared to arrival -Do not think she needs an MRI at this time as she has multiple other reversible etiologies to explain her confusion -Monitor for improvement with continued resuscitation (3) Influenza A virus subtype H1 2009 pandemic strain present: Plan: -See hypoxia -Continue tamilflu (4) Hypocalcemia: Plan: -Ionized calcium noted to be 0.88 today -Patient has been experiencing muscle cramps over the past few days -Likely due to recent poor oral intake -Gave 1gm IV calcium gluconate on admission -Monitor on tele -Monitor am calcium level (5) Hypomagnesemia: Plan: -Noted to be 1.3 on arrival -Family states this is a chronic issue -They have been trying magnesium drops but tell me they have been giving much less than the recommended dose -S/P 2 gm IV mag sulfate in the ED -Will order 3 additional bags of 1gm IV mag sulfate to be given overnight -Monitor on tele and monitor daily mag level -Would start oral mag tomorrow (6) Ambulatory dysfunction: Plan: -Likely due to influenza A, hypoxia, dehydration and weakness due to low mag and calcium -Continue current treatment of acute issues -PT/OT consulted -Fall/aspiration precautions with bed alarm (7) Diabetes mellitus, type 2: Plan: -Monitor BSG ACHS, goal is 110-160 as she has had issues with hypoglycemia on previous admissions -Will start conservative control overnight with CF of 50 ACHS -HH/DMII diet -Adjust regimen as needed (8) HTN (hypertension): Plan: -Now stable after receiving home lisinopril -Continue lisinopril (9) Hypothyroidism: Plan: -Continue levothyroxine Plan The patient was discussed with Dr. 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 England, HTN, and hypothyroidism who presented to the [facility] ED via EMS on 03/10/23 with complaints of cough, increased confusion, and increased ambulatory dysfunction. On arrival to the ED she was noted to be hypoxic on RA with SpO2 of 88%, hypertensive at 236/120, but otherwise stable. Labs were significant for an ionized calcium of 0.88, mag of 1.3, UA negative for sings of infection, and full respiratory biofire positive for Influenza A H1 2008. Chest xray was negative for acute findings. CT of the head and CTA of the head/neck were read as negative for acute findings. Prior to admission the patient was given 2gm IV mag sulfate, 1L NSS, one dose of Tamiflu, 10 mg PO lisinopril, 100 mg PO gabapentin, and 81 mg PO aspirin. At the time of the exam the patient was lying in bed in no acute distress with with her daughters sitting bedisde, history was obtained from all. The patient had been doing well at home since her last admission after her left parietal CVA. She has been working with home PT/OT and had been ambulating well with the assistance of a walker. Approximately 3 days ago she started to develop a non-productive cough. Her home Physical Therapist thought she may have been leaning to the left while ambulating with her walker as well. Her daughter state that she had been more confused and agitated over the past 72 hours as well. She has been taking her medications as prescribed but was not eating well over the past 3 days. Since arrival in the ED and initial resuscitation they can see improvement in her symptoms. Their goal is to get the patient back home as they already have home health/PT/OT. They confirm she is a Full Code. Please refer to Dr. Fallon's attestation for any changes to the treatment plan Allergies Allergy/AdvReac Type Severity Reaction Status Date / Time cefoxitin AdvReac Mild vomiting Verified 03/10/23 20:23 Home Medications Medication Instructions Recorded Confirmed Type levothyroxine 25 mcg tablet 25 mcg PO DAILY 03/31/21 03/10/23 History blood sugar diagnostic (OneTouch 03/13/22 03/13/22 History Verio test strips) lancets 33 gauge (OneTouch Delica 03/13/22 03/13/22 History Lancets) lisinopril 10 mg tablet 10 mg PO PM 03/13/22 03/10/23 History cholecalciferol (vitamin D3) 10 10 mcg PO DAILY 06/17/22 03/10/23 History mcg (400 unit) capsule (Vitamin D3) cyanocobalamin (vitamin B-12) 500 500 mcg sublingual QAM 06/17/22 03/10/23 History mcg sublingual tablet metformin 500 mg tablet 500 mg PO BID 06/17/22 03/10/23 History acetaminophen 500 mg tablet 1,000 mg PO Q8H PRN PAIN/FEVER 12/07/22 03/10/23 History aspirin 81 mg tablet,delayed 81 mg PO DAILY 03/10/23 03/10/23 History release gabapentin 100 mg capsule 100 mg PO 2XD 03/10/23 03/10/23 History glipizide 10 mg tablet, extended 10 mg PO DAILY 03/10/23 03/10/23 History release 24 hr polyethylene glycol 3350 17 17 g PO DAILY 03/10/23 03/10/23 History gram/dose oral powder (Miralax) Past Med/Surg History Medical History Osteoarthritis Hypothyroidism History of anemia Peripheral neuropathy Noted to bilateral hands Hx of deep venous thrombosis JULY 2021>VENA CAVA FILTER INSERTED BY DR. 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 TIA (transient ischemic attack) 2010? No residual issues Diabetes mellitus, type 2 Well controlled and stable Hgb A1C 7.7 on 06/16/22 History of COVID-19 12/2019 & 02/2021>RESOLVED Hypertension Surgical History History of total knee replacement RT History of colonoscopy History of cholecystectomy History of tooth extraction History of tonsillectomy History of cataract surgery RT/LEFT H/O craniotomy LARRY>06/01/21 *EMERGENCY CRANIOTOMY Family History Father Myocardial infarction Other Family history non-contributory No family history of adverse response to anesthesia Social History Smoking Status: Unknown if ever smoked Second Hand Exposure: No; Preferred Language: Sudanese Communication Ability: CONFUSED Communication Ability Comment: @BASELINE A/O AND NO COMMUNICATION ISSUES Building Architectural Designer Required: No Beliefs That Will Affect Care: None marital status: / Current Living Situation: Family Current Living Situation Comment: WITH DAUGHTER How many Children do You have: 2 Feels Safe at Home: Yes Assistive Devices: Walker Physical Exam Physical Exam: Physical Exam: General: In no acute distress, stated age, chronically ill appearing but non- toxic HEENT: Normocephalic, atraumatic, no scleral icterus, pupils around round, symmetrical, and reactive to light, moist mucus membranes, trachea midline, no thyromegaly Chest/Pulm: No respiratory distress, symmetrical chest expansion, scattered expiratory wheezing noted Cardiac: RRR, no murmurs noted Abdomen: Negative for ascites and bruising, normoactive bowel sounds, soft, non-tender to palpation throughout Musculoskeletal: Symmetrical and without signs of acute trauma, upper and lower extremities with full ROM, no atrophy, spasticity, or flaccidity Extremities: Radial, dorsalis pedis, and posterior tibial pulses are intact and symmetrical, no edema noted in the BL LE's Skin: Warm, dry, no rashes , lesions, or scars noted Neuro: Alert and oriented to person, place, month, no focal defects, CN II- XII tested and intact, baseline tremors noted Psych: No acute distress, calm and cooperative during the exam Results & Data Results & Data Vital Signs (Past 12 Hours) Vital Signs Temp Pulse Pulse Resp BP BP Pulse Ox 03/10/23 19:31 80 18 174/88 H 93 03/10/23 18:33 83 22 191/97 H 93 03/10/23 18:15 94 03/10/23 18:15 91 H 20 205/104 H 88 L 03/10/23 17:51 92 H 03/10/23 17:35 36.9 C 90 20 236/120 H 90 O2 Del Method O2 Flow Rate 03/10/23 19:31 Nasal Cannula 2 03/10/23 18:33 Nasal Cannula 2 03/10/23 18:15 Nasal Cannula 2 03/10/23 18:15 Room Air 03/10/23 17:51 03/10/23 17:35 Room Air Laboratory Results Abnormal lab results 03/10/23 03/10/23 03/10/23 Range/Units 17:40 17:44 17:48 Lymph # (Auto) 0.55 L (1.20-3.40) K/uL [place] # (Auto) 0.73 H (0.11-0.59) K/uL POC Sodium 132 L (135-144) mmol/L Sodium 133 L (136-145) mmol/L POC Total CO2 19 L (24-31) mmol/L POC Anion Gap 14.0 L (16-25) mmol/L POC BUN 24 H (7-18) mg/dl BUN/Creatinine Ratio 20.8 H (10-20) Glucose 269 H (70-99(Fasting)) mg/dl POC Glucose (other) 273 H (70-99) mg/dl POC Ioniz Calcium Tiffany 0.88 L (1.12-1.32) mmol/l Magnesium 1.3 L (1.7-2.4) mg/dl Urine Protein (Negative) Urine Glucose (UA) (Negative) Urine Ketones (Negative) U Epithel Cells (Auto) (0-5) /lpf Nasal Influ A H1 2008 PCR DETECTED A* (NotDetected) 03/10/23 Range/Units 18:28 Lymph # (Auto) (1.20-3.40) K/uL [place] # (Auto) (0.11-0.59) K/uL POC Sodium (135-144) mmol/L Sodium (136-145) mmol/L POC Total CO2 (24-31) mmol/L POC Anion Gap (16-25) mmol/L POC BUN (7-18) mg/dl BUN/Creatinine Ratio (10-20) Glucose (70-99(Fasting)) mg/dl POC Glucose (other) (70-99) mg/dl POC Ioniz Calcium Tiffany (1.12-1.32) mmol/l Magnesium (1.7-2.4) mg/dl Urine Protein 2+ H (Negative) Urine Glucose (UA) 3+ H (Negative) Urine Ketones 1+ H (Negative) U Epithel Cells (Auto) 5-10 H (0-5) /lpf Nasal Influ A H1 2008 PCR (NotDetected) Diagnostic Findings Chest X-Ray 03/10/23 17:39 XR chest 1V portable CLINICAL HISTORY: neuro deficit, acute stroke suspected TECHNIQUE: Single frontal radiograph of the chest was obtained. Comparison: Comparison is made to chest radiograph 01/02/2023 FINDINGS: No lines and tubes are seen. Calcified aortic knob is seen. The lungs are clear. No evidence of pleural effusion or pneumothorax. IMPRESSION: No acute chest disease. ACT 112: Negative or not required by law. Electronically signed by: Deepak Ayala M.D. 03/10/2023 6:[address] 03/10/23 17:39 Exam(s): CT HEAD Without Contrast EXAM: CT Head Without Intravenous Contrast CLINICAL HISTORY: Reason for exam: neuro deficit, acute stroke suspected. TECHNIQUE: Axial computed tomography images of the head/brain without intravenous contrast. CTDI is 37.32 mGy and DLP is 624.41 mGy-cm. Automated exposure control was utilized for the study. A dose lowering technique was utilized adhering to the principles of ALARA. COMPARISON: MRI brain on 01/02/2023. CT head on 01/02/2023. FINDINGS: Brain: No acute infarct or hemorrhage identified. No extra-axial fluid collection. No mass effect or midline shift. Scattered areas of hypoattenuation in the supratentorial white matter likely represent chronic small vessel ischemic changes. Encephalomalacia in the right frontal region and bilateral parietal regions. Ventricles and sulci: Prominence of the ventricles and sulci is likely secondary to cerebral volume loss. Bones: Left-sided craniotomy. No bony lesion or acute fracture. Subcutaneous tissues: Normal. Sinuses: Normal. No air-fluid levels or mucosal thickening. Mastoid air cells: Normal. Orbits: Bilateral lens implants. Other: Atherosclerotic calcifications in the intracranial vasculature. IMPRESSION: 1. No acute intracranial abnormality. 2. Chronic small vessel ischemic changes and cerebral volume loss. Encephalomalacia in the right frontal region and bilateral parietal regions. Electronically signed by: Anibal Holder M.D. 03/10/23 19:03 PM Head CTA 03/10/23 17:39 Exam(s): CTA HEAD With Contrast IV Amt: 119 ml [id number] EXAM: CT Angiography Head With Intravenous Contrast CLINICAL HISTORY: Reason for exam: neuro deficit, acute stroke suspected. TECHNIQUE: Axial computed tomographic angiography images of the head with intravenous contrast. CTDI is 67 mGy and DLP is 1090.15 mGy-cm. Automated exposure control was utilized for the study. A dose lowering technique was utilized adhering to the principles of ALARA. MIP reconstructed images were created and reviewed. CONTRAST: Patient received 119 ml [id number] of IV contrast COMPARISON: CTA head on 01/02/2023 FINDINGS: Right internal carotid artery: Atherosclerotic calcifications in the distal right ICA. No significant stenosis. No aneurysm. Right anterior cerebral artery: Unremarkable. No occlusion or significant stenosis. No aneurysm. Right middle cerebral artery: Unremarkable. No occlusion or significant stenosis. No aneurysm. Right posterior cerebral artery: The distal right COACH CLEANER appears to be occluded, similar compared to prior exam. No aneurysm. Right vertebral artery: Diminutive V4 segment of the right vertebral artery. Left internal carotid artery: Atherosclerotic calcifications of the distal left ICA. No significant stenosis. No aneurysm. Left anterior cerebral artery: Unremarkable. No occlusion or significant stenosis. No aneurysm. Left middle cerebral artery: Unremarkable. No occlusion or significant stenosis. No aneurysm. Left posterior cerebral artery: The distal left COACH CLEANER appears to be occluded, similar compared to prior exam. No aneurysm. Left vertebral artery: Mild atherosclerotic calcifications of the V4 segment of the left vertebral artery. No significant stenosis. Basilar artery: Unremarkable. No occlusion or significant stenosis. No aneurysm. IMPRESSION: The distal pocket creaser appear to be occluded, similar compared to prior exam. Electronically signed by: Anibal Holder M.D. 03/10/23 20:03 PM Neck CTA 03/10/23 17:39 Exam(s): CTA NECK With Contrast IV Amt: 119 mL [id number] EXAM: CT Angiography Neck With Intravenous Contrast CLINICAL HISTORY: Reason for exam: neuro deficit, acute stroke suspected. TECHNIQUE: Routine carotid CT angiography protocol was performed with intravenous contrast. NASCET criteria using the distal ICAs for comparison were used for evaluation of stenoses. CTDI is 67 mGy and DLP is 1090.15 mGy-cm. Automated exposure control was utilized for the study. A dose lowering technique was utilized adhering to the principles of ALARA. MIP reconstructed images were created and reviewed. CONTRAST: Patient received 119 mL [id number] of IV contrast COMPARISON: CTA neck on 01/02/2023 FINDINGS: VASCULATURE: Right common carotid artery: Atherosclerotic changes in the distal right common carotid artery. No significant stenosis. Medially coursing right common carotid artery. No dissection. Right internal carotid artery: Atherosclerotic changes in the right carotid bulb and proximal right ICA. No significant stenosis. No dissection. Right external carotid artery: Unremarkable. No occlusion. Right vertebral artery: Unremarkable. No occlusion or significant stenosis. No dissection. Left common carotid artery: Medially coursing left common carotid artery. No occlusion or significant stenosis. No dissection. Left internal carotid artery: Atherosclerotic changes of the left carotid bulb and proximal left ICA. No significant stenosis. No dissection. Left external carotid artery: Unremarkable. No occlusion. Left vertebral artery: Dominant left vertebral artery. No occlusion or significant stenosis. No dissection. Aorta: Atherosclerotic changes of the aorta and origins of the great vessels. NECK: Bones/joints: Degenerative changes of the spine. No acute fracture. Soft tissues: Unremarkable. Thyroid: Heterogeneous dominant left thyroid lobe could be further evaluated with ultrasound if clinically indicated. Lung apices: Clear. CAROTID STENOSIS REFERENCE USING NASCET CRITERIA: % ICA stenosis = (1 - narrowest ICA diameter/diameter of distal cervical ICA) x 100. Mild - <50% stenosis. Moderate - 50-69% stenosis. Severe - 70-94% stenosis. Near occlusion - 95-99% stenosis. Occluded - 100% stenosis. IMPRESSION: No significant stenosis, occlusion, or dissection. Electronically signed by: Anibal Holder M.D. 03/10/23 20:01 PM ECG Additional Comments: Normal sinus rhythm Left anterior fascicular block Cannot rule out Anterior infarct , age undetermined Abnormal ECG When compared with ECG of 02-JAN-2023 07:16, Incomplete right bundle branch block is no longer Present Code Status & VTE Plan Code Status Full code VTE Prophylaxis Plan VTE Prophylaxis will be ordered: Yes Supervising Physician Co-Signing Physician Notes Attending addendum: I have physically seen this patient, have supervised the IMER's activities, and agree with the H&P unless as otherwise noted. Assessment and Plan: Acute respiratory failure with hypoxia/influenza A H 1 2009 virus positive on BioFire- Pulse ox 88% on room air on arrival Duonebs every 4 hours while awake and every 2 hours when necessary. Guaifenesin extended release 12 mg p.o. twice daily From the ED received the following: Magnesium sulfate 2 g IV, Tylenol 1 g IV, famotidine 20 mg IV, normal saline 1 L, and Tamiflu 75 mg Tamiflu 75 mg p.o. twice daily x 5 full days Confusion- Likely secondary to above CT head negative CTA head neck negative Contributing factors including mild dehydration and hypomagnesemia Family reports that her confusion has improved in the ED with her initial treatment Hypomagnesemia- Magnesium 1.3 on admission, replace IV, and recheck laboratories in a.m. Hypocalcemia- Ionized calcium low at 0.88 Symptomatic with muscle cramping in lower extremities Given calcium gluconate 1 g IV Recheck laboratories in a.m. and response to treatment Remaining orders and notations as noted PG Care Time/CCT Total # of Minutes Spent Total Time Spent with Patient: Total time spent is greater than 50% in coordination of care (as documented) at patient's floor/unit and/or counseling patient: [place] [id number] INT INP/OBS CARE 3/75MIN Patient Type Established Medical Decision Making High Complexity Diagnoses Hypoxia R09.02 Confusion R41.0 Influenza A virus subtype H1 2009 pandemic strain present J10.1 Hypocalcemia E83.51 Hypomagnesemia E83.42 Ambulatory dysfunction R26.2 Diabetes mellitus, type 2 E11.9 HTN (hypertension) I10 Hypothyroidism E03.9
[2023-03-10] MEDS: MAGNESIUM SULFATE / D5W 1 GM/100 ML BAG IV SCH ×3 (21:19→23:38)
[2023-03-10] MEDS ORDERED: CALCIUM GLUCONATE 1,000 MG/60 ML BAG IV STA (21:20)
[2023-03-10] MEDS ORDERED: CARBOHYDRATES FOR HYPOGLYCEMIA PO PRN (21:48)
[2023-03-10] MEDS ORDERED: GLUCOSE 10 TAB/TUBE PO PRN (21:48)
[2023-03-10] MEDS ORDERED: GLUCAGON FOR INJ 1 MG VIAL SQ PRN (21:48)
[2023-03-10] MEDS ORDERED: DEXTROSE 50% 50 ML SYRINGE IV PRN (21:48)
[2023-03-10] MEDS ORDERED: GLUCOSE 40% GEL 15 GM TUBE PO PRN (21:48)
[2023-03-11] MEDS: ALBUTEROL 0.5% NEB SOLN 2.5 MG/0.5 ML VIAL NEB SCH ×4 (01:32→19:34)
[2023-03-11] MEDS: GABAPENTIN 100 MG CAP PO SCH ×3 (01:35→21:46)
[2023-03-11] MEDS: MAGNESIUM SULFATE / D5W 1 GM/100 ML BAG IV SCH ×2 (01:35→03:04)
[2023-03-11] MEDS: LEVOTHYROXINE SODIUM 25 MCG TABLET PO SCH (06:12)
[2023-03-11 06:32] LABS: Basophils # (auto) 0.04 K/uL (0.00-0.20); Basophils % (auto) 0.6 %; Eosinophils # (auto) 0.02 K/uL (0.00-0.50); Eosinophils % (auto) 0.3 %; Hematocrit (blood only) 40.4 % (37.0-47.0); Hemoglobin 13.6 g/dl (12.0-16.0); Immature Granulocytes # (auto) 0.02 K/uL (0.01-0.20); Immature Granulocytes % (auto) 0.3 %; Lymphocytes # (auto) 0.64 K/uL (1.20-3.40); Lymphocytes % (auto) 9.2 %; Mean Corpuscular Hemoglobin 30.7 pg (25.0-34.0); Mean Corpuscular Hgb Conc 33.7 g/dL (32.0-36.0); Mean Corpuscular Volume 91.2 fL (80.0-100.0); Mean Platelet Volume 10.2 fL (9.4-12.4); Monocytes # (auto) 0.79 K/uL (0.11-0.59); Monocytes % (auto) 11.4 %; Neutrophils # (auto) 5.43 K/uL (1.40-6.50); Neutrophils % (auto) 78.2 %; Platelet Count 202 K/uL (130-400); RDW Coefficient of Variation 12.9 % (11.5-14.5); RDW Standard Deviation 42.9 fL (36.4-46.3); Red Blood Count 4.43 M/uL (4.20-5.40); White Blood Count 6.94 K/ul (4.8-10.8)
[2023-03-11 06:50] LABS: INR 0.9 (0.9-1.1); Prothrombin Time 10.4 Seconds (9.0-12.0)
[2023-03-11 07:26] LABS: Albumin Globulin Ratio 1.3 (0.9-2); Albumin Level 4.4 gm/dl (3.4-5.0); BUN Creatinine Ratio 15.3 (10-20); Bilirubin,Total 0.5 mg/dl (0.2-1.0); Calcium 9.6 mg/dl (8.6-10.3); Creatinine Clr Calc Pharmacy 48.8 ml/min; Est GFR (Non-African American) 55.3 ml/min; Globulin 3.3 gm/dl (2.5-4.0); Magnesium 2.4 mg/dl (1.7-2.4); Total Protein 7.7 gm/dl (6.0-8.3)
[2023-03-11] MEDS ORDERED: OSELTAMIVIR PHOSPHATE SUSP 75 MG/12.5 ML UDP PO SCH (09:00)
[2023-03-11] MEDS: OSELTAMIVIR PHOSPHATE SUSP 30 MG/5 ML UDP PO SCH ×2 (09:53→21:51)
[2023-03-11] MEDS: ASPIRIN 81 MG ECTAB PO SCH (09:54)
[2023-03-11] MEDS: ENOXAPARIN INJ 40 MG/0.4 ML SYR SQ SCH (09:54)
[2023-03-11] MEDS: INSULIN ASPART PER UNIT CHARGE SC SCH ×4 (10:04→21:44)
[2023-03-11] MEDS: LANTUS PER UNIT CHARGE SC SCH (14:29)
[2023-03-11] MEDS: hydrALAZINE HCL 20 MG/ML VIAL IV PRN (14:44)
--- NOTE | 2023-03-11 16:47 | Hospitalist Progress Note ---
Date of Service March 11, 2023 Assessment & Plan (1) Hypoxia: Plan: -Admit to med/tele on pulse oximetry -Currently hemodynamically stable and stable on RA -Found to be hypoxic at 88% on RA on arrival -Noted to be Influenza A H1 2009 + -CXR was without acute findings No wheezing today Not hypoxic today -Continue supportive measures with incentive spirometer, flutter therapy, prn albuterol -PRN O2 to keep SpO2 at or above 94% -SQ lovenox for DVT PPX -HH/DMII diet with soft/bite sized texture -AM CBC, CMP, mag, PT/INR (2) Confusion: Plan: -Metabolic encephalopathy -CT head and CTA head/neck negative for acute findings -Likely multifactorial etiology with Influenza A, hypoxia, dehydration and electrolyte abnormalities -Family confirms mentation has improved compared to arrival -Monitor for improvement with continued resuscitation Added Seroquel to encourage good sleep-wake cycle (3) Influenza A virus subtype H1 2009 pandemic strain present: Plan: -See hypoxia -Continue tamilflu (4) Hypocalcemia: Plan: -Ionized calcium noted to be 0.88 today -Patient has been experiencing muscle cramps over the past few days -Likely due to recent poor oral intake -Gave 1gm IV calcium gluconate on admission -Monitor on tele Resolved (5) Hypomagnesemia: Plan: -Noted to be 1.3 on arrival -Family states this is a chronic issue Resolved Started oral magnesium oxide starting tomorrow (6) Ambulatory dysfunction: Plan: -Likely due to influenza A, hypoxia, dehydration and weakness due to low mag and calcium -Continue current treatment of acute issues -PT/OT consulted -Fall/aspiration precautions with bed alarm (7) Diabetes mellitus, type 2: Plan: -Monitor BSG ACHS, goal is 110-160 as she has had issues with hypoglycemia on previous admissions -Pharmacist assisting (8) HTN (hypertension): Plan: Blood pressure remains elevated Most likely related to delirium/encephalopathy/sleep deprivation Ordered IV hydralazine as needed Continue oral lisinopril (9) Hypothyroidism: Plan: -Continue levothyroxine Plan Spoke to daughter at the bedside to update her about the plan. Admission and Anticipated Discharge Date Admission Date: March 10, 2023 Subjective Patient is accompanied by her daughter at the bedside. Daughter stated that her mental status had improved last night but not back to her baseline. Ever since the daughter arrived this morning, she has been sleeping. Daughter tells me that she is very sleep deprived Review of Systems Review of Systems: All systems reviewed & are unremarkable except as noted in Subjective Physical Exam Physical Exam: General: Sleepy, arousable. Able to answer simple questions correctly when awakened Heart: S1, S2/regular rate and rhythm, no murmur rubs or gallops Lungs: Clear to auscultation bilaterally. Normal effort Abdomen: Soft/nontender/nondistended. No hepatosplenomegaly Extremities: No clubbing/cyanosis. No edema Behavior: Appropriate, cooperative Results & Data Results & Data Vital Signs (Past 12 Hours) Vital Signs Temp Pulse Pulse Pulse Resp BP Pulse Ox 03/11/23 15:51 36.9 C 87 18 161/84 H 95 03/11/23 14:43 187/63 H 03/11/23 14:03 92 H 03/11/23 12:06 82 18 97 03/11/23 11:51 35.6 C L 85 18 197/94 H 94 03/11/23 08:00 03/11/23 07:58 36.9 C 80 18 181/93 H 93 03/11/23 07:50 80 18 93 03/11/23 04:59 88 03/11/23 04:59 03/11/23 04:59 36.4 C L 93 H 18 188/84 H 93 O2 Del Method 03/11/23 15:51 Room Air 03/11/23 14:43 03/11/23 14:03 03/11/23 12:06 Room Air 03/11/23 11:51 Room Air 03/11/23 08:00 Room Air 03/11/23 07:58 Room Air 03/11/23 07:50 Room Air 03/11/23 04:59 03/11/23 04:59 Room Air 03/11/23 04:59 Room Air Laboratory Results Abnormal lab results 03/10/23 03/10/23 03/10/23 Range/Units 17:40 17:44 17:48 Lymph # (Auto) 0.55 L (1.20-3.40) K/uL [place] # (Auto) 0.73 H (0.11-0.59) K/uL POC Sodium 132 L (135-144) mmol/L Sodium 133 L (136-145) mmol/L POC Total CO2 19 L (24-31) mmol/L POC Anion Gap 14.0 L (16-25) mmol/L POC BUN 24 H (7-18) mg/dl BUN/Creatinine Ratio 20.8 H (10-20) Glucose 269 H (70-99(Fasting)) mg/dl POC Glucose (70-99) mg/dl POC Glucose (other) 273 H (70-99) mg/dl POC Ioniz Calcium Tiffany 0.88 L (1.12-1.32) mmol/l Magnesium 1.3 L (1.7-2.4) mg/dl Urine Protein (Negative) Urine Glucose (UA) (Negative) Urine Ketones (Negative) U Epithel Cells (Auto) (0-5) /lpf Nasal Influ A H1 2008 PCR DETECTED A* (NotDetected) 03/10/23 03/11/23 03/11/23 Range/Units 18:28 06:02 08:05 Lymph # (Auto) 0.64 L (1.20-3.40) K/uL [place] # (Auto) 0.79 H (0.11-0.59) K/uL POC Sodium (135-144) mmol/L Sodium 132 L (136-145) mmol/L POC Total CO2 (24-31) mmol/L POC Anion Gap (16-25) mmol/L POC BUN (7-18) mg/dl BUN/Creatinine Ratio (10-20) Glucose 302 H* (70-99(Fasting)) mg/dl POC Glucose 281 H (70-99) mg/dl POC Glucose (other) (70-99) mg/dl POC Ioniz Calcium Tiffany (1.12-1.32) mmol/l Magnesium (1.7-2.4) mg/dl Urine Protein 2+ H (Negative) Urine Glucose (UA) 3+ H (Negative) Urine Ketones 1+ H (Negative) U Epithel Cells (Auto) 5-10 H (0-5) /lpf Nasal Influ A H1 2008 PCR (NotDetected) 03/11/23 Range/Units 12:25 Lymph # (Auto) (1.20-3.40) K/uL [place] # (Auto) (0.11-0.59) K/uL POC Sodium (135-144) mmol/L Sodium (136-145) mmol/L POC Total CO2 (24-31) mmol/L POC Anion Gap (16-25) mmol/L POC BUN (7-18) mg/dl BUN/Creatinine Ratio (10-20) Glucose (70-99(Fasting)) mg/dl POC Glucose 280 H (70-99) mg/dl POC Glucose (other) (70-99) mg/dl POC Ioniz Calcium Tiffany (1.12-1.32) mmol/l Magnesium (1.7-2.4) mg/dl Urine Protein (Negative) Urine Glucose (UA) (Negative) Urine Ketones (Negative) U Epithel Cells (Auto) (0-5) /lpf Nasal Influ A 2008 PCR (NotDetected) Diagnostic Findings Abnormal lab results 03/10/23 03/10/23 03/10/23 Range/Units 17:40 17:44 17:48 Lymph # (Auto) 0.55 L (1.20-3.40) K/uL [place] # (Auto) 0.73 H (0.11-0.59) K/uL POC Sodium 132 L (135-144) mmol/L Sodium 133 L (136-145) mmol/L POC Total CO2 19 L (24-31) mmol/L POC Anion Gap 14.0 L (16-25) mmol/L POC BUN 24 H (7-18) mg/dl BUN/Creatinine Ratio 20.8 H (10-20) Glucose 269 H (70-99(Fasting)) mg/dl POC Glucose (70-99) mg/dl POC Glucose (other) 273 H (70-99) mg/dl POC Ioniz Calcium Tiffany 0.88 L (1.12-1.32) mmol/l Magnesium 1.3 L (1.7-2.4) mg/dl Urine Protein (Negative) Urine Glucose (UA) (Negative) Urine Ketones (Negative) U Epithel Cells (Auto) (0-5) /lpf Nasal Influ A 2008 PCR DETECTED A* (NotDetected) 03/10/23 03/11/23 03/11/23 Range/Units 18:28 06:02 08:05 Lymph # (Auto) 0.64 L (1.20-3.40) K/uL [place] # (Auto) 0.79 H (0.11-0.59) K/uL POC Sodium (135-144) mmol/L Sodium 132 L (136-145) mmol/L POC Total CO2 (24-31) mmol/L POC Anion Gap (16-25) mmol/L POC BUN (7-18) mg/dl BUN/Creatinine Ratio (10-20) Glucose 302 H* (70-99(Fasting)) mg/dl POC Glucose 281 H (70-99) mg/dl POC Glucose (other) (70-99) mg/dl POC Ioniz Calcium Tiffany (1.12-1.32) mmol/l Magnesium (1.7-2.4) mg/dl Urine Protein 2+ H (Negative) Urine Glucose (UA) 3+ H (Negative) Urine Ketones 1+ H (Negative) U Epithel Cells (Auto) 5-10 H (0-5) /lpf Nasal Influ A H1 2008 PCR (NotDetected) 03/11/23 Range/Units 12:25 Lymph # (Auto) (1.20-3.40) K/uL [place] # (Auto) (0.11-0.59) K/uL POC Sodium (135-144) mmol/L Sodium (136-145) mmol/L POC Total CO2 (24-31) mmol/L POC Anion Gap (16-25) mmol/L POC BUN (7-18) mg/dl BUN/Creatinine Ratio (10-20) Glucose (70-99(Fasting)) mg/dl POC Glucose 280 H (70-99) mg/dl POC Glucose (other) (70-99) mg/dl POC Ioniz Calcium Tiffany (1.12-1.32) mmol/l Magnesium (1.7-2.4) mg/dl Urine Protein (Negative) Urine Glucose (UA) (Negative) Urine Ketones (Negative) U Epithel Cells (Auto) (0-5) /lpf Nasal Influ A H1 2008 PCR (NotDetected) PG Care Time/CCT Total # of Minutes Spent Total Time Spent with Patient: Total time spent is greater than 50% in coordination of care (as documented) at patient's floor/unit and/or counseling patient: Coding Level of Care Code 54775 SUB INP/OBS CARE 2/35MIN Diagnoses Hypoxia R09.02 Confusion R41.0 Influenza A virus subtype H1 2009 pandemic strain present J10.1 Hypocalcemia E83.51 Hypomagnesemia E83.42 Ambulatory dysfunction R26.2 Diabetes mellitus, type 2 E11.9 HTN (hypertension) I10 Hypothyroidism E03.9
--- NOTE | 2023-03-11 19:47 | Electrocardiogram Report ---
Test Reason : Blood Pressure : / mmHG Vent. Rate : 096 BPM Atrial Rate : 096 BPM P-R Int : 202 ms QRS Dur : 090 ms QT Int : 372 ms P-R-T Axes : 025 -53 070 degrees QTc Int : 469 ms Normal sinus rhythm Left anterior fascicular block Poor R wave progression, consider anterior ID vs. lead placement vs. LVH Abnormal ECG When compared with ECG of 02-JAN-2023 07:16, Incomplete right bundle branch block is no longer Present Confirmed by Ermias Wolff [id number] on 03/11/2023 7:46:44 PM Referred By: REFERRED SELF Confirmed By:Homero Wolff
[2023-03-11] MEDS ORDERED: hydrOXYzine HCl 25 MG TAB PO PRN (20:19)
[2023-03-11] MEDS ORDERED: lisinopril 10 MG TAB PO SCH (21:00)
[2023-03-11] MEDS ORDERED: QUEtiapine FUMARATE 25 MG TABLET PO SCH (21:00)
[2023-03-12] MEDS: ALBUTEROL 0.5% NEB SOLN 2.5 MG/0.5 ML VIAL NEB SCH ×5 (00:57→23:53)
[2023-03-12 05:24] LABS: Basophils # (auto) 0.04 K/uL (0.00-0.20); Basophils % (auto) 0.7 %; Eosinophils # (auto) 0.08 K/uL (0.00-0.50); Eosinophils % (auto) 1.5 %; Hematocrit (blood only) 37.5 % (37.0-47.0); Hemoglobin 12.6 g/dl (12.0-16.0); Immature Granulocytes # (auto) 0.02 K/uL (0.01-0.20); Immature Granulocytes % (auto) 0.4 %; Lymphocytes # (auto) 0.99 K/uL (1.20-3.40); Lymphocytes % (auto) 18.1 %; Mean Corpuscular Hemoglobin 30.8 pg (25.0-34.0); Mean Corpuscular Hgb Conc 33.6 g/dL (32.0-36.0); Mean Corpuscular Volume 91.7 fL (80.0-100.0); Mean Platelet Volume 9.8 fL (9.4-12.4); Monocytes # (auto) 0.77 K/uL (0.11-0.59); Monocytes % (auto) 14.1 %; Neutrophils # (auto) 3.57 K/uL (1.40-6.50); Neutrophils % (auto) 65.2 %; Platelet Count 189 K/uL (130-400); RDW Coefficient of Variation 13.2 % (11.5-14.5); RDW Standard Deviation 44.5 fL (36.4-46.3); Red Blood Count 4.09 M/uL (4.20-5.40); White Blood Count 5.47 K/ul (4.8-10.8)
[2023-03-12 05:42] LABS: Albumin Globulin Ratio 1.3 (0.9-2); Albumin Level 3.8 gm/dl (3.4-5.0); BUN Creatinine Ratio 18.1 (10-20); Bilirubin,Total 0.4 mg/dl (0.2-1.0); Calcium 8.9 mg/dl (8.6-10.3); Creatinine Clr Calc Pharmacy 37.7 ml/min; Est GFR (African American) 46.8 ml/min; Est GFR (Non-African American) 40.4 ml/min; Globulin 2.9 gm/dl (2.5-4.0); Potassium 3.7 mmol/L (3.5-5.1); Total Protein 6.7 gm/dl (6.0-8.3)
[2023-03-12 05:58] LABS: Prothrombin Time 10.6 Seconds (9.0-12.0)
[2023-03-12] MEDS: LEVOTHYROXINE SODIUM 25 MCG TABLET PO SCH (05:59)
[2023-03-12] MEDS: MAGNESIUM OXIDE 400 MG TAB PO SCH (07:44)
[2023-03-12] MEDS: GABAPENTIN 100 MG CAP PO SCH ×2 (07:44→20:09)
[2023-03-12] MEDS: ASPIRIN 81 MG ECTAB PO SCH (07:44)
[2023-03-12] MEDS: OSELTAMIVIR PHOSPHATE SUSP 30 MG/5 ML UDP PO SCH ×2 (07:45→20:10)
[2023-03-12] MEDS: ENOXAPARIN INJ 40 MG/0.4 ML SYR SQ SCH (07:45)
[2023-03-12] MEDS: LANTUS PER UNIT CHARGE SC SCH (09:34)
[2023-03-12] MEDS: INSULIN ASPART PER UNIT CHARGE SC SCH ×4 (09:34→21:36)
[2023-03-12] MEDS: SODIUM CHLORIDE 0.9% 1,000 ML IV SCH (14:45)
--- NOTE | 2023-03-12 17:07 | Hospitalist Progress Note ---
Date of Service March 12, 2023 Assessment & Plan (1) Hypoxia: Plan: -Admit to med/tele on pulse oximetry -Currently hemodynamically stable and stable on RA -Found to be hypoxic at 88% on RA on arrival -Noted to be Influenza A H1 2009 + -CXR was without acute findings Not hypoxic anymore -Continue supportive measures with incentive spirometer, flutter therapy, prn albuterol -PRN O2 to keep SpO2 at or above 94% -SQ lovenox for DVT PPX -HH/DMII diet with soft/bite sized texture -AM CBC, CMP, mag, PT/INR (2) Confusion: Plan: -Patient developed progressive confusion over the past 72 hours -CT head and CTA head/neck negative for acute findings -Likely multifactorial etiology with Influenza A, hypoxia, dehydration and electrolyte abnormalities -Monitor for improvement with continued resuscitation Will order Zyprexa to be used as needed for sleep in case she is unable to sleep at night (3) Acute kidney injury: Plan: Per family the patient has not been eating and drinking She prefers to sleep Will hydrate her gently Monitor BMP closely Hold lisinopril Avoid nephrotoxic medications (4) Influenza A virus subtype H1 2009 pandemic strain present: Plan: -See hypoxia -Continue tamilflu (5) Hypocalcemia: Plan: improved (6) Hypomagnesemia: Plan: -Noted to be 1.3 on arrival -Family states this is a chronic issue Resolved Patient was started on oral magnesium (7) Ambulatory dysfunction: Plan: -Likely due to influenza A, hypoxia, dehydration and weakness due to low mag and calcium -Continue current treatment of acute issues -PT/OT consulted -Fall/aspiration precautions with bed alarm (8) Diabetes mellitus, type 2: Plan: -Monitor BSG ACHS, goal is 110-160 as she has had issues with hypoglycemia on previous admissions -Will start conservative control overnight with CF of 50 ACHS -HH/DMII diet -Adjust regimen as needed (9) HTN (hypertension): Plan: Blood pressure is stable today Hold lisinopril due to mildly elevated creatinine (10) Hypothyroidism: Plan: -Continue levothyroxine Admission and Anticipated Discharge Date Admission Date: March 10, 2023 Subjective Patient is accompanied by her daughter at the bedside. Per nurse, she slept well through the night and she was still sleeping. Review of Systems Review of Systems: All systems reviewed & are unremarkable except as noted in Subjective Physical Exam Physical Exam: General: Sleeping, arousable. Pleasantly confused. AO x 1 Heart: S1, S2/regular rate and rhythm, no murmur rubs or gallops Lungs: Clear to auscultation bilaterally. Normal effort Abdomen: Soft/nontender/nondistended. No hepatosplenomegaly Extremities: No clubbing/cyanosis. No edema Behavior: Appropriate, cooperative Results & Data Results & Data Vital Signs (Past 12 Hours) Vital Signs Temp Pulse Pulse Resp BP Pulse Ox O2 Del Method 03/12/23 16:08 74 03/12/23 15:54 36.6 C 80 18 110/51 L 91 Room Air 03/12/23 14:13 76 20 94 Room Air 03/12/23 12:00 36.7 C 76 18 101/63 91 Room Air 03/12/23 07:52 Room Air 03/12/23 07:45 36.7 C 80 18 165/82 H 92 Room Air 03/12/23 07:37 77 18 90 Room Air 03/12/23 07:00 76 Laboratory Results Abnormal lab results 03/11/23 03/11/23 03/12/23 Range/Units 17:18 21:29 05:02 RBC 4.09 L (4.20-5.40) M/uL Lymph # (Auto) 0.99 L (1.20-3.40) K/uL [place] # (Auto) 0.77 H (0.11-0.59) K/uL Creatinine 1.27 H (0.6-1.2) mg/dl Glucose 169 H (70-99(Fasting)) mg/dl POC Glucose 214 H 178 H (70-99) mg/dl 03/12/23 03/12/23 Range/Units 08:33 12:32 RBC (4.20-5.40) M/uL Lymph # (Auto) (1.20-3.40) K/uL [place] # (Auto) (0.11-0.59) K/uL Creatinine (0.6-1.2) mg/dl Glucose (70-99(Fasting)) mg/dl POC Glucose 180 H 172 H (70-99) mg/dl PG Care Time/CCT Total # of Minutes Spent Total Time Spent with Patient: Total time spent is greater than 50% in coordination of care (as documented) at patient's floor/unit and/or counseling patient: Coding Level of Care Code 23898 SUB INP/OBS CARE 235MIN Diagnoses Hypoxia R09.02 Confusion R41.0 Acute kidney injury N17.9 Influenza A virus subtype H1 2009 pandemic strain present J10.1 Hypocalcemia E83.51 Hypomagnesemia E83.42 Ambulatory dysfunction R26.2 Diabetes mellitus, type 2 E11.9 HTN (hypertension) I10 Hypothyroidism E03.9
[2023-03-12] MEDS: OLANZAPINE 2.5 MG TAB PO PRN (20:10)
[2023-03-13] MEDS: SODIUM CHLORIDE 0.9% 1,000 ML IV SCH ×3 (00:58→22:23)
[2023-03-13 05:39] LABS: Basophils # (auto) 0.02 K/uL (0.00-0.20); Basophils % (auto) 0.3 %; Eosinophils # (auto) 0.16 K/uL (0.00-0.50); Eosinophils % (auto) 2.8 %; Hematocrit (blood only) 36.7 % (37.0-47.0); Hemoglobin 12.6 g/dl (12.0-16.0); Immature Granulocytes # (auto) 0.02 K/uL (0.01-0.20); Immature Granulocytes % (auto) 0.3 %; Lymphocytes # (auto) 1.34 K/uL (1.20-3.40); Lymphocytes % (auto) 23.2 %; Mean Corpuscular Hemoglobin 31.4 pg (25.0-34.0); Mean Corpuscular Hgb Conc 34.3 g/dL (32.0-36.0); Mean Corpuscular Volume 91.5 fL (80.0-100.0); Mean Platelet Volume 10.1 fL (9.4-12.4); Monocytes # (auto) 0.56 K/uL (0.11-0.59); Monocytes % (auto) 9.7 %; Neutrophils # (auto) 3.68 K/uL (1.40-6.50); Neutrophils % (auto) 63.7 %; Platelet Count 198 K/uL (130-400); RDW Coefficient of Variation 13.4 % (11.5-14.5); RDW Standard Deviation 45.6 fL (36.4-46.3); Red Blood Count 4.01 M/uL (4.20-5.40); White Blood Count 5.78 K/ul (4.8-10.8)
[2023-03-13] MEDS: LEVOTHYROXINE SODIUM 25 MCG TABLET PO SCH (05:40)
[2023-03-13 05:59] LABS: Albumin Globulin Ratio 1.3 (0.9-2); Albumin Level 3.6 gm/dl (3.4-5.0); Bilirubin,Total 0.4 mg/dl (0.2-1.0); Calcium 8.7 mg/dl (8.6-10.3); Creatinine Clr Calc Pharmacy 37.5 ml/min; Est GFR (African American) 46.8 ml/min; Est GFR (Non-African American) 40.4 ml/min; Globulin 2.8 gm/dl (2.5-4.0); Magnesium 1.8 mg/dl (1.7-2.4); Potassium 3.9 mmol/L (3.5-5.1); Total Protein 6.4 gm/dl (6.0-8.3)
[2023-03-13 06:17] LABS: INR 0.9 (0.9-1.1); Prothrombin Time 10.4 Seconds (9.0-12.0)
[2023-03-13] MEDS: ALBUTEROL 0.5% NEB SOLN 2.5 MG/0.5 ML VIAL NEB SCH ×3 (07:22→20:24)
[2023-03-13] MEDS: MAGNESIUM OXIDE 400 MG TAB PO SCH (08:30)
[2023-03-13] MEDS: ENOXAPARIN INJ 40 MG/0.4 ML SYR SQ SCH (08:31)
[2023-03-13] MEDS: GABAPENTIN 100 MG CAP PO SCH ×2 (08:31→20:58)
[2023-03-13] MEDS: ASPIRIN 81 MG ECTAB PO SCH (08:31)
[2023-03-13] MEDS: INSULIN ASPART PER UNIT CHARGE SC SCH ×4 (08:33→20:58)
[2023-03-13] MEDS: LANTUS PER UNIT CHARGE SC SCH (08:40)
[2023-03-13] MEDS: OSELTAMIVIR PHOSPHATE SUSP 30 MG/5 ML UDP PO SCH ×2 (09:36→20:58)
--- NOTE | 2023-03-13 14:34 | Hospitalist Progress Note ---
Date of Service March 13, 2023 Assessment & Plan (1) Hypoxia: Plan: -Admit to med/tele on pulse oximetry -Currently hemodynamically stable and stable on RA -Found to be hypoxic at 88% on RA on arrival -Noted to be Influenza A H1 2008 + -CXR was without acute findings Not hypoxic anymore -Continue supportive measures with incentive spirometer, flutter therapy, prn albuterol -PRN O2 to keep SpO2 at or above 94% -SQ lovenox for DVT PPX -HH/DMII diet with soft/bite sized texture -AM CBC, CMP, mag, PT/INR (2) Confusion: Plan: -Patient developed progressive confusion over the past 72 hours -CT head and CTA head/neck negative for acute findings -Likely multifactorial etiology with Influenza A, hypoxia, dehydration and electrolyte abnormalities -Monitor for improvement with continued resuscitation Continue Zyprexa nightly to be used as needed for sleep in case she is unable to sleep at night (3) Acute kidney injury: Plan: Per family the patient has not been eating and drinking She prefers to sleep Creatinine still at 1.27 today Per nurse she ate her breakfast today Will monitor BMP Will reduce IV fluid rate to 80 mL an hour Monitor BMP closely Hold lisinopril Avoid nephrotoxic medications (4) Influenza A virus subtype H1 2009 pandemic strain present: Plan: -See hypoxia -Continue tamilflu (5) Hypocalcemia: Plan: improved (6) Hypomagnesemia: Plan: -Noted to be 1.3 on arrival -Family states this is a chronic issue Resolved Patient was started on oral magnesium (7) Ambulatory dysfunction: Plan: -Likely due to influenza A, hypoxia, dehydration and weakness due to low mag and calcium -Continue current treatment of acute issues -PT/OT consulted -Fall/aspiration precautions with bed alarm (8) Diabetes mellitus, type 2: Plan: -Monitor BSG ACHS, goal is 110-160 as she has had issues with hypoglycemia on previous admissions -Will start conservative control overnight with CF of 50 ACHS -HH/DMII diet -Adjust regimen as needed (9) HTN (hypertension): Plan: Blood pressure is more stable today Hold lisinopril due to mildly elevated creatinine (10) Hypothyroidism: Plan: -Continue levothyroxine Admission and Anticipated Discharge Date Admission Date: March 10, 2023 Subjective Per nurse, she slept well through the night. Got a dose of Zyprexa. This morning she was more awake. She ate her breakfast. When I walked into the room, she was sitting in a recliner and was sleeping. Review of Systems Review of Systems: All systems reviewed & are unremarkable except as noted in Subjective Physical Exam Physical Exam: General: Sleeping on the recliner, arousable. Prefers to sleep. Pleasantly confused. AO x 1 Heart: S1, S2/regular rate and rhythm, no murmur rubs or gallops Lungs: Clear to auscultation bilaterally. Normal effort Abdomen: Soft/nontender/nondistended. No hepatosplenomegaly Extremities: No clubbing/cyanosis. No edema Behavior: Appropriate, cooperative Results & Data Results & Data Vital Signs (Past 12 Hours) Vital Signs Temp Pulse Pulse Resp BP Pulse Ox O2 Del Method 03/13/23 14:24 70 20 94 Room Air 03/13/23 12:15 36.7 C 75 16 152/84 H 96 Room Air 03/13/23 08:33 70 03/13/23 07:36 36.9 C 79 19 137/79 92 Room Air 03/13/23 07:31 78 18 98 Room Air 03/13/23 07:23 78 20 97 Room Air 03/13/23 03:58 36.6 C 72 18 137/74 95 Room Air Laboratory Results Abnormal lab results 03/12/23 03/12/23 03/13/23 Range/Units 17:22 20:28 04:48 RBC 4.01 L (4.20-5.40) M/uL Hct 36.7 L (37.0-47.0) % Chloride 108 H (98-107) mmol/L BUN 28 H (6-23) mg/dl Creatinine 1.27 H (0.6-1.2) mg/dl BUN/Creatinine Ratio 22.0 H (10-20) Glucose 165 H (70-99(Fasting)) mg/dl POC Glucose 287 H 272 H (70-99) mg/dl 03/13/23 03/13/23 Range/Units 08:18 12:34 RBC (4.20-5.40) M/uL Hct (37.0-47.0) % Chloride (98-107) mmol/L BUN (6-23) mg/dl Creatinine (0.6-1.2) mg/dl BUN/Creatinine Ratio (10-20) Glucose (70-99(Fasting)) mg/dl POC Glucose 185 H 281 H (70-99) mg/dl PG Care Time/CCT Total # of Minutes Spent Total Time Spent with Patient: Total time spent is greater than 50% in coordination of care (as documented) at patient's floor/unit and/or counseling patient: Coding Level of Care Code 22284 SUB INP/OBS CARE 2/35MIN Diagnoses Hypoxia R09.02 Confusion R41.0 Acute kidney injury N17.9 Influenza A virus subtype H1 2009 pandemic strain present J10.1 Hypocalcemia E83.51 Hypomagnesemia E83.42 Ambulatory dysfunction R26.2 Diabetes mellitus, type 2 E11.9 HTN (hypertension) I10 Hypothyroidism E03.9
[2023-03-13] MEDS: OLANZAPINE 2.5 MG TAB PO PRN (22:23)
[2023-03-14] MEDS: ALBUTEROL 0.5% NEB SOLN 2.5 MG/0.5 ML VIAL NEB SCH ×3 (01:46→13:21)
[2023-03-14] MEDS: LEVOTHYROXINE SODIUM 25 MCG TABLET PO SCH (05:42)
[2023-03-14] MEDS: ASPIRIN 81 MG ECTAB PO SCH (08:08)
[2023-03-14] MEDS: ENOXAPARIN INJ 40 MG/0.4 ML SYR SQ SCH (08:08)
[2023-03-14] MEDS: MAGNESIUM OXIDE 400 MG TAB PO SCH (08:08)
[2023-03-14] MEDS: GABAPENTIN 100 MG CAP PO SCH ×2 (08:08→21:16)
[2023-03-14] MEDS: OSELTAMIVIR PHOSPHATE SUSP 30 MG/5 ML UDP PO SCH ×2 (08:09→21:15)
[2023-03-14] MEDS: LANTUS PER UNIT CHARGE SC SCH (08:09)
[2023-03-14 09:02] LABS: BUN Creatinine Ratio 23.4 (10-20); Calcium 8.9 mg/dl (8.6-10.3); Est GFR (African American) 67.3 ml/min; Est GFR (Non-African American) 58.1 ml/min; Potassium 4.1 mmol/L (3.5-5.1)
[2023-03-14] MEDS: INSULIN ASPART PER UNIT CHARGE SC SCH ×4 (09:23→21:12)
[2023-03-14] MEDS: hydrALAZINE HCL 20 MG/ML VIAL IV PRN ×2 (11:57→17:04)
[2023-03-14] MEDS ORDERED: ALBUTEROL 0.5% NEB SOLN 2.5 MG/0.5 ML VIAL NEB PRN (13:07)
--- NOTE | 2023-03-14 14:14 | Hospitalist Progress Note ---
Date of Service March 14, 2023 Assessment & Plan (1) Hypoxia: Plan: -Admit to med/tele on pulse oximetry -Currently hemodynamically stable and stable on RA -Found to be hypoxic at 88% on RA on arrival -Noted to be Influenza A H1 2008 + -CXR was without acute findings Not hypoxic anymore -Continue supportive measures with incentive spirometer, flutter therapy, prn albuterol -PRN O2 to keep SpO2 at or above 94% -SQ lovenox for DVT PPX (2) Confusion: Plan: -Patient developed progressive confusion over the past 72 hours -CT head and CTA head/neck negative for acute findings -Likely multifactorial etiology with Influenza A, hypoxia, dehydration and electrolyte abnormalities -Monitor for improvement with continued resuscitation Continue Zyprexa nightly to be used as needed for sleep in case she is unable to sleep at night (3) Acute kidney injury: Plan: Resolved. IV fluid discontinued Resume lisinopril for blood pressure (4) Influenza A virus subtype H1 2009 pandemic strain present: Plan: -See hypoxia -Continue tamilflu (5) Hypocalcemia: Plan: improved (6) Hypomagnesemia: Plan: -Noted to be 1.3 on arrival -Family states this is a chronic issue Resolved Patient was started on oral magnesium (7) Ambulatory dysfunction: Plan: -Likely due to influenza A, hypoxia, dehydration and weakness due to low mag and calcium -Continue current treatment of acute issues -PT/OT consulted -Fall/aspiration precautions with bed alarm Family wants to take her home and is very opposed to placement anywhere else (8) Diabetes mellitus, type 2: Plan: -Monitor BSG ACHS, goal is 110-160 as she has had issues with hypoglycemia on previous admissions -Will start conservative control overnight with CF of 50 ACHS -HH/DMII diet -Adjust regimen as needed (9) HTN (hypertension): Plan: Blood pressure elevated. Discontinue IV fluids Resume lisinopril (10) Hypothyroidism: Plan: -Continue levothyroxine Admission and Anticipated Discharge Date Admission Date: March 10, 2023 Subjective Patient says that she feels much better overall. Daughter at the bedside. Review of Systems Review of Systems: All systems reviewed & are unremarkable except as noted in Subjective Physical Exam Physical Exam: General: Awake, conversant. Pleasantly confused. AO x 1. Smiling today Heart: S1, S2/regular rate and rhythm, no murmur rubs or gallops Lungs: Clear to auscultation bilaterally. Normal effort Abdomen: Soft/nontender/nondistended. No hepatosplenomegaly Extremities: No clubbing/cyanosis. No edema Behavior: Appropriate, cooperative Results & Data Results & Data Vital Signs (Past 12 Hours) Vital Signs Temp Pulse Pulse Pulse Resp BP Pulse Ox 03/14/23 11:48 37.1 C 76 18 180/85 H 94 03/14/23 08:36 36.6 C 74 18 179/64 H 96 03/14/23 08:17 69 69 18 174/81 H 96 03/14/23 08:10 74 03/14/23 08:10 03/14/23 07:20 77 20 92 03/14/23 03:20 36.5 C 76 18 123/65 93 O2 Del Method 03/14/23 11:48 Room Air 03/14/23 08:36 Room Air 03/14/23 08:17 Room Air 03/14/23 08:10 03/14/23 08:10 Room Air 03/14/23 07:20 Room Air 03/14/23 03:20 Room Air Laboratory Results Abnormal lab results 03/13/23 03/13/23 03/14/23 Range/Units 17:26 20:23 08:09 Chloride (98-107) mmol/L BUN/Creatinine Ratio (10-20) Glucose (70-99(Fasting)) mg/dl POC Glucose 297 H 245 H 194 H (70-99) mg/dl 03/14/23 03/14/23 Range/Units 08:19 12:11 Chloride 108 H (98-107) mmol/L BUN/Creatinine Ratio 23.4 H (10-20) Glucose 216 H (70-99(Fasting)) mg/dl POC Glucose 259 H (70-99) mg/dl PG Care Time/CCT Total # of Minutes Spent Total Time Spent with Patient: Total time spent is greater than 50% in coordination of care (as documented) at patient's floor/unit and/or counseling patient: Coding Level of Care Code 75658 SUB INP/OBS CARE 2/35MIN Diagnoses Hypoxia R09.02 Confusion R41.0 Acute kidney injury N17.9 Influenza A virus subtype H1 2009 pandemic strain present J10.1 Hypocalcemia E83.51 Hypomagnesemia E83.42 Ambulatory dysfunction R26.2 Diabetes mellitus, type 2 E11.9 HTN (hypertension) I10 Hypothyroidism E03.9
[2023-03-14] MEDS: lisinopril 10 MG TAB PO SCH (14:57)
[2023-03-14] MEDS ORDERED: METOPROLOL TARTRATE 1 MG/ML VIAL IV STA (18:00)
[2023-03-14] MEDS ORDERED: ONDANSETRON INJ 2 MG/ML 2 ML VIAL IV PRN (21:00)
[2023-03-14] MEDS: ACETAMINOPHEN 325 MG TAB PO PRN (21:13)
[2023-03-15] MEDS: hydrALAZINE HCL 20 MG/ML VIAL IV PRN (03:37)
[2023-03-15] MEDS: LEVOTHYROXINE SODIUM 25 MCG TABLET PO SCH (05:32)
[2023-03-15 06:16] LABS: BUN Creatinine Ratio 22.7 (10-20); Calcium 9.1 mg/dl (8.6-10.3); Creatinine Clr Calc Pharmacy 54.8 ml/min; Est GFR (African American) 72.9 ml/min; Est GFR (Non-African American) 62.9 ml/min; Potassium 4.2 mmol/L (3.5-5.1)
[2023-03-15] MEDS: INSULIN ASPART PER UNIT CHARGE SC SCH (08:51)
[2023-03-15] MEDS: ASPIRIN 81 MG ECTAB PO SCH (08:52)
[2023-03-15] MEDS: lisinopril 10 MG TAB PO SCH (08:52)
[2023-03-15] MEDS: MAGNESIUM OXIDE 400 MG TAB PO SCH (08:52)
[2023-03-15] MEDS: ENOXAPARIN INJ 40 MG/0.4 ML SYR SQ SCH (08:52)
[2023-03-15] MEDS: GABAPENTIN 100 MG CAP PO SCH (08:53)
[2023-03-15] MEDS: LANTUS PER UNIT CHARGE SC SCH (08:55)
[2023-03-15] MEDS: OSELTAMIVIR PHOSPHATE SUSP 30 MG/5 ML UDP PO SCH (09:01)
[2023-03-15] MEDS: ACETAMINOPHEN 325 MG TAB PO PRN (09:37)
[2023-03-15] MEDS ORDERED: hydroCHLOROthiazide 25 MG TAB PO STA (11:02)
--- NOTE | 2023-03-15 13:51 | Discharge Summary ---
Date of Service March 15, 2023 Admission HPI Per Admitting Provider Catherine is a 77 year old female with a PMH significant for DM II, left parietal CVA, previous traumatic SDH (may 2021 S/P Craniotomy with evacuation; follows with [facility] Neurosurgery), unprovoked BL PE's S/P IVC filter placement on 07/02/21 w/Dr. Fernandez, HTN, and hypothyroidism who presented to the [facility] ED via EMS on 03/10/23 with complaints of cough, increased confusion, and increased ambulatory dysfunction. On arrival to the ED she was noted to be hypoxic on RA with SpO2 of 88%, hypertensive at 236/120, but otherwise stable. Labs were significant for an ionized calcium of 0.88, mag of 1.3, UA negative for sings of infection, and full respiratory biofire positive for Influenza A H1 2008. Chest xray was negative for acute findings. CT of the head and CTA of the head/neck were read as negative for acute findings. Prior to admission the patient was given 2gm IV mag sulfate, 1L NSS, one dose of Tamiflu, 10 mg PO lisinopril, 100 mg PO gabapentin, and 81 mg PO aspirin. At the time of the exam the patient was lying in bed in no acute distress with with her daughters sitting bedisde, history was obtained from all. The patient had been doing well at home since her last admission after her left parietal CVA. She has been working with home PT/OT and had been ambulating well with the assistance of a walker. Approximately 3 days ago she started to develop a non-productive cough. Her home Physical Therapist thought she may have been leaning to the left while ambulating with her walker as well. Her daughter state that she had been more confused and agitated over the past 72 hours as well. She has been taking her medications as prescribed but was not eating well over the past 3 days. Since arrival in the ED and initial resuscitation they can see improvement in her symptoms. Their goal is to get the patient back home as they already have home health/PT/OT. They confirm she is a Full Code. Principal Diagnosis Influenza Discharge Exam The patient is awake, alert and oriented 3, well developed and well nourished, normocephalic and atraumatic, lying in bed and in no acute distress. HEENT--PERRL, EOMI, mucous membranes and oropharynx mildly dry Neck--supple. No JVD. No bruits. Thyroid normal, trachea midline, no adenopathy. Heart--normal S1 and S2. No murmurs, rubs or gallops. Lungs--clear bilaterally, no respiratory distress, no accessory muscle use. Abdomen--normal bowel sounds and soft. Mild epigastric and left sided abdominal pain Extremities--no cyanosis or clubbing. No edema. Dermatologic--normal skin turgor, normal color, no abnormal lymph nodes, no rash. Neurologic--cranial nerves II through XII grossly intact. Rheumatologic--normal range of motion. Psychiatric--normal affect. Discharge Data Allergies Allergy/AdvReac Type Severity Reaction Status Date / Time cefoxitin AdvReac Mild vomiting Verified 03/10/23 20:23 Consultations 03/10/23 20:53 ED Decision to Admit Stat Ordered Studies 03/10/23 17:39 CT angio head w con Stat CT angio neck with con Stat CT head/brain wo con Stat Hospital Course (1) Hypoxia: -Currently hemodynamically stable and stable on RA -On admission, found to be hypoxic at 88% on RA on arrival -Noted to be Influenza A H1 2008 + -CXR was without acute findings Not hypoxic anymore, currently saturating well on room air -Continue supportive measures with incentive spirometer, flutter therapy, prn albuterol -PRN O2 to keep SpO2 at or above 94% -SQ lovenox for DVT PPX (2) Confusion: -Now resolved, patient at baseline (3) Acute kidney injury: Resolved. IV fluid discontinued Resume lisinopril for blood pressure (4) Influenza A virus subtype H1 2009 pandemic strain present: -See hypoxia -Continue tamilflu (5) Hypocalcemia: improved (6) Hypomagnesemia: -Noted to be 1.3 on arrival -Family states this is a chronic issue Resolved Patient was started on oral magnesium (7) Ambulatory dysfunction: -Likely due to influenza A, hypoxia, dehydration and weakness due to low mag and calcium -Continue current treatment of acute issues -PT/OT consulted -Fall/aspiration precautions with bed alarm Family wants to take her home and is very opposed to placement anywhere else (8) Diabetes mellitus, type 2: -Monitor BSG ACHS, goal is 110-160 as she has had issues with hypoglycemia on previous admissions -Will start conservative control overnight with CF of 50 ACHS -HH/DMII diet -Adjust regimen as needed (9) HTN (hypertension): Blood pressure elevated. Discontinue IV fluids Resume lisinopril (10) Hypothyroidism: -Continue levothyroxine Plan Discharge home Total Time Total Time Spent Total Time Spent (In Minutes): 35 minutes Discharge Plan Discharge Items Patient Disposition: Home - Home Health Services Reason For Visit: WEAKNESS, AMBULATORY DYSFUNCTION, INFLEUNZA,HYPOCA Discharge Diagnosis: Influenza Activity: Resume your previous activity Non-emergency contact: Primary Care Provider Call non-emergency contact if: you have any medication questions Follow-up/Referrals: Faheem Sutton [Primary Care Provider] - 03/18/23 1:25 pm Diet: Regular Addtl Attending Provider Instructions: please make appointment to follow up with your regular PCP Pending Studies at Discharge: No Stand-Alone Forms: My Xeko, Smoking Cessation Medications and DC Order Prescriptions: New hydrochlorothiazide 25 mg Tablet 25 mg PO QAM 30 Days Qty: 30 0RF oseltamivir [Tamiflu] 6 mg/mL Suspension For Reconstitution 30 mg PO BID 1 Days Qty: 10 0RF Continued (DME) OneTouch Verio test strips Strip See Rx Instructions .ROUTE Rx Instructions: As directed (DME) lancets [OneTouch Delica Lancets] 33 gauge misc See Rx Instructions .ROUTE Rx Instructions: As directed lisinopril 10 mg tablet 10 mg PO PM acetaminophen 500 mg tablet 1,000 mg PO Q8H PRN (Reason: PAIN/FEVER) levothyroxine 25 mcg tablet 25 mcg PO DAILY metformin 500 mg Tablet 500 mg PO BID cholecalciferol (vitamin D3) [Vitamin D3] 10 mcg (400 unit) Capsule 10 mcg PO DAILY Patient Comments: TAKES IN LIQUID FORM cyanocobalamin (vitamin B-12) 500 mcg Tablet, Sublingual 500 mcg SUBLINGUAL QAM glipizide 10 mg tablet extended release 24hr 10 mg PO DAILY aspirin 81 mg tablet,delayed release (DR/EC) 81 mg PO DAILY gabapentin 100 mg capsule 100 mg PO 2XD polyethylene glycol 3350 [Miralax] 17 gram/dose Powder 17 g PO DAILY Rx Instructions: Per daughter, patient takes half of capful with her coffee every morning Discharge Orders: Discharge Order (Routine); Ordered 03/15/23 Ordered By: Eric Sheffield Admission Data Admit Date/Time: 03/10/23 21:19 Attending Provider: Eric Sheffield Admit Provider: Pal Fallon Primary Care Provider: Faheem Sutton Other Providers: Pal Fallon Other Interventions: Discharge Summary Assessment (RN) Last Done: 03/15/23 11:25 Coding Level of Care Code 01827 INP/OBS DISCH >30 MIN Diagnoses Hypoxia R09.02 Confusion R41.0 Acute kidney injury N17.9 Influenza A virus subtype H1 2009 pandemic strain present J10.1 Hypocalcemia E83.51 Hypomagnesemia E83.42 Ambulatory dysfunction R26.2 Diabetes mellitus, type 2 E11.9 HTN (hypertension) I10 Hypothyroidism E03.9 Time Spent (min) 35
[2023-03-16] MEDS ORDERED: hydroCHLOROthiazide 25 MG TAB PO SCH (09:00)
== END 2023-03-15 12:12 | disposition home health service (06) | DRG 193 ==
LOC: ED 17:28 → SUATTDRO 21:19 → EDINP 21:19 → 2W 03-11 03:23

== ENCOUNTER 2023-03-22 07:55 | Inpatient (IN) ==
--- OUTSIDE RECORDS SUMMARY | 2023-03-22 08:39 | External Medical Summary | Continuity of Care Document ---
Author Name Unknown Organization [facility] [address] [facility] [address] [place] [id number] Care Team Providers Care Mid Level Provider Name Role Phone Faheem Sutton Primary Care Physician [phone] [id number] Date(s): 03/18/23 - 03/18/23 [facility] [address] [facility] [address] [address] [place] [phone] Encounter Diagnosis Influenza A(Discharge Diagnosis) - 03/18/23 Discharge Disposition: Home or Self Care Attending Physician: DO Daniels Franklin J Allergies, Adverse Reactions, Alerts Substance Reaction Severity Status hydrochlorothiazide-triamterene extreme drowsiness Active Assessment and Plan Extracted from: Title:Influenza A (Hospital f/u) Author:MD Yfn, Adedoyin Date:03/18/23 1.Influenza A Acute;uncomplicated;at goal -No longer symptomatic. Completed course of Tamiflu. -No further management or f/u needed. Immunizations Given and Recorded Vaccine Date Status Refusal Reason SARS-CoV-2 (COVID-19) mRNA-1273 vaccine 1 04/14/20 Recorded SARS-CoV-2 (COVID-19) mRNA-1273 vaccine 2 03/11/20 Recorded zoster vaccine, inactivated 3 11/25/12 Recorded pneumococcal 23-valent vaccine 4 11/04/10 Recorded 1Result Comment: 2021-08-06: Historical information-source unspecified 2Result Comment: 2021-08-06: Historical information-source unspecified 3Result Comment: Zostavax 4Result Comment: 2021-08-06: Historical information-source unspecified Medications aspirin 81 mg oral delayed release tablet Start: 01/29/23 16:05:00 EST, 1 tab, PO, Daily Start Date: 01/29/23 Status: Ordered fluticasone 50 mcg/inh nasal spray Start: 09/23/22 15:47:00 EDT, 2 spray, intranasal, Daily, Disp# 16 g, PRN: allergy symptoms, Pharmacy: [facility] [id number] Start Date: 09/23/22 Status: Ordered gabapentin 100 mg oral capsule Start: 02/17/23 16:11:00 EST, 2 cap, PO, bid, Disp# 120 cap, Refills: 4, Pharmacy: [facility] [id number] Start Date: 02/17/23 Stop Date: 07/17/23 Status: Ordered levothyroxine 25 mcg (0.025 mg) oral tablet Start: 07/01/22 11:45:00 EDT, See Instructions, Disp# 90 tab, Refills: 3, Take 1 tablet by mouth once daily for 90 days, Pharmacy: [facility] [id number] Start Date: 07/01/22 Status: Ordered lisinopril 10 mg oral tablet Start: 02/17/23 16:28:00 EST, 1 tab, PO, Daily, Disp# 30 tab, Refills: 4, Pharmacy: [facility] [id number] Start Date: 02/17/23 Stop Date: 07/17/23 Status: Ordered metFORMIN 500 mg oral tablet Start: 02/17/23 16:13:00 EST, See Instructions, Disp# 60 tab, Refills: 5, TAKE 1 TABLET BY MOUTH TWICE DAILY WITH MEALS, Pharmacy: [facility] Start Date: 02/17/23 Status: Ordered One Touch Delica Plus (33G) Lancets Start: 01/27/23 12:02:00 EST, See Instructions, Disp# 100 each, Refills: 11, home glu qAm, Pharmacy: [facility] Start Date: 01/27/23 Status: Ordered One touch verio strips Start: 01/29/23 12:00:00 EST, One touch verio strips, eRx Product Type: Supply, See Instructions, Disp# 100 strip, Refills: 11, Use 1 strip to check glucose daily, Note to Pharmacy: E11.9, Pharmacy [facility] [id number] Start Date: 01/29/23 Status: Ordered OneTouch Verio In Vitro Strip Start: 10/13/22 9:25:00 EDT, OneTouch Verio In Vitro Strip, eRx Product Type: Supply, See Instructions, Disp# 100 each, Refills: 0, USE 1 STRIP TO CHECK GLUCOSE DAILY and prn, Pharmacy [id number] Start Date: 10/13/22 Status: Ordered Tylenol Start: 06/30/21 14:23:00 EDT, PRN pain Start Date: 06/30/21 Status: Ordered Zetia 10 mg oral tablet Start: 01/29/23 16:24:00 EST, 1 tab, PO, Daily, Disp# 30 tab, Refills: 2, Pharmacy: [id number] Start Date: 01/29/23 Stop Date: 04/29/23 Status: Ordered Mental Status 03/18/23 Barriers to Learning one year None evide nt Mandatory Health Literacy Documentation Yes Health Literacy Communication Barriers N ever Primary Language Mongolian Problem List Condition Confirmation Course Effective Dates Status H ealth Status Informant CVA (cerebral vascular accident) Confirmed Active CKD (chronic kidney disease) Confirmed Active Subdural hematoma Confirmed Active 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 HLD (hyperlipidemia) Confirmed Active HTN (hypertension) Confirmed Active Hypothyroidism Confirmed Active Inclusion cyst Confirmed Active Recurrent deep vein thrombosis (DVT) Confirmed Active Statin intolerance Confirmed Active Leg swelling Confirmed Active Type 2 diabetes mellitus with diabetic polyneuropathy Confirmed Active Urine incontinence Confirmed Active Diagnosis Diagnosis Type Effective Dates Health Status Clini linda Service Informant Influenza A Discharge Diagnosis 03/18/23 Procedures Procedure Date Related Diagnosis Body Site [...] removal 3tonsil and adnoidectomy at age 12 [address], 1965 Vital Signs Most recent to oldest [Reference Range]: 1 Height 163 cm (03/18/23 1:31 PM) Patient Weight 87.0 kg (03/18/23 1:31 PM) Body Mass Index 32.74 kg/m2 (03/18/23 1:31 PM) Temperature [36.5-37.9 DegC] 36.6 DegC (03/18/23 1:31 PM) Blood Pressure 120/68mmHg (03/18/23 1:31 PM) BP Location # 1 Right Arm (03/18/23 1:31 PM) Social History Social History Type Response [...] Active Unkn own FCM Outpt Note * DO Daniels Franklin J: MODIFY DO Daniels Franklin J: MODIFY Event Display: FCM Outpt Note Authored Date: Chief Complaint Here for f/u visit following admission at [facility] for infuenza. History of Present Illness [id number] year-oldwadinawhanastasia presents today with her daughterfor hospital f/u after admission forinfluenza A. -Admitted 03/10. Discharged 03/15 on Tamiflu and HCTZ (BP elevated to 202/80s). -Has completed her prescribed Tamiflu. Daughter stopped HCTZ because she was drowsy (she recorded her BPs which were as low as 110/57). -Since stopping HCTZ, her drowsiness has resolved. BP today is 120/68. Review of Systems See HPI. Physical Exam Vitals & Measurements T:36.6C BP:120/68 SpO2:96% HT:163cm WT:87.0kg WT:87.000kg(Dosing) BMI:32.74 PHQ2 Data(Data Documented on:03/18/2023 13:31) Emotional health assessment NEGATIVE General:no acute distress, speaking in full sentences Resp: good inspiratory effort, no labored breathing HEENT: conjunctivae appear clear, no audiblecongestion, no swelling noted face or lips Skin: skin appears dry, normal coloration, no rash visible on exposed skin areas Neuro: alertand oriented x3, no focal deficits appreciated Psych: euthymic affect, pleasantand interactive, logical thought process Assessment/Plan 1.Influenza A Acute;uncomplicated;at goal -No longer symptomatic. Completed course of Tamiflu. -No further management or f/u needed. Attestation I also saw the patient confirmed clarke portions of the clinical history and physical examination. I alsoreviewed the patient's inpatienthospitalization notes. Today,symptomsare nearly resolved; she looksgenerally well and per reports of her daughter, at her baseline. I agree with the impression and plan as noted in resident documentation above. Problem List/Past Medical History Ongoing CKD (chronic kidney disease) CVA (cerebral vascular accident) HLD (hyperlipidemia) HTN (hypertension) Hypothyroidism Inclusion cyst Leg swelling Recurrent deep vein thrombosis (DVT) 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 Statin intolerance Subdural hematoma Type 2 diabetes mellitus with diabetic polyneuropathy Urine incontinence Historical SDH (subdural hematoma) Procedure/Surgical History Head CT (09/23/2021)IVC - Insertion of inferior vena caval filter (07/02/2021)Punch biopsyof skin (05/07/2011)SurgerySurgerySurgery Medications acetaminophen(Tylenol) aspirin(aspirin 81 mg oral delayed release tablet), 81 mg= 1 tab, PO, Daily diabetes supplies(One Touch Delica Plus (33G) Lancets), See Instructions, 11 refills ezetimibe(Zetia 10 mg oral tablet), 10 mg= 1 tab, PO, Daily, 2 refills fluticasone nasal(fluticasone 50 mcg/inh nasal spray), 2 spray, intranasal, Daily, PRN gabapentin(gabapentin 100 mg oral capsule), 200 mg= 2 cap, PO, bid, 4 refills levothyroxine(levothyroxine 25 mcg (0.025 mg) oral tablet), See Instructions, 3 refills lisinopril(lisinopril 10 mg oral tablet), 10 mg= 1 tab, PO, Daily, 4 refills metFORMIN(metFORMIN 500 mg oral tablet), See Instructions, 5 refills unlisted medication(One touch verio strips), See Instructions, 11 refills unlisted medication(OneTouch Verio In Vitro Strip), See Instructions Allergies hydrochlorothiazide-triamtereneextreme drowsiness Social History Smoking Status Never smoked cigarettes [...] the next year) OverDue Adult Influenza Vaccine due08/14/22and every 1year Due Adult COVID-19 Vaccination due03/18/23Unknown Frequency Adult Social Determinants of Health Screening due03/18/23Unknown Frequency Adult Tdap/Td Vaccine due03/18/23Unknown Frequency Falls Plan of Care due03/18/23Unknown Frequency Hepatitis C Screening due03/18/23One-time only Medicare Annual Wellness Visit due03/18/23and every 1year Osteoporosis Screening due03/18/23One-time only Pneumococcal Vaccine Older Adults due03/18/23One-time only Shingles Vaccine due03/18/23One-time only Due In Future Diabetic Eye Exam not due until12/11/23and every 731day Diabetes Management A1c not due until02/06/24and every 366day Satisfied(in the past 1 year) Satisfied Body Mass Index on03/18/23.Satisfied by JASSI Villalta Paula Diabetes Management A1c on02/05/23.Satisfied by Contributor_system, [email or web address] Diabetes Nephropathy Management on02/05/23.Satisfied by Contributor_system, [email or web address] Lipid Screening on09/07/22.Satisfied by Contributor_system, [email or web address] Electronic Signature on File Electronically Reviewed/Signed by: Kayla Coulter MD Author Signature Dt/Tm:03/18/2023 02:32 PM Resident Department of Family Medicine Electronically Reviewed/Signed by: DO Ynes Braswell Signature Dt/Tm: 03/18/2023 06:05PM Department of Family Medicine AO Patient Care team information Care Team Personnel Name: REBECCA Lynn, Tomasa Position: Physician Rural Route Carrier - Neurosurgery Member Role: Lifetime Relationship Address: Address: [address] [address] [place] Name: MD Herman, Faheem Position: Physician - Family Med Member Role: Primary Care Provider Address: Address: [address] [facility] [address] [place] [address] [place] Name: REBECCA Dorsey Lynn Position: Physician Rural Route Carrier Exempt - Vasc Surg Member Role: Lifetime Relationship Address: Address: [address] [facility] [address] [place] [address] [place] Name: Lupis Auguste Kyle Position: Pharmacist Member Role: Pharmacy - Lifetime Address: Address: [address] [place] [id number] Care Team Related Persons Name: EVELYNE GROVER Address: [facility] Address: home [address] [facility] [place] [phone] Name: PATSY ONEAL
--- OUTSIDE RECORDS SUMMARY | 2023-03-22 08:40 | External Medical Summary | Continuity of Care Document ---
Author Name Unknown Organization [facility] [address] [facility] [address] [place] [phone] Care Team Providers Care Neon Sign Installer Name Role Phone Herman Faheem Primary Care Physician [phone] [facility]counter [facility] [id number] Date(s): 03/10/23 - 03/10/23 [facility] 0 [facility] 207 [facility] Medical [facility] [address] [address] [phone] Encounter Diagnosis Agitation(Discharge Diagnosis) - 03/10/23 Weakness(Discharge Diagnosis) - 03/10/23 Cough(Discharge Diagnosis) - 03/10/23 Cerebrovascular accident (CVA)(Discharge Diagnosis) - 03/10/23 Diabetes(Discharge Diagnosis) - 03/10/23 Discharge Disposition: Home or Self Care Attending Physician: DO Daniels Franklin J Allergies, Adverse Reactions, Alerts No Known Allergies Assessment and Plan Extracted from: Title:Agitation Author:DO Daniels Franklin J Da te:03/10/23 Impression and Plan Diagnosis Diabetes (WFB78-MA E11.9, Discharge, Medical). Cerebrovascular accident (CVA) (WBG28-IB I63.9, Discharge, Medical). Cough (ZYF41-UY R05.9, Discharge, Medical). Agitation (CNB46-XT R45.1, Discharge, Medical). Weakness (ZZU32-PX R53.1, Discharge, Medical). Plan: Mental status change/agitation History of CVA Differential diagnosis includes infection (URI/UTI), medication reaction (dextromethorphan can cause agitation in the elderly), and recurrent CVA. Upon examination today, the patient is nontoxic, afebrile, and alert. She denies any focal complaints. Baseline mental status. Testing for influenza A, influenza B, and COVID in the office today are negative. Unfortunately, the patient was unable to provide a urine sample for analysis and culture; home collection kit provided. I did watch the patient ambulate from the bathroom back to the exam room; she ambulates with a walker, slow but stable. Discussed the differential diagnosis with the patient and daughter. She is afebrile, nontoxic in appearance; no focal neuromotor deficits are appreciated. Suspect the restlessness/insomnia could have been secondary to the dextromethorphan; if this is indeed the case, washout should be about 24 hours, and I would expect her to sleep well tonight and be more herself tomorrow. Discussed that I cannot completely exclude TIA; only way to do this would be with neuroimaging. Discussed signs and symptoms for which to monitor; certainly any acute change, would recommend evaluation in the emergency department. They will try to collect a urine sample and drop off at the office; if the urinalysis is indicative of infection, low threshold to start empiric antibiotics pending culture If any fever in the interim, they will let me know. Orders [facility] Laboratory: Urine Culture Request (Order): Routine, First Available, Source: Urine Urine Analysis w/ reflexed Microscopic Request. (Order): 03/10/2023 13:20 EST, Routine, Requested Timeframe First Available, Urine Patient Care Ambulatory: FluA/B+SARS CoV2 [facility] POC Outpt (Order): 03/10/2023 13:21 EST, ONCE. [facility] Evaluation and Management: [id number] Outpatient Visit Est Lvl 5 (Order): 03/10/2023 13:55 EST, FAMILY MEDICINE, Agitation | Cerebrovascular accident (CVA) | Cough | Diabetes | Weakness. Immunizations Given and Recorded Vaccine Date Status [...] Disp# 16 g, PRN: allergy symptoms, Pharmacy: [facility] [id number] Start Date: 09/23/22 Status: Ordered gabapentin 100 mg oral capsule Start: 02/17/23 16:11:00 EST, 2 cap, PO, bid, Disp# 120 cap, Refills: 4, Pharmacy: [facility] [id number] Start Date: 02/17/23 Stop Date: 07/17/23 Status: Ordered levothyroxine 25 mcg (0.025 mg) oral tablet Start: 07/01/22 11:45:00 EDT, See Instructions, Disp# 90 tab, Refills: 3, Take 1 tablet by mouth once daily for 90 days, Pharmacy: [facility] [id number] Start Date: 07/01/22 Status: Ordered lisinopril 10 mg oral tablet Start: 02/17/23 16:28:00 EST, 1 tab, PO, Daily, Disp# 30 tab, Refills: 4, Pharmacy: [facility] [id number] Start Date: 02/17/23 Stop Date: 07/17/23 Status: Ordered metFORMIN 500 mg oral tablet Start: 02/17/23 16:13:00 EST, See Instructions, Disp# 60 tab, Refills: 5, TAKE 1 TABLET BY MOUTH TWICE DAILY WITH MEALS, Pharmacy: [facility] [id number] Start Date: 02/17/23 Status: Ordered One Touch Delica Plus (33G) Lancets Start: 01/27/23 12:02:00 EST, See Instructions, Disp# 100 each, Refills: 11, home glu qAm, Pharmacy: [facility] Start Date: 01/27/23 Status: Ordered One touch verio strips Start: 01/29/23 12:00:00 EST, One touch verio strips, eRx Product Type: Supply, See Instructions, Disp# 100 strip, Refills: 11, Use 1 strip to check glucose daily, Note to Pharmacy: E11.9, Pharmacy [id number] Start Date: 01/29/23 Status: Ordered OneTouch Verio In Vitro Strip Start: 10/13/22 9:25:00 EDT, OneTouch Verio In Vitro Strip, eRx Product Type: Supply, See Instructions, Disp# 100 each, Refills: 0, USE 1 STRIP TO CHECK GLUCOSE DAILY and prn, Pharmacy [facility] Start Date: 10/13/22 Status: Ordered Tylenol Start: 06/30/21 14:23:00 EDT, PRN pain Start Date: 06/30/21 Status: Ordered Zetia 10 mg oral tablet Start: 01/29/23 16:24:00 EST, 1 tab, PO, Daily, Disp# 30 tab, Refills: 2, Pharmacy: [id number] Start Date: 01/29/23 Stop Date: 04/29/23 Status: Ordered Mental Status 03/10/23 Barriers to Learning one year None evide nt Mandatory Health Literacy Documentation Yes Health Literacy Communication Barriers N ever Primary Language Portuguese Problem List Condition Confirmation Course Effective Dates [...] Effective Dates Health Status Clinical Service Informant Diabetes Discharge Diagnosis 03/10/23 Non-Specified Cerebrovascular accident (CVA) Discharge Diagnosis 03/10/23 Non-Specified Agitation Discharge Diagnosis 03/10/23 Non-Specified Weakness Discharge Diagnosis 03/10/23 Non-Specified Cough Discharge Diagnosis 03/10/23 Non-Specified Procedures Procedure Date Related Diagnosis Body [...] removal 3tonsil and adnoidectomy at age 12 [id number], [id number] Vital Signs Most recent to oldest [Reference Range]: 1 Patient Weight 88.6 kg (03/10/23 1:02 PM) Blood Pressure 140/72mmHg (03/10/23 1:02 PM) Social History Social History Type Response [...] Unknown 06/01/21 Unknown Unknown Active Unkn own Outpatient Note * DO Daniels Franklin J: PERFORM, MODIFY, MODIFY, MODIFY, SIGN, VERIFY Event Display: .Outpt Note Authored Date: [id number] Patient: CATHERINE GROVER Age: 78 years Sex: Female : 1945 Associated Diagnoses: None Author: DO Daniels Franklin J Visit Information Visit type: Scheduled follow-up. Chief Complaint 03/10/2023 12:58 EST Cold symptoms, had cold medicine, has not slept since yesterday, abnormally jittery, not understanding basic commands, running into things, walking to the side instead of a straight. History of Present Illness Per presents to the office with a 1-2-day history of upper respiratory symptoms (deep cough, runny nose), hyperglycemia, and agitation. She history of insulin- dependent diabetes and a recent CVA (December,). Yesterday afternoon and evening, to give the patient an csrj-wvz-xarsmmw cough medication includingdextromethorphan and guaifenesin. Overnight, family reports that the patient was unable to sleep. Reported increased agitation and not being able to sit still. She usually ambulates with a walker, and while she is able to continue doing so, they noted that her ambulation is not as coordinated as itwas previously. They also report that she was unable to follow directions without more than usual coaxing. Waiting in the waiting room prior to the appointment, daughter reports that Catherine did fall asleep for short period of time; this is for sleep she has had in probably greater than 24 hours. Review of Systems Constitutional: Weakness, No fever. Ear/Nose/Mouth/Throat: Nasal congestion. Respiratory: Cough, No shortness of breath. Gastrointestinal: No nausea, No vomiting, No diarrhea, No constipation. Genitourinary: No dysuria, No hematuria. Neurologic: Abnormal balance. Psychiatric: Anxiety, No depression. Health Status Allergies: Allergic Reactions (Selected) NKA. Current medications: (Selected) Prescriptions Prescribed One Touch Delica Plus (33G) Lancets: See Instructions, home glu qAm, 100 each, 11 Refill(s) One touch verio strips: See Instructions, Use 1 strip to check glucose daily, 100 strip, 11 Refill(s) OneTouch Verio In Vitro Strip: See Instructions, USE 1 STRIP TO CHECK GLUCOSE DAILY and prn, 100 each, 0 Refill(s) Zetia 10 mg oral tablet: 1 tab, PO, Daily, for 30 day, 30 tab, 2 Refill(s) fluticasone 50 mcg/inh nasal spray: 2 spray, intranasal, Daily, PRN: allergy symptoms, 16 g gabapentin 100 mg oral capsule: 2 cap, PO, bid, for 30 day, 120 cap, 4 Refill(s) levothyroxine 25 mcg (0.025 mg) oral tablet: See Instructions, Take 1 tablet by mouth once daily for 90 days, 90 tab, 3 Refill(s) lisinopril 10 mg oral tablet: 1 tab, PO, Daily, for 30 day, 30 tab, 4 Refill(s) metFORMIN 500 mg oral tablet: See Instructions, TAKE 1 TABLET BY MOUTH TWICE DAILY WITH MEALS, 60 tab, 5 Refill(s) Documented Medications Documented Tylenol: PRN pain aspirin 81 mg oral delayed release tablet: 1 tab, PO, Daily glipiZIDE 5 mg oral tablet, extended release: 1 tab, PO, Daily. 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 / SNOMED CT 2767615723 / Confirmed Urine incontinence / SNOMED CT 1045588106 / Confirmed Recurrent deep vein thrombosis (DVT) / SNOMED CT 9843441038 / Confirmed Subdural hematoma / SNOMED CT 6286273822 / Confirmed HLD (hyperlipidemia) / SNOMED CT 28301528 / Confirmed Statin intolerance / SNOMED CT 9734307256 / Confirmed CKD (chronic kidney disease) / SNOMED CT 4194283955 / Confirmed Type 2 diabetes mellitus with diabetic polyneuropathy / SNOMED CT 928409870 / Confirmed All Problems Inclusion cyst / SNOMED CT 4366403079 / Confirmed CVA (cerebral vascular accident) / SNOMED CT 774842870 / Confirmed Hypothyroidism / SNOMED CT 97740391 / Confirmed HTN (hypertension) / SNOMED CT 7717678011 / Confirmed Leg swelling / SNOMED CT 0454687359 / Confirmed 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 Histories Family History: Heart attack Father . Social History Social & Psychosocial Habits Alcohol 06/11/2021 Risk Assessment: Denies Alcohol Use Tobacco 06/11/2021 Risk Assessment: Denies Tobacco Use . Physical Examination Vital Signs 03/10/2023 13:02 EST Systolic Blood Pressure 140 mmHg Diastolic Blood Pressure 72 mmHg Pulse 90 SpO2 96 % General: Alert. She participates in conversation, answers questions, mostly in a yes/no reply. Do not appreciate any slurred speech.. Eye: Pupils are equal, round and reactive to light. HENT: Normocephalic, Oral mucosa is moist. Neck: Supple, Non-tender. Respiratory: Lungs are clear to auscultation, Respirations are non-labored, Breath sounds are equal, Lungs are clear to auscultation, decreased breath sound the bases secondary to effort.. Cardiovascular: Normal rate, Regular rhythm, No edema, Bilateral pedal edema, pitting, per daughter, just slightly above baseline.. Gastrointestinal: Soft, Non-tender, Non-distended. Genitourinary: No costovertebral angle tenderness. Neurologic: Alert, Smiles upon command, without facial droop. Extends tongue upon command, midline. Ambulates to the room with walker. No arm drift appreciated upon bilateral extension. Upper extremity strength (boiler setter), symmetrical; lower extremity strength (quadriceps extension) symmetrical without appreciated deficit. Psychiatric: Cooperative. Health Maintenance Health Maintenance Pending (in the next year) OverDue Adult Influenza Vaccine due 08/14/22 and every 1 year Due Adult COVID-19 Vaccination due 03/10/23 Unknown Frequency Adult Social Determinants of Health Screening due 03/10/23 Unknown Frequency Adult Tdap/Td Vaccine due 03/10/23 Unknown Frequency Falls Plan of Care due 03/10/23 Unknown Frequency Hepatitis C Screening due 03/10/23 One-time only Medicare Annual Wellness Visit due 03/10/23 and every 1 year Osteoporosis Screening due 03/10/23 One-time only Pneumococcal Vaccine Older Adults due 03/10/23 One-time only Shingles Vaccine due 03/10/23 One-time only Due In Future Diabetic Eye Exam not due until 12/11/23 and every 731 day Diabetes Management A1c not due until 02/06/24 and every 366 day Body Mass Index not due until 02/18/24 and every 366 day Satisfied (in the past 1 year) Satisfied Body Mass Index on 12/01/22. Satisfied by RYLEY Hankins Paul Diabetes Management A1c on 02/05/23. Satisfied by Contributor_system, [email or web address] Diabetes Nephropathy Management on 02/05/23. Satisfied by Contributor_system, [id number] Lipid Screening on 09/07/22. Satisfied by Contributor_system, [email or web address] Impression and Plan Diagnosis Diabetes (PVT33-FG E11.9, Discharge, Medical). Cerebrovascular accident (CVA) (BTF54-VZ I63.9, Discharge, Medical). Cough (KWP17-OT R05.9, Discharge, Medical). Agitation (MAR10-RD R45.1, Discharge, Medical). Weakness (TNA52-LI R53.1, Discharge, Medical). Plan: Mental status change/agitation History of CVA Differential diagnosis includes infection (URI/UTI), medication reaction (dextromethorphan can cause agitation in the elderly), and recurrent CVA. Upon examination today, the patient is nontoxic, afebrile, and alert. She denies any focal complaints. Baseline mental status. Testing for influenza A, influenza B, and COVID in the office today are negative. Unfortunately, the patient was unable to provide a urine sample for analysis and culture; home collection kit provided. I did watch the patient ambulate from the bathroom back to the exam room; she ambulates with a walker, slow but stable. Discussed the differential diagnosis with the patient and daughter. She is afebrile, nontoxic in appearance; no focal neuromotor deficits are appreciated. Suspect the restlessness/insomnia could have been secondary to the dextromethorphan; if this is indeed the case, washout should be about 24 hours, and I would expect her to sleep well tonight and be more herself tomorrow. Discussed that I cannot completely exclude TIA; only way to do this would be with neuroimaging. Discussed signs and symptoms for which to monitor; certainly any acute change, would recommend evaluation in the emergency department. They will try to collect a urine sample and drop off at the office; if the urinalysis is indicativeof infection, low threshold to start empiric antibiotics pending culture If any fever in the interim, they will let me know. Orders [facility] Laboratory: Urine Culture Request (Order): Routine, First Available, Source: Urine Urine Analysis w/ reflexed Microscopic Request. (Order): 03/10/2023 13:20 EST, Routine, Requested Timeframe First Available, Urine Patient Care Ambulatory: FluA/B+SARS CoV2 [facility] POC Outpt (Order): 03/10/2023 13:21 EST, ONCE. [facility] Evaluation and Management: [id number] Outpatient Visit Est Lvl 5 (Order): 03/10/2023 13:55 EST, FAMILY MEDICINE, Agitation | Cerebrovascular accident (CVA) | Cough | Diabetes | Weakness. Professional Services Face to Face Time: 30 mins Review of outside records: Hospital records/PT records: 5 mins Ordering and review of tests ([facility]/U/A): 3 mins Electronic Signature on File Electronically Reviewed/Signed by: Khoi Daniels DO Author Signature Dt/Tm:03/10/2023 05:35 PM Department of Family Medicine [facility] Patient Care team information Care Team Personnel Name: REBECCA Lynn, Tomasa Position: Physician Industrial Illuminating Engineer - Neurosurgery Member Role: Lifetime Relationship Address: Address: [address] [facility] [address] [place] [address] [place] Name: MD Sutton Dongsheng Position: Physician - Family Med Member Role: Primary Care Provider Address: Address: [address] [facility] [address] [place] [address] [place] Name: REBECCA Dorsey Lynn Position: Physician Industrial Illuminating Engineer Exempt - Vasc Surg Member Role: Lifetime Relationship Address: Address: [address] [facility] [address] [place] [address] [place] Name: Lupis Auguste Kyle Position: Pharmacist Member Role: Pharmacy - Lifetime Address: Address: [address] [place] [id number] Care Team Related Persons Name: EVELYNE GROVER Address: [facility] Address: home [address] [place] [phone] Name: PATSY ONEAL"
[2023-03-22] MEDS: FAMOTIDINE 20MG IV PUSH 20 MG/5 ML SYR IV STA (08:48)
[2023-03-22] MEDS: SODIUM CHLORIDE 0.9% 1,000 ML IV SCH (08:48)
--- NOTE | 2023-03-22 08:55 | Emergency Department Note ---
Impression & Plan Confusion, Weakness, Hypomagnesemia, Acute UTI (urinary tract infection), Elevated lipase ED Provider Note ED Provider Note NAME: CATRACHITO GROVER AGE:78 SEX: Female : 1945 ARRIVES VIA: private vehicle INFORMANT: Patient ED PROVIDER(s): Vita Bah DO CHIEF COMPLAINT: Confusion, weakness, decreased appetite HPI: This is a 78-year-old female who presents emergency department with family at bedside due to concern for increased confusion, weakness, decreased intake. Patient was just recently discharged several days ago from the hospital after initially presenting with weakness, confusion, hypoxia, and was found to have influenza A. She states she did not feel well at time of discharge. She states she has had some nausea recently as well as body aches and back pain. She denies vomiting or diarrhea. Denies any change in her urine. She denies headaches or dizziness. She feels she is eating and drinking. Notes from the patient's daughter as provided by another family member at bedside states they were concerned about increased blood pressure this morning, decreased intake, increased confusion, and cloudy appearing urine. They state she earlier complained of pain between her shoulder blades. Patient denies any paresthesias. She does have weakness secondary to a prior stroke. PAST MEDICAL HISTORY:See Below PAST SURGICAL HISTORY:See Below FAMILY HISTORY:See Below SOCIAL HISTORY:See Below HOME MEDICATIONS:See Below ALLERGIES:See Below VITALS:See Below PHYSICAL EXAMINATION: GENERAL: alert, well appearing, well nourished, no distress, non-toxic EYE EXAM: normal conjunctiva, PERRL and EOM's grossly intact, mild left ptosis OROPHARYNX: no exudate, no erythema, lips, buccal mucosa, and tongue normal and mucous membranes are mildly dry NECK: supple, no nuchal rigidity, no adenopathy, non-tender LUNGS: Clear to auscultation. Normal chest wall mechanics, no w/r/r HEART: no murmurs, S1 normal and S2 normal ABDOMEN: abdomen soft, non-tender, normo-active bowel sounds, no masses, no rebound or guarding. BACK: Back is symmetrical on inspection and there is no deformity, no midline tenderness, no CVA tenderness. SKIN: no rashes, petechiae, orbruising UPPER EXTREMITIES: upper extremities are grossly normal. FROM, nml pulses b/l. LOWER EXTREMITIES: No pitting edema. FROM, nml pulses b/l. NEURO EXAM: Normal sensorium, cranial nerves II-XII grossly intact, normal speech, no facial droop,left upper extremity weakness, no gross weakness of legs. Gross sensation intact. No ataxia. Vital Signs: reviewed and remarkable Differential Diagnosis: dehydration, stroke, anemia, hypoglycemia, hyponatremia, hypernatremia, urinary tract infection, pneumonia, bronchitis, sepsis, gastroenteritis, additional abdominal pathology, metabolic abnormalities, as well as others were considered MEDICAL DECISION MAKING: This is a 70-year-old female who presents emergency department with family at bedside due to concern for increased confusion, increased weakness, and elevated blood pressure readings at home. Patient afebrile vital signs stable though she was noted to be hypertensive here. Labs drawn and sent, IV established, EKG and chest x-ray performed bedside interpreted by me and patient started on gentle IV fluid hydration. She was monitored on telemetry. Patient sent for CT of the head without contrast which was reassuring. Chest x-ray did not reveal any acute pathology. Urine ultimately positive and suggestive of urinary tract infection which likely has been contributing to her nausea, confusion, and weakness. She was also noted to be hypomagnesemic. She was started on IV magnesium repletion, and after review of her allergies and prior antibiotic she has received, was given IV Rocephin. Patient and sister bedside were updated on all results and need for additional inpatient monitoring. Case discussed with the hospitalist team for additional evaluation and management. Consultation(s): 1312: Discussed with REBECCA Cespedes with [facility] hospitalist team ER Treatment Provided: See below Diagnostics Interpreted By Me: -ECG: Normal sinus at 85, left axis, normal intervals, nonspecific ST/T wave change -Cardiac Monitoring: An order was placed for continuous cardiac monitoring. The monitor shows a rate of 88 with normal sinus rhythm. -Laboratory studies: As stated above and show below. -Imaging studies: X-ray Chest: A single view study of the chest was reviewed and was negative for cardiomegaly, focal infiltrate, effusion, pulmonary edema, or wide mediastinum. Triage Nursing Note Reviewed Prior/Outside Records Reviewed -recent discharge summary reviewed Past Med/Surg History Medical History Osteoarthritis Hypothyroidism History of anemia Peripheral neuropathy Noted to bilateral hands Hx of deep venous thrombosis JULY 2021>VENA CAVA FILTER INSERTED BY DR. 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 TIA (transient ischemic attack) 2010? No residual issues Diabetes mellitus, type 2 Well controlled and stable Hgb A1C 7.7 on 06/16/22 History of COVID-19 12/2019 & 02/2021>RESOLVED Hypertension Surgical History History of total knee replacement RT History of colonoscopy History of cholecystectomy History of tooth extraction History of tonsillectomy History of cataract surgery RT/LEFT H/O craniotomy LARRY>06/01/21 *EMERGENCY CRANIOTOMY Family History Father Myocardial infarction Other Family history non-contributory No family history of adverse response to anesthesia Social History Smoking Status: Never smoker Second Hand Exposure: No; Preferred Language: [place] Island[place] Communication Ability: CONFUSED Communication Ability Comment: @BASELINE A/O AND NO COMMUNICATION ISSUES 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: No Beliefs That Will Affect Care: None marital status: / Current Living Situation: Family Current Living Situation Comment: WITH DAUGHTER How many Children do You have: 2 Feels Safe at Home: Yes Assistive Devices: Walker Allergies Allergies Allergy/AdvReac Type Severity Reaction Status Date / Time cefoxitin AdvReac Mild vomiting Verified 03/10/23 20:23 Home Meds Home Medications Medication Instructions Recorded Confirmed levothyroxine 25 mcg tablet 25 mcg PO DAILY 03/31/21 03/22/23 blood sugar diagnostic (OneTouch 03/13/22 03/13/22 Verio test strips) lancets 33 gauge (OneTouch Delica 03/13/22 03/13/22 Lancets) lisinopril 10 mg tablet 10 mg PO PM 03/13/22 03/22/23 cholecalciferol (vitamin D3) 10 10 mcg PO DAILY 06/17/22 03/22/23 mcg (400 unit) capsule (Vitamin D3) cyanocobalamin (vitamin B-12) 500 500 mcg sublingual QAM 06/17/22 03/22/23 mcg sublingual tablet metformin 500 mg tablet 500 mg PO BID 06/17/22 03/22/23 acetaminophen 500 mg tablet 1,000 mg PO Q8H PRN PAIN/FEVER 12/07/22 03/22/23 aspirin 81 mg tablet,delayed 81 mg PO DAILY 03/10/23 03/22/23 release gabapentin 100 mg capsule 100 mg PO 2XD 03/10/23 03/22/23 glipizide 10 mg tablet, extended 10 mg PO DAILY 03/10/23 03/22/23 release 24 hr polyethylene glycol 3350 17 17 g PO DAILY 03/10/23 03/22/23 gram/dose oral powder (Miralax) Previous Rx's Medication Instructions Recorded hydrochlorothiazide 25 mg tablet 25 mg PO QAM 30 days #30 tabs 03/15/23 Results & Data (ED) Vital Signs Vital Signs - 24 hr 03/22/23 08:02 03/22/23 08:13 03/22/23 08:19 Temperature 36.8 C Temperature Source Temporal Artery Scan Pulse Rate 88 85 86 Pulse Rate from SpO2 Sensor 85 Respiratory Rate 16 21 Respiratory Effort / Characteristics Non-Labored Respiratory Depth Normal Blood Pressure 170/84 H Blood Pressure Mean 112 Pulse Oximetry 98 95 Oxygen Delivery Method Room Air Sepsis Recent Fever Within 48 Hours No Sepsis New/Unexplained Change in Mental Status N/A Sepsis Action Taken by Nursing No Action Required 03/22/23 08:30 03/22/23 08:30 03/22/23 08:37 Temperature Temperature Source Pulse Rate 81 Pulse Rate from SpO2 Sensor 82 Respiratory Rate 24 Respiratory Effort / Characteristics Respiratory Depth Blood Pressure 183/91 H 182/78 H Blood Pressure Mean 121 102 Pulse Oximetry 95 Oxygen Delivery Method Sepsis Recent Fever Within 48 Hours Sepsis New/Unexplained Change in Mental Status Sepsis Action Taken by Nursing 03/22/23 08:37 03/22/23 09:08 03/22/23 09:30 Temperature Temperature Source Pulse Rate 81 78 77 Pulse Rate from SpO2 Sensor 79 76 Respiratory Rate 24 13 24 Respiratory Effort / Characteristics Respiratory Depth Blood Pressure Blood Pressure Mean Pulse Oximetry 93 95 Oxygen Delivery Method Sepsis Recent Fever Within 48 Hours Sepsis New/Unexplained Change in Mental Status Sepsis Action Taken by Nursing 03/22/23 09:30 03/22/23 10:00 03/22/23 10:01 Temperature Temperature Source Pulse Rate 78 Pulse Rate from SpO2 Sensor 78 Respiratory Rate 25 H Respiratory Effort / Characteristics Respiratory Depth Blood Pressure 142/98 H 191/83 H Blood Pressure Mean 106 102 Pulse Oximetry 95 Oxygen Delivery Method Sepsis Recent Fever Within 48 Hours Sepsis New/Unexplained Change in Mental Status Sepsis Action Taken by Nursing 03/22/23 10:01 03/22/23 10:30 03/22/23 10:30 Temperature Temperature Source Pulse Rate 77 79 Pulse Rate from SpO2 Sensor 77 Respiratory Rate 27 H 29 H Respiratory Effort / Characteristics Respiratory Depth Blood Pressure 174/102 H Blood Pressure Mean 121 Pulse Oximetry 95 Oxygen Delivery Method Sepsis Recent Fever Within 48 Hours Sepsis New/Unexplained Change in Mental Status Sepsis Action Taken by Nursing 03/22/23 11:00 03/22/23 11:00 03/22/23 11:30 Temperature Temperature Source Pulse Rate 77 78 Pulse Rate from SpO2 Sensor 77 78 Respiratory Rate 20 24 Respiratory Effort / Characteristics Respiratory Depth Blood Pressure 158/88 H Blood Pressure Mean 107 Pulse Oximetry 96 93 Oxygen Delivery Method Sepsis Recent Fever Within 48 Hours Sepsis New/Unexplained Change in Mental Status Sepsis Action Taken by Nursing 03/22/23 11:30 Temperature Temperature Source Pulse Rate Pulse Rate from SpO2 Sensor Respiratory Rate Respiratory Effort / Characteristics Respiratory Depth Blood Pressure 183/93 H Blood Pressure Mean 124 Pulse Oximetry Oxygen Delivery Method Sepsis Recent Fever Within 48 Hours Sepsis New/Unexplained Change in Mental Status Sepsis Action Taken by Nursing Laboratory Data 03/22/23 09:13 03/22/23 08:24 Lab Results 03/22/23 03/22/23 03/22/23 Range/Units 08:24 09:13 10:42 WBC Cancelled 12.37 H RBC Cancelled 4.06 L Hgb Cancelled 12.8 Hct Cancelled 36.7 L MCV Cancelled 90.4 MCH Cancelled 31.5 MCHC Cancelled 34.9 RDW Std Deviation Cancelled 42.0 RDW Coeff of Mihaela Cancelled 12.8 Plt Count Cancelled 250 MPV Cancelled 9.8 Immature Gran % (Auto) Cancelled 0.4 Neut % (Auto) Cancelled 84.0 Lymph % (Auto) Cancelled 7.9 Walsh % (Auto) Cancelled 6.4 Eos % (Auto) Cancelled 1.0 Baso % (Auto) Cancelled 0.3 Neut # (Auto) Cancelled 10.39 H Lymph # (Auto) Cancelled 0.98 L Walsh # (Auto) Cancelled 0.79 H Eos # (Auto) Cancelled 0.12 Baso # (Auto) Cancelled 0.04 Immature Gran # (Auto) Cancelled 0.05 Absolute Nucleated RBC Cancelled Nucleated RBC % (auto) Cancelled Neutrophils % (Manual) Cancelled Band Neutrophils % Cancelled Lymphocytes % (Manual) Cancelled Prolymphocyte % Cancelled Reactive Lymphs % (Man) Cancelled Monocytes % (Manual) Cancelled Eosinophils % (Manual) Cancelled Basophils % (Manual) Cancelled Metamyelocytes % (Man) Cancelled Myelocytes % (Man) Cancelled Promyelocytes % (Man) Cancelled Blast Cells % (Manual) Cancelled Plasma Cell % (Manual) Cancelled Other Cells % Cancelled Nucleated RBC % Cancelled Neutrophils # (Manual) Cancelled Band Neutrophils # Cancelled Total Absolute Neuts Cancelled Lymphocytes # (Manual) Cancelled Prolymphocyte # Cancelled Reactive Lymphs # Cancelled Total Abs Lymphocytes Cancelled Monocytes # (Manual) Cancelled Eosinophils # (Manual) Cancelled Basophils # (Manual) Cancelled Metamyelocytes # (Man) Cancelled Myelocytes # (Manual) Cancelled Promyelocytes # (Man) Cancelled Blast Cells # (Man) Cancelled Plasma Cell # (Manual) Cancelled Other Cells # Cancelled Nucleated RBCs # (Man) Cancelled Hypersegmented Neuts Cancelled Hyposegmented Neuts Cancelled Hypogranular Neuts Cancelled Large Granular Lymphs Cancelled # Lrg Granular Lymphs Cancelled Hairy Cells Cancelled Smudge Cells Cancelled Toxic Granulation Cancelled Toxic Vacuolation Cancelled Dohle Bodies Cancelled Mimi Rods Cancelled Platelet Estimate Cancelled Hypogranular Platelets Cancelled Giant Platelets Cancelled Platelet Satelliting Cancelled RBC Morphology Cancelled Polychromasia Cancelled Hypochromasia Cancelled Poikilocytosis Cancelled Basophilic Stippling Cancelled Anisocytosis Cancelled Microcytosis Cancelled Macrocytosis Cancelled Spherocytes Cancelled Pappenheimer Bodies Cancelled Sickle Cells Cancelled Target Cells Cancelled Tear Drop Cells Cancelled Ovalocytes Cancelled Stomatocytes Cancelled [place] Bodies Cancelled Echinocytes Cancelled Acanthocytes (Spur) Cancelled Rouleaux Cancelled RBC Agglutinates Cancelled Schistocytes Cancelled Sezary Cell Cancelled PT 10.3 (9.0-12.0) Seconds INR 0.9 (0.9-1.1) Sodium 135 L (136-145) mmol/L Potassium 4.5 (3.5-5.1) mmol/L Chloride 102 (98-107) mmol/L Carbon Dioxide 23 (21-32) mmol/L Anion Gap 10 (3-11) BUN 24 H (6-23) mg/dl Creatinine 1.12 (0.6-1.2) mg/dl Est Cr Clr Drug Dosing Not Reportable Est GFR ( Amer) 54.5 ml/min Est GFR (Non-Af Amer) 47.0 ml/min BUN/Creatinine Ratio 21.4 H (10-20) Glucose 289 H (70-99(Fasting)) mg/dl Calcium 9.6 (8.6-10.3) mg/dl Magnesium 1.4 L (1.7-2.4) mg/dl Total Bilirubin 0.8 (0.2-1.0) mg/dl AST 12 L (13-39) U/L ALT 16 (7-52) U/L Alkaline Phosphatase 87 (34-104) U/L Troponin I High Sens < 2.3 (0-14) pg/ml Total Protein 7.7 (6.0-8.3) gm/dl Albumin 4.2 (3.4-5.0) gm/dl Globulin 3.5 (2.5-4.0) gm/dl Albumin/Globulin Ratio 1.2 (0.9-2) Lipase 118 H (11-82) U/L TSH 3.284 (0.300-4.500) uIu/ml Urine Color Yellow Urine Appearance Slightly Cloudy (Clear) Urine pH 5.5 (4.5-7.5) Ur Specific [place] 1.015 (1.000-1.030) Urine Protein 1+ H (Negative) Urine Glucose (UA) 2+ H (Negative) Urine Ketones Negative (Negative) Urine Blood Trace-lysed H (Negative) Urine Nitrite Positive A (Negative) Urine Bilirubin Negative (Negative) Urine Urobilinogen Negative (Negative) Ur Leukocyte Esterase 1+ H (Negative) Urine RBC 0-4 (0-4) /hpf Urine WBC >30 H (0-5) /hpf Ur Epithelial Cells 0-5 (0-5) /lpf Urine Bacteria 3+ H (Negative) Blood Parasites ID Cancelled Administered Medications Sodium Chloride (Nss) 1,000 mls @ 125 mls/hr IV .Q8H BART Stop: 04/21/23 08:44 Last Admin: 03/22/23 08:48 Dose: 125 mls/hr Documented By: HS Discontinued Medications Acetaminophen (Acetaminophen 325 Mg Tab) 650 mg PO NOW STA Stop: 03/22/23 13:31 Last Admin: 03/22/23 13:56 Dose: 650 mg Documented By: HS Hydrochlorothiazide (Hydrochlorothiazide 25 Mg Tab) 25 mg PO NOW STA Stop: 03/22/23 12:57 Last Admin: 03/22/23 12:59 Dose: 25 mg Documented By: HS Famotidine (Pepcid 20mg Iv Push) 20 mg in 5 mls @ 2.5 mls/min IV NOW STA Stop: 03/22/23 08:40 Last Admin: 03/22/23 08:48 Dose: 2.5 mls/min Documented By: HS Magnesium Sulfate/Dextrose (Magnesium Sulfate / D5w) 1 gm in 100 mls @ 100 mls/hr IV Q1H BART Stop: 03/22/23 11:30 Last Admin: 03/22/23 12:11 Dose: 100 mls/hr Documented By: Infusion: 03/22/23 11:19 Dose: Infused Documented By: Admin: 03/22/23 10:19 Dose: 100 mls/hr Documented By: HS Ceftriaxone Sodium (Rocephin) 2,000 mg in 50 mls @ 100 mls/hr IV NOW STA Stop: 03/22/23 11:43 Last Admin: 03/22/23 11:37 Dose: 100 mls/hr Documented By: HS Ioversol (Optiray 320 500ml) 88 ml IV ONCE ONE Stop: 03/22/23 11:11 Last Admin: 03/22/23 11:11 Dose: 88 ml Documented By: WANDA Imaging Data Radiologist's Impression: Chest X-Ray 03/22/23 08:38 XR chest 1V portable HISTORY: cough, weak, flu COMPARISON: Chest 03/10/2023. FINDINGS: No focal lung consolidations to suggest a pneumonia.. No evidence for pulmonary edema. The cardiac silhouette is top normal in size. Mild bibasilar interstitial thickening persists. This is likely chronic. No pneumothorax. No pleural effusions. No acute fractures identified. There are calcifications within the aortic knob. IMPRESSION: No significant change compared to the prior study. No acute process. ACT 112: Negative or not required by law. Electronically signed by: Chino Worthy M.D. 03/22/2023 9:[address] 03/22/23 08:[address] DOSE: 859.95 mGy.cm HISTORY: confusion TECHNIQUE: Multiaxial CT images of the head were performed without the use of intravenous contrast. Automated exposure control was utilized for this study. A dose lowering technique was utilized adhering to the principles of ALARA. Comparison: Head CT 03/10/2023. Findings: The paranasal sinuses and mastoid air cells are clear. The calvarium and skull base are intact. There is no mass, hematoma, midline shift, acute infarct. White matter hypodensity is nonspecific but suggestive of microvascular ischemic change. The ventricles and sulci demonstrate mild age-related involutional changes. Focal area of encephalomalacia again noted within the right parietal/occipital junction and right frontal lobe. This favors old infarcts.. This remains unchanged. Trace chronic subdural fluid collections remain stable. Impression: No significant change compared to the prior study. No acute intracranial abnormality. ACT 112: Negative or not required by law. Electronically signed by: Chino Worthy M.D. 03/22/2023 9:42 AM Abdomen/Pelvis CT 03/22/23 10:[address] WITH IV CONTRAST CT DOSE: 1311.1 mGy.cm HISTORY: nausea, back pain, elevated lipase TECHNIQUE: Multiaxial CT images of the abdomen and pelvis were performed following the use of intravenous contrast. A dose lowering technique was utilized adhering to the principles of ALARA. COMPARISON STUDY: Abdomen and pelvis CT 12/07/2022. FINDINGS: Mild dependent changes seen at the lung bases. No pneumoperitoneum. No pneumatosis. No acute fractures. The heart remains mildly enlarged. Advanced coronary artery calcifications again noted. Prior cholecystectomy. No hepatic or splenic masses. Mild hepatic steatosis. The pancreas and right adrenal gland unremarkable. There is a stable 1 cm left adrenal gland nodule. Calcifications within the renal sinuses favor vascular calcifications. No ureteral stones. There is mild fullness within the left renal collecting systems without jazmine hydronephrosis. This is similar to the prior study. There is mild urothelial thickening within the bilateral renal collecting systems and ureters with mild periureteral fat stranding. This is also mild bladder wall thickening with adjacent fat stranding. There is again noted a 1.5 cm left renal lesion on image 137. This is concerning for solid renal mass such as a renal cell carcinoma. Otherwise, the kidneys enhance normally. An IVC filter is noted. Moderate calcified plaque within the abdominal aorta. There is a 3.5 cm juxtarenal abdominal aortic aneurysm, unchanged. No retroperitoneal or pelvic lymphadenopathy. No pelvic free fluid. The uterus and ovaries are unremarkable. A few colonic diverticula. No evidence for acute diverticulitis. No bowel wall thickening or obstruction. The appendix is reportedly surgically absent. IMPRESSION: 1. Bladder wall thickening with adjacent fat stranding. This favors a cystitis. Recommend correlation with urinalysis. 2. There is also urothelial thickening and fat stranding at the bilateral renal collecting systems and ureters. This favors a pyelitis/pyelonephritis. This should also be assessed with urinalysis. 3. Redemonstration of the 1.5 cm left renal lesion which is concerning for renal cell carcinoma. 4. No bowel wall thickening or obstruction. 5. Additional findings as described above. ACT 112: Positive. There are findings on this exam that require communication between the performing entity and the patient following Patient Test Result Information Act ([place] Act 112) guidelines. Electronically signed by: Chino Worthy M.D. 03/22/2023 11:43 AM Discharge Plan Visit Data Chief Complaint: Abdominal Pain Stated Complaint: NOT FEELING WELL IN STOMACH,NAUSEA ED Provider: Vita Bah Discharge Problem: Confusion, Weakness, Hypomagnesemia, Acute UTI (urinary tract infection), Elevated lipase Patient Disposition: Admitted As Inpatient Discharge Instructions Interventions: ED Discharge Assessment Last Done: 03/22/23 15:19
--- NOTE | 2023-03-22 09:05 | XRay Report ---
XR chest 1V portable HISTORY: cough, weak, flu COMPARISON: Chest 03/10/2023. FINDINGS: No focal lung consolidations to suggest a pneumonia.. No evidence for pulmonary edema. The cardiac silhouette is top normal in size. Mild bibasilar interstitial thickening persists. This is li luis chronic. No pneumothorax. No pleural effusions. No acute fractures identified. There are calcifi cations within the aortic knob. IMPRESSION: No significant change compared to the prior study. No acute process. ACT 112: Negative or not required by law. Electronically signed by: Chino Worthy M.D. 03/22/2023 9:04 AM
[2023-03-22 09:11] LABS: Alanine Aminotransferase 16 U/L (7-52); Albumin Globulin Ratio 1.2 (0.9-2); Albumin Level 4.2 gm/dl (3.4-5.0); Alkaline Phosphatase 87 U/L (34-104); Anion Gap 10 (3-11); Aspartate Aminotransferase 12 U/L (13-39); BUN Creatinine Ratio 21.4 (10-20); Bilirubin,Total 0.8 mg/dl (0.2-1.0); Blood Urea Nitrogen 24 mg/dl (6-23); Calcium 9.6 mg/dl (8.6-10.3); Carbon Dioxide 23 mmol/L (21-32); Chloride 102 mmol/L (98-107); Est GFR (African American) 54.5 ml/min; Globulin 3.5 gm/dl (2.5-4.0); Glucose 289 mg/dl (70-99(Fasting)); Lipase 118 U/L (11-82); Magnesium 1.4 mg/dl (1.7-2.4); Potassium 4.5 mmol/L (3.5-5.1); Sodium 135 mmol/L (136-145); Total Protein 7.7 gm/dl (6.0-8.3)
[2023-03-22 09:19] LABS: INR 0.9 (0.9-1.1); Prothrombin Time 10.3 Seconds (9.0-12.0); Troponin I High Sensitivity < 2.3 pg/ml (0-14)
[2023-03-22 09:26] LABS: Thyroid Stimulating Hormone 3.284 uIu/ml (0.300-4.500)
[2023-03-22 09:37] LABS: Basophils # (auto) 0.04 K/uL (0.00-0.20); Basophils % (auto) 0.3 %; Eosinophils # (auto) 0.12 K/uL (0.00-0.50); Hematocrit (blood only) 36.7 % (37.0-47.0); Hemoglobin 12.8 g/dl (12.0-16.0); Immature Granulocytes # (auto) 0.05 K/uL (0.01-0.20); Immature Granulocytes % (auto) 0.4 %; Lymphocytes # (auto) 0.98 K/uL (1.20-3.40); Lymphocytes % (auto) 7.9 %; Mean Corpuscular Hemoglobin 31.5 pg (25.0-34.0); Mean Corpuscular Hgb Conc 34.9 g/dL (32.0-36.0); Mean Corpuscular Volume 90.4 fL (80.0-100.0); Mean Platelet Volume 9.8 fL (9.4-12.4); Monocytes # (auto) 0.79 K/uL (0.11-0.59); Monocytes % (auto) 6.4 %; Neutrophils # (auto) 10.39 K/uL (1.40-6.50); Platelet Count 250 K/uL (130-400); RDW Coefficient of Variation 12.8 % (11.5-14.5); Red Blood Count 4.06 M/uL (4.20-5.40); White Blood Count 12.37 K/ul (4.8-10.8)
--- NOTE | 2023-03-22 09:44 | CT Scan Report ---
HEAD CT NONCONTRAST CT DOSE: 859.95 mGy.cm HISTORY: confusion TECHNIQUE: Multiaxial CT images of the head were performed without the use of intravenous contrast. A utomated exposure control was utilized for this study. A dose lowering technique was utilized adheri ng to the principles of ALARA. Comparison: Head CT 03/10/2023. Findings: The paranasal sinuses and mastoid air cells are clear. The calvarium and skull base are int act. There is no mass, hematoma, midline shift, acute infarct. White matter hypodensity is nonspecifi c but suggestive of microvascular ischemic change. The ventricles and sulci demonstrate mild age-rela ousmane involutional changes. Focal area of encephalomalacia again noted within the right parietal/occipi myrtle junction and right frontal lobe. This favors old infarcts.. This remains unchanged. Trace chronic subdural fluid collections remain stable. Impression: No significant change compared to the prior study. No acute intracranial abnormality. ACT 112: Negative or not required by law. Electronically signed by: Chino Worthy M.D. 03/22/2023 9:42 AM
[2023-03-22] MEDS: MAGNESIUM SULFATE / D5W 1 GM/100 ML BAG IV SCH ×2 (10:19→16:55)
[2023-03-22 10:50] LABS: Appearance Urine Slightly Cloudy (Clear); Bilirubin Urine Negative (Negative); Blood Urine Trace-lysed (Negative); Color Urine Yellow; Glucose Urine UA 2+ (Negative); Ketones Urine Negative (Negative); Leukocyte Esterase Urine 1+ (Negative); Nitrite Urine Positive (Negative); Protein Urine 1+ (Negative); Specific Gravity Urine 1.015 (1.000-1.030); Urobilinogen Urine Negative (Negative); pH Urine 5.5 (4.5-7.5)
[2023-03-22 10:57] LABS: Epithelial Cell Urine 0-5 /lpf (0-5); RBC Urine 0-4 /hpf (0-4); WBC Urine >30 /hpf (0-5)
[2023-03-22 10:58] LABS: Bacteria Urine 3+ (Negative)
[2023-03-22] MEDS: OPTIRAY 320 500ml IV ONE (11:11)
[2023-03-22] MEDS: cefTRIAXone SODIUM 2,000 MG/50 ML BAG IV STA (11:37)
--- NOTE | 2023-03-22 11:46 | CT Scan Report ---
ABDOMEN AND PELVIS CT WITH IV CONTRAST CT DOSE: 1311.1 mGy.cm HISTORY: nausea, back pain, elevated lipase TECHNIQUE: Multiaxial CT images of the abdomen and pelvis were performed following the use of intrave nous contrast. A dose lowering technique was utilized adhering to the principles of ALARA. COMPARISON STUDY: Abdomen and pelvis CT 12/07/2022. FINDINGS: Mild dependent changes seen at the lung bases. No pneumoperitoneum. No pneumatosis. No acut e fractures. The heart remains mildly enlarged. Advanced coronary artery calcifications again noted. Prior cholecystectomy. No hepatic or splenic masses. Mild hepatic steatosis. The pancreas and right a drenal gland unremarkable. There is a stable 1 cm left adrenal gland nodule. Calcifications within th e renal sinuses favor vascular calcifications. No ureteral stones. There is mild fullness within the left renal collecting systems without jazmine hydronephrosis. This is similar to the prior study. There is mild urothelial thickening within the bilateral renal collecting systems and ureters with mild pe riureteral fat stranding. This is also mild bladder wall thickening with adjacent fat stranding. Ther e is again noted a 1.5 cm left renal lesion on image 137. This is concerning for solid renal mass suc h as a renal cell carcinoma. Otherwise, the kidneys enhance normally. An IVC filter is noted. Moderat e calcified plaque within the abdominal aorta. There is a 3.5 cm juxtarenal abdominal aortic aneurysm , unchanged. No retroperitoneal or pelvic lymphadenopathy. No pelvic free fluid. The uterus and ovari es are unremarkable. A few colonic diverticula. No evidence for acute diverticulitis. No bowel wall t hickening or obstruction. The appendix is reportedly surgically absent. IMPRESSION: 1. Bladder wall thickening with adjacent fat stranding. This favors a cystitis. Recommend correlation with urinalysis. 2. There is also urothelial thickening and fat stranding at the bilateral renal collecting systems an d ureters. This favors a pyelitis/pyelonephritis. This should also be assessed with urinalysis. 3. Redemonstration of the 1.5 cm left renal lesion which is concerning for renal cell carcinoma. 4. No bowel wall thickening or obstruction. 5. Additional findings as described above. ACT 112: Positive. There are findings on this exam that require communication between the performing entity and the patient following Patient Test Result Information Act ([place] Act 112) guidelines. Electronically signed by: Chino Worthy M.D. 03/22/2023 11:43 AM
[2023-03-22] MEDS: hydroCHLOROthiazide 25 MG TAB PO STA (12:59)
--- NOTE | 2023-03-22 13:01 | Electrocardiogram Report ---
Test Reason : Blood Pressure : / mmHG Vent. Rate : 085 BPM Atrial Rate : 085 BPM P-R Int : 194 ms QRS Dur : 092 ms QT Int : 384 ms P-R-T Axes : 008 -57 068 degrees QTc Int : 456 ms Normal sinus rhythm Left anterior fascicular block Poor R wave progression, consider anterior [place] vs. lead placement vs. LVH Abnormal ECG When compared with ECG of 10-MAR-2023 17:32, No significant change was found Confirmed by Gerardo Potts ([id number]) on 03/22/2023 1:01:46 PM Referred By: Confirmed By:Gerardo Potts
--- NOTE | 2023-03-22 13:14 | History & Physical Report ---
Date of Service March 22, 2023 Assessment & Plan (1) Confusion: Plan: -Admit to med/tele -Currently hemodynamically stable, stable on RA, and non-toxic appearing -Presented to the ED from home due to increased confusion, generalized weakness, and abdominal pain over the past 48 hours -Noted to have a UTI and possible evidence of BL pyelonephritis/pyelitis on CT of the abd/pelvis -No previous hx of resistant organisms on previous urine cultures -S/P one dose of ceftriaxone in the ED, will continue with Ceftriaxone for now -Follow urine cultures and adjust regimen as needed -CT of the head is negative for acute findings, no focal neuro defects compared to her baseline, continue to monitor for improvement with treatment of her UTI -S/P 1L NSS in the ED, will hold additional IV fluids for now as she is stable and can eat/drink -Fall/aspiration precautions -SQ lovenox for DVT PPX -HH/DMII with easy to chew texture -AM CBC, BMP, mag, (2) UTI (urinary tract infection): Plan: -Continue Ceftriaxone -Monitor post void residuals to ensure she is not retaining prior to DC -Transition to PO abx when able per Urine Cultures (3) Renal lesion: Plan: -Noted to have a 1.5 cm left renal lesion which is concerning for renal cell carcinoma. -Called and spoke to patient's daughter, Katie Henao, who confirms they did not know about this lesion -Spoke with Urology, appreciate their help, they will ensure patient has outpatient follow up appointment prior to discharge (4) Generalized weakness: Plan: -Likely due to her UTI, low magnesium, and dehydration -Continue to monitor for improvement with continued treatment of her acute illness -Fall precautions -PT/OT consults placed (5) Hypomagnesemia: Plan: -1.4 in the ED today -Has been a chronic issue -S/P 2gm IV mag sulfate in the ED -Will give another 2gm IV mag sulfate on admission -Monitor on tele -Can transition to PO mag tomorrow when stable -Monitor daily mag level (6) Diabetes mellitus, type 2: Plan: -Hold oral antihyperglycemics -Monitor BSG ACHS, goal is 110-160 due to previous episodes of hypoglycemia while admitted -Will start CF of 50 ACHS for now, hold CR and basal insulin for now -HH/DMII diet -Adjust regimen as needed (7) Presence of vena cava filter: Plan: -Reason for no anticoagulation with her hx of previous DVT (8) HTN (hypertension): Plan: -Stable -Continue HCTZ and lisinopril (9) Hypothyroidism: Plan: -Continue levothyroxine (10) Stroke: Plan: -Continue aspirin Plan The patient was discussed with Dr. 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 England, HTN, hypothyroidism, and chronic hypomagnesemia who presented to the [facility] ED on 03/22/23 with increased confusion and abdominal pain. She was noted to be hypertensive at 170/84 but otherwise stable in the ED. Labs were significant for a leukocytosis of 12 with neutrophil predominance of 10, glucose of 289, mag of 1.4, lipase of 118, and UA consistent with UTI. CT of the head/brain wo con and chest xray were read as negative for acute findings. CT of the abd/pelvis w/IV con was read as 1. Bladder wall thickening with adjacent fat stranding. This favors a cystitis. Recommend correlation with urinalysis. 2. There is also urothelial thickening and fat stranding at the bilateral renal collecting systems and ureters. This favors a pyelitis/pyelonephritis. This should also be assessed with urinalysis. 3. Redemonstration of the 1.5 cm left renal lesion which is concerning for renal cell carcinoma. 4. No bowel wall thickening or obstruction.. Prior to admission the patient was given a dose of ceftriaxone, 1L NSS, 2 bags of 1gm IV mag sulfate, 20 mg IV famotidine, and her am dose of HCTZ. At the time of the exam the patient was lying in bed in no acute distress with her sister sitting bedisde. History was mainly obtained from the patient's sister and notes sent in by the patient's daughter who is currently at work. The patient has reportedly been more confused over the past 48 hours and complaining of generalized pain. Her urine was noted to be cloudy at home and she has had decreased oral intake over the past 48 hours. She did not have her am medications prior to ED arrival. The patient states that she feels well. When asked about pain she states that she developed suprapubic pain this am and had one episode of nausea and non-bloody emesis. They deny recent falls, aspiration, or fevers, When asked, the patient denies headache, chest pain, cough, diarrhea, hematuria, melena. Please refer to Dr. Brooks's attestation for any changes to the treatment plan Allergies Allergy/AdvReac Type Severity Reaction Status Date / Time cefoxitin AdvReac Mild vomiting Verified 03/10/23 20:23 Home Medications Medication Instructions Recorded Confirmed Type levothyroxine 25 mcg tablet 25 mcg PO DAILY 03/31/21 03/22/23 History blood sugar diagnostic (OneTouch 03/13/22 03/13/22 History Verio test strips) lancets 33 gauge ([facility] 03/13/22 03/13/22 History Lancets) lisinopril 10 mg tablet 10 mg PO PM 03/13/22 03/22/23 History cholecalciferol (vitamin D3) 10 10 mcg PO DAILY 06/17/22 03/22/23 History mcg (400 unit) capsule (Vitamin D3) cyanocobalamin (vitamin B-12) 500 500 mcg sublingual QAM 06/17/22 03/22/23 History mcg sublingual tablet metformin 500 mg tablet 500 mg PO BID 06/17/22 03/22/23 History acetaminophen 500 mg tablet 1,000 mg PO Q8H PRN PAIN/FEVER 12/07/22 03/22/23 History aspirin 81 mg tablet,delayed 81 mg PO DAILY 03/10/23 03/22/23 History release gabapentin 100 mg capsule 100 mg PO 2XD 03/10/23 03/22/23 History glipizide 10 mg tablet, extended 10 mg PO DAILY 03/10/23 03/22/23 History release 24 hr polyethylene glycol 3350 17 17 g PO DAILY 03/10/23 03/22/23 History gram/dose oral powder (Miralax) hydrochlorothiazide 25 mg tablet 25 mg PO QAM 30 days #30 tabs 03/15/23 03/22/23 Rx Past Med/Surg History Medical History Osteoarthritis Hypothyroidism History of anemia Peripheral neuropathy Noted to bilateral hands Hx of deep venous thrombosis JULY 2021>VENA CAVA FILTER INSERTED BY DR. 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 TIA (transient ischemic attack) 2010? No residual issues Diabetes mellitus, type 2 Well controlled and stable Hgb A1C 7.7 on 06/16/22 History of COVID-19 12/2019 & 02/2021>RESOLVED Hypertension Surgical History History of total knee replacement RT History of colonoscopy History of cholecystectomy History of tooth extraction History of tonsillectomy History of cataract surgery RT/LEFT H/O craniotomy LARRY>06/01/21 *EMERGENCY CRANIOTOMY Family History Father Myocardial infarction Other Family history non-contributory No family history of adverse response to anesthesia Social History Smoking Status: Never smoker Second Hand Exposure: No; Preferred Language: Ukrainian Communication Ability: CONFUSED Communication Ability Comment: @BASELINE A/O AND NO COMMUNICATION ISSUES [employer] Bench Required: No Beliefs That Will Affect Care: None marital status: / Current Living Situation: Family Current Living Situation Comment: WITH DAUGHTER How many Children do You have: 2 Feels Safe at Home: Yes Assistive Devices: Walker Physical Exam Physical Exam: Physical Exam: General: In no acute distress, stated age, well-nourished, good hygiene HEENT: Normocephalic, atraumatic, no scleral icterus, pupils around round, symmetrical, and reactive to light, moist mucus membranes, trachea midline, no thyromegaly Chest/Pulm: No respiratory distress, symmetrical chest expansion, clear breath sounds throughout Cardiac: RRR, no murmurs noted Abdomen: Negative for ascites and bruising, normoactive bowel sounds, soft, mild tender to palpation in the suprapubic region but otherwise non-tender : Negative CVA tenderness BL Musculoskeletal: Symmetrical and without signs of acute trauma, slight left sided weakness since previous CVA is at baseline Extremities: Radial, dorsalis pedis, and posterior tibial pulses are intact and symmetrical, no edema noted in the BL LE's Skin: Warm, dry, no rashes , lesions, or scars noted Neuro: Alert and oriented to person only at this time, no focal defects, CN II-XII tested and intact, chronic baseline left sided weakness Psych: No acute distress, calm and cooperative during the exam Results & Data Results & Data Vital Signs (Past 12 Hours) Vital Signs Temp Pulse Resp BP Pulse Ox O2 Del Method 03/22/23 11:30 183/93 H 03/22/23 11:30 78 24 93 03/22/23 11:00 77 20 96 03/22/23 11:00 158/88 H 03/22/23 10:30 174/102 H 03/22/23 10:30 79 29 H 03/22/23 10:01 77 27 H 95 03/22/23 10:01 191/83 H 03/22/23 10:00 78 25 H 95 03/22/23 09:30 142/98 H 03/22/23 09:30 77 24 95 03/22/23 09:08 78 13 93 03/22/23 08:37 81 24 03/22/23 08:37 182/78 H 03/22/23 08:30 183/91 H 03/22/23 08:30 81 24 95 03/22/23 08:19 86 03/22/23 08:13 85 21 95 03/22/23 08:02 36.8 C 88 16 170/84 H 98 Room Air Laboratory Results Abnormal lab results 03/22/23 03/22/23 03/22/23 Range/Units 08:24 09:13 10:42 WBC 12.37 H (4.8-10.8) K/ul RBC 4.06 L (4.20-5.40) M/uL Hct 36.7 L (37.0-47.0) % Neut # (Auto) 10.39 H (1.40-6.50) K/uL Lymph # (Auto) 0.98 L (1.20-3.40) K/uL Mitchell # (Auto) 0.79 H (0.11-0.59) K/uL Sodium 135 L (136-145) mmol/L BUN 24 H (6-23) mg/dl BUN/Creatinine Ratio 21.4 H (10-20) Glucose 289 H (70-99(Fasting)) mg/dl Magnesium 1.4 L (1.7-2.4) mg/dl AST 12 L (13-39) U/L Lipase 118 H (11-82) U/L Urine Protein 1+ H (Negative) Urine Glucose (UA) 2+ H (Negative) Urine Blood Trace-lysed H (Negative) Urine Nitrite Positive A (Negative) Ur Leukocyte Esterase 1+ H (Negative) Urine WBC >30 H (0-5) /hpf Urine Bacteria 3+ H (Negative) Diagnostic Findings Chest X-Ray 03/22/23 08:38 XR chest 1V portable HISTORY: cough, weak, flu COMPARISON: Chest 03/10/2023. FINDINGS: No focal lung consolidations to suggest a pneumonia.. No evidence for pulmonary edema. The cardiac silhouette is top normal in size. Mild bibasilar interstitial thickening persists. This is likely chronic. No pneumothorax. No pleural effusions. No acute fractures identified. There are calcifications within the aortic knob. IMPRESSION: No significant change compared to the prior study. No acute process. ACT 112: Negative or not required by law. Electronically signed by: Chino Worthy M.D. 03/22/2023 9:[address] 03/22/23 08:[address] DOSE: 859.95 mGy.cm HISTORY: confusion TECHNIQUE: Multiaxial CT images of the head were performed without the use of intravenous contrast. Automated exposure control was utilized for this study. A dose lowering technique was utilized adhering to the principles of ALARA. Comparison: Head CT 03/10/2023. Findings: The paranasal sinuses and mastoid air cells are clear. The calvarium and skull base are intact. There is no mass, hematoma, midline shift, acute infarct. White matter hypodensity is nonspecific but suggestive of microvascular ischemic change. The ventricles and sulci demonstrate mild age-related involutional changes. Focal area of encephalomalacia again noted within the right parietal/occipital junction and right frontal lobe. This favors old infarcts.. This remains unchanged. Trace chronic subdural fluid collections remain stable. Impression: No significant change compared to the prior study. No acute intracranial abnormality. ACT 112: Negative or not required by law. Electronically signed by: Chino Worthy M.D. 03/22/2023 9:42 AM Abdomen/Pelvis CT 03/22/23 10:[address] WITH IV CONTRAST CT DOSE: 1311.1 mGy.cm HISTORY: nausea, back pain, elevated lipase TECHNIQUE: Multiaxial CT images of the abdomen and pelvis were performed following the use of intravenous contrast. A dose lowering technique was utilized adhering to the principles of ALARA. COMPARISON STUDY: Abdomen and pelvis CT 12/07/2022. FINDINGS: Mild dependent changes seen at the lung bases. No pneumoperitoneum. No pneumatosis. No acute fractures. The heart remains mildly enlarged. Advanced coronary artery calcifications again noted. Prior cholecystectomy. No hepatic or splenic masses. Mild hepatic steatosis. The pancreas and right adrenal gland unremarkable. There is a stable 1 cm left adrenal gland nodule. Calcifications within the renal sinuses favor vascular calcifications. No ureteral stones. There is mild fullness within the left renal collecting systems without jazmine hydronephrosis. This is similar to the prior study. There is mild urothelial thickening within the bilateral renal collecting systems and ureters with mild periureteral fat stranding. This is also mild bladder wall thickening with adjacent fat stranding. There is again noted a 1.5 cm left renal lesion on image 137. This is concerning for solid renal mass such as a renal cell carcinoma. Otherwise, the kidneys enhance normally. An IVC filter is noted. Moderate calcified plaque within the abdominal aorta. There is a 3.5 cm juxtarenal abdomi nal aortic aneurysm, unchanged. No retroperitoneal or pelvic lymphadenopathy. No pelvic free fluid. The uterus and ovaries are unremarkable. A few colonic diverticula. No evidence for acute diverticulitis. No bowel wall thickening or obstruction. The appendix is reportedly surgically absent. IMPRESSION: 1. Bladder wall thickening with adjacent fat stranding. This favors a cystitis. Recommend correlation with urinalysis. 2. There is also urothelial thickening and fat stranding at the bilateral renal collecting systems and ureters. This favors a pyelitis/pyelonephritis. This should also be assessed with urinalysis. 3. Redemonstration of the 1.5 cm left renal lesion which is concerning for renal cell carcinoma. 4. No bowel wall thickening or obstruction. 5. Additional findings as described above. ACT 112: Positive. There are findings on this exam that require communication between the performing entity and the patient following Patient Test Result Information Act ([place] Act 112) guidelines. Electronically signed by: Chino Worthy M.D. 03/22/2023 11:43 AM ECG Additional Comments: Normal sinus rhythm Left anterior fascicular block Poor R wave progression, consider anterior [place] vs. lead placement vs. LVH Abnormal ECG When compared with ECG of 10-MAR-2023 17:32, No significant change was found Confirmed by Gerardo Potts ([id number]) on 03/22/2023 1:01:46 PM Code Status & VTE Plan Code Status Full code VTE Prophylaxis Plan VTE Prophylaxis will be ordered: Yes Supervising Physician Co-Signing Physician Notes Patient seen and examined, chart reviewed, case discussed with Coy Lopez PA-C and I agree with the assessment and plan as above except as otherwise noted Labs and images reviewed Catherine is a pleasant but confused 78-year-old female with a history of type 2 diabetes mellitus, prior traumatic SDH, CVA, bilateral PEs s/p IVC filter placement, hypertension, hypothyroidism who presents with increased confusion and UA suspicious for a UTI. CT shows bladder wall thickening and adjacent fat stranding consistent with this. At bedside assessment she is pleasantly confused but in no acute distress. Abdomen is soft and nontender. Agree with treatment with Rocephin as above, UCx for speciation. No history of resistant infections. Patient does have a 1.5 cm left renal lesion concerning for RCC. Reviewed this with the patient and her sister who is at the bedside, update has been given to patient's daughter by phone as well. Patient will have outpatient follow-up with urology for this. Agree with assessment and management as above. PG Care Time/CCT Total # of Minutes Spent Total Time Spent with Patient: Total time spent is greater than 50% in coordination of care (as documented) at patient's floor/unit and/or counseling patient: Coding [place] [address] INT INP/OBS CARE 3/75MIN Patient Type Established Medical Decision Making High Complexity Diagnoses Confusion R41.0 UTI (urinary tract infection) N39.0 Renal lesion N28.9 Generalized weakness R53.1 Hypomagnesemia E83.42 Diabetes mellitus, type 2 E11.9 Presence of vena cava filter Z95.828 HTN (hypertension) I10 Hypothyroidism E03.9 Stroke I63.9
[2023-03-22] MEDS ORDERED: DEXTROSE 50% 50 ML SYRINGE IV PRN (13:17)
[2023-03-22] MEDS ORDERED: GLUCAGON FOR INJ 1 MG VIAL SQ PRN (13:17)
[2023-03-22] MEDS ORDERED: CARBOHYDRATES FOR HYPOGLYCEMIA PO PRN (13:17)
[2023-03-22] MEDS ORDERED: GLUCOSE 40% GEL 15 GM TUBE PO PRN (13:17)
[2023-03-22] MEDS ORDERED: GLUCOSE 10 TAB/TUBE PO PRN (13:17)
[2023-03-22] MEDS: ACETAMINOPHEN 325 MG TAB PO STA (13:56)
[2023-03-22] MEDS: ENOXAPARIN INJ 40 MG/0.4 ML SYR SQ SCH (17:22)
[2023-03-22] MEDS: INSULIN ASPART PER UNIT CHARGE SC SCH (18:00)
[2023-03-22] MEDS ORDERED: OLANZapine ZYDIS 5 MG ORALLY DIS. TAB PO PRN (18:33)
[2023-03-22] MEDS: lisinopril 10 MG TAB PO SCH (21:33)
[2023-03-22] MEDS: GABAPENTIN 100 MG CAP PO SCH (21:33)
[2023-03-22] MEDS: diphenhydrAMINE Capsule 25 MG CAP PO PRN (23:42)
[2023-03-23] MEDS: LEVOTHYROXINE SODIUM 25 MCG TABLET PO SCH (06:09)
[2023-03-23 06:33] LABS: Basophils # (auto) 0.04 K/uL (0.00-0.20); Basophils % (auto) 0.6 %; Eosinophils # (auto) 0.19 K/uL (0.00-0.50); Eosinophils % (auto) 2.8 %; Hematocrit (blood only) 32.2 % (37.0-47.0); Immature Granulocytes # (auto) 0.03 K/uL (0.01-0.20); Immature Granulocytes % (auto) 0.4 %; Lymphocytes # (auto) 1.21 K/uL (1.20-3.40); Lymphocytes % (auto) 18.1 %; Mean Corpuscular Hemoglobin 31.1 pg (25.0-34.0); Mean Corpuscular Hgb Conc 34.2 g/dL (32.0-36.0); Mean Platelet Volume 9.8 fL (9.4-12.4); Monocytes % (auto) 10.4 %; Neutrophils # (auto) 4.53 K/uL (1.40-6.50); Neutrophils % (auto) 67.7 %; Platelet Count 241 K/uL (130-400); RDW Coefficient of Variation 12.7 % (11.5-14.5); RDW Standard Deviation 42.2 fL (36.4-46.3); Red Blood Count 3.54 M/uL (4.20-5.40)
[2023-03-23 06:45] LABS: BUN Creatinine Ratio 15.6 (10-20); Calcium 8.6 mg/dl (8.6-10.3); Creatinine Clr Calc Pharmacy 38.7 ml/min; Est GFR (African American) 46.4 ml/min; Potassium 4.4 mmol/L (3.5-5.1)
--- NOTE | 2023-03-23 07:56 | Hospitalist Progress Note ---
Date of Service March 23, 2023 Assessment & Plan (1) Confusion: Plan: Presented to the ED from home due to increased confusion, generalized weakness, and abdominal pain over the past 48 hours CTAP w/ possible pyelonephritis/pyelitis UA appeared infected, +CVA tenderness/back pain reported to myself 03/23 (but improving per patient) Metabolic encephalopathy, suspected 2nd to UTI/pyelitis Appearing back to baseline per family in room Ceftriaxone IV continued Urine cx w/ GRAM NEGATIVE bacilli on preliminary -- monitor WBC normalized on repeat. Afebrile IVF LR @ 125cc/hr DISCONTINUED Monitor I&Os, urine output Supportive care, antiemetics prn, added tylenol prn as well if needed DVT proph: lovenox SQ while inpatient PT/OT consulted *Updated daughter in room afternoon 03/23. -Reports she had asked them to list HCTZ as allergy as she stopped this in her mom at home due to suspected leading to UTI/kidney damage. Discussed was given this morning but will place further on hold. She also has a little bit of sinus congestion, ?lisinopril use. Will monitor/may need alternative. Did dc IVF and will discontinue further HCTZ and monitor her BP off such. -Discussed UTI -- patient frequently sits in depends. Discussed proper hygiene/consideration for purewick for use at home. Patient does also endorse wiping front to back and I suspect this is also contributing. With regards to her urinary incontinence, was on oxybuytnin in the past but re-tried and mental status worsened and they stopped this. Would not resume. -Daughter inquiring about low magnesium -- reports has been giving it to her mom in her coffee in AM and increased to BID and had loose stools. Discussed monitoring in AM but if stable/low should be on SLOW MAGNESIUM. -Was given benadryl to sleep last night (tylenol PM at home - discussed to avoid) - did alright with such. Underlying anxiety -- discussed trial low dose vistaril 10mg for tonight and if does ok then could continue at dc but monitor for any increased confusion however has trialed benadryl. - DM II -- has taken her mom to [place], Dr Jones in the past as on PO antihyperglycemics in the past and her BSG is frequently 200s in the mornings. Repeat A1c added for AM and will monitor. Did adjust SSI this afternoon for continued highs - Eventual goal is to return home. THey have home therapy through PT/supplies they need. Discussed will likely be 24-48 hours but will attempt to get her home w/ family as requested. (2) UTI (urinary tract infection): Plan: Urine cx w/ gram negative bacilli at present (no blood cultures taken to note). Patient with depends/wet at baseline w/ urinary incontinence. Wiping front to back. Education provided. Discussed dimitri Continues on Ceftriaxone, f/u urine cx/sensitivites Monitor post void residuals to ensure she is not retaining prior to DC -Transition to PO abx when able/sensitivities resulted (3) Renal lesion: Plan: Noted to have a 1.5 cm left renal lesion which is concerning for renal cell carcinoma. Called and spoke to patient's daughter, Katie Henao, who confirmed they did not know about this lesion and urology was spoken to on admission and they are to arrange outpt f/u prior to discharge F/u destination specialist in AM 03/24 to ensure f/u appointment made at discharge (4) Generalized weakness: Plan: Likely due to her UTI, low magnesium, and dehydration. Cannot r/u underlying renal cell carcinoma as above given renal lesion on CTAP Reports feeling improved since abx tx, family reports to her baseline PT/OT consults in place, fall precautions, q15min checks (5) Hypomagnesemia: Plan: 1.4 on admit, IV replacement ordered and normalized to 2.0 on AM labs Chronic issue. Will monitor labs in AM but can consider PO replacement at dc to ensure staying stable -- patient daughter has been giving OTC magnesium supplementation at home and suspect need for SLOW Mag at dc. (6) Diabetes mellitus, type 2: Plan: A1c 9.2 in December 2022 Antihyperglycemics held on admission (prior admit w/ hypoglycemia while inpatient). On glipizide 10mg, metformin 500mg BID at baseline BSG AC/HS, DM diet Will check A1c w/ AM labs but suspect needing better DM control given A1c >9 on prior check and not on injectable - and as above, daughter reporting BSG frequently in 200s in AM and has taken to [place] specialist in the past. Will tighten parameters for elevated POC glucose and monitor, add carb ratio (patient wanting cheeseburger for supper, call to kitchen/changed diet for now to remove AHA component). Suspect from IV mag replacement as well (7) Presence of vena cava filter: Plan: Reason for no anticoagulation with her hx of previous DVT. 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 PT/OT consults pending however as discussed w/ daughter this afternoon, eventual goal is to return home w/ continued therapy/speech as already in place Admission and Anticipated Discharge Date Admission Date: March 22, 2023 Subjective EVal around noon, sister in law and brother at bedside. Patient sitting up in the chair, doing well. Reports improvement in symptoms/family believes back to her usual baseline. Discussed urinary tract infection and monitoring cultures. Decent PO intake reported but she does note she is sick of the food/continued fish. Would like ham and potatoes or hamburger. Discussed will call kitchen and have them provide cheeseburger for this evening per request. No fever/chills, chest pain, shortness of breath reported. Does have some low back pain but reports that is improving. Therapy evaluations to be undertaken, continued inpatient stay. Physical Exam 2 Physical Exam: 78 yo female sitting up in recliner sandy r, NAD, family in room Head atraumatic, normocephalic, mmm, trachea midline Resp: even/unlabored, no w/c/r, on room air CV: RRR, no significant m/r/g, trace pedal edema, no calf tenderness GI: +BS, soft/NT : no juarez, +?slight R CVA tenderness MSK/Neuro: nonfocal, no slurred speech/facial droop, following commands as able Psych: alert to person/place, not events/time, at baseline per family in room, wanting a cheeseburger Results & Data Results & Data Vital Signs (Past 12 Hours) Vital Signs Temp Pulse Pulse Resp BP Pulse Ox O2 Del Method 03/23/23 06:52 36.8 C 71 16 121/70 95 Room Air 03/23/23 03:01 36.6 C 68 18 116/60 96 Room Air 03/22/23 23:11 36.9 C 81 18 168/93 H 93 Room Air 03/22/23 22:00 76 03/22/23 19:56 36.8 C 82 18 169/81 H 97 Room Air Laboratory Results 03/23/23 06:00 03/23/23 06:00 PG Care Time/CCT Total # of Minutes Spent Total Time Spent with Patient: Total time spent is greater than 50% in coordination of care (as documented) at patient's floor/unit and/or counseling patient: Coding Level of Care Code 57814 SUB INP/OBS CARE 3/50MIN Diagnoses Confusion R41.0 UTI (urinary tract infection) N39.0 Renal lesion N28.9 Generalized weakness R53.1 Hypomagnesemia E83.42 Diabetes mellitus, type 2 E11.9 Presence of vena cava filter Z95.828 HTN (hypertension) I10 Hypothyroidism E03.9 Stroke I63.9
[2023-03-23] MEDS: ASPIRIN 81 MG ECTAB PO SCH (08:09)
[2023-03-23] MEDS: POLYETHYLENE (MIRALAX) 17 GM PACK PO SCH (08:09)
[2023-03-23] MEDS: hydroCHLOROthiazide 25 MG TAB PO SCH (08:09)
[2023-03-23] MEDS: MAGNESIUM CHLORIDE W/CALCIUM 64MG DELAYED REL TAB PO SCH (08:10)
[2023-03-23] MEDS: cefTRIAXone SODIUM 2,000 MG in DEXTROSE 5 % MINI-B 50 ML IV SCH (12:54)
[2023-03-23] MEDS ORDERED: ACETAMINOPHEN 500 MG TAB PO PRN (13:11)
[2023-03-23] MEDS: hydrOXYzine HCl 10 MG TAB PO SCH (20:11)
--- NOTE | 2023-03-24 07:34 | Hospitalist Progress Note ---
Date of Service March 24, 2023 Assessment & Plan (1) Confusion: Plan: Presented to the ED from home due to increased confusion, generalized weakness, and abdominal pain over the past 48 hours CTAP w/ possible pyelonephritis/pyelitis UA appeared infected, +CVA tenderness/back pain reported to myself 03/23 (but improving per patient) Metabolic encephalopathy, suspected 2nd to UTI/pyelitis Appearing back to baseline per family in room 03/23 Ceftriaxone IV WBC normalized on repeat. Afebrile Urine cx w/ Ecoli, pansensitive - can plan to transition to PO in am but will need upper urinary coverage given pyelitis/possible pyelo on admission however cautious in patient w/ hx SDH and confusion at times/dementia Given benadryl 03/22 to help w/ sleep. Patient w/ anxiety at baseline per daughter in room 03/23 and discussed visatril 10mg HS which was provided however patient did appear to get rest. Will see about continuing this scheduled or if needed A1c8.1, glargine x 1 this morning, pharmacy consulted for glycemic management/apprecite recs/assist Image Scientist to 1.08, holding HCTZ. BP 167/80 and will monitor off this for now/may need additional agent but will monitor. Remains on her lisinopril DVT proph: lovenox SQ while inpatient PT/OT consulted -- family would like patient to return home, they have therapy/speech/supplies at home Planning likely dc in next 24-48 hours (2) UTI (urinary tract infection): Plan: Urine cx w/ gram negative bacilli at present (no blood cultures taken to note). Patient with depends/wet at baseline w/ urinary incontinence. Wiping front to back. Education provided. Discussed dimitri Continues on Ceftriaxone, f/u urine cx/sensitivites Monitor post void residuals to ensure she is not retaining prior to DC -Transition to PO abx when able/sensitivities resulted - planning to transitoin 03/25 (3) Renal lesion: Plan: Noted to have a 1.5 cm left renal lesion which is concerning for renal cell carcinoma. Called and spoke to patient's daughter, Katie Henao, who confirmed they did not know about this lesion and urology was spoken to on admission and they are to arrange outpt f/u prior to discharge F/u hide buffer to ensure f/u appointment made at discharge. consult placed to ensure made (4) HTN (hypertension): Plan: Stable, 145/69 Continue lisinopril however placed further HCTZ on hold/discontinue for now -- daughter reports had taken her off such in the past couple weeks when dc with the flu to prevent worsened renal failure BP currently 167/80 off HCTZ. Monitor for now but could consider adding low dose amlodipine (5) Generalized weakness: Plan: Likely due to her UTI, low magnesium, and dehydration. Cannot r/u underlying renal cell carcinoma as above given renal lesion on CTAP Reports feeling improved since abx tx, family reports to her baseline PT/OT consults in place, fall precautions, q15min checks (6) Hypomagnesemia: Plan: 1.4 on admit, IV replacement ordered and normalized to 2.0 on AM labs -- repeat 1.8 and will monitor in AM to ensure stable --> on ONCE a day SLOW mag -- consider increasing to BID if needed (7) Diabetes mellitus, type 2: Plan: A1c 9.2 in December 2022 Antihyperglycemics held on admission (prior admit w/ hypoglycemia while inpatient). On glipizide 10mg, metformin 500mg BID at baseline BSG AC/HS, DM diet Will tighten parameters for elevated POC glucose and monitor, add carb ratio (patient wanting cheeseburger for supper, call to kitchen/changed diet for now to remove AHA component). Suspect from IV mag replacement as well Glargine 5u x 1 for this morning, A1c 8.5. Likely needing additional control at dc (8) Presence of vena cava filter: Plan: Reason for no anticoagulation with her hx of previous DVT. 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 She also has a little bit of sinus congestion, ?lisinopril use. Will monitor/may need alternative. Did dc IVF and will discontinue further HCTZ and monitor her BP off such. -Discussed UTI -- patient frequently sits in depends. Discussed proper hygiene/consideration for purewick for use at home. Patient does also endorse wiping front to back and I suspect this is also contributing. With regards to her urinary incontinence, was on oxybuytnin in the past but re-tried and mental status worsened and they stopped this. Would not resume. -Daughter inquiring about low magnesium -- reports has been giving it to her mom in her coffee in AM and increased to BID and had loose stools. Discussed monitoring in AM but if stable/low should be on SLOW MAGNESIUM. -Was given benadryl to sleep last night (tylenol PM at home - discussed to avoid) - did alright with such. Underlying anxiety -- discussed trial low dose vistaril 10mg for tonight and if does ok then could continue at dc but monitor for any increased confusion however has trialed benadryl. - DM II -- has taken her mom to [place], Dr Jones in the past as on PO antihyperglycemics in the past and her BSG is frequently 200s in the mornings. Repeat A1c added for AM and will monitor. Did adjust SSI this afternoon for continued highs - Eventual goal is to return home. THey have home therapy through PT/supplies they need. Discussed will likely be 24-48 hours but will attempt to get her home w/ family as requested. Plan continued inpatient stay, IV abx, f/u urine cx. PT/OT consults pending however as discussed w/ daughter this afternoon, eventual goal is to return home w/ continued therapy/speech as already in place Admission and Anticipated Discharge Date Admission Date: March 22, 2023 Subjective Eval this morning, resting in bed, family/friend at bedside. Doesn't think she got good sleep but was resting soundly this morning. Discussed urine cx/will plan to transition to oral antibiotics. No fever/chills, chest pain/shortness of breath. Decent appetite but stated the cheeseburger last night was TERRIBLE. She plans on chicken and meatloaf for today. Renal function stable, WBC wnl. Afebrile. Questions/concerns addressed at this time. Hopefully will be able to get her home in next 24-48 hours with family. Will plan to call and update daughter Katie this afternoon regarding plan and for any questions/concerns. Physical Exam Physical Exam: 78 yo female resting in bed, friend at [facility] (caregiver at home), sleepy this morning Head atraumatic, normocephalic, mmm, trachea midline Resp: even/unlabored, no w/c/r, on room air CV: RRR, no significant m/r/g, trace pedal edema, no calf tenderness GI: +BS, soft/NT : no juarez, no further overt CVA tenderness MSK/Neuro: nonfocal, no slurred speech/facial droop, following commands as able Psych: alert to person/place, not events/time, at baseline per family in room, wanting a cheeseburger Results & Data Results & Data Vital Signs (Past 12 Hours) Vital Signs Temp Pulse Pulse Resp BP Pulse Ox O2 Del Method 03/24/23 07:00 64 03/24/23 04:23 36.8 C 72 18 138/68 95 Room Air 03/23/23 22:56 36.7 C 78 18 134/80 97 Room Air 03/23/23 21:33 77 Laboratory Results 03/24/23 03/24/23 03/23/23 Range/Units 08:12 06:54 20:16 WBC 5.91 (4.8-10.8) K/ul RBC 3.87 L (4.20-5.40) M/uL Hgb 11.9 L (12.0-16.0) g/dl Hct 34.9 L (37.0-47.0) % MCV 90.2 (80.0-100.0) fL MCH 30.7 (25.0-34.0) pg MCHC 34.1 (32.0-36.0) g/dL RDW Std Deviation 42.1 (36.4-46.3) fL RDW Coeff of Mihaela 12.8 (11.5-14.5) % Plt Count 247 (130-400) K/uL MPV 10.5 (9.4-12.4) fL Immature Gran % (Auto) 0.5 % Neut % (Auto) 69.9 % Lymph % (Auto) 18.1 % Hayes % (Auto) 7.3 % Eos % (Auto) 3.7 % Baso % (Auto) 0.5 % Neut # (Auto) 4.13 (1.40-6.50) K/uL Lymph # (Auto) 1.07 L (1.20-3.40) K/uL Hayes # (Auto) 0.43 (0.11-0.59) K/uL Eos # (Auto) 0.22 (0.00-0.50) K/uL Baso # (Auto) 0.03 (0.00-0.20) K/uL Immature Gran # (Auto) 0.03 (0.01-0.20) K/uL Sodium 136 (136-145) mmol/L Potassium 4.5 (3.5-5.1) mmol/L Chloride 105 (98-107) mmol/L Carbon Dioxide 25 (21-32) mmol/L Anion Gap 6 (3-11) BUN 26 H (6-23) mg/dl Creatinine 1.08 (0.6-1.2) mg/dl Est Cr Clr Drug Dosing 45.9 ml/min Est GFR ( Amer) 56.9 ml/min Est GFR (Non-Af Amer) 49.1 ml/min BUN/Creatinine Ratio 24.1 H (10-20) Glucose 205 H (70-99(Fasting)) mg/dl POC Glucose 206 H 245 H (70-99) mg/dl Estimat Average Glucose 197 mg/dl Hemoglobin A1c 8.5 H (4.5-5.6) % Calcium 9.1 (8.6-10.3) mg/dl Magnesium 1.8 (1.7-2.4) mg/dl 03/23/23 03/23/23 Range/Units 17:18 12:13 WBC (4.8-10.8) K/ul RBC (4.20-5.40) M/uL Hgb (12.0-16.0) g/dl Hct (37.0-47.0) % MCV (80.0-100.0) fL MCH (25.0-34.0) pg MCHC (32.0-36.0) g/dL RDW Std Deviation (36.4-46.3) fL RDW Coeff of Mihaela (11.5-14.5) % Plt Count (130-400) K/uL MPV (9.4-12.4) fL Immature Gran % (Auto) % Neut % (Auto) % Lymph % (Auto) % Hayes % (Auto) % Eos % (Auto) % Baso % (Auto) % Neut # (Auto) (1.40-6.50) K/uL Lymph # (Auto) (1.20-3.40) K/uL Hayes # (Auto) (0.11-0.59) K/uL Eos # (Auto) (0.00-0.50) K/uL Baso # (Auto) (0.00-0.20) K/uL Immature Gran # (Auto) (0.01-0.20) K/uL Sodium (136-145) mmol/L Potassium (3.5-5.1) mmol/L Chloride (98-107) mmol/L Carbon Dioxide (21-32) mmol/L Anion Gap (3-11) BUN (6-23) mg/dl Creatinine (0.6-1.2) mg/dl Est Cr Clr Drug Dosing ml/min Est GFR ( Amer) ml/min Est GFR (Non-Af Amer) ml/min BUN/Creatinine Ratio (10-20) Glucose (70-99(Fasting)) mg/dl POC Glucose 271 H 247 H (70-99) mg/dl Estimat Average Glucose mg/dl Hemoglobin A1c (4.5-5.6) % Calcium (8.6-10.3) mg/dl Magnesium (1.7-2.4) mg/dl PG Care Time/CCT Total # of Minutes Spent Total Time Spent with Patient: Total time spent is greater than 50% in coordination of care (as documented) at patient's floor/unit and/or counseling patient: Coding Level of Care Code 92845 SUB INP/OBS CARE 3/50MIN Diagnoses Confusion R41.0 UTI (urinary tract infection) N39.0 Renal lesion N28.9 HTN (hypertension) I10 Generalized weakness R53.1 Hypomagnesemia E83.42 Diabetes mellitus, type 2 E11.9 Presence of vena cava filter Z95.828 Hypothyroidism E03.9 Stroke I63.9
[2023-03-24 07:59] LABS: BUN Creatinine Ratio 24.1 (10-20); Calcium 9.1 mg/dl (8.6-10.3); Creatinine Clr Calc Pharmacy 45.9 ml/min; Est GFR (African American) 56.9 ml/min; Est GFR (Non-African American) 49.1 ml/min; Magnesium 1.8 mg/dl (1.7-2.4); Potassium 4.5 mmol/L (3.5-5.1)
[2023-03-24 08:16] LABS: Hematocrit (blood only) 34.9 % (37.0-47.0); Hemoglobin 11.9 g/dl (12.0-16.0); Mean Corpuscular Hemoglobin 30.7 pg (25.0-34.0); Mean Corpuscular Hgb Conc 34.1 g/dL (32.0-36.0); Mean Corpuscular Volume 90.2 fL (80.0-100.0); Mean Platelet Volume 10.5 fL (9.4-12.4); Platelet Count 247 K/uL (130-400); RDW Coefficient of Variation 12.8 % (11.5-14.5); RDW Standard Deviation 42.1 fL (36.4-46.3); Red Blood Count 3.87 M/uL (4.20-5.40); White Blood Count 5.91 K/ul (4.8-10.8)
[2023-03-24 08:17] LABS: Basophils # (auto) 0.03 K/uL (0.00-0.20); Basophils % (auto) 0.5 %; Eosinophils # (auto) 0.22 K/uL (0.00-0.50); Eosinophils % (auto) 3.7 %; Immature Granulocytes # (auto) 0.03 K/uL (0.01-0.20); Immature Granulocytes % (auto) 0.5 %; Lymphocytes # (auto) 1.07 K/uL (1.20-3.40); Lymphocytes % (auto) 18.1 %; Monocytes # (auto) 0.43 K/uL (0.11-0.59); Monocytes % (auto) 7.3 %; Neutrophils # (auto) 4.13 K/uL (1.40-6.50); Neutrophils % (auto) 69.9 %
[2023-03-24 08:29] LABS: Estimated Average Glucose 197 mg/dl; Hemoglobin A1C 8.5 % (4.5-5.6)
[2023-03-24] MEDS: LANTUS PER UNIT CHARGE SQ ONE ×2 (08:50→12:43)
[2023-03-24] MEDS ORDERED: PHARMACY GLYCEMIC MGMT CONSULT PRN (09:24)
--- NOTE | 2023-03-24 09:45 | Pharmacy Report ---
Pharmacy Glycemic Short Note 2 - Date of Service March 24, 2023 - Glycemic Short BSG Results (Last 24 hours): 03/23/23 03/23/23 03/23/23 12:13 17:18 20:16 Glucose POC Glucose 247 H 271 H 245 H 03/24/23 03/24/23 06:54 08:12 Glucose 205 H POC Glucose 206 H OUTPATIENT ANTIDIABETIC REGIMEN: * Metformin 500 mg PO BIDM * Glipizide 10 mg PO daily HbA1c: 8.5% (03/24/23) ASSESSMENT: * JODY is a 78 year old female who presented to ED with family on 03/22/23 for evaluation of increased confusion, weakness, and decreased intake. Patient was recently discharged from [facility] in February. * Increased confusion possibly related to UTI (urine culture growing E.coli, receiving ceftriaxone currently) * Blood sugars have been elevated since time of admission, pharmacy consulted fo r glycemic management this morning (03/24/23) * Basal dose ordered prior to consult, will likely add more basal later today * Patient originally did not have carb ratio, then carb ratio of 10 was added ye afternoon. Will further tighten Novolog parameters and goal range today. * BSG of 326 mg/dL at lunch, will give one-time IV insulin bolus PLAN FOR INPATIENT GLYCEMIC CONTROL: * Hold outpatient oral diabetes medications * Basal insulin * Lantus 5 units x 1 this morning * Lantus 10 units SC x 1 w/ lunch to equal 15 units today (~0.2 unit/kg) * Bolus insulin * NovoLog per scale ACHS or Q6hrs while NPO * Goal Range: Low 110 mg/dL - High 140 mg/dL * Correction Factor: 25 mg/dL/unit * Nutritional / Prandial insulin per carb ratio of 1 unit per 8 grams CHO consumed
[2023-03-24] MEDS: INSULIN ASPART PER UNIT CHARGE SC SCH (12:44)
[2023-03-24] MEDS: INSULIN HUMAN REGULAR PER UNIT 5 UNITS in SYRINGE 4.95 ML IV ONE (12:51)
[2023-03-25] MEDS: INSULIN ASPART PER UNIT CHARGE SC ONE (02:04)
[2023-03-25 06:49] LABS: Basophils # (auto) 0.04 K/uL (0.00-0.20); Basophils % (auto) 0.5 %; Eosinophils # (auto) 0.24 K/uL (0.00-0.50); Eosinophils % (auto) 2.9 %; Hematocrit (blood only) 36.4 % (37.0-47.0); Hemoglobin 12.5 g/dl (12.0-16.0); Immature Granulocytes # (auto) 0.02 K/uL (0.01-0.20); Immature Granulocytes % (auto) 0.2 %; Lymphocytes # (auto) 1.33 K/uL (1.20-3.40); Lymphocytes % (auto) 16.3 %; Mean Corpuscular Hemoglobin 31.1 pg (25.0-34.0); Mean Corpuscular Hgb Conc 34.3 g/dL (32.0-36.0); Mean Corpuscular Volume 90.5 fL (80.0-100.0); Monocytes % (auto) 6.1 %; Neutrophils # (auto) 6.01 K/uL (1.40-6.50); Platelet Count 282 K/uL (130-400); RDW Coefficient of Variation 12.5 % (11.5-14.5); RDW Standard Deviation 41.1 fL (36.4-46.3); Red Blood Count 4.02 M/uL (4.20-5.40); White Blood Count 8.14 K/ul (4.8-10.8)
[2023-03-25 06:51] LABS: BUN Creatinine Ratio 23.7 (10-20); Calcium 9.1 mg/dl (8.6-10.3); Creatinine Clr Calc Pharmacy 43.8 ml/min; Est GFR (African American) 53.3 ml/min; Magnesium 1.6 mg/dl (1.7-2.4); Potassium 4.5 mmol/L (3.5-5.1)
--- NOTE | 2023-03-25 07:49 | Hospitalist Progress Note ---
Date of Service March 25, 2023 Assessment & Plan (1) Confusion: Plan: Presented to the ED from home due to increased confusion, generalized weakness, and abdominal pain over the past 48 hours CTAP w/ possible pyelonephritis/pyelitis UA appeared infected, +CVA tenderness/back pain reported to myself 03/23 (but improving per patient) Metabolic encephalopathy, suspected 2nd to UTI/pyelitis IMPROVED/Resolved, some delirium at times Urine cx w/ Ecoli, pansensitive IV abx w/ Ceftriaxone (got 3 doses) --> Ciprofloxacin 500mg BID x 2 additional days to complete course given concerns for pyelo/upper urinary tract infection given +CVA tenderness previously which has resolved Vistaril placed on hold, was given benadryl 25mg PO last night to help with sleep. Decreased to 12.5mg to prevent confusion from anticholinergic effects A1c 8.1, pharmacy consulted for ongoing hyperglycmia (daughter was bringing candy/snacks to note per nursing) however suspect patient needing more mealtime coverage/frequent checks at home and likely insulin w/ meals. DM educator consulted, will see about her current needs and ongoing treatment at me. 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 Discussed will monitor at present and consider increasing her lisinopril to BID and monitoring DVT proph: lovenox SQ Will give CM rx for restart home health therapy through [facility]. [facility] dc 03/26 with family if BP/DM controlled (2) UTI (urinary tract infection): Plan: Proper wiping/hygiene encouraged. Does have wet depends at times for hours. Also discussed home purewick to be considered. Hx urinary incontinence and was on oxybuytnin however recently re-trialed w/ dotty and this was stopped. Would not order to prevent worsened confusion Ceftriaxone IV (got 3 doses) Urine cx ecoli pansensitive as above and switched to PO Cipro 03/25 to complete course (done after 03/26 PM dosing) Urology f/u for renal lesion as outlined below (3) HTN (hypertension): Plan: Labile, suspect some aspect of anxiety as driving force when family not present Lisinopril 10mg continued Given amlodipine 5mg PO w/ good response however increased LE edema and daughter against such and will discontinue further and consider increasing her lisinopril to BID (4) Diabetes mellitus, type 2: Plan: A1c 9.2 in December 2022 Antihyperglycemics held on admission (prior admit w/ hypoglycemia while inpatient). On glipizide 10mg, metformin 500mg BID at baseline BSG AC/HS, DM diet Pharmacy consulted for glycemic management BSGs to 350s during lunch 03/24 (candy/snacks brought in by family)--> IV insulin given and tightened SSI Glargine 20u this morning w/ BSG elevated this afternoon and appreciate ongoing assistance from pharmacy DM educator consulted and discussed w/ daughter we may need to have more frequent BSG checks at home/mealtime coverage as I suspect her blood sugars running high in the afternoon given symptoms in afternoon reported by daughter in days past but had not checked her sugar at those times Monitor BSG/insulin needs (5) Hypomagnesemia: Plan: 1.4 on admit, IV replacement ordered and normalized to 2.0 on AM labs . placed on once daily slow mag Mag 1.6, 1gm IV ordered and INCREASE PO SLOW MAG TO BID AND MONITOR LEVEL IN AM (6) Generalized weakness: Plan: Likely due to her UTI, low magnesium, and dehydration. Cannot r/u underlying renal cell carcinoma as above given renal lesion on CTAP Reports feeling improved since abx tx, family reports to her baseline/some delirium at times PT/OT consults in place, fall precautions, q15min checks (7) Renal lesion: Plan: Noted to have a 1.5 cm left renal lesion which is concerning for renal cell carcinoma. Called and spoke to patient's daughter, Katie Henao, who confirmed they did not know about this lesion and urology was spoken to on admission and they are to arrange outpt f/u prior to discharge F/u director media to ensure f/u appointment made at discharge. consult placed to ensure made (8) Presence of vena cava filter: Plan: Reason for no anticoagulation with her hx of previous DVT. 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, followed by Jennifer (9) Hypothyroidism: Plan: TSH 3.2 Continue levothyroxine 25mcg daily (10) Stroke: Plan: -Continue aspirin 81mg daily Working on better BP control/DM control for risk prevention as outlined above Plan continued inpatient stay Updated daughter Katie by phone 03/25 switched to PO Cipro to complete course for UTI monitoring BP/adjustment if needed DM educator consulted and seeing about insulin needs/mealtime coverage at discharge Will provide CM rx to resume home health therapy this afternoon and hopefully will be able to discharge patient 03/26 with family Admission and Anticipated Discharge Date Admission Date: March 22, 2023 Supervising Physician Co-Signing Physician Notes The patient was not seen by me. The chart was reviewed. Case discussed with RENE Laboy. Agree with assessment and plan Subjective Eval this morning, sitting up in the chair, appears MUCH improved. Discussed amlodipine for BP, switched to PO abx to complete course (after tomorrow's dosing) and wanting to get better blood sugar control prior to dc and will consult DM educator. If able to get plan for BSGs at dc will plan for dc tomorrow. Eating/drinking no issue. No fever/chills, chest pain, shortness of breath. Will update daughter per ok w/ patient. Physical Exam Physical Exam: 78 yo female sitting up in recliner, fam vilma at bedside, NAD, reports GOOD appetite, best lunch, improvement in mentation Head atraumatic, normocephalic, mmm, trachea midline Resp: even/unlabored, no w/c/r, on room air CV: RRR, no significant m/r/g, trace pedal edema slightly increased from day prior (got amlodipine this morning), no calf tenderness GI: +BS, soft/NT : no juarez, no further overt CVA tenderness MSK/Neuro: nonfocal, no slurred speech/facial droop, following commands as able Psych: alert to person/place, cooperative, at baseline per family in room (although some confusion by daughter reported this morning) Results & Data Results & Data Vital Signs (Past 12 Hours) Vital Signs Temp Pulse Pulse Resp BP Pulse Ox O2 Del Method 03/25/23 07:28 36.5 C 75 18 171/91 H 95 Room Air 03/25/23 07:27 74 03/25/23 02:51 36.9 C 73 17 162/78 H 92 Room Air 03/24/23 23:38 72 03/24/23 22:37 36.7 C 71 18 137/78 94 Room Air Laboratory Results 03/25/23 03/25/23 03/25/23 Range/Units 11:58 11:56 08:04 WBC (4.8-10.8) K/ul RBC (4.20-5.40) M/uL Hgb (12.0-16.0) g/dl Hct (37.0-47.0) % MCV (80.0-100.0) fL MCH (25.0-34.0) pg MCHC (32.0-36.0) g/dL RDW Std Deviation (36.4-46.3) fL RDW Coeff of Mihaela (11.5-14.5) % Plt Count (130-400) K/uL MPV (9.4-12.4) fL Immature Gran % (Auto) % Neut % (Auto) % Lymph % (Auto) % [place] % (Auto) % Eos % (Auto) % Baso % (Auto) % Neut # (Auto) (1.40-6.50) K/uL Lymph # (Auto) (1.20-3.40) K/uL [place] # (Auto) (0.11-0.59) K/uL Eos # (Auto) (0.00-0.50) K/uL Baso # (Auto) (0.00-0.20) K/uL Immature Gran # (Auto) (0.01-0.20) K/uL Sodium (136-145) mmol/L Potassium (3.5-5.1) mmol/L Chloride (98-107) mmol/L Carbon Dioxide (21-32) mmol/L Anion Gap (3-11) BUN (6-23) mg/dl Creatinine (0.6-1.2) mg/dl Est Cr Clr Drug Dosing ml/min Est GFR ( Amer) ml/min Est GFR (Non-Af Amer) ml/min BUN/Creatinine Ratio (10-20) Glucose (70-99(Fasting)) mg/dl POC Glucose 315 H* 307 H* 245 H (70-99) mg/dl Calcium (8.6-10.3) mg/dl Magnesium (1.7-2.4) mg/dl 03/25/23 03/25/2324 Range/Units 05:56 01:57 19:59 WBC 8.14 (4.8-10.8) K/ul RBC 4.02 L (4.20-5.40) M/uL Hgb 12.5 (12.0-16.0) g/dl Hct 36.4 L (37.0-47.0) % MCV 90.5 (80.0-100.0) fL MCH 31.1 (25.0-34.0) pg MCHC 34.3 (32.0-36.0) g/dL RDW Std Deviation 41.1 (36.4-46.3) fL RDW Coeff of Mihaela 12.5 (11.5-14.5) % Plt Count 282 (130-400) K/uL MPV 10.0 (9.4-12.4) fL Immature Gran % (Auto) 0.2 % Neut % (Auto) 74.0 % Lymph % (Auto) 16.3 % [place] % (Auto) 6.1 % Eos % (Auto) 2.9 % Baso % (Auto) 0.5 % Neut # (Auto) 6.01 (1.40-6.50) K/uL Lymph # (Auto) 1.33 (1.20-3.40) K/uL [place] # (Auto) 0.50 (0.11-0.59) K/uL Eos # (Auto) 0.24 (0.00-0.50) K/uL Baso # (Auto) 0.04 (0.00-0.20) K/uL Immature Gran # (Auto) 0.02 (0.01-0.20) K/uL Sodium 136 (136-145) mmol/L Potassium 4.5 (3.5-5.1) mmol/L Chloride 104 (98-107) mmol/L Carbon Dioxide 23 (21-32) mmol/L Anion Gap 9 (3-11) BUN 27 H (6-23) mg/dl Creatinine 1.14 (0.6-1.2) mg/dl Est Cr Clr Drug Dosing 43.8 ml/min Est GFR ( Amer) 53.3 ml/min Est GFR (Non-Af Amer) 46.0 ml/min BUN/Creatinine Ratio 23.7 H (10-20) Glucose 200 H (70-99(Fasting)) mg/dl POC Glucose 135 H 293 H (70-99) mg/dl Calcium 9.1 (8.6-10.3) mg/dl Magnesium 1.6 L (1.7-2.4) mg/dl 03/24/23 03/24/23 Range/Units 19:58 16:33 WBC (4.8-10.8) K/ul RBC (4.20-5.40) M/uL Hgb (12.0-16.0) g/dl Hct (37.0-47.0) % MCV (80.0-100.0) fL MCH (25.0-34.0) pg MCHC (32.0-36.0) g/dL RDW Std Deviation (36.4-46.3) fL RDW Coeff of Mihaela (11.5-14.5) % Plt Count (130-400) K/uL MPV (9.4-12.4) fL Immature Gran % (Auto) % Neut % (Auto) % Lymph % (Auto) % [place] % (Auto) % Eos % (Auto) % Baso % (Auto) % Neut # (Auto) (1.40-6.50) K/uL Lymph # (Auto) (1.20-3.40) K/uL [place] # (Auto) (0.11-0.59) K/uL Eos # (Auto) (0.00-0.50) K/uL Baso # (Auto) (0.00-0.20) K/uL Immature Gran # (Auto) (0.01-0.20) K/uL Sodium (136-145) mmol/L Potassium (3.5-5.1) mmol/L Chloride (98-107) mmol/L Carbon Dioxide (21-32) mmol/L Anion Gap (3-11) BUN (6-23) mg/dl Creatinine (0.6-1.2) mg/dl Est Cr Clr Drug Dosing ml/min Est GFR ( Amer) ml/min Est GFR (Non-Af Amer) ml/min BUN/Creatinine Ratio (10-20) Glucose (70-99(Fasting)) mg/dl POC Glucose 318 H* 177 H (70-99) mg/dl Calcium (8.6-10.3) mg/dl Magnesium (1.7-2.4) mg/dl PG Care Time/CCT Total # of Minutes Spent Total Time Spent with Patient: Total time spent is greater than 50% in coordination of care (as documented) at patient's floor/unit and/or counseling patient: Coding Level of Care Code 54690 SUB INP/OBS CARE 3/50MIN Diagnoses Confusion R41.0 UTI (urinary tract infection) N39.0 HTN (hypertension) I10 Diabetes mellitus, type 2 E11.9 Hypomagnesemia E83.42 Generalized weakness R53.1 Renal lesion N28.9 Presence of vena cava filter Z95.828 Hypothyroidism E03.9 Stroke I63.9
--- NOTE | 2023-03-25 08:38 | Pharmacy Report ---
Pharmacy Glycemic Short Note 2 - Date of Service March 25, 2023 - Glycemic Short BSG Results (Last 24 hours): 03/24/23 03/24/23 03/24/23 12:10 12:11 16:33 Glucose POC Glucose 317 H* 326 H* 177 H 03/24/23 03/24/23 03/25/23 19:58 19:59 01:57 Glucose POC Glucose 318 H* 293 H 135 H 03/25/23 03/25/23 05:56 08:04 Glucose 200 H POC Glucose 245 H OUTPATIENT ANTIDIABETIC REGIMEN: * Metformin 500 mg PO BIDM * Glipizide 10 mg PO daily HbA1c: 8.5% (03/24/23) ASSESSMENT: 03/25/23: * Blood sugars elevated yesterday, ranging 177-326 mg/dL * Received 54 units of insulin 15 units of basal, 34 units of SC bolus, and 5 units of IV regular insulin * Fasting BSG of 245 mg/dL this morning * Given persistent hyperglycemia, will increase basal and tighten Novolog parameters today * Ceftriaxone changed to ciprofloxacin today to complete therapy for complicated UTI (E.coli) 03/24/23: * PH is a 78 year old female who presented to ED with family on 03/22/23 for evaluation of increased confusion, weakness, and decreased intake. Patient was recently discharged from [facility] in February. * Increased confusion possibly related to UTI (urine culture growing E.coli, receiving ceftriaxone currently) * Blood sugars have been elevated since time of admission, pharmacy consulted for glycemic management this morning (03/24/23) * Basal dose ordered prior to consult, will likely add more basal later today * Patient originally did not have carb ratio, then carb ratio of 10 was added yesterday afternoon. Will further tighten Novolog parameters and goal range today. * BSG of 326 mg/dL at lunch, will give one-time IV insulin bolus PLAN FOR INPATIENT GLYCEMIC CONTROL: * Hold outpatient oral diabetes medications * Basal insulin * Lantus 20 units SC daily * Lantus 0-15 units SC HS (see EHR for details) * Bolus insulin * NovoLog per scale ACHS or Q6hrs while NPO * Goal Range: Low 110 mg/dL - High 140 mg/dL * Correction Factor: 20 mg/dL/unit * Nutritional / Prandial insulin per carb ratio of 1 unit per 6 grams CHO consumed
[2023-03-25] MEDS: amLODIPine BESYLATE 5 MG TAB PO SCH (09:02)
[2023-03-25] MEDS: MAGNESIUM CHLORIDE W/CALCIUM 64MG DELAYED REL TAB PO SCH (09:02)
[2023-03-25] MEDS: CIPROFLOXACIN 500 MG TAB PO SCH (09:02)
[2023-03-25] MEDS: LANTUS PER UNIT CHARGE SC SCH ×2 (09:06→20:19)
[2023-03-25] MEDS: MAGNESIUM SULFATE / D5W 1 GM/100 ML BAG IV ONE (09:06)
[2023-03-25] MEDS: INSULIN HUMAN REGULAR PER UNIT 5 UNITS in SYRINGE 4.95 ML IV ONE (12:41)
[2023-03-25] MEDS: diphenhydrAMINE Capsule 25 MG CAP PO PRN (20:18)
[2023-03-26 06:18] LABS: BUN Creatinine Ratio 25.2 (10-20); Calcium 8.8 mg/dl (8.6-10.3); Est GFR (Non-African American) 32.8 ml/min; Magnesium 1.8 mg/dl (1.7-2.4); Potassium 4.4 mmol/L (3.5-5.1)
--- NOTE | 2023-03-26 07:54 | Hospitalist Progress Note ---
Date of Service March 26, 2023 Assessment & Plan (1) Confusion: Plan: Presented to the ED from home due to increased confusion, generalized weakness, and abdominal pain over the past 48 hours CTAP w/ possible pyelonephritis/pyelitis UA appeared infected, +CVA tenderness/back pain reported to myself 2/ (but improving per patient) Metabolic encephalopathy, suspected 2nd to UTI/pyelitis IMPROVED/Resolved, some delirium at times Urine cx w/ Ecoli, pansensitive IV abx w/ Ceftriaxone (got 3 doses) --> Ciprofloxacin 500mg BID x 2 additional days to complete course given concerns for pyelo/upper urinary tract infection given +CVA tenderness previously which has resolved Vistaril placed on hold, was given benadryl 25mg PO last night to help with sleep. Decreased to 12.5mg to prevent confusion from anticholinergic effects A1c 8.1, pharmacy consulted for ongoing hyperglycmia (daughter was bringing candy/snacks to note per nursing) however suspect patient needing more mealtime coverage/frequent checks at home and likely insulin w/ meals. DM educator consulted, will see about her current needs and ongoing treatment at or. 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 Discussed will monitor at present and consider increasing her lisinopril to BID and monitoring DVT proph: lovenox SQ Will give CM rx for restart home health therapy through [facility]. Hopeful or 03/27 with family if BP/DM controlled 03/26 Slightly more sleepy today, will place HOLD on further benadryl for this evening. Can use melatonin if needed to prevent anticholinergic effects of benadryl in patient w/ issues at baseline -> BUN/Cr slightly elevated. 500cc NSS to be provided. Lisinopril placed on hold Completing course for uti w/ Cipro after this evening's dose Pharmacy consulted, DM educator. Patient daughter wanting to give glipizide more of a chance to work. Encouraged to check her sugars more often at home and will monitor Monitor labs in AM (2) UTI (urinary tract infection): Plan: Proper wiping/hygiene encouraged. Does have wet depends at times for hours. Also discussed home purewick to be considered. Hx urinary incontinence and was on oxybuytnin however recently re-trialed w/ confusion and this was stopped. Would not order to prevent worsened confusion Ceftriaxone IV x 3 doses and transitioned to Cipro to complete course, after this evening's dose 03/26 Urology f/u for renal lesion as outlined below Asked nursing to bladder scan post void to see if any retention (3) HTN (hypertension): Plan: Labile, suspect some aspect of anxiety as driving force when family not present Lisinopril 10mg continued Given amlodipine 5mg PO x 1 w/ good response however side effects significant LE edema per daughter and was DISCONTINUED Lisinopril placed on HOLD given Cr 1.51, 500cc NSS and monitor BP, presently 117/74 (4) Diabetes mellitus, type 2: Plan: A1c 9.2 in December 2022 Antihyperglycemics held on admission (prior admit w/ hypoglycemia while inpatient). On glipizide 10mg, metformin 500mg BID at baseline BSG AC/HS, DM diet Pharmacy consulted for glycemic management BSGs to 350s during lunch 03/24 (candy/snacks brought in by family)--> IV insulin given and tightened SSI Continued elevation in BSGs at lunch, 311 -- given 20u glargine and parameters tightened by pharmacy. DM educator consulted --> family wanting to give her newer ER glipizide more time for effectiveness and will monitor. Will need more frequent BSG checks at home/outpt f/u with [facility] specialist Monitor (5) Hypomagnesemia: Plan: 1.4 on admit, IV replacement ordered and normalized to 2.0 on AM labs . placed on once daily slow mag Mag 1.6, 1gm IV ordered and INCREASE PO SLOW MAG TO BID and mag 1.8 on AM labs and will monitor to ensure staying stable on BID dosing (6) Generalized weakness: Plan: Likely due to her UTI, low magnesium, and dehydration. Cannot r/u underlying renal cell carcinoma as above given renal lesion on CTAP Reports feeling improved since abx tx, family reports to her baseline/some delirium at times PT/OT consults in place, fall precautions, q15min checks (7) Renal lesion: Plan: Noted to have a 1.5 cm left renal lesion which is concerning for renal cell carcinoma. Called and spoke to patient's daughter, Katie Henao, who confirmed they did not know about this lesion and urology was spoken to on admission and they are to arrange outpt f/u prior to discharge F/u web site administrator to ensure f/u appointment made at discharge. consult placed to ensure made (8) Presence of vena cava filter: Plan: Reason for no anticoagulation with her hx of previous DVT. 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 completing course abx 03/26 w/ Cipro Holding lisinopril given rise in Cr, holding benadryl. 500cc NSS ordered and franklin l monitor for now Needing better bSG control but family wanting to give newer agents a little more time to work and will need more frequent monitoring at home Will try to update daughter Katie again this evening as able given census, however did update sister in room during encounter about continued inpatient stay Admission and Anticipated Discharge Date Admission Date: March 22, 2023 Supervising Physician Co-Signing Physician Notes The patient was not seen by me. The chart was reviewed. Case discussed with RENE Laboy. Agree with assessment and plan Subjective Very sleepy this morning, sister at bedside. Discussed elevated Cr, and holding her lisinopril. No further amlodipine given LE swelling which has improved. BP 125/57.. Discussed would like to avoid further benadryl as may be causing retention. Purewick w/ yellow urine in cannister, slightly low UOP and will order additional 500cc NSS for today. Will plan to keep overnight, update daughter on phone this afternoon. Patient states she knows she is in [facility] but thought year 2021, month feb-mar. Pleasant/cooperative, able to follow commands. Physical Exam Physical Exam: 78 yo female sitting up in recliner, mor e sleepy today, sister at bedside knows in hospital, year thought was 2021 initially, month February but cooperative and nonfocal Head atraumatic, normocephalic, mmm, trachea midline Resp: even/unlabored, no w/c/r, on room air CV: RRR, no significant m/r/g, trace pedal edema improved since dc amlodipine, no calf tenderness GI: +BS, soft/NT : no juarez, no further overt CVA tenderness purewick draining yellow urine MSK/Neuro: nonfocal, no slurred speech/facial droop, following commands as able Psych: alert to person/place, cooperative, intermittent forgetfullness Results & Data Results & Data Vital Signs (Past 12 Hours) Vital Signs Temp Pulse Pulse Resp BP Pulse Ox O2 Del Method 03/26/23 07:43 64 03/26/23 07:42 36.7 C 66 18 125/57 L 94 Room Air 03/26/23 04:10 37 C 76 16 114/70 95 Room Air 03/26/23 00:15 66 03/25/23 23:07 36.9 C 70 16 116/64 94 Room Air 03/25/23 21:53 Room Air 03/25/23 20:07 36.7 C 72 16 112/64 93 Room Air Laboratory Results 03/26/23 03/25/23 03/25/23 Range/Units 05:20 20:03 16:57 Sodium 136 (136-145) mmol/L Potassium 4.4 (3.5-5.1) mmol/L Chloride 104 (98-107) mmol/L Carbon Dioxide 24 (21-32) mmol/L Anion Gap 8 (3-11) BUN 38 H (6-23) mg/dl Creatinine 1.51 H D (0.6-1.2) mg/dl Est Cr Clr Drug Dosing 33.0 ml/min Est GFR ( Amer) 38.0 ml/min Est GFR (Non-Af Amer) 32.8 ml/min BUN/Creatinine Ratio 25.2 H (10-20) Glucose 138 H (70-99(Fasting)) mg/dl POC Glucose 216 H 157 H (70-99) mg/dl Calcium 8.8 (8.6-10.3) mg/dl Magnesium 1.8 (1.7-2.4) mg/dl 03/25/23 03/25/23 03/25/23 Range/Units 11:58 11:56 08:04 Sodium (136-145) mmol/L Potassium (3.5-5.1) mmol/L Chloride (98-107) mmol/L Carbon Dioxide (21-32) mmol/L Anion Gap (3-11) BUN (6-23) mg/dl Creatinine (0.6-1.2) mg/dl Est Cr Clr Drug Dosing ml/min Est GFR ( Amer) ml/min Est GFR (Non-Af Amer) ml/min BUN/Creatinine Ratio (10-20) Glucose (70-99(Fasting)) mg/dl POC Glucose 315 H* 307 H* 245 H (70-99) mg/dl Calcium (8.6-10.3) mg/dl Magnesium (1.7-2.4) mg/dl PG Care Time/CCT Total # of Minutes Spent Total Time Spent with Patient: Total time spent is greater than 50% in coordination of care (as documented) at patient's floor/unit and/or counseling patient: Coding Level of Care Code 93512 SUB INP/OBS CARE 3/50MIN Diagnoses Confusion R41.0 UTI (urinary tract infection) N39.0 HTN (hypertension) I10 Diabetes mellitus, type 2 E11.9 Hypomagnesemia E83.42 Generalized weakness R53.1 Renal lesion N28.9 Presence of vena cava filter Z95.828 Hypothyroidism E03.9 Stroke I63.9
--- NOTE | 2023-03-26 09:07 | Pharmacy Report ---
Pharmacy Glycemic Short Note 2 - Date of Service March 26, 2023 - Glycemic Short BSG Results (Last 24 hours): 03/25/23 03/25/23 03/25/23 11:56 11:58 16:57 Glucose POC Glucose 307 H* 315 H* 157 H 03/25/23 03/26/23 03/26/23 20:03 05:20 07:57 Glucose 138 H POC Glucose 216 H 158 H OUTPATIENT ANTIDIABETIC REGIMEN: * Metformin 500 mg PO BIDM * Glipizide 10 mg PO daily HbA1c: 8.5% (03/24/23) ASSESSMENT: 03/26/23: * Blood sugars remain labile w/ intermittent hyperglycemia, ranging 157-315 mg/dL * Received 74 units of insulin yesterday (35 units of basal and 39 units of prandial/correctional SC bolus) * Will tighten carb coverage today w/ possible increase in basal w/ scale * Per RN yesterday, likely dietary indiscretion w/ family bringing in snacks/drinks 03/25/23: * Blood sugars elevated yesterday, ranging 177-326 mg/dL * Received 54 units of insulin 15 units of basal, 34 units of SC bolus, and 5 units of IV regular insulin * Fasting BSG of 245 mg/dL this morning * Given persistent hyperglycemia, will increase basal and tighten Novolog parameters today * Ceftriaxone changed to ciprofloxacin today to complete therapy for complicated UTI (E.coli) 03/24/23: * PH is a 78 year old female who presented to ED with family on 03/22/23 for evaluation of increased confusion, weakness, and decreased intake. Patient was recently discharged from [facility] in February. * Increased confusion possibly related to UTI (urine culture growing E.coli, receiving ceftriaxone currently) * Blood sugars have been elevated since time of admission, pharmacy consulted for glycemic management this morning (03/24/23) * Basal dose ordered prior to consult, will likely add more basal later today * Patient originally did not have carb ratio, then carb ratio of 10 was added yesterday afternoon. Will further tighten Novolog parameters and goal range today. * BSG of 326 mg/dL at lunch, will give one-time IV insulin bolus PLAN FOR INPATIENT GLYCEMIC CONTROL: * Hold outpatient oral diabetes medications * Basal insulin * Lantus 20 units SC daily * Lantus 10-15-20 units SC HS (see EHR for details) * Bolus insulin * NovoLog per scale ACHS or Q6hrs while NPO * Goal Range: Low 110 mg/dL - High 140 mg/dL * Correction Factor: 20 mg/dL/unit * Nutritional / Prandial insulin per carb ratio of 1 unit per 4 grams CHO consumed
[2023-03-26] MEDS: SODIUM CHLORIDE 0.9% 500 ML IV SCH (12:26)
[2023-03-27 06:38] LABS: Basophils # (auto) 0.05 K/uL (0.00-0.20); Basophils % (auto) 0.9 %; Eosinophils # (auto) 0.27 K/uL (0.00-0.50); Eosinophils % (auto) 4.8 %; Hematocrit (blood only) 35.4 % (37.0-47.0); Immature Granulocytes # (auto) 0.03 K/uL (0.01-0.20); Immature Granulocytes % (auto) 0.5 %; Lymphocytes # (auto) 1.57 K/uL (1.20-3.40); Lymphocytes % (auto) 27.8 %; Mean Corpuscular Hemoglobin 30.8 pg (25.0-34.0); Mean Corpuscular Hgb Conc 33.9 g/dL (32.0-36.0); Mean Platelet Volume 9.7 fL (9.4-12.4); Monocytes # (auto) 0.47 K/uL (0.11-0.59); Monocytes % (auto) 8.3 %; Neutrophils # (auto) 3.26 K/uL (1.40-6.50); Neutrophils % (auto) 57.7 %; Platelet Count 267 K/uL (130-400); RDW Coefficient of Variation 12.6 % (11.5-14.5); RDW Standard Deviation 41.9 fL (36.4-46.3); Red Blood Count 3.89 M/uL (4.20-5.40); White Blood Count 5.65 K/ul (4.8-10.8)
[2023-03-27 07:29] LABS: BUN Creatinine Ratio 34.6 (10-20); Creatinine Clr Calc Pharmacy 39.1 ml/min; Est GFR (African American) 46.8 ml/min; Est GFR (Non-African American) 40.4 ml/min; Magnesium 1.6 mg/dl (1.7-2.4); Potassium 4.3 mmol/L (3.5-5.1)
--- NOTE | 2023-03-27 07:37 | Hospitalist Progress Note ---
Date of Service March 27, 2023 Assessment & Plan (1) Confusion: Plan: Presented to the ED from home due to increased confusion, generalized weakness, and abdominal pain over the past 48 hours CTAP w/ possible pyelonephritis/pyelitis UA appeared infected, +CVA tenderness/back pain reported to myself 2/ (but improving per patient) Metabolic encephalopathy, suspected 2nd to UTI/pyelitis IMPROVED/Resolved, some delirium at times Urine cx w/ Ecoli, pansensitive IV abx w/ Ceftriaxone (got 3 doses) --> Ciprofloxacin 500mg BID x 2 additional days to complete course given concerns for pyelo/upper urinary tract infection given +CVA tenderness previously which has resolved Vistaril placed on hold, was given benadryl 25mg PO last night to help with sleep. Decreased to 12.5mg to prevent confusion from anticholinergic effects A1c 8.1, pharmacy consulted for ongoing hyperglycmia (daughter was bringing candy/snacks to note per nursing) however suspect patient needing more mealtime coverage/frequent checks at home and likely insulin w/ meals. DM educator consulted, will see about her current needs and ongoing treatment at [place]. Should have f/u her artist model w/ [facility] as below BP elevated to 171/91 this morning and placed on amlodipine 5mg w/ repeat BP 117/76 this afternoon however had some increased LE swelling and per daughter has been significant in the past and did not want this contineud. Discussed will monitor at present and consider increasing her lisinopril to BID and monitoring DVT proph: lovenox SQ Will give CM rx for restart home health therapy through [facility]. Hopeful dc 03/27 with family if BP/DM controlled 03/26 Slightly more sleepy today, will place HOLD on further benadryl for this evening. Can use melatonin if needed to prevent anticholinergic effects of benadryl in patient w/ issues at baseline -> BUN/Cr slightly elevated. 500cc NSS to be provided. Lisinopril placed on hold Completing course for uti w/ Cipro after this evening's dose Pharmacy consulted, DM educator. Patient daughter wanting to give glipizide more of a chance to work. Encouraged to check her sugars more often at home and will monitor Monitor labs in AM 2/10 - Cr down to 1.27, will see about calling daughter/having repeat labs this upcoming week to ensure remaining stable (2) UTI (urinary tract infection): Plan: Proper wiping/hygiene encouraged. Does have wet depends at times for hours. Also discussed home purewick to be considered. Hx urinary incontinence and was on oxybuytnin however recently re-trialed w/ confusion and this was stopped. Would not order to prevent worsened confusion Ceftriaxone IV x 3 doses and transitioned to Cipro to complete course, after this evening's dose 03/26 Urology f/u for renal lesion as outlined below Asked nursing to bladder scan post void to see if any retention (3) HTN (hypertension): Plan: Labile, suspect some aspect of anxiety as driving force when family not present Lisinopril 10mg continued Given amlodipine 5mg PO x 1 w/ good response however side effects significant LE edema per daughter and was DISCONTINUED Lisinopril placed on HOLD given Cr 1.51, 500cc NSS and monitor BP, presently 117/74 (4) Diabetes mellitus, type 2: Plan: A1c 9.2 in December 2022 Antihyperglycemics held on admission (prior admit w/ hypoglycemia while inpatient). On glipizide 10mg, metformin 500mg BID at baseline BSG AC/HS, DM diet Pharmacy consulted for glycemic management BSGs to 350s during lunch 03/24 (candy/snacks brought in by family)--> IV insulin given and tightened SSI Continued elevation in BSGs at lunch, 311 -- given 20u glargine and parameters tightened by pharmacy. DM educator consulted --> family wanting to give her newer ER glipizide more time for effectiveness and will monitor. Will need more frequent BSG checks at home/outpt f/u with [place] specialist Monitor (5) Hypomagnesemia: Plan: 1.4 on admit, IV replacement ordered and normalized to 2.0 on AM labs . placed on once daily slow mag Mag 1.6, 1gm IV ordered and INCREASE PO SLOW MAG TO BID and mag 1.8 on AM labs and will monitor to ensure staying stable on BID dosing (6) Generalized weakness: Plan: Likely due to her UTI, low magnesium, and dehydration. Cannot r/u underlying renal cell carcinoma as above given renal lesion on CTAP Reports feeling improved since abx tx, family reports to her baseline/some delirium at times PT/OT consults in place, fall precautions, q15min checks (7) Renal lesion: Plan: Noted to have a 1.5 cm left renal lesion which is concerning for renal cell carc inoma. 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 consult placed to ensure made (8) Presence of vena cava filter: Plan: Reason for no anticoagulation with her hx of previous DVT. 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 completing course abx 03/26 w/ Cipro Holding lisinopril given rise in Cr, holding benadryl. 500cc NSS ordered and will monitor for now Needing better bSG control but family wanting to give newer agents a little more time to work and will need more frequent monitoring at home Will try to update daughter Katie again this evening as able given census, however did update sister in room during encounter about continued inpatient stay Admission and Anticipated Discharge Date Admission Date: March 22, 2023 Results & Data Results & Data Vital Signs (Past 12 Hours) Vital Signs Temp Pulse Pulse Resp BP Pulse Ox O2 Del Method 03/27/23 03:47 36.9 C 72 16 131/75 94 Room Air 03/26/23 23:08 36.9 C 78 18 122/70 94 Room Air 03/26/23 21:58 66 03/26/23 19:46 36.8 C 74 18 130/71 93 Room Air PG Care Time/CCT Total # of Minutes Spent Total Time Spent with Patient: Total time spent is greater than 50% in coordination of care (as documented) at patient's floor/unit and/or counseling patient: Coding Diagnoses Confusion R41.0 UTI (urinary tract infection) N39.0 HTN (hypertension) I10 Diabetes mellitus, type 2 E11.9 Hypomagnesemia E83.42 Generalized weakness R53.1 Renal lesion N28.9 Presence of vena cava filter Z95.828 Hypothyroidism E03.9 Stroke I63.9
[2023-03-27] MEDS: LANTUS PER UNIT CHARGE SC SCH (08:56)
--- NOTE | 2023-03-27 10:48 | Discharge Summary ---
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 Fernandez, HTN, hypothyroidism, and chronic hypomagnesemia who presented to the [facility] ED on 03/22/23 with increased confusion and abdominal pain. She was noted to be hypertensive at 170/84 but otherwise stable in the ED. Labs were significant for a leukocytosis of 12 with neutrophil predominance of 10, glucose of 289, mag of 1.4, lipase of 118, and UA consistent with UTI. CT of the head/brain wo con and chest xray were read as negative for acute findings. CT of the abd/pelvis w/IV con was read as 1. Bladder wall thickening with adjacent fat stranding. This favors a cystitis. Recommend correlation with urinalysis. 2. There is also urothelial thickening and fat stranding at the bilateral renal collecting systems and ureters. This favors a pyelitis/pyelonephritis. This should also be assessed with urinalysis. 3. Redemonstration of the 1.5 cm left renal lesion which is concerning for renal cell carcinoma. 4. No bowel wall thickening or obstruction.. Prior to admission the patient was given a dose of ceftriaxone, 1L NSS, 2 bags of 1gm IV mag sulfate, 20 mg IV famotidine, and her am dose of HCTZ. At the time of the exam the patient was lying in bed in no acute distress with her sister sitting bedisde. History was mainly obtained from the patient's sister and notes sent in by the patient's daughter who is currently at work. The patient has reportedly been more confused over the past 48 hours and complaining of generalized pain. Her urine was noted to be cloudy at home and she has had decreased oral intake over the past 48 hours. She did not have her am medications prior to ED arrival. The patient states that she feels well. When asked about pain she states that she developed suprapubic pain this am and had one episode of nausea and non-bloody emesis. They deny recent falls, aspiration, or fevers, When asked, the patient denies headache, chest pain, cough, diarrhea, hematuria, melena. Please refer to Dr. Brooks's attestation for any changes to the treatment plan Admission Exam Per Admitting Provider Physical Exam: General: In no acute distress, stated age, well-nourished, good hygiene HEENT: Normocephalic, atraumatic, no scleral icterus, pupils around round, symmetrical, and reactive to light, moist mucus membranes, trachea midline, no thyromegaly Chest/Pulm: No respiratory distress, symmetrical chest expansion, clear breath sounds throughout Cardiac: RRR, no murmurs noted Abdomen: Negative for ascites and bruising, normoactive bowel sounds, soft, mild tender to palpation in the suprapubic region but otherwise non-tender : Negative CVA tenderness BL Musculoskeletal: Symmetrical and without signs of acute trauma, slight left sided weakness since previous CVA is at baseline Extremities: Radial, dorsalis pedis, and posterior tibial pulses are intact and symmetrical, no edema noted in the BL LE's Skin: Warm, dry, no rashes , lesions, or scars noted Neuro: Alert and oriented to person only at this time, no focal defects, CN II- XII tested and intact, chronic baseline left sided weakness Psych: No acute distress, calm and cooperative during the exam Principal Diagnosis urinary tract infection Discharge Exam 78 yo female sitting up in recliner, napping after breakfast, daughter at bedside, anxious to get home today Head atraumatic, normocephalic, mmm, trachea midline Resp: even/unlabored, no w/c/r, on room air CV: RRR, no significant m/r/g, trace pedal edema improved since dc amlodipine, no calf tenderness GI: +BS, soft/NT : no juarez, no further overt CVA tenderness purewick draining yellow urine MSK/Neuro: nonfocal, no slurred speech/facial droop, following commands as able Psych: alert to person/place, cooperative, intermittent forgetfullness Discharge Data Allergies Allergy/AdvReac Type Severity Reaction Status Date / Time cefoxitin AdvReac Mild vomiting Verified 03/10/23 20:23 Consultations 03/22/23 13:15 ED Decision to Admit Stat 03/23/23 14:23 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 FINDINGS: No focal lung consolidations to suggest a pneumonia.. No evidence for pulmonary edema. The cardiac silhouette is top normal in size. Mild bibasilar interstitial thickening persists. This is likely chronic. No pneumothorax. No pleural effusions. No acute fractures identified. There are calcifications within the aortic knob. IMPRESSION: No significant change compared to the prior study. No acute process. ACT 112: Negative or not required by law. Electronically signed by: Chino Worthy M.D. 03/22/2023 9:[address] 03/22/23 08:[address] DOSE: 859.95 mGy.cm HISTORY: confusion TECHNIQUE: Multiaxial CT images of the head were performed without the use of intravenous contrast. Automated exposure control was utilized for this study. A dose lowering technique was utilized adhering to the principles of ALARA. Comparison: Head CT 03/10/2023. Findings: The paranasal sinuses and mastoid air cells are clear. The calvarium and skull base are intact. There is no mass, hematoma, midline shift, acute infarct. White matter hypodensity is nonspecific but suggestive of microvascular ischemic change. The ventricles and sulci demonstrate mild age-related involutional changes. Focal area of encephalomalacia again noted within the right parietal/occipital junction and right frontal lobe. This favors old infarcts.. This remains unchanged. Trace chronic subdural fluid collections remain stable. Impression: No significant change compared to the prior study. No acute intracranial abnormality. ACT 112: Negative or not required by law. Electronically signed by: Chino Worthy M.D. 03/22/2023 9:42 AM Abdomen/Pelvis CT 03/22/23 10:[address] WITH IV CONTRAST CT DOSE: 1311.1 mGy.cm HISTORY: nausea, back pain, elevated lipase TECHNIQUE: Multiaxial CT images of the abdomen and pelvis were performed following the use of intravenous contrast. A dose lowering technique was utilized adhering to the principles of ALARA. COMPARISON STUDY: Abdomen and pelvis CT 12/07/2022. FINDINGS: Mild dependent changes seen at the lung bases. No pneumoperitoneum. No pneumatosis. No acute fractures. The heart remains mildly enlarged. Advanced coronary artery calcifications again noted. Prior cholecystectomy. No hepatic or splenic masses. Mild hepatic steatosis. The pancreas and right adrenal gland unremarkable. There is a stable 1 cm left adrenal gland nodule. Calcifications within the renal sinuses favor vascular calcifications. No ureteral stones. There is mild fullness within the left renal collecting systems without jazmine hydronephrosis. This is similar to the prior study. There is mild urothelial thickening within the bilateral renal collecting systems and ureters with mild periureteral fat stranding. This is also mild bladder wall thickening with adjacent fat stranding. There is again noted a 1.5 cm left renal lesion on image 137. This is concerning for solid renal mass such as a renal cell carcinoma. Otherwise, the kidneys enhance normally. An IVC filter is noted. Moderate calcified plaque within the abdominal aorta. There is a 3.5 cm juxtarenal abdominal aortic aneurysm, unchanged. No retroperitoneal or pelvic lymphadenopathy. No pelvic free fluid. The uterus and ovaries are unremarkable. A few colonic diverticula. No evidence for acute diverticulitis. No bowel wall thickening or obstruction. The appendix is reportedly surgically absent. IMPRESSION: 1. Bladder wall thickening with adjacent fat stranding. This favors a cystitis. Recommend correlation with urinalysis. 2. There is also urothelial thickening and fat stranding at the bilateral renal collecting systems and ureters. This favors a pyelitis/pyelonephritis. This should also be assessed with urinalysis. 3. Redemonstration of the 1.5 cm left renal lesion which is concerning for renal cell carcinoma. 4. No bowel wall thickening or obstruction. 5. Additional findings as described above. ACT 112: Positive. There are findings on this exam that require communication between the performing entity and the patient following Patient Test Result Information Act ([place] Act 112) guidelines. Electronically signed by: Chino Worthy M.D. 03/22/2023 11:43 AM Hospital Course (1) Confusion: Presented to the ED from home due to increased confusion, generalized weakness, and abdominal pain over the past [address] head negative for acute intracranial abnormality CTAP w/ possible pyelonephritis/pyelitis UA appeared infected, +CVA tenderness/back pain reported to myself 2/6 (but improving per patient) Metabolic encephalopathy, suspected 2nd to UTI/pyelitis IMPROVED/Resolved, some delirium at times Urine cx w/ Ecoli, pansensitive IV abx w/ Ceftriaxone (x 3 doses) --> Ciprofloxacin 500mg BID x 2 additional days. No further back pain/CVA tenderness Eating/drinking without issue. Encouraged better hydration at discharge and avoidance of natural diuretics like tea/coffee which can worsen this. DISCONTINUED HCTZ at nh as was new medication at nh and suspect made dehydration/urination worse from discharge last admission and elevated Cr w/ such and requiring holding and IVF replacement Held her lisinopril day prior due to elevated BUN/CR and provided 500cc NSS w/ improvement in Cr 1.5--> 1.2 and labs arranged for this upcoming week to ensure stable Mag replacement while inpatient, chronic lows, and was getting OTC mag at home 2x/day with loose stools and suspect this may have worsened such. SLOW mag started and increased to BID at nh and outpt labs this upcoming week to ensure remaining stable on current dose OF note, was provided benadryl x 2-3 doses to help w/ sleep (didn't really tolerate vistaril well) and discussed holding further given confusion/sleepiness in AM and utilized home tylenol PM w/ improvement and can continue at nh BP 135/75 morning of dc with her LISINOPRIL on hold due to elevated Cr which had improved w/ IVF and discussed monitoring her blood pressures at home in home environment given her mad anxiety at baseline and can discuss in follow up about low dose clonidine to help w/ BP and anxiety if ok'd by PCP. Instructed to monitor her BP at home and resume lisinopril if SBP >160 or DBP>80 in relaxed setting and f/u with PCP. Has appt this upcoming A1c 8.1, pharmacy consulted for ongoing hyperglycemia (daughter was bringing candy/snacks to note per nursing) however suspect patient needing more mealtime coverage/frequent checks at home and likely insulin w/ meals. DM educator consulted while inpatient however family wanting to continue current new ER glipizide/etc at nh and monitor sugars more frequently at home and follow with specialist in [place], who they have recently become established with. STRONGLY encouraged sugar free snacks/more frequent checks and close f/u DVT prophw/ lovenox SQ utilized while in the hosptial WBC remained wnl following treatment of UTI and AFEBRILE civil division deputy sheriff to arrange f/u with urology to further eval renal lesion as below Again, patient feeling well, wanting to go home. Updated daughter Katie at bedside regarding plan. Wanting to take home. Instructed proper hygiene to prevent UTIs (possible purewick at home for at night)/wiping front to back/etc and hydration. Therapy evaluations undertaken and they have PT/OT/speech at home and rx given to CM to resume services at discharge (2) UTI (urinary tract infection): Proper wiping/hygiene encouraged. Does have wet depends at times for hours. Also discussed home purewick to be considered and can buy for home use now. Hx urinary incontinence and was on oxybuytnin however recently re-trialed w/ confusion and this was stopped --> would not order to prevent worsened confusion Ceftriaxone IV/Ciprofloxacin to complete course while inpatient Urology f/u for renal lesion No post-void retention on bladder scan (3) HTN (hypertension): Labile, suspect some aspect of anxiety as driving force when family not present HCTZ was new med last admit and given but caused renal dysfunction and was asked to be stopped but was initially continued on admission w/ rise in Cr and held further w/ improvement on repeat labs Lisinopril 10mg continued initially but placed on hold after rise in Cr due to poor PO intake from benadryl/sleepiness and 500cc NSS provided w/ improvement. Continued hydration at nh encouraged and monitoring of blood pressures w/ instructions to hold lisinopril until seen in follow up unless SBP >160 at home or DBP >80 in home environment to prevent side effects given how sensitive she was w/ dose of amlodipine w/ leg swelling F/u PCP for further/ongoing management (4) Diabetes mellitus, type 2: A1c 9.2 in December 2022 Antihyperglycemics held on admission (prior admit w/ hypoglycemia while inpatient). On glipizide 10mg, metformin 500mg BID at baseline BSG AC/HS, DM diet Pharmacy consulted for glycemic management given rises is BSGs to 300s around lunches and improved w/ additinal glargine/lantus/tightening of parameters Family was bringing in snacks, encouraged sugar free DM educator consulted given concerns for mealtime coverage at nh and to nh on such, however lengthy discussion undertaken by Seema with daughter Katie and recent changes w/ extended release glipizide/metformin and wanting to give those a little more time to see what her baseline really is Instructed to check BSGs more frequently at home to see how she is trending and f/u with [facility] as wishing at dc for DM management (5) Hypomagnesemia: Chronic lows, had been given OTC magnesium by daughter 2/x daily w/ her coffee/tea and suspect this worsened such w/ loose stools Mag IV replacement ordered and placed on slow mag. Given continued fluctuations/lows decision to increase to BID. Mag 1.6 prior to dc and continued BID at dc with repeat mag w/ her BMP this upcoming wednesday (cc'd PCP for results) (6) Generalized weakness: Likely due to her UTI, low magnesium, and dehydration. Cannot r/u underlying renal cell carcinoma as above given renal lesion on CTAP Reports feeling improved since abx tx, family reports to her baseline/some delirium at times and comfortable/wanting to take her home. Therapy evals undertaken while inpatient, fall precautions and rx to CM to resume HHPT/OT/speech (7) Renal lesion: Noted to have a 1.5 cm left renal lesion which is concerning for renal cell carcinoma. Called and spoke to patient's daughter, Katie Henao, who confirmed they did not know about this lesion and urology was spoken to on admission and they are to arrange outpt f/u prior to discharge Messaged civil division deputy sheriff and patient dc over the weekend and will f/u on Wednesday for appointment (consult placed prior to dc to ensure this is completed) (8) Presence of vena cava filter: Reason for no anticoagulation with her hx of previous DVT. 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, followed by Jennifer (9) Hypothyroidism: TSH 3.2 Continue levothyroxine 25mcg daily (10) Stroke: -Continue aspirin 81mg daily Total Time Total Time Spent Total Time Spent (In Minutes): 65 Discharge Plan Discharge Items Patient Disposition: Home - Home Health Services Reason For Visit: CONFUSION, ABD, UTI Discharge Diagnosis: UTI Goals: You have been hospitalized for an acute medical problem. During your stay at [facility], we have made an effort to correct the problem that brought you to the hospital while keeping you as comfortable as possible. Medications were used to bring your condition under control and your discharge instructions will include directions for any medications you should take after leaving the hospital. Please make sure you see your Primary Care Provider as part of your follow up plan. Activity: Resume your previous activity Non-emergency contact: Primary Care Provider and Urologist Call non-emergency contact if: you have any medication questions, your symptoms worsen and your pain is not controlled Follow-up/Referrals: Ermias Shanks MD [Physician] - Faheem Sutton [Primary Care Provider] - (PLEASE CALL YOUR PRIMARY CARE PROVIDER TO SCHEDULE A HOSPITAL DISCHARGE FOLLOW-UP APPOINTMENT WITHIN 7-10 DAYS) Diet: Carb Consistent or DM2 and Heart Healthy Ambulatory Orders: Basic Metabolic Panel (Routine) Timeframe: 20230330 Location: Determined by Patient Ordered By: Brissa Mcguire Magnesium (Routine) Timeframe: 20230330 Location: Determined by Patient Ordered By: Brissa Mcguire Addtl Attending Provider Instructions: You have been hospitalized and found to have evidence for urinary tract infection. You completed a course of IV and oral antibiotics. You should wipe from FRONT TO BACK and avoid wet depends to prevent recurrance of UTI. Your magnesium was low and we started and increased SLOW magnesium to TWICE daily at discharge and your lisinopril is now on hold and as discussed, please check BP at home and administer if BP systolic >160 or diastolic >80 in home environment with less stress. Repeat renal function is improved. You are encouraged to stay hydrated/limit coffee/tea to prevent dehydration. You will need follow up with urology for further evaluation as discussed and you should be called this upcoming week with an appointment. You recently had changes to your diabetes medications but as discussed with religious educator while in the hospital you want to give you medications a little time to work. You should monitor the blood sugars more frequently at home and have follow up with your specialist [facility] as discussed. Please continue therapy/speech at home. Prescription has been provided to continue. Please follow up with primary care this upcoming week to monitor your progress. Please return to the ER with any worsening confusion or for any symptoms concerning for you. Take care! Pending Studies at Discharge: No Stand-Alone Forms: My [employer], Smoking Cessation Medications and DC Order Prescriptions: New Mag 64 64 mg Tablet,Delayed Release (Dr/Ec) 64 mg PO BID Qty: 60 0RF Continued acetaminophen 500 mg tablet 1,000 mg PO Q8H PRN (Reason: PAIN/FEVER) levothyroxine 25 mcg tablet 25 mcg PO DAILY metformin 500 mg Tablet 500 mg PO BID cholecalciferol (vitamin D3) [Vitamin D3] 10 mcg (400 unit) Capsule 10 mcg PO DAILY Patient Comments: TAKES IN LIQUID FORM cyanocobalamin (vitamin B-12) 500 mcg Tablet, Sublingual 500 mcg SUBLINGUAL QAM glipizide 10 mg tablet extended release 24hr 10 mg PO DAILY aspirin 81 mg tablet,delayed release (DR/EC) 81 mg PO DAILY gabapentin 100 mg capsule 100 mg PO 2XD polyethylene glycol 3350 [Miralax] 17 gram/dose Powder 17 g PO DAILY Rx Instructions: Per daughter, patient takes half of capful with her coffee every morning Held lisinopril 10 mg tablet 10 mg PO PM Hold Instructions: Resume on 04/01/23. hold and monitor BP at home. administer if SBP >160 or DBP >80 unless directed otherwise by primary care Discontinued hydrochlorothiazide 25 mg Tablet 25 mg PO QAM 30 Days Qty: 30 0RF No Action (DME) OneTouch Verio test strips Strip See Rx Instructions .ROUTE Rx Instructions: As directed (DME) lancets [OneTouch Delica Lancets] 33 gauge misc See Rx Instructions .ROUTE Rx Instructions: As directed Discharge Orders: Discharge Order (Routine); Ordered 03/27/23 Ordered By: Brissa Peralta/Other Patient Handouts: High Blood Sugar (Hyperglycemia), Managing Type 2 Diabetes Admission Data Admit Date/Time: 03/22/23 13:15 Attending Provider: Fredis Grier Admit Provider: Juan F Brooks Primary Care Provider: Faheem Sutton Other Providers: Juan F Brooks Other Interventions: Discharge Summary Assessment (RN) Last Done: 03/27/23 11:07 Supervising Physician Co-Signing Physician Notes The patient was not seen by me. The chart was reviewed. Case discussed with RENE Laboy. Agree with assessment and plan. She is medically stable for discharge home today, March 27 Coding Level of Care Code 40388 INP/OBS DISCH >30 MIN Diagnoses Confusion R41.0 UTI (urinary tract infection) N39.0 HTN (hypertension) I10 Diabetes mellitus, type 2 E11.9 Hypomagnesemia E83.42 Generalized weakness R53.1 Renal lesion N28.9 Presence of vena cava filter Z95.828 Hypothyroidism E03.9 Stroke I63.9
== END 2023-03-27 11:35 | disposition home health service (06) | DRG 689 ==
LOC: ED 07:55 → 2N 13:15 → SUATTDRO 13:15 → 2N 15:19

== ENCOUNTER 2023-10-13 17:13 | Observation (INO) ==
--- NOTE | 2023-10-13 17:25 | ED Triage Note ---
Date of Service October 13, 2023 Provider in Triage Author: Marily Velasquez History of Present Illness This patient was briefly evaluated while in triage. An abbreviated physical exam was performed. This patient is a 78-year-old Female who presents to the ED for evaluation mental decline, lethargic x 1 week not eating or drinking well per daughter had labs done with PCP, renal functions reportedly abnormal so sent here hx of low mag, low sodium and UTIs per daughter Physical Exam GENERAL: NAD in a wheelchair CARDIOVASCULAR: RRR RESPIRATORY: CTA ABDOMEN: BS x 4. Nontender to palpation. Initial orders for labs and / or imaging were placed and patient was placed in the waiting area until a bed is available. Please see further documentation for the full ED course.
[2023-10-13 18:28] LABS: Basophils # (auto) 0.04 K/uL (0.00-0.20); Basophils % (auto) 0.6 %; Eosinophils % (auto) 2.9 %; Hematocrit (blood only) 38.8 % (37.0-47.0); Hemoglobin 12.9 g/dl (12.0-16.0); Immature Granulocytes # (auto) 0.03 K/uL (0.01-0.20); Immature Granulocytes % (auto) 0.4 %; Lymphocytes # (auto) 1.62 K/uL (1.20-3.40); Lymphocytes % (auto) 23.5 %; Mean Corpuscular Hemoglobin 29.9 pg (25.0-34.0); Mean Corpuscular Hgb Conc 33.2 g/dL (32.0-36.0); Monocytes # (auto) 0.51 K/uL (0.11-0.59); Monocytes % (auto) 7.4 %; Neutrophils % (auto) 65.2 %; Platelet Count 196 K/uL (130-400); RDW Coefficient of Variation 13.2 % (11.5-14.5); RDW Standard Deviation 43.3 fL (36.4-46.3); Red Blood Count 4.31 M/uL (4.20-5.40)
[2023-10-13 18:57] LABS: Troponin I High Sensitivity < 2.3 pg/ml (0-14)
[2023-10-13 19:01] LABS: Alanine Aminotransferase 16 U/L (7-52); Albumin Globulin Ratio 1.3 (0.9-2); Albumin Level 4.3 gm/dl (3.4-5.0); Alkaline Phosphatase 87 U/L (34-104); Anion Gap 10 (3-11); Aspartate Aminotransferase 15 U/L (13-39); BUN Creatinine Ratio 17.1 (10-20); Bilirubin,Total 0.4 mg/dl (0.2-1.0); Blood Urea Nitrogen 30 mg/dl (6-23); Calcium 9.5 mg/dl (8.6-10.3); Carbon Dioxide 22 mmol/L (21-32); Chloride 102 mmol/L (98-107); Creatinine Clr Calc Pharmacy 27.4 ml/min; Est GFR (African American) 31.8 ml/min; Est GFR (Non-African American) 27.4 ml/min; Globulin 3.3 gm/dl (2.5-4.0); Glucose 312 mg/dl (70-99(Fasting)); Magnesium 1.4 mg/dl (1.7-2.4); Potassium 4.7 mmol/L (3.5-5.1); Sodium 134 mmol/L (136-145); Total Protein 7.6 gm/dl (6.0-8.3)
[2023-10-13 19:09] LABS: Thyroid Stimulating Hormone 3.423 uIu/ml (0.300-4.500)
[2023-10-13 20:53] LABS: Appearance Urine Clear (Clear); Bacteria Urine Automated None Seen (None Seen); Bilirubin Urine Negative (Negative); Blood Urine Negative (Negative); Cast Urine Automated 0-2 /lpf (0-2); Color Urine Yellow; Epithelial Cell Urine Auto 0-2 /hpf (0-2); Glucose Urine UA 3+ (Negative); Ketones Urine Negative (Negative); Leukocyte Esterase Urine Negative (Negative); Nitrite Urine Negative (Negative); Protein Urine Trace (Negative); RBC Urine Automated 0-2 /hpf (0-2); Specific Gravity Urine 1.023 (1.000-1.030); Urobilinogen Urine Negative (Negative); WBC Urine Automated 0-5 /hpf (0-5); pH Urine 5.5 (4.5-7.5)
--- NOTE | 2023-10-13 20:59 | Emergency Department Note ---
Impression & Plan Weakness, BRIANA (acute kidney injury), Hypomagnesemia, Acute hyperglycemia ED Provider Note NAME: CATRACHITO GROVER AGE: 78 SEX: F : 1945 ARRIVES VIA: Walk-In INFORMANT: [Patient][daughter] ED PROVIDER(S): [Toño Montana MD] CHIEF COMPLAINT: Dehydration HISTORY OF PRESENT ILLNESS: The patient is a 78-year-old female who presents to the ER with about a week of decline. She had an injection in her bladder, Botox, about a month ago and apparently, this puts her at risk for UTI. The daughter was concerned for dehydration or UTI. As per the daughter, the patient has had a decline in her mentation, she is more confused, she has been weak, she has been moving slow and her urine has been dark. No fever, no vomiting, no diarrhea, no complaints of pain. PMHx/PSHx/Social Hx: See Below PHYSICAL EXAM: GENERAL: Patient is in no acute distress. HEENT: No acute trauma, normocephalic atraumatic, mucous membranes moist, no nasal congestion. NECK: No stridor, no adenopathy, no meningismus, trachea is midline. LUNGS: Clear to auscultation bilaterally, no wheeze, no rhonchi, breath sounds equal. HEART: Without murmurs gallops or rubs, regular rate and rhythm. ABDOMEN: Soft, nontender, no peritonitis. EXTREMITIES: No cyanosis. Moderate bilateral pedal edema with some erythema to both lower extremities. Warmth is present. NEUROLOGIC: Awake, no acute motor or sensory deficits, no focal weakness. SKIN: No jaundice, no diaphoresis. DIFFERENTIAL DIAGNOSIS: Dehydration, electrolyte imbalance, UTI, anemia, [place], cellulitis, among others. EMERGENCY DEPARTMENT PROCEDURES: MEDICAL DECISION MAKING: There is no leukocytosis or concerning anemia. There is a normal platelet count. There is evidence for some acute kidney injury/dehydration with a creatinine above her baseline at 1.75. Magnesium is low at 1.4. Glucose was high at over 300. No liver enzyme elevation. The patient appeared to be in a euthyroid state. ECG showed a normal sinus rhythm, no ischemia or dysrhythmia. Cardiac enzyme testing x 1 was not consistent with acute cardiac injury. Urinalysis showed glucose, no infection. Chest film showed some chronic parenchymal change, no CHF, no pneumonia. On exam, the patient had some erythema and edema to her lower extremities however, as per the family, this is a chronic finding. Patient was not febrile, she was not toxic. The patient received IV saline, 500 cc. She was given IV magnesium. The patient presents with increasing weakness. She was found to be hyperglycemic, she was dehydrated with some acute kidney injury, she was hypomagnesemic. Given her findings, given her increasing weakness and complaints, I do think a hospital stay is warranted. I spoke with the patient, I spoke with her daughter, I did speak with case management. The on-call hospitalist was consulted. In short, I suspect her hyperglycemia led to the dehydration, electrolyte changes, acute kidney injury and weakness. Prior/Outside records/notes reviewed: None ECG per my interpretation: Indication was weakness. The ECG shows normal sinus rhythm with a rate of 81. There is some nonspecific ST change. There is no acute ST elevation, no PVCs. The QTc is 464. Continuous Cardiac Monitoring per my interpretation: An order was placed for continuous cardiac monitoring. The monitor shows a rate of 73 with normal sinus rhythm. Imaging/x-ray results per my interpretation: Chest x-ray shows some chronic change, I see no pneumonia or CHF. Chronic Medical/Social conditions affecting care: Advanced age. Care/Management discussed with: Case management, the on-call hospitalist. Level of care consideration(s): After review of the information above and other included data: --I believe the patient requires escalation of care to admission DISPOSITION: Admission Past Med/Surg History Problem List (Updated 10/14/23 @ 01:38 by Toño Montana MD) Acute hyperglycemia (Acute) Hypomagnesemia (Acute) BRIANA (acute kidney injury) (Acute) Weakness (Acute) Elevated lipase (Acute) Acute UTI (urinary tract infection) (Acute) Hypomagnesemia (Acute) Renal lesion UTI (urinary tract infection) Weakness (Acute) Acute kidney injury Generalized weakness (Acute) Confusion (Acute) Hypertensive urgency (Acute) Influenza A virus subtype H1 2009 pandemic strain present (Acute) Hypocalcemia Ambulatory dysfunction Hypoxia Influenza A virus subtype H1 2009 pandemic strain present Stroke Hyperglycemia (Acute) Altered level of consciousness (Acute) Diabetes mellitus, type 2 Hx of deep venous thrombosis (Acute) JULY 2021>VENA CAVA FILTER INSERTED BY DR. 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 Status post left knee replacement Encounter for pre-operative examination History of blood clots (Acute) Shortness of breath (Acute) Osteoarthritis, knee Hypoglycemia SAH (subarachnoid hemorrhage) SDH (subdural hematoma) HTN (hypertension) Somnolence Hypothyroidism Acute DVT (deep venous thrombosis) (Acute) History of craniotomy (Acute) Benign head tremor Peripheral neuropathy Chronic kidney disease Hypertension Vitamin D deficiency Urge incontinence Medical History Osteoarthritis Hypothyroidism History of anemia Peripheral neuropathy Noted to bilateral hands Intracranial bleed 03/31/21> D/T FALL Later had emergency craniotomy 06/01/21 (had slow bleed) Mild cognitive issues from hemorrhage but has been improving Per most recent head CT 12/12/21- no acute hemorrhage, mass effect, or evidence of acute territorial ischemia; small chronic subdural hemorrhages similar in appearance to 09/23/21 exam. TIA (transient ischemic attack) 2010? No residual issues History of COVID-19 12/2019 & 02/2021>RESOLVED Hypertension Surgical History History of total knee replacement RT History of colonoscopy History of cholecystectomy History of tooth extraction History of tonsillectomy History of cataract surgery RT/LEFT H/O craniotomy LARRY>06/01/21 *EMERGENCY CRANIOTOMY Family History Father Myocardial infarction Other Family history non-contributory No family history of adverse response to anesthesia Social History Smoking Status: Never smoker Second Hand Exposure: No; Hx Alcohol Use: No Hx Substance Use: No Preferred Language: Telugu Communication Ability: Effective Communication Ability Comment: @BASELINE A/O AND NO COMMUNICATION ISSUES Visual Impairment: No Limitations Insurance Account Assistant Required: No Beliefs That Will Affect Care: None marital status: / Current Living Situation: Family Current Living Situation Comment: WITH DAUGHTER How many Children do You have: 2 Feels Safe at Home: Yes Assistive Devices: Walker Allergies Allergies Allergy/AdvReac Type Severity Reaction Status Date / Time cefoxitin AdvReac Mild vomiting Verified 10/13/23 21:39 Home Meds Home Medications Medication Instructions Recorded Confirmed levothyroxine 25 mcg tablet 25 mcg PO DAILY 03/31/21 10/13/23 [facility] 03/13/22 Verio test strips) lancets 33 gauge ([facility] 03/13/22 03/13/22 Lancets) lisinopril 10 mg tablet 10 mg PO PM 03/13/22 10/13/23 cyanocobalamin (vitamin B-12) 500 500 mcg sublingual QAM 06/17/22 10/13/23 mcg sublingual tablet metformin 500 mg tablet 500 mg PO BID 06/17/22 10/13/23 acetaminophen 500 mg tablet 1,000 mg PO Q8H PRN PAIN/FEVER 12/07/22 10/13/23 aspirin 81 mg tablet,delayed 81 mg PO DAILY 03/10/23 10/13/23 release gabapentin 100 mg capsule 200 mg PO BID 03/10/23 10/13/23 glipizide 10 mg tablet, extended 10 mg PO DAILY 03/10/23 10/13/23 release 24 hr polyethylene glycol 3350 17 17 g PO DAILY PRN Constipation 03/10/23 10/13/23 gram/dose oral powder (Miralax) insulin glargine 100 unit/mL (3 30 unit subcut QPM 06/23/23 10/13/23 mL) subcutaneous pen (Lantus Solostar U-100 Insulin) Magnesium Liquid 400 mg PO DAILY 10/13/23 10/13/23 cholecalciferol (vitamin D3) 10 10 mcg PO DAILY 10/13/23 10/13/23 mcg/drop (400 unit/drop) oral drops Results & Data (ED) Vital Signs Vital Signs - 24 hr 10/13/23 17:24 10/13/23 20:20 10/13/23 20:20 Temperature 36.4 C L Temperature Source Skin Pulse Rate 79 73 Pulse Rate [Finger] 72 Pulse Rhythm Regular Pulse Strength Normal Respiratory Rate 20 20 20 Respiratory Effort / Characteristics Non-Labored Spontaneous Non-Labored Spontaneous Respiratory Depth Normal Normal Blood Pressure 154/80 H Blood Pressure [Right Arm] 200/83 H Blood Pressure Mean 104 Blood Pressure Mean [Right Arm] 122 Pulse Oximetry 94 96 95 Oxygen Delivery Method Room Air Room Air Room Air Sepsis Recent Fever Within 48 Hours No Sepsis New/Unexplained Change in Mental Status N/A Sepsis Action Taken by Nursing No Action Required 10/13/23 21:30 Temperature Temperature Source Pulse Rate 67 Pulse Rate [Finger] Pulse Rhythm Pulse Strength Respiratory Rate Respiratory Effort / Characteristics Respiratory Depth Blood Pressure Blood Pressure [Right Arm] Blood Pressure Mean Blood Pressure Mean [Right Arm] Pulse Oximetry Oxygen Delivery Method Sepsis Recent Fever Within 48 Hours Sepsis New/Unexplained Change in Mental Status Sepsis Action Taken by [facility] Medications Current Medication List: was personally reviewed by me Laboratory Data Attestation: I reviewed the patient's lab results. 10/13/23 17:57 10/13/23 17:57 Lab Results 10/13/23 10/13/23 Range/Units 17:57 21:08 WBC 6.90 (4.8-10.8) K/ul RBC 4.31 (4.20-5.40) M/uL Hgb 12.9 (12.0-16.0) g/dl Hct 38.8 (37.0-47.0) % MCV 90.0 (80.0-100.0) fL MCH 29.9 (25.0-34.0) pg MCHC 33.2 (32.0-36.0) g/dL RDW Std Deviation 43.3 (36.4-46.3) fL RDW Coeff of Mihaela 13.2 (11.5-14.5) % Plt Count 196 (130-400) K/uL MPV 10.0 (9.4-12.4) fL Immature Gran % (Auto) 0.4 % Neut % (Auto) 65.2 % Lymph % (Auto) 23.5 % Union % (Auto) 7.4 % Eos % (Auto) 2.9 % Baso % (Auto) 0.6 % Neut # (Auto) 4.50 (1.40-6.50) K/uL Lymph # (Auto) 1.62 (1.20-3.40) K/uL Union # (Auto) 0.51 (0.11-0.59) K/uL Eos # (Auto) 0.20 (0.00-0.50) K/uL Baso # (Auto) 0.04 (0.00-0.20) K/uL Immature Gran # (Auto) 0.03 (0.01-0.20) K/uL Sodium 134 L (136-145) mmol/L Potassium 4.7 (3.5-5.1) mmol/L Chloride 102 (98-107) mmol/L Carbon Dioxide 22 (21-32) mmol/L Anion Gap 10 (3-11) BUN 30 H (6-23) mg/dl Creatinine 1.75 H (0.6-1.2) mg/dl Est Cr Clr Drug Dosing 27.4 ml/min Est GFR ( Amer) 31.8 ml/min Est GFR (Non-Af Amer) 27.4 ml/min BUN/Creatinine Ratio 17.1 (10-20) Glucose 312 H* (70-99(Fasting)) mg/dl POC Glucose 240 H (70-99) mg/dl Calcium 9.5 (8.6-10.3) mg/dl Magnesium 1.4 L (1.7-2.4) mg/dl Total Bilirubin 0.4 (0.2-1.0) mg/dl AST 15 (13-39) U/L ALT 16 (7-52) U/L Alkaline Phosphatase 87 (34-104) U/L Troponin I High Sens < 2.3 (0-14) pg/ml Total Protein 7.6 (6.0-8.3) gm/dl Albumin 4.3 (3.4-5.0) gm/dl Globulin 3.3 (2.5-4.0) gm/dl Albumin/Globulin Ratio 1.3 (0.9-2) TSH 3.423 (0.300-4.500) uIu/ml Administered Medications Lactated Ringer's (Lr) 1,000 mls @ 100 mls/hr IV .Q10H BART Stop: 10/14/23 07:59 Last Admin: 10/13/23 22:47 Dose: 100 mls/hr Documented By: JORGE Insulin Aspart (Insulin Aspart Per Unit Charge) 0 units SC ACHS BART Stop: 11/12/23 22:14 Last Admin: 10/13/23 23:49 Dose: 4 units Documented By: SAURAV Co-signed By: KE Insulin Glargine (Lantus Per Unit Charge) 10 units SQ BID BART Stop: 11/12/23 22:14 Last Admin: 10/13/23 23:48 Dose: 10 units Documented By: SAURAV Co-signed By: KE Discontinued Medications Acetaminophen (Acetaminophen 500 Mg Tab) 500 mg PO NOW STA Stop: 10/13/23 21:41 Last Admin: 10/13/23 22:47 Dose: 500 mg Documented By: JORGE Diphenhydramine HCl (Diphenhydramine Capsule 25 Mg Cap) 25 mg PO NOW ONE Stop: 10/13/23 21:41 Last Admin: 10/13/23 22:47 Dose: 25 mg Documented By: JORGE Gabapentin (Gabapentin 250 Mg/5 Ml 470 Ml Btl) 200 mg PO NOW STA Stop: 10/13/23 22:10 Last Admin: 10/13/23 22:47 Dose: 200 mg Documented By: JORGE Hydralazine HCl (Hydralazine 10 Mg Tab) 10 mg PO NOW STA Stop: 10/13/23 21:58 Last Admin: 10/13/23 22:47 Dose: 10 mg Documented By: JORGE Sodium Chloride (Nss) 500 mls @ 999 mls/hr IV .Q31M ONE Stop: 10/13/23 21:20 Last Infusion: 10/13/23 22:53 Dose: Infused Documented By: Admin: 10/13/23 21:07 Dose: 999 mls/hr Documented By: JORGE Magnesium Sulfate/Dextrose (Magnesium Sulfate / D5w) 1 gm in 100 mls @ 100 mls/hr IV Q1H BART Stop: 10/13/23 22:50 Last Infusion: 10/14/23 00:08 Dose: Infused Documented By: Admin: 10/13/23 22:09 Dose: 100 mls/hr Documented By: Infusion: 10/13/23 22:07 Dose: Infused Documented By: Admin: 10/13/23 21:07 Dose: 100 mls/hr Documented By: JORGE Discharge Plan Visit Data Chief Complaint: Dehydration Stated Complaint: DEHYDRATION ED Provider: Toño Montana Discharge Problem: Weakness, BRIANA (acute kidney injury), Hypomagnesemia, Acute hyperglycemia Patient Disposition: Admitted As Inpatient Condition: Fair Discharge Instructions Interventions: ED Discharge Assessment Last Done: 10/13/23 22:31
[2023-10-13] MEDS: MAGNESIUM SULFATE / D5W 1 GM/100 ML BAG IV SCH (21:07)
[2023-10-13] MEDS: SODIUM CHLORIDE 0.9% 500 ML IV ONE (21:07)
--- NOTE | 2023-10-13 21:14 | History & Physical Report ---
Date of Service October 13, 2023 Assessment & Plan (1) Confusion: Plan: Cognitive decline and darkening urine x 1 week, per daughter Patient told to come to the ED for renal outpatient labs Recent botox injection into bladder; concern for UTI No leukocytosis; afebrile UA negative on arrival, but does have glucose 3+ Suspect her cognitive decline can be secondary to combination of acute dehydration with BRIANA, hyperglycemia, and hypomagnesemia A.m. CBC, BMP, mag (2) Acute kidney injury: Plan: BUN 30, creatinine 1.75 (baseline 1.06), EGFR is 27.4 Avoid nephrotoxic agents for possible Suspect combination of hyperglycemia leading to increased urine output and dehydration Gentle fluid resuscitation overnight with LR at 100mL/hr x 1 L Hold lisinopril (3) Hypomagnesemia: Plan: Magnesium 1.4 on arrival Magnesium sulfate 1 g IV x 2 May be secondary to BRIANA + increased excretion Recheck a.m. mag (4) Diabetes mellitus, type 2: Plan: Last A1c at 8.5% on 03/24/2023 Glucose 312 on admission Hold metformin, glipizide Patient is normally on Lantus 30u HS Will reduce basal insulin in the setting of BRIANA Lantus 10u BID SSI; with target BSG range 110-140mg/dL, CF 50, carb ratio 15 T2DM diet BSG ACHS Adjust regimen as needed AM A1c (5) HTN (hypertension): Plan: BP 200/83 on arrival, however patient did not take her evening antihypertensive medication Hydralazine 10 mg p.o. x 1 Continue to monitor (6) Hx of deep venous thrombosis: Plan: S/p IVC filter (7) Renal lesion: Plan Disposition: Admit to [facility] DNR/DNI T2DM diet VTE PPx: Patient has an IVC filter in place; she reports she is unable to take chemical DVT PPx History of Present Illness Chief Complaint: Dehydration Primary Care Provider: Rashiemil Herman Alexander is a 70-year-old female with PMH of urge incontinence, HTN, chronic kidney disease, DVT, T2DM, hypothyroidism, subarachnoid hemorrhage, hypertensive urgency, and renal lesion. She presented on 10/12 for cognitive decline x 1 week. Her daughter (any) is at the bedside and provides most the history. She reports that over the past week she has been increasingly lethargic, not moving well, and has exhibited some cognitive decline. Patient had a Botox injection into her bladder this summer, and there was concern for a UTI. She was then told to come into the ED following outpatient labs drawn that showed a change in her kidney function. Patient does endorse dark urine over the past week, but denies clinical signs of UTI such as suprapubic pain, burning with induration, dysuria, or lower back pain. She reports that she took all her regular morning medications today, but has not taken her evening medications, which includes Lantus 30u HS. only recent change medication was that her Lantus was increased from 20 to 30u HS. patient does have history of a fall 2 years ago which required [facility] for an emergency craniotomy (March 2021). She does have history of DVTs, but was taken off blood thinners after this event. She currently has an IVC filter. Patient reports she is going to [place] this to visit her great grandson, and if possible would like to be out of the hospital by Wednesday. Patient lives with her daughter, and while she denies increased urinary frequency, daughter does note she has been getting up 2-3 times per night to use the bathroom. She also wears depends at home. Patient denies smoking, tobacco use, or recent alcohol use. She reports that she has a Tylenol PM every night before bed, as this is the only thing that can help her sleep. She is hypertensive at 200/83 at time of admission; vitals otherwise stable. ED course: NSS 500 m IV Magnesium sulfate 1 g IV x 2 ROS: Patient endorses hot flashes, fatigue, congestion (which patient attributes to allergies), dry cough, and darker urine. Patient denies fevers, chills, night-sweats, joint pains, chest pain, SOB, pleuritic CP, abdominal pain, dysuria, burning with urination, lower back pain, or suprapubic tenderness. Allergies Allergy/AdvReac Type Severity Reaction Status Date / Time cefoxitin AdvReac Mild vomiting Verified 10/13/23 21:39 Home Medications Medication Instructions Recorded Confirmed Type levothyroxine 25 mcg tablet 25 mcg PO DAILY 03/31/21 10/13/23 History blood sugar diagnostic (OneTouch 03/13/22 03/13/22 History Verio test strips) lancets 33 gauge (OneTouch Delica 03/13/22 03/13/22 History Lancets) lisinopril 10 mg tablet 10 mg PO PM 03/13/22 10/13/23 History cyanocobalamin (vitamin B-12) 500 500 mcg sublingual QAM 06/17/22 10/13/23 History mcg sublingual tablet metformin 500 mg tablet 500 mg PO BID 06/17/22 10/13/23 History acetaminophen 500 mg tablet 1,000 mg PO Q8H PRN PAIN/FEVER 12/07/22 10/13/23 History aspirin 81 mg tablet,delayed 81 mg PO DAILY 03/10/23 10/13/23 History release gabapentin 100 mg capsule 200 mg PO BID 03/10/23 10/13/23 History glipizide 10 mg tablet, extended 10 mg PO DAILY 03/10/23 10/13/23 History release 24 hr polyethylene glycol 3350 17 17 g PO DAILY PRN Constipation 03/10/23 10/13/23 History gram/dose oral powder (Miralax) insulin glargine 100 unit/mL (3 30 unit subcut QPM 06/23/23 10/13/23 History mL) subcutaneous pen (Lantus Solostar U-100 Insulin) Magnesium Liquid 400 mg PO DAILY 10/13/23 10/13/23 History cholecalciferol (vitamin D3) 10 10 mcg PO DAILY 10/13/23 10/13/23 History mcg/drop (400 unit/drop) oral drops Past Med/Surg History Problem List (Updated 10/14/23 @ 00:23 by Alma Delia Craig DO) Elevated lipase (Acute) Acute UTI (urinary tract infection) (Acute) Hypomagnesemia (Acute) Renal lesion UTI (urinary tract infection) Weakness (Acute) Acute kidney injury Generalized weakness (Acute) Confusion (Acute) Hypertensive urgency (Acute) Influenza A virus subtype H1 2009 pandemic strain present (Acute) Hypocalcemia Ambulatory dysfunction Hypoxia Influenza A virus subtype H1 2009 pandemic strain present Stroke Hyperglycemia (Acute) Altered level of consciousness (Acute) Diabetes mellitus, type 2 Hx of deep venous thrombosis (Acute) JULY 2021>VENA CAVA FILTER INSERTED BY DR. 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 Status post left knee replacement Encounter for pre-operative examination History of blood clots (Acute) Shortness of breath (Acute) Osteoarthritis, knee Hypoglycemia SAH (subarachnoid hemorrhage) SDH (subdural hematoma) HTN (hypertension) Somnolence Hypothyroidism Acute DVT (deep venous thrombosis) (Acute) History of craniotomy (Acute) Benign head tremor Peripheral neuropathy Chronic kidney disease Hypertension Vitamin D deficiency Urge incontinence Medical History Osteoarthritis Hypothyroidism History of anemia Peripheral neuropathy Noted to bilateral hands Intracranial bleed 03/31/21> D/T FALL Later had emergency craniotomy 06/01/21 (had slow bleed) Mild cognitive issues from hemorrhage but has been improving Per most recent head CT 12/12/21- no acute hemorrhage, mass effect, or evidence of acute territorial ischemia; small chronic subdural hemorrhages similar in appearance to 09/23/21 exam. TIA (transient ischemic attack) 2010? No residual issues History of COVID-19 12/2019 & 02/2021>RESOLVED Hypertension Surgical History History of total knee replacement RT History of colonoscopy History of cholecystectomy History of tooth extraction History of tonsillectomy History of cataract surgery RT/LEFT H/O craniotomy LARRY>06/01/21 *EMERGENCY CRANIOTOMY Family History Father Myocardial infarction Other Family history non-contributory No family history of adverse response to anesthesia Social History Smoking Status: Never smoker Second Hand Exposure: No; Hx Alcohol Use: No Hx Substance Use: No Preferred Language: Ethiopian Communication Ability: Effective Communication Ability Comment: @BASELINE A/O AND NO COMMUNICATION ISSUES Visual Impairment: No Limitations Respiratory Therapy Aide Required: No Beliefs That Will Affect Care: None marital status: / Current Living Situation: Family Current Living Situation Comment: WITH DAUGHTER How many Children do You have: 2 Feels Safe at Home: Yes Assistive Devices: Walker Review of Systems Review of Systems: See HPI above Physical Exam Physical Exam: General: no acute distress; non-toxic appearing; well-nourished; cooperative; SpO2 95% on RA HEENT: normocephalic, atraumatic; no scleral icterus; PERRLA; vision and hearing intact Neck: supple; no lymphadenopathy; trachea midline Skin: warm, dry without signs of tenting; no cyanosis; no rashes, bruising, lesions, or erythema noted CV: chest wall NTP; RRR; S1/S2 normal; no murmurs/rubs/gallops; pulses intact and symmetric at radial, DP, and PT Lungs: no acute respiratory distress; symmetrical chest wall expansion; clear breath sounds across all lung davis w/o adventitious sounds; no wheezing ABD: Soft, NTP; negative suprapubic tenderness; BS present; no rebound/guarding; distention secondary to body habitus; negative CVA tenderness MSK: +2 pitting edema noted in the LEs b/l; lower extremities are mildly erythematous bilaterally Neuro: Head sweta; A&Ox3; normal mood and affect; fluent speech; no focal deficits; sensation intact and symmetric in the LEs bilaterally Results & Data Results & Data Vital Signs (Past 12 Hours) Vital Signs Temp Pulse Pulse Resp BP BP Pulse Ox 10/13/23 20:20 73 20 95 10/13/23 20:20 72 20 200/83 H 96 10/13/23 17:24 36.4 C L 79 20 154/80 H 94 O2 Del Method 10/13/23 20:20 Room Air 10/13/23 20:20 Room Air 10/13/23 17:24 Room Air Laboratory Results Abnormal lab results 10/13/23 10/13/23 10/13/23 Range/Units 17:57 21:08 Unknown Sodium 134 L (136-145) mmol/L BUN 30 H (6-23) mg/dl Creatinine 1.75 H (0.6-1.2) mg/dl Glucose 312 H* (70-99(Fasting)) mg/dl POC Glucose 240 H (70-99) mg/dl Magnesium 1.4 L (1.7-2.4) mg/dl Urine Protein Trace H (Negative) Urine Glucose (UA) 3+ H (Negative) ECG Additional Comments: ECG revealed NSR at 81 bpm; QTc 464 Code Status & VTE Plan Code Status DNR/DNI VTE Prophylaxis Plan VTE Prophylaxis will be ordered: No Supervising Physician Co-Signing Physician Notes Patient seen and examined, chart reviewed, case discussed with REBECCA Luis and I agree with the assessment and plan as above. In brief, Catherine is a 78yo female presenting from home with one week of decline - confusion, weakness, decreased PO intake and dark colored urine. On exam patient is resting comfortably, NAD Skin- intact, no rash HEENT- MMM, Neck supple Heart - +S1/S2, regular Lungs - CTA Abd - soft, NT/ND, no CVA or suprapubic tenderness Ext - Warm, well perfused, +redness in bilateral LE with skin thickening consistent with chronic venous stasis changes, some warmth as well Labs and images reviewed Hypomagnesemia, BRIANA Assessment/Plan Weakness likely multifactorial - hypomagnesemia, dehydration, BRIANA, hyperglycemia -IVF, Mg repletion -BSG and BP control - will add PRN Clonidine for BP > 180mmHg -Remainder as above PG Care Time/CCT Total # of Minutes Spent Total Time Spent with Patient: Total time spent is greater than 50% in coordination of care (as documented) at patient's floor/unit and/or counseling patient: C[place] [address] INT INP/OBS CARE 3/75MIN Patient Type Established Medical Decision Making High Complexity Diagnoses Confusion R41.0 Acute kidney injury N17.9 Hypomagnesemia E83.42 Diabetes mellitus, type 2 E11.9 HTN (hypertension) I10 Hx of deep venous thrombosis Z86.718 Renal lesion N28.9
[2023-10-13] MEDS ORDERED: GLUCAGON FOR INJ 1 MG VIAL SQ PRN (21:59)
[2023-10-13] MEDS ORDERED: GLUCOSE 10 TAB/TUBE PO PRN (21:59)
[2023-10-13] MEDS ORDERED: DEXTROSE 50% 50 ML SYRINGE IV PRN (21:59)
[2023-10-13] MEDS ORDERED: CARBOHYDRATES FOR HYPOGLYCEMIA PO PRN (21:59)
[2023-10-13] MEDS ORDERED: GLUCOSE 40% GEL 15 GM TUBE PO PRN (21:59)
[2023-10-13] MEDS: LACTATED RINGER'S 1,000 ML IV SCH (22:47)
[2023-10-13] MEDS: ACETAMINOPHEN 500 MG TAB PO STA (22:47)
[2023-10-13] MEDS: hydrALAZINE 10 MG TAB PO STA (22:47)
[2023-10-13] MEDS: diphenhydrAMINE Capsule 25 MG CAP PO ONE (22:47)
[2023-10-13] MEDS: GABAPENTIN 250 MG/5 ML 470 ML BTL PO STA (22:47)
[2023-10-13] MEDS ORDERED: MELATONIN 3 MG TAB PO PRN (23:19)
[2023-10-13] MEDS ORDERED: POLYETHYLENE (MIRALAX) 17 GM PACK PO PRN (23:19)
[2023-10-13] MEDS ORDERED: ACETAMINOPHEN 325 MG TAB PO PRN (23:19)
[2023-10-13] MEDS: LANTUS PER UNIT CHARGE SQ SCH (23:48)
[2023-10-13] MEDS: INSULIN ASPART PER UNIT CHARGE SC SCH (23:49)
[2023-10-14] MEDS ORDERED: cloNIDine HCL 0.1 MG TAB PO PRN (00:15)
[2023-10-14] MEDS: LEVOTHYROXINE SODIUM 25 MCG TABLET PO SCH (06:45)
--- OUTSIDE RECORDS SUMMARY | 2023-10-14 07:29 | External Medical Summary | Continuity of Care Document ---
Author Name Unknown Organization [place] [id number] [facility] [address] [place] [id number] Care Team Providers Care Education Consultant Name Role Phone Faheem Sutton Primary Care Physician [phone] [facility]counter [facility] [id number] Date(s): 09/29/23 - 09/29/23 [facility] 0 [facility] 207 [facility] [address] [address] [phone] Encounter Diagnosis Type 2 diabetes mellitus with diabetic polyneuropathy(Discharge Diagnosis) - 09/29/23 Body mass index [BMI] 34.0-34.9, adult(Discharge Diagnosis) - 09/29/23 HTN (hypertension)(Discharge Diagnosis) - 09/29/23 HLD (hyperlipidemia)(Discharge Diagnosis) - 09/29/23 Elevated ferritin(Discharge Diagnosis) - 09/29/23 Allergies(Discharge Diagnosis) - 09/29/23 Finger pain(Discharge Diagnosis) - 09/29/23 Hypothyroidism(Discharge Diagnosis) - 09/29/23 Cerumen impaction(Discharge Diagnosis) - 09/29/23 Discharge Disposition: Home or Self Care Attending Physician: MD Sutton Dongsheng Allergies, Adverse Reactions, Alerts Substance Criticality Severity Reaction Reaction Severity Status hydrochlorothiazide- triamterene extreme drowsiness Active statins confusion Active Assessment and Plan Extracted from: Title:Office Visit Note Author:MD Sutton Dongsh eng Date:09/29/23 1.Type 2 diabetes mellitus with diabetic polyneuropathy STATUS: Chronic stable: Chronic uncontrolled: x Acute uncomplicated: Acute illness with systemic symptoms: Undiagnosed new problems with uncertain prognosis: Chronic illnesses with exacerbation, progression, or side effects of treatment: 1 acute complicated injury: DATA: Review of prior external note(s) from each unique source: Review of the result(s) of each unique test: a1c Ordering of each unique test: x Assessment requiring independent historian(s): daughter GOAL: Maintain stability Resolution Reduce symptoms PLAN: continuemetformin, glipizide ER. IncreasingLantus per endo. Jardiance, Januvia, and Ozempic - expensive. Dexcom - not covered. f/uEndo. check A1c - monitor closely 2.HTN (hypertension) STATUS: Chronic stable: x Chronic uncontrolled: Acute uncomplicated: Acute illness with systemic symptoms: Undiagnosed new problems with uncertain prognosis: Chronic illnesses with exacerbation, progression, or side effects of treatment: x 1 acute complicated injury: DATA: Review of prior external note(s) from each unique source: Review of the result(s) of each unique test: x CMP Ordering of each unique test: x CMP/FLP per request Assessment requiring independent historian(s): x daughter GOAL: BP<150/90 PLAN: amlodipine-leg swelling.continuelisinopril.f/u nephrology.Prevent dehydration. home BP. 3.Hypothyroidism STATUS: Chronic, stable DATA: Reviewed labs TSH GOAL: TSH WNL PLAN: continue med. 4.HLD (hyperlipidemia) STATUS: Chronic stable: Chronic uncontrolled: x Acute uncomplicated: Acute illness with systemic symptoms: Undiagnosed new problems with uncertain prognosis: Chronic illnesses with exacerbation, progression, or side effects of treatment: 1 acute complicated injury: DATA: Review of prior external note(s) from each unique source: Review of the result(s) of each unique test: x flp Ordering of each unique test: Assessment requiring independent historian(s): GOAL: LDL<70 PLAN: continue zetia. statins - confusion. diet and exercise 5.Elevated ferritin STATUS: Chronic stable: Chronic uncontrolled: x but improving Acute uncomplicated: Acute illness with systemic symptoms: Undiagnosed new problems with uncertain prognosis: Chronic illnesses with exacerbation, progression, or side effects of treatment: 1 acute complicated injury: DATA: Review of prior external note(s) from each unique source: Review of the result(s) of each unique test: Ordering of each unique test: Assessment requiring independent historian(s): GOAL: Resolution PLAN: f/u hematology. 6.Finger pain STATUS: Chronic stable: Chronic uncontrolled: Acute uncomplicated: Acute illness with systemic symptoms: Undiagnosed new problems with uncertain prognosis: x Chronic illnesses with exacerbation, progression, or side effects of treatment: 1 acute complicated injury: DATA: Review of prior external note(s) from each unique source: Review of the result(s) of each unique test: cbc Ordering of each unique test: Assessment requiring independent historian(s): daughter GOAL: Resolution PLAN: declined labs and XR for now 7.Allergies STATUS: Chronic stable: Chronic uncontrolled: x Acute uncomplicated: Acute illness with systemic symptoms: Undiagnosed new problems with uncertain prognosis: Chronic illnesses with exacerbation, progression, or side effects of treatment: 1 acute complicated injury: DATA: Review of prior external note(s) from each unique source: Review of the result(s) of each unique test: Ordering of each unique test: Assessment requiring independent historian(s): GOAL: Reduce symptoms PLAN: advised to restart flonase. 8.Cerumen impaction Cerumen removal: Unilateral: R side pt elected for removal today. Reviewed risks including but not limited to dizziness, pain, TM damage. Consent was done per [facility] protocol. Pt identified. Routine procedure with repeated manual removal with curette. Total success was achieved with the help of water irrigation. Tolerated well. No complication. call prn. f/u 4 mos Time spent: Pre-visit planning/chart review: 5 minutes [id number] visit: 47 minutes Post-visit documentation: minutes Care coordination: minutes Time spent on disease management/counseling in addition to CPE/AWV/WCC: minutes Total visit time: 52 minutes and over 40min on illnesses and 12 min was on procedure Immunizations Given and Recorded Vaccine Date Status [...] mg oral delayed release tablet Start: 01/29/23 4:05:00 PM EST, 1 tab, PO, Daily Start Date: 01/29/23 Status: Ordered fluticasone 50 mcg/inh nasal spray Start: 09/23/22 3:47:00 PM EDT, 2 spray, intranasal, Daily, Disp# 16 g, PRN: allergy symptoms, Pharmacy: [facility] Start Date: 09/23/22 Status: Ordered gabapentin 100 mg oral capsule Start: 09/30/23 4:11:00 PM EDT, 2 cap, PO, bid, Disp# 120 cap, Refills: 4, Pharmacy: [place] [id number] Start Date: 09/30/23 Status: Ordered glipiZIDE 10 mg oral tablet, extended release Start: 04/01/23 3:49:00 PM EST, 1 tab, PO, Daily, Disp# 90 tab, other Start Date: 04/01/23 Status: Ordered Lantus Solostar Pen 100 units/mL subcutaneous solution Start: 05/31/23 4:16:00 PM EDT, 10 unit =, subQ, Daily Start Date: 05/31/23 Status: Ordered levothyroxine 25 mcg (0.025 mg) oral tablet Start: 09/01/23 11:54:00 AM EDT, 1 tab, PO, Daily, Disp# 90 tab, Refills: 1, Pharmacy: [facility] Start Date: 09/01/23 Status: Ordered lisinopril 5 mg oral tablet Start: 09/29/23 4:26:00 PM EDT, 1 tab, PO, Daily, Disp# 90 tab, Refills: 3, Pharmacy: [place] [id number] Start Date: 09/29/23 Status: Ordered metFORMIN 500 mg oral tablet Start: 02/17/23 4:13:00 PM EST, See Instructions, Disp# 60 tab, Refills: 5, TAKE 1 TABLET BY MOUTH TWICE DAILY WITH MEALS, Pharmacy: [facility] Start Date: 02/17/23 Status: Ordered One Touch Delica Plus (33G) Lancets Start: 01/27/23 12:02:00 PM EST, See Instructions, Disp# 100 each, Refills: 11, home glu qAm, Pharmacy: [place] [id number] Start Date: 01/27/23 Status: Ordered One touch verio strips Start: 01/29/23 12:00:00 PM EST, One touch verio strips, eRx Product Type: Supply, See Instructions, Disp# 100 strip, Refills: 11, Use 1 strip to check glucose daily, Note to Pharmacy: [email or web address], Pharmacy [id number] Start Date: 01/29/23 Status: Ordered OneTouch Verio In Vitro Strip Start: 10/13/22 9:25:00 AM EDT, OneTouch Verio In Vitro Strip, eRx Product Type: Supply, See Instructions, Disp# 100 each, Refills: 0, USE 1 STRIP TO CHECK GLUCOSE DAILY and prn, Pharmacy [id number] Start Date: 10/13/22 Status: Ordered Tylenol Start: 06/30/21 2:23:00 PM EDT, PRN pain Start Date: 06/30/21 Status: Ordered Zetia 10 mg oral tablet Start: 09/01/23 11:54:00 AM EDT, 1 tab, PO, Daily, Disp# 30 tab, Refills: 5, Pharmacy: [facility] Start Date: 09/01/23 Stop Date: 02/28/24 Status: Ordered Mental Status 09/29/23 Barriers to Learning one year None evide nt Mandatory Health Literacy Documentation Yes Health Literacy Communication Barriers N ever Primary Language Argentine Problem List Condition Confirmation Course Effective Dates Status H ealth Status Informant CVA (cerebral vascular accident) Confirmed Active CKD (chronic kidney disease) Confirmed Active Subdural hematoma Confirmed Active 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 HLD (hyperlipidemia) Confirmed Active HTN (hypertension) Confirmed Active Hypothyroidism Confirmed Active Inclusion cyst Confirmed Active Elevated ferritin Confirmed Active Recurrent deep vein thrombosis (DVT) Confirmed Active Statin intolerance Confirmed Active Leg swelling Confirmed Active Type 2 diabetes mellitus with diabetic polyneuropathy Confirmed Active Urine incontinence Confirmed Active Diagnosis Diagnosis Type Effective Dates Health Status Clinical Service Informant HTN (hypertension) Discharge Diagnosis 09/29/23 Non-Specified HLD (hyperlipidemia) Discharge Diagnosis 09/29/23 Non-Specified Body mass index [BMI] 34.0-34.9, adult Discharge Diagnosis 09/29/23 Non-Specified Elevated ferritin Discharge Diagnosis 09/29/23 Non-Specified Type 2 diabetes mellitus with diabetic polyneuropathy Discharge Diagnosis 09/29/23 Non-Specified Allergies Discharge Diagnosis 09/29/23 Non-Specified Finger pain Discharge Diagnosis 09/29/23 Non-Specified Hypothyroidism Discharge Diagnosis 09/29/23 Non-Specified Cerumen impaction Discharge Diagnosis 09/29/23 Non-Specified Procedures Procedure Date Related Diagnosis Body [...] removal 3tonsil and adnoidectomy at age 12 [id number], 1965 Vital Signs Most recent to oldest [Reference Range]: 1 Height 163 cm (09/29/23 1:48 PM) Patient Weight 92.9 kg (09/29/23 1:48 PM) Body Mass Index 34.97 kg/m2 (09/29/23 1:48 PM) Heart Rate 77 bpm (09/29/23 1:48 PM) Respiratory Rate 12 br/min (09/29/23 1:48 PM) Blood Pressure 144/90mmHg (09/29/23 1:48 PM) Cuff Pulse Pressure 54 mmHg (09/29/23 1:48 PM) Social History Social History Type Response Smoking Status Never smoked cigaret [place] Sex Female Sex Representation Female (finding) Implantable Device List Procedure Provider Procedure Date [...] Event Display: FCM Outpt Note Authored Date: [id number] Chief Complaint 1 month F/U History of Present Illness HTN: on med. home bp has been good but not checked recently. HLD: on zetia. no joint or muscle ache. DM: on meds. no low sugar. fingers pain: x a wk.R side. stiff in Am. swelling. hard to do exercise. nasal congestion: sneezing, runny nose. x 6 mos. leg swelling: stable overall. ear wax Review of Systems No fever/chills. No headache. No otherrespiratory symptoms. No chest pain/shortness of breath. Nonausea/vomiting. No abdominal pain. No change with bowels.No anxiety/depression. Other systems reviewed and are neg. Physical Exam Vitals & Measurements HR:77(Monitored) RR:12 BP:144/90 SpO2:98% HT:163cm WT:92.9kg WT:92.900kg(Dosing) BMI:34.97 PHQ2 Data(Data Documented on:09/29/2023 13:48) Emotional health assessment NEGATIVE General: No acute distress. Nontoxic. Respiratory:Lungs are clear to auscultation, Respirations non-labored, Breath sounds equal HONEY. Cardiovascular:Normal rate, Regular rhythm, No murmur, Rubs, gallops. Gastrointestinal:Soft, Non-tender, Non-distended, Normal bowel sounds. Musculoskeletal:1+pitting edema Neurologic:Alert, Oriented, No focal deficits. Psychiatric:Cooperative, Appropriate mood & affect. Assessment/Plan 1.Type 2 diabetes mellitus with diabetic polyneuropathy STATUS: Chronic stable: Chronic uncontrolled: x Acute uncomplicated: Acute illness with systemic symptoms: Undiagnosed new problems with uncertain prognosis: Chronic illnesses with exacerbation, progression, or side effects of treatment: 1 acute complicated injury: DATA: Review of prior external note(s) from each unique source: Review of the result(s) of each unique test: a1c Ordering of each unique test: x Assessment requiring independent historian(s): alena GOAL: Maintain stability Resolution Reduce symptoms PLAN: continuemetformin, glipizide ER. IncreasingLantus per endo. Jardiance, Januvia, and Ozempic - expensive. Dexcom - not covered. f/uEndo. check A1c - monitor closely 2.HTN (hypertension) STATUS: Chronic stable: x Chronic uncontrolled: Acute uncomplicated: Acute illness with systemic symptoms: Undiagnosed new problems with uncertain prognosis: Chronic illnesses with exacerbation, progression, or side effects of treatment: x 1 acute complicated injury: DATA: Review of prior external note(s) from each unique source: Review of the result(s) of each unique test: x CMP Ordering of each unique test: x CMP/FLP per request Assessment requiring independent historian(s): x daughter GOAL: BP<150/90 PLAN: amlodipine-leg swelling.continuelisinopril.f/u nephrology.Prevent dehydration. home BP. 3.Hypothyroidism STATUS: Chronic, stable DATA: Reviewed labs TSH GOAL: TSH WNL PLAN: continue med. 4.HLD (hyperlipidemia) STATUS: Chronic stable: Chronic uncontrolled: x Acute uncomplicated: Acute illness with systemic symptoms: Undiagnosed new problems with uncertain prognosis: Chronic illnesses with exacerbation, progression, or side effects of treatment: 1 acute complicated injury: DATA: Review of prior external note(s) from each unique source: Review of the result(s) of each unique test: x flp Ordering of each unique test: Assessment requiring independent historian(s): GOAL: LDL<70 PLAN: continue zetia. statins - confusion. diet and exercise 5.Elevated ferritin STATUS: Chronic stable: Chronic uncontrolled: x but improving Acute uncomplicated: Acute illness with systemic symptoms: Undiagnosed new problems with uncertain prognosis: Chronic illnesses with exacerbation, progression, or side effects of treatment: 1 acute complicated injury: DATA: Review of prior external note(s) from each unique source: Review of the result(s) of each unique test: Ordering of each unique test: Assessment requiring independent historian(s): GOAL: Resolution PLAN: f/u hematology. 6.Finger pain STATUS: Chronic stable: Chronic uncontrolled: Acute uncomplicated: Acute illness with systemic symptoms: Undiagnosed new problems with uncertain prognosis: x Chronic illnesses with exacerbation, progression, or side effects of treatment: 1 acute complicated injury: DATA: Review of prior external note(s) from each unique source: Review of the result(s) of each unique test: cbc Ordering of each unique test: Assessment requiring independent historian(s): daughter GOAL: Resolution PLAN: declined labs and XR for now 7.Allergies STATUS: Chronic stable: Chronic uncontrolled: x Acute uncomplicated: Acute illness with systemic symptoms: Undiagnosed new problems with uncertain prognosis: Chronic illnesses with exacerbation, progression, or side effects of treatment: 1 acute complicated injury: DATA: Review of prior external note(s) from each unique source: Review of the result(s) of each unique test: Ordering of each unique test: Assessment requiring independent historian(s): GOAL: Reduce symptoms PLAN: advised to restart flonase. 8.Cerumen impaction Cerumen removal: Unilateral: R side pt elected for removal today. Reviewed risks including but not limited to dizziness, pain, TM damage. Consent was done per [facility] protocol. Pt identified. Routine procedure with repeated manual removal with curette. Total success was achieved with the help of water irrigation. Tolerated well. No complication. call prn. 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 Statin intolerance Subdural hematoma Type 2 diabetes mellitus with diabetic polyneuropathy Urine incontinence Resolved SDH (subdural hematoma) Procedure/Surgical History Head CT| Service Date: 09/23/2021IVC - Insertion of inferior vena caval filter| Service Date:2Punch biopsy of skin| Service Date: 05/07/2011SurgerySurgerySurgery Medications acetaminophen(Tylenol) aspirin(aspirin 81 mg oral delayed release tablet), 81 mg= 1 tab, PO, Daily diabetes supplies(One Touch Delica Plus (33G) Lancets), See Instructions, 11 refills ezetimibe(Zetia 10 mg oral tablet), 10 mg= 1 tab, PO, Daily, 5 refills fluticasone nasal(fluticasone 50 mcg/inh nasal spray), 2 spray, intranasal, Daily, PRN gabapentin(gabapentin 100 mg oral capsule), 2 cap, PO, bid glipiZIDE(glipiZIDE 10 mg oral tablet, extended release), 10 mg= 1 tab, PO, Daily insulin glargine(Lantus Solostar Pen 100 units/mL subcutaneous solution), 10 unit, subQ, Daily levothyroxine(levothyroxine 25 mcg (0.025 mg) oral tablet), 1 tab, PO, Daily lisinopril(lisinopril 5 mg oral tablet), 5 mg= 1 tab, PO, Daily metFORMIN(metFORMIN 500 mg oral tablet), See Instructions, 5 refills unlisted medication(One touch verio strips), See Instructions, 11 refills unlisted medication(OneTouch Verio In Vitro Strip), See Instructions Allergies hydrochlorothiazide-triamtereneextreme drowsiness statinsconfusion Social History Smoking Status Never smoked cigarettes [...] the next year) OverDue Adult Influenza Vaccine due08/15/23and every 1year Due Adult COVID-19 Vaccination due09/29/23Unknown Frequency Adult Social Determinants of Health Screening due09/29/23Unknown Frequency Adult Tdap/Td Vaccine due09/29/23Unknown Frequency Falls Plan of Care due09/29/23Unknown Frequency Hepatitis C Screening due09/29/23One-time only Medicare Annual Wellness Visit due09/29/23and every 1year Osteoporosis Screening due09/29/23One-time only Pneumococcal Vaccine Older Adults due09/29/23One-time only Shingles Vaccine due09/29/23One-time only Due In Future Diabetic Eye Exam not due until12/11/23and every 731day Diabetes Management A1c not due until09/27/24and every 366day Satisfied(in the past 1 year) Satisfied Body Mass Index on09/29/23.Satisfied by RYLEY Hankins Paul Diabetes Management A1c on09/27/23.Satisfied by Contributor_system, [email or web address] Diabetes Nephropathy Management on02/05/23.Satisfied by Contributor_system, [email or web address] Lipid Screening on06/02/23.Satisfied by Contributor_system, [email or web address] Electronic Signature on File Electronically Reviewed/Signed by: Faheem Sutton MD Author Signature Dt/Tm:09/29/2023 02:40 PM Department of Family Medicine DJ Patient Care team information Care Team Personnel Name: REBECCA Lynn Ashley Position: Physician Knitting Machine Operator Helper - Neurosurgery Member Role: Lifetime Relationship Address: [address] [facility] [facility] [address] [place] [address] [place] Name: MD Sutton Dongsheng Position: Physician - Family Med Member Role: Primary Care Provider Address: [address] [place] [address] [place] Name: REBECCA Dorsey Lynn Position: Physician Knitting Machine Operator Helper Exempt - Vasc Surg Member Role: Lifetime Relationship Address: [address] [facility] [address] [place] [address] [place] Name: Lupis Auguste Kyle Position: Pharmacist Member Role: Pharmacy - Lifetime Address: [address] [place] [address] [place] Care Team Related Persons Name: EVELYNE GROVER Name: PATSY ONEAL"
--- OUTSIDE RECORDS SUMMARY | 2023-10-14 07:29 | External Medical Summary | Continuity of Care Document ---
Author Name Unknown Organization [facility] [address] Address [address] [place], [place] [id number] Care Team Providers Care Peanut Picker Name Role Phone Faheem Sutton Primary Care Physician [phone] [id number] Date(s): 09/27/23 - 09/27/23 [facility] [address] [facility] [address] [facility] [address] [place], [place] [phone] Encounter Diagnosis Type 2 diabetes mellitus with diabetic polyneuropathy(Final) - Discharge Disposition: Home or Self Care Attending Physician: MD Sutton Dongsheng Referring Physician: MD Sutton Dongsheng Allergies, Adverse Reactions, Alerts Substance Criticality Severity Reaction Reaction Severity Status hydrochlorothiazide- triamterene extreme drowsiness Active statins confusion Active Immunizations Given and Recorded Vaccine Date Status [...] Disp# 16 g, PRN: allergy symptoms, Pharmacy: [facility] Start Date: 09/23/22 Status: Ordered gabapentin 100 mg oral capsule Start: 07/05/23 9:58:00 AM EDT, 2 cap, PO, bid, Disp# 120 cap, Refills: 2, Pharmacy: [place] [id number] Start Date: 07/05/23 Status: Ordered glipiZIDE 10 mg oral tablet, [...] Daily, Disp# 90 tab, Refills: 1, Pharmacy: [place] [id number] Start Date: 09/01/23 Status: Ordered lisinopril 5 mg oral tablet Start: 09/29/23 4:26:00 PM EDT, 1 tab, PO, Daily, Disp# 90 tab, Refills: 3, Pharmacy: [place] [id number] Start Date: 09/29/23 Status: Ordered metFORMIN 500 mg oral tablet Start: 02/17/23 4:13:00 PM EST, See Instructions, Disp# 60 tab, Refills: 5, TAKE 1 TABLET BY MOUTH TWICE DAILY WITH MEALS, Pharmacy: [facility] Start Date: 02/17/23 Status: Ordered One Touch Delica Plus (33G) Lancets Start: 01/27/23 12:02:00 PM EST, See Instructions, Disp# 100 each, Refills: 11, home glu qAm, Pharmacy: [facility] Start Date: 01/27/23 Status: Ordered One touch verio strips Start: 01/29/23 12:00:00 PM EST, One touch verio strips, eRx Product Type: Supply, See Instructions, Disp# 100 strip, Refills: 11, Use 1 strip to check glucose daily, Note to Pharmacy: E11.9, Pharmacy [id number] Start Date: 01/29/23 Status: Ordered OneTouch Verio In Vitro Strip Start: 10/13/22 9:25:00 AM EDT, OneTouch Verio In Vitro Strip, eRx Product Type: Supply, See Instructions, Disp# 100 each, Refills: 0, USE 1 STRIP TO CHECK GLUCOSE DAILY and prn, Pharmacy [id number] Start Date: 10/13/22 Status: Ordered Tylenol Start: 06/30/21 2:23:00 PM EDT, PRN pain Start Date: 06/30/21 Status: Ordered Zetia 10 mg oral tablet Start: 09/01/23 11:54:00 AM EDT, 1 tab, PO, Daily, Disp# 30 tab, Refills: 5, Pharmacy: [id number] Start Date: 09/01/23 Stop Date: 02/28/24 Status: Ordered Problem List Condition Confirmation Course [...] polyneuropathy Confirmed Active Urine incontinence Confirmed Active Procedures [...] removal 3tonsil and adnoidectomy at age 12 [address], 1965 Results Laboratory List Name Date Hemoglobin A1C (HEMOGLOBIN, A1C) 09/27/23 Most recent to oldest [Reference Range]: 1 Estimated Average Glucose 235 mg/dL 1 (09/27/23 8:21 AM) HbA1c [4.0-6.0 %] 9.8 % *HI* (09/27/23 8:21 AM) 1Result Comment: Testing Performed By: Dept of Pathology [facility], [address] [place] [phone] Social History Social History Type Response Smoking [...] Personnel Name: REBECCA Lynn Ashley Position: Physician Warehouse Order Picker - Neurosurgery Member Role: Lifetime Relationship Address: [place] [phone] [place] Name: MD Sutton Dongsheng Position: Physician - Family Med Member Role: Primary Care Provider Address: [address] [facility] [address] [place] [address] [place] Name: REBECCA Dorsey Lynn Position: Physician Warehouse Order Picker Exempt - Vasc Surg Member Role: Lifetime Relationship Address: [address] [place] [address] 1 [place] [address] [place] Name: Lupis Auguste Kyle Position: Pharmacist Member Role: Pharmacy - Lifetime Address: [address] [place] [id number] [place] Care Team Related Persons Name: EVELYNE GROVER Name: PATSY ONEAL
--- OUTSIDE RECORDS SUMMARY | 2023-10-14 07:29 | External Medical Summary | Continuity of Care Document ---
Author Name Unknown Organization [facility] [address] Address [address] [place], [place] [id number] Care Team Providers Care Sales Support Assistant Name Role Phone Herman Faheem Primary Care Physician [phone] [id number] Date(s): 09/27/23 - 09/27/23 [facility] [address] [facility] [address] [facility], [address] [place], [place] [phone] Encounter Diagnosis Anemia, unspecified(Final) - Discharge Disposition: Home or Self Care Attending Physician: REBECCA Harris Amy Referring Physician: REBECCA Harris Amy Allergies, Adverse Reactions, Alerts Substance Criticality Severity [...] Disp# 16 g, PRN: allergy symptoms, Pharmacy: [facility] Start Date: 09/23/22 Status: Ordered gabapentin 100 mg oral capsule Start: 07/05/23 9:58:00 AM EDT, 2 cap, PO, bid, Disp# 120 cap, Refills: 2, Pharmacy: [place] [id number] Start Date: 07/05/23 Status: Ordered glipiZIDE 10 [...] Daily, Disp# 90 tab, Refills: 1, Pharmacy: [place] [address] Start Date: 09/01/23 Status: Ordered lisinopril 5 mg oral tablet Start: 09/29/23 4:26:00 PM EDT, 1 tab, PO, Daily, Disp# 90 tab, Refills: 3, Pharmacy: [place] [id number] Start Date: 09/29/23 Status: Ordered metFORMIN 500 mg oral tablet Start: 02/17/23 4:13:00 PM EST, See Instructions, Disp# 60 tab, Refills: 5, TAKE 1 TABLET BY MOUTH TWICE DAILY WITH MEALS, Pharmacy: [place] [id number] Start Date: 02/17/23 Status: Ordered One Touch Delica Plus (33G) Lancets Start: 01/27/23 12:02:00 PM EST, See Instructions, Disp# 100 each, Refills: 11, home glu qAm, Pharmacy: [facility] Start Date: 01/27/23 Status: Ordered One touch verio strips Start: 01/29/23 12:00:00 PM EST, One touch verio strips, eRx Product Type: Supply, See Instructions, Disp# 100 strip, Refills: 11, Use 1 strip to check glucose daily, Note to Pharmacy: E11.9, Pharmacy [id number] Start Date: 01/29/23 Status: Ordered OneTouch Verio In Vitro Strip Start: 10/13/22 9:25:00 AM EDT, OneTouch Verio In Vitro Strip, eRx Product Type: Supply, See Instructions, Disp# 100 each, Refills: 0, USE 1 STRIP TO CHECK GLUCOSE DAILY and prn, Pharmacy [id number] Start Date: 10/13/22 Status: Ordered Tylenol Start: 06/30/21 2:23:00 PM EDT, PRN pain Start Date: 06/30/21 Status: Ordered Zetia 10 mg oral tablet Start: 09/01/23 11:54:00 AM EDT, 1 tab, PO, Daily, Disp# 30 tab, Refills: 5, Pharmacy: [id number] Start Date: 09/01/23 Stop Date: [...] removal 3tonsil and adnoidectomy at age 12 [address], 1965 Results Laboratory List Name Date Complete Blood Count w Differential (CBC ,DIFFH) 09/27/23 Comprehensive Metabolic Panel (COMP META B PANEL) 09/27/23 Ferritin (FERRITIN) 09/27/23 Iron Profile (IRON PROFILE) 09/27/23 Lactate Dehydrogenase (LD) 09/27/23 Request to FAX Report (First Location) ( ACC NO TO BE FAXED) 09/27/23 Most recent to oldest [Reference Range]: 1 eGFR CKD-EPI [>60 mL/min/1.73 m2] 56 mL/ min/1.73 m2 1 *LOW* (09/27/23 8:22 AM) Estimated CrCl 49.56 mL/min (09/27/23 9:04 AM) Phone No [phone] (09/27/23 8:22 AM) Faxed on: 09/28/23 09:22 (09/27/23 8:22 AM) MPV [9.0-12.2 fL] 10.8 fL (09/27/23 8:22 AM) Immature Gran% 1.2 % (09/27/23 8:22 AM) Neut% 60.1 % (09/27/23 8:22 AM) Lymph% 25.1 % (09/27/23 8:22 AM) Meigs% 8.4 % (09/27/23 8:22 AM) Baso% 0.9 % (09/27/23 8:22 AM) Eos% 4.3 % (09/27/23 8:22 AM) Immat Gran, Abs [0-0.4 K/uL] 0.08 K/uL (09/27/23 8:22 AM) Neut, Abs [2.0-7.7 K/uL] 3.95 K/uL (09/27/23 8:22 AM) Lymph, Abs [1.0-3.4 K/uL] 1.65 K/uL (09/27/23 8:22 AM) Meigs, Abs [0-1.0 K/uL] 0.55 K/uL (09/27/23 8:22 AM) Baso, Abs [0-0.1 K/uL] 0.06 K/uL (09/27/23 8:22 AM) Eos, Abs [0-0.5 K/uL] 0.28 K/uL (09/27/23 8:22 AM) Type of Diff: AUTO *Unknown* (09/27/23 8:22 AM) RDW [11.5-14.2 %] 13.0 % (09/27/23 8:22 AM) Anion Gap [5-14 mmol/L] 8 mmol/L (09/27/23 8: AM) Alb [3.5-5.0 g/dL] 4.0 g/dL (09/27/23 8 AM) Alk Phos [38-126 unit/L] 87 unit/L (09/27/23 8: AM) ALT [<35 unit/L] 22 unit/L (09/27/23 8 AM) AST [15-46 unit/L] 21 unit/L (09/27/23 8: AM) BUN [7-20 mg/dL] 20 mg/dL (09/27/23 8: AM) Ca [8.4-10.2 mg/dL] 8.9 mg/dL (09/27/23: AM) Cl- [96-107 mmol/L] 104 mmol/L (09/27/23 8: AM) HCO3 [22-30 mmol/L] 24 mmol/L (09/27/23 AM) Cret [0.60-1.00 mg/dL] 1.02 mg/dL *HI* (09/27/23 8: AM) Iron [37-145 ug/dL] 96 ug/dL (09/27/23 8: AM) Ferritin [11.1-264.0 ng/mL] 591.9 ng/mL 3 *HI* (09/27/23 8: AM) Glu [74-106 mg/dL] 193 mg/dL *HI* (09/27/23: AM) Hct [35-44 %] 38.9 % (09/27/23 AM) Hgb [11.7-15.0 g/dL] 13.1 g/dL (09/27/23 8: AM) K [3.5-5.1 mmol/L] 4.7 mmol/L (09/27/23 8 AM) LDH [120-246 unit/L] 242 unit/L 4 (09/27/23 8: AM) MCH [28-33 pg] 32.0 pg (09/27/23 8: AM) MCHC [32-36 g/dL] 33.7 g/dL (09/27/23 8:22 AM) MCV [81-96 fL] 94.9 fL (09/27/23 8:22 AM) Na [137-145 mmol/L] 136 mmol/L *LOW* (09/27/23 8:22 AM) Plts [150-350 K/uL] 224 K/uL (09/27/23 8:22 AM) RBC [3.90-5.00 M/uL] 4.10 M/uL (09/27/23 8:22 AM) Fe Sat [14-50 %] 34 % (09/27/23 8:22 AM) T Bili [0.2-1.3 mg/dL] 0.7 mg/dL (09/27/23 8:22 AM) Total IBC [250-400 ug/dL] 281 ug/dL (09/27/23 8:22 AM) Prot [6.3-8.2 g/dL] 7.3 g/dL (09/27/23 8:22 AM) Transferrin [200-360 mg/dL] 238 mg/dL (09/27/23 8:22 AM) WBC [4.0-10.4 K/uL] 6.57 K/uL (09/27/23 8:22 AM) 1Result Comment: Testing Performed By: Dept of Pathology [facility] Joshua Bhandari, [address] [place] [address] 2Result Comment: Testing Performed By: Dept of Pathology [facility] Joshua Bhandari, [address] [place] [id number] 3Result Comment: Testing Performed By: Dept of Pathology [facility] Joshua Bhandari, [address] [place] [id number] 4Result Comment: Testing Performed By: Dept of Pathology [facility] Joshua Bhandari, [address] [place] [id number] Social History Social History Type Response Smoking [...] Personnel Name: REBECCA Lynn, Tomasa Position: Physician Fisher Trap - Neurosurgery Member Role: Lifetime Relationship Address: [address] [facility] [address] [place] [address] [place] Name: MD Sutton Dongsheng Position: Physician - Family Med Member Role: Primary Care Provider Address: [address] [facility] [address] [place] [address] [place] Name: REBECCA Dorsey Lynn Position: Physician Fisher Trap Exempt - Vasc Surg Member Role: Lifetime Relationship Address: [address] [facility] [address] [place] [address] [place] Name: Lupis Auguste Kyle Position: Pharmacist Member Role: Pharmacy - Lifetime Address: [address] [place] [address] Care Team Related Persons Name: EVELYNE GROVER Name: PATSY ONEAL
[2023-10-14 07:45] LABS: Hematocrit (blood only) 35.1 % (37.0-47.0); Mean Corpuscular Hemoglobin 30.5 pg (25.0-34.0); Mean Corpuscular Hgb Conc 34.2 g/dL (32.0-36.0); Mean Corpuscular Volume 89.1 fL (80.0-100.0); Mean Platelet Volume 9.7 fL (9.4-12.4); Platelet Count 179 K/uL (130-400); RDW Standard Deviation 42.5 fL (36.4-46.3); Red Blood Count 3.94 M/uL (4.20-5.40); White Blood Count 5.33 K/ul (4.8-10.8)
[2023-10-14 07:49] VITALS: RESP 16
[2023-10-14 08:08] LABS: BUN Creatinine Ratio 19.7 (10-20); Calcium 8.7 mg/dl (8.6-10.3); Est GFR (African American) 49.1 ml/min; Est GFR (Non-African American) 42.4 ml/min; Magnesium 1.8 mg/dl (1.7-2.4); Potassium 4.5 mmol/L (3.5-5.1)
[2023-10-14 08:21] LABS: Estimated Average Glucose 226 mg/dl; Hemoglobin A1C 9.5 % (4.5-5.6)
--- NOTE | 2023-10-14 08:33 | XRay Report ---
XR chest 1V not portable HISTORY: weakness, abnormal labs COMPARISON: Chest 04/22/2023. FINDINGS: There are low lung volumes. No pneumothorax. The heart remains mildly enlarged. There is mi ld central pulmonary vascular congestion without overt edema. No focal lung consolidations to suggest a pneumonia. No acute fractures. No pleural effusions. IMPRESSION: Cardiomegaly with mild congestive change. ACT 112: Negative or not required by law. Electronically signed by: Chino Worthy M.D. 10/14/2023 8:31 AM
[2023-10-14] MEDS: ASPIRIN 81 MG ECTAB PO SCH (09:11)
[2023-10-14] MEDS: GABAPENTIN 100 MG CAP PO SCH (09:11)
[2023-10-14] MEDS: MAGNESIUM OXIDE 400 MG TAB PO SCH (09:11)
[2023-10-14 15:23] VITALS: PULSE 82; TEMP 97.9; O2SAT 96
[2023-10-14 18:10] LABS: Influenza A virus by PCR Negative (Neg); Influenza B virus by PCR Negative (Neg); RSV by PCR Negative (Neg); SARS CoV2 RNA(COVID-19) Ceph POSITIVE (Negative)
--- NOTE | 2023-10-14 18:14 | CT Scan Report ---
CT OF THE HEAD WITHOUT CONTRAST CLINICAL HISTORY: mental status changes, h/o SAH COMPARISON STUDY: MRI of the brain January 02, 2023. Head CT April 11, 2023. CT DOSE: 1509.34 mGy.cm TECHNIQUE: Helical axial images of the head were obtained without IV contrast. Automated exposure con trol was utilized for the study. A dose lowering technique was utilized adhering to the principles o f ALARA. FINDINGS: No acute intracranial hemorrhage, midline shift or mass effect is present. The ventricular system is stable. Basal cisterns are patent. Trace hypodense bilateral subdural collections remain un changed. These are chronic. 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 White matter hypodensities are also unchanged. There are no findings to suggest acute dural sinus thrombosis or acute territori al infarct. There are no acute calvarial fractures. Status post left craniotomy. IMPRESSION: No acute intracranial findings. No change in appearance of the brain. ACT 112: Negative or not required by law. Electronically signed by: Thompson Barney M.D. 10/14/2023 6:12 PM
--- NOTE | 2023-10-14 19:10 | Discharge Summary ---
Discharge Summary Date of Service date of admission - October 13, 2023 date of discharge - October 14, 2023 Principal Dx & Hospital Course #1 = Principal Diagnosis (1) COVID-19 virus infection: On hospital day #2 a COVID-19 test was obtained and returned POSITIVE. COVID-19 infection was the likely cause of her pre-admission symptoms including weakness, lethargy, poor po intake, hyperglycemia (despite very poor appetite), confusion, and dehydration. It was uncertain what day of the illness she was during this stay, but potentially about 5 days into the illness. The patient lives with her daughter who provides all of her care. Her daughter felt comfortable with discharge to home with ongoing isolation at their house. A prescription for Paxlovid was given at time of discharge. If the patient's daughter elects to fill it she was encouraged to do so as quickly as possible to allow the most amount of efficacy. Of note - CXR did not show any pneumonia, o2 sats were wnl, and she had no respiratory symptoms while here. (2) Confusion: acute metabolic encephalopathy - likely due to COVID-19 infection improved prior to discharge home CT head did NOT show any acute ICH or CVA (3) Acute kidney injury: Presenting creatinine 1.75 Discharge creatinine 1.2 following IV hydration Baseline creatinine about 1 BRIANA likely pre-renal from poor po intake in the setting of COVID-19 infection (4) Hypomagnesemia: Magnesium 1.4 on arrival s/p IV Magnesium sulfate with resolution (5) Diabetes mellitus, type 2: HbA1c 9.5% Glucose 312 on admission Hyperglycemia likely due to stress of illness from her COVID-19 infection At discharge gave parameters for self-titration of her lantus to improve her gly cemic control Cont metformin Cont glipizide (6) HTN (hypertension): BP 200/83 on arrival, however patient did not take her evening antihypertensive medication prior to coming to [facility] BPs were labile during her brief stay Patient was agitated & upset about being in the hospital which may have been driving some of the high readings She will resume all of her prior BP meds and she should f/u with her PCP for ongoing management (7) Hx of deep venous thrombosis: S/p IVC filter (8) Renal lesion: seen on CT abd/pelvis 03/[address] reading -- "1.5 cm left renal lesion which is concerning for renal cell carcinoma" she actively follows with [facility] - Dr Mehid Lucero in fact, she just underwent an intra-bladder botox injection within the week prior to this admission Notes For Next Care Provider Medication Changes From Visit Addition of Paxlovid x 5 days (if desired by family) for COVID-19 infection (is at high risk of disease progression) Admission HPI Per Admitting Provider Catherine Henao is a 70-year-old female with PMH of urge incontinence, HTN, chronic kidney disease, DVT, T2DM, hypothyroidism, subarachnoid hemorrhage, hypertensive urgency, and renal lesion. She presented on 10/12 for cognitive decline x 1 week. Her daughter (any) is at the bedside and provides most the history. She reports that over the past week she has been increasingly lethargic, not moving well, and has exhibited some cognitive decline. Patient had a Botox injection into her bladder this summer, and there was concern for a UTI. She was then told to come into the ED following outpatient labs drawn that showed a change in her kidney function. Patient does endorse dark urine over the past week, but denies clinical signs of UTI such as suprapubic pain, burning with induration, dysuria, or lower back pain. She reports that she took all her regular morning medications today, but has not taken her evening medications, which includes Lantus 30u HS. only recent change medication was that her Lantus was increased from 20 to 30u HS. patient does have history of a fall 2 years ago which required [facility] for an emergency craniotomy (March 2021). She does have history of DVTs, but was taken off blood thinners after this event. She currently has an IVC filter. Patient reports she is going to [place] this weekend to visit her great grandson, and if possible would like to be out of the hospital by Wednesday. Patient lives with her daughter, and while she denies increased urinary frequency, daughter does note she has been getting up 2-3 times per night to use the bathroom. She also wears depends at home. Patient denies smoking, tobacco use, or recent alcohol use. She reports that she has a Tylenol PM every night before bed, as this is the only thing that can help her sleep. She is hypertensive at 200/83 at time of admission; vitals otherwise stable. ED course: NSS 500 m IV Magnesium sulfate 1 g IV x 2 ROS: Patient endorses hot flashes, fatigue, congestion (which patient attributes to allergies), dry cough, and darker urine. Patient denies fevers, chills, night-sweats, joint pains, chest pain, SOB, pleuritic CP, abdominal pain, dysuria, burning with urination, lower back pain, or suprapubic tenderness. Discharge Exam gen - NAD, sitting at side of the bed, nontoxic mouth - MMM neck - no JVD heart - RRR, s1 s2, no murmur lungs - CTA b/l abd - soft NT ND BS+ ext - 1-2+ edema especially the feet and ankles (lymphedema), pulses 2+ b/l psych - a/o x 1-2, a little agitated and upset Discharge Plan Discharge Items Patient Disposition: Home - Self-Care Reason For Visit: weakness, lethargy Discharge Diagnosis: 1. COVID-19 infection 2. Recent weakness, lethargy, dehydration - likely due to #1 3. Acute kidney injury (elevation in creatinine) - due to dehydration - resolved 4. Low magnesium - resolved 5. Elevated blood sugars - due to stress of #1 - slowly improving Activity: As commented below Activity Comment: gradually increase as tolerated over the next week Non-emergency contact: Primary Care Provider Call non-emergency contact if: you have any medication questions, your symptoms worsen and you have a fever Follow-up/Referrals: Faheem Sutton [Primary Care Provider] - Diet: Carb Consistent or DM2 Addtl Attending Provider Instructions: Ms Henao, You were hospitalized due to recent lethargy, weakness, dehydration, poor intake, high blood sugars, etc. This was likely due to COVID-19 infection. You received IV fluids. This improved your dehydration and your elevated creatinine level. Your blood sugars were quite high - likely due to the stress of your COVID infection. These have improved while here. Your magnesium level was low and you received IV magnesium; this is now normal. A CT of the head did NOT show any new bleeding or new stroke. Recommendations - 1. Out of abundance of caution please plan to stay at home and isolate until Wednesday, Oct 2. If on Wednesday you are feeling well, have no fever, and have developed no new cough or respiratory symptoms feel free to leave your home as you wish. 2. Please consider taking a 5-day course of "Paxlovid." This is an anti-viral for COVID. You meet the criteria to take it due to your age, diabetes, etc. Start this as soon as possible. This reduces the chances of your COVID getting worse. 3. If you experience any nausea you can take ondansetron 4mg every 6 hours as needed. 4. Focus on good nutrition and hydration over the next few days as you recover from your illness. 5. You may feel tired/weak over the next few days as you recover. 6. If your MORNING blood sugar remains consistently elevated over 150 over the next 3 days please consider increasing your lantus dose from 30 units to 33 units. 7. Please resume your magnesium supplement. Follow-up - see your family doctor next week once out of isolation Return to [facility] if - * you develop new fever over 100 degrees * you develop shortness of breath or chest pains * you have any concerns about new dehydration * any other concerns Please continue to feel better! Pending Studies at Discharge: No Stand-Alone Forms: [facility], Smoking Cessation Medications and DC Order Prescriptions: New Paxlovid 300 mg (150 mg x 2)-100 mg tablets,dose pack See Rx Instructions .ROUTE .COMPLEX Qty: 30 0RF Rx Instructions: take TWO 150 mg tablets of nirmatrelvir with ONE 100 mg tablet of ritonavir twice daily for 5 days ondansetron 4 mg tablet,disintegrating 4 mg PO Q6H PRN (Reason: nausea and vomiting) Qty: 10 0RF Continued (DME) OneTouch Verio test strips Strip See Rx Instructions .ROUTE Rx Instructions: As directed (DME) lancets [OneTouch Delica Lancets] 33 gauge misc See Rx Instructions .ROUTE Rx Instructions: As directed lisinopril 10 mg tablet 10 mg PO PM Hold Instructions: Resume on 04/01/23. hold and monitor BP at home. administer if SBP >160 or DBP >80 unless directed otherwise by primary care insulin glargine [Lantus Solostar U-100 Insulin] 100 unit/mL (3 mL) insulin pen 30 unit subcut QPM acetaminophen 500 mg tablet 1,000 mg PO Q8H PRN (Reason: PAIN/FEVER) levothyroxine 25 mcg tablet 25 mcg PO DAILY metformin 500 mg Tablet 500 mg PO BID cyanocobalamin (vitamin B-12) 500 mcg Tablet, Sublingual 500 mcg SUBLINGUAL QAM Rx Instructions: PER PT'S DAUGHTER "DOESN'T TAKE DAILY". glipizide 10 mg tablet extended release 24hr 10 mg PO DAILY aspirin 81 mg tablet,delayed release (DR/EC) 81 mg PO DAILY gabapentin 100 mg capsule 200 mg PO BID polyethylene glycol 3350 [Miralax] 17 gram/dose Powder 17 g PO DAILY PRN (Reason: Constipation) Rx Instructions: PER PT'S DAUGHTER "PUTS IN COFFEE WHEN NEEDED". cholecalciferol (vitamin D3) 10 mcg/drop (400 unit/drop) Drops 10 mcg PO DAILY Rx Instructions: PER PT'S DAUGHTER "PUT IN COFFEE". Magnesium Liquid 400 mg PO DAILY Rx Instructions: PER PT'S DAUGHTER, "PUTS IN COFFEE QAM". Discharge Orders: Discharge Order (Routine); Ordered 10/14/23 Ordered By: Roman Peralta/Other Patient Handouts: Paxlovid 5-Day Oral Tablet 150 mg/100 mg (nirmatrelvir/ritonavir) Admission Data Admit Date/Time: 10/13/23 21:45 Attending Provider: Roman Samuel Admit Provider: Alma Delia Craig Primary Care Provider: Faheem Sutton Other Providers: Alma Delia Craig Other Interventions: Discharge Summary Assessment (RN) Last Done: 10/14/23 19:17 Hospital Stay Data Diagnostic Imagining Performed Chest X-Ray 10/13/23 17:25 XR chest 1V not portable HISTORY: weakness, abnormal labs COMPARISON: Chest 04/22/2023. FINDINGS: There are low lung volumes. No pneumothorax. The heart remains mildly enlarged. There is mild central pulmonary vascular congestion without overt edema. No focal lung consolidations to suggest a pneumonia. No acute fractures. No pleural effusions. IMPRESSION: Cardiomegaly with mild congestive change. ACT 112: Negative or not required by law. Electronically signed by: Chino Worthy M.D. 10/14/2023 8:[address] 10/14/23 16:35 CT OF THE HEAD WITHOUT CONTRAST CLINICAL HISTORY: mental status changes, h/o [facility] COMPARISON STUDY: MRI of the brain January 02, 2023. Head CT April 11, 2023. CT DOSE: 1509.34 mGy.cm TECHNIQUE: Helical axial images of the head were obtained without IV contrast. Automated exposure control was utilized for the study. A dose lowering technique was utilized adhering to the principles of ALARA. FINDINGS: No acute intracranial hemorrhage, midline shift or mass effect is present. The ventricular system is stable. Basal cisterns are patent. Trace hypodense bilateral subdural collections remain unchanged. These are chronic. 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 White matter hypodensities are also unchanged. There are no findings to suggest acute dural sinus thrombosis or acute territorial infarct. There are no acute calvarial fractures. Status post left craniotomy. IMPRESSION: No acute intracranial findings. No change in appearance of the brain. ACT 112: Negative or not required by law. Electronically signed by: Thompson Barney M.D. 10/14/2023 6:12 PM Pending Results Patient Have Any Pending Studies at Discharge: No Discharge Instructions Given to Patient (Per Discharging Provider) Ms Henao, Cl were hospitalized due to recent lethargy, weakness, dehydration, poor intake, high blood sugars, etc. This was likely due to COVID-19 infection. You received IV fluids. This improved your dehydration and your elevated creatinine level. Your blood sugars were quite high - likely due to the stress of your COVID infection. These have improved while here. Your magnesium level was low and you received IV magnesium; this is now normal. A CT of the head did NOT show any new bleeding or new stroke. Recommendations - 1. Out of abundance of caution please plan to stay at home and isolate until Wednesday, Oct 2. If on Wednesday you are feeling well, have no fever, and have developed no new cough or respiratory symptoms feel free to leave your home as you wish. 2. Please consider taking a 5-day course of "Paxlovid." This is an anti-viral for COVID. You meet the criteria to take it due to your age, diabetes, etc. Start this as soon as possible. This reduces the chances of your COVID getting worse. 3. If you experience any nausea you can take ondansetron 4mg every 6 hours as needed. 4. Focus on good nutrition and hydration over the next few days as you recover from your illness. 5. You may feel tired/weak over the next few days as you recover. 6. If your MORNING blood sugar remains consistently elevated over 150 over the next 3 days please consider increasing your lantus dose from 30 units to 33 units. 7. Please resume your magnesium supplement. Follow-up - see your family doctor next week once out of isolation Return to [facility] if - * you develop new fever over 100 degrees * you develop shortness of breath or chest pains * you have any concerns about new dehydration * any other concerns Please continue to feel better! Total Time Total Time Spent Total Time Spent (In Minutes): 50 Coding Level of Care Code 99416 INP/OBS DISCH >30 MIN Diagnoses COVID-19 virus infection U07.1 Confusion R41.0 Acute kidney injury N17.9 Hypomagnesemia E83.42 Diabetes mellitus, type 2 E11.9 HTN (hypertension) I10 Hx of deep venous thrombosis Z86.718 Renal lesion N28.9
[2023-10-14 19:18] VITALS: BP 176/80
--- NOTE | 2023-10-15 23:43 | Electrocardiogram Report ---
Test Reason : Blood Pressure : */* mmHG Vent. Rate : 81 BPM Atrial Rate : 81 BPM P-R Int : 200 ms QRS Dur : 90 ms QT Int : 400 ms P-R-T Axes : 18 -54 66 degrees QTcB Int : 464 ms Normal sinus rhythm Left anterior fascicular block Possible Anterior infarct Abnormal ECG When compared with ECG of 22-Apr-2023 13:51, No significant change was found Confirmed by Ector Marti ([id number]) on 10/15/2023 11:43:12 PM Referred By: REFERRED SELF Confirmed By: Ector Marti
== END 2023-10-14 19:35 | disposition home or self-care (01) ==
LOC: 3N 17:13 → ED 17:13 → SUATTDRO 21:45 → 3N 22:31
DX: Z79.4 Long term (current) use of insulin; E03.9 Hypothyroidism, unspecified; Z66 Do not resuscitate; E11.22 Type 2 diabetes mellitus with diabetic chronic kidney disease; I12.9 Hypertensive chronic kidney disease with stage 1 through stage 4 chronic kidney disease, or unspecified chronic kidney disease; Z79.84 Long term (current) use of oral hypoglycemic drugs; Z79.899 Other long term (current) drug therapy; Z86.73 Personal history of transient ischemic attack (TIA), and cerebral infarction without residual deficits; E83.42 Hypomagnesemia; N17.9 Acute kidney failure, unspecified; Z86.718 Personal history of other venous thrombosis and embolism; E11.65 Type 2 diabetes mellitus with hyperglycemia; N18.9 Chronic kidney disease, unspecified; E86.0 Dehydration; Z79.82 Long term (current) use of aspirin; Z88.1 Allergy status to other antibiotic agents; U07.1 COVID-19; F43.9 Reaction to severe stress, unspecified